=== PATIENT | female | born 1945 | race Caucasian/White ===

== ENCOUNTER 2023-02-16 10:51 | Outpatient (AMB) | payer MEDICARE, SELFPAY ==
--- NOTE | 2023-02-16 11:18 | HO.SPINEOV ---
Intake Intake Visit Reasons: radiculopathy/spinal stenosis Intake Note: Ms. Read is here today c/o low back pain radiating into both legs. MRI done @ [place]/brought disc. Consulting Services Project Manager Required: No Allergies No Known Allergies [No Known Allergies*] Allergy (Unverified 11/01/19 18:37) Assessment & Plan Assessment & Plan (1) Lumbosacral stenosis without neurogenic claudication: Code(s): M48.07 - Spinal stenosis, lumbosacral region Plan: Dear colleague Thank you for referring Paulette Read to the office today with a chief complaint of bilateral leg pain. HPI: This 77-year-old female is suffering from lumbar spinal stenosis resulting in pain down both legs with the left side is more affected than the right side. Her symptoms started about 15 years ago and were always managed with some form of conservative treatment ranging from physical therapy to injections. Unfortunately, the conservative measurements no longer work. Therefore she is referred for a surgical consultation. The symptoms developed after 1 or 2 minutes of standing or walking. She now history ambulate with a walker as leaning forward provides relief. The following conservative treatment options were tried without success antiinflammatories, tylenol, physical therapy, cortisone shots PMH: Repair broken hip, hypertension, depression, osteopenia Medications: Clonazepam p.r.n. tramadol, ketorolac, alendronate, fluoxetine, atenolol, losartan, nortriptyline, amlodipine, aspirin, triamcinolone Allergies: NKDA Social history: Lives alone. Nonsmoker. Physical Exam: Pleasant female ambulates with a walker. No neurological deficits for motor sensation or reflexes on exam. She is able to reproduce radiating pain down her legs after 1 minutes of standing in the office. Radiological Studies: MRI done at [facility] on 12/31/2022 shows a grade 2 L4-5 spondylolisthesis and associated severe L4-5 central spinal stenosis and bilateral L4 foraminal narrowing. The remainder of the lumbar spine is unremarkable. The L4-5 grade 2 spondylolisthesis was confirmed with a standing x-ray today. Impression/Plan: This 77-year-old female is suffering from progressive symptoms of neurogenic claudication caused by a grade 2 L4-5 spondylolisthesis and associated spinal stenosis. The best treatment option would be to minimally invasive reduce the spondylolisthesis, which will indirectly decompress the nerve structures. I described the oblique lumbar interbody fusion to the patient and she wants to proceed. She is scheduled for 04/24/2023. She will get preoperative clearance from her primary care physician. Thank you for allowing me to participate in your patients care. total time spent was 50 minutes in counseling ,coordination of plan, personal review of imaging, surgical decision making and subsequent plan Kristian Zaldivar MD, PhD Spine Fellowship Trained Neurosurgeon Director, [facility] (2) Spondylolisthesis of lumbar region: Code(s): M43.16 - Spondylolisthesis, lumbar region Plan: g Orders: Orders XR lumbar spine 4V min Today M43.16 - Spondylolisthesis, lumbar region, M48.07 - Spinal stenosis, lumbosacral region Coding Level of Care Code New Pt Level 5 (56302) Diagnoses Lumbosacral stenosis without neurogenic claudication M48.07 Spondylolisthesis of lumbar region M43.16
== END 2023-02-16 12:29 | disposition home or self-care (01) ==
PROVIDERS: PCP Physician Assistant Medical; Referring Provider Physical Medicine & Rehabilitation; Visit Provider Neurological Surgery
DX: M48.07 Spinal stenosis, lumbosacral region (principal); M43.16 Spondylolisthesis, lumbar region
CPT/HCPCS: 99205

== ENCOUNTER 2023-02-16 10:51 | Outpatient (REF) | payer MEDICARE, SELFPAY ==
--- NOTE | ~2023-02-16 | XR_ITS ---
EXAMINATION: XR LUMBOSACRAL SPINE WITH OBLIQUES CLINICAL INFORMATION: Spondylolisthesis. COMPARISON: Left hip of 10/03/2019. TECHNIQUE: 4 views of the lumbosacral spine inclusive of flexion and extension views. FINDINGS: The bones are diffusely demineralized. Dextroscoliosis of the lumbar spine. Bones are diffusely demineralized. Calcifications overlie the left kidney measuring up to 5 mm and could be evaluated further with renal ultrasound. Facet arthritis in the mid to lower lumbar spine. Multilevel lumbar spondylosis. Severe degenerative changes with loss of disc space height at L4-L5. Anterolisthesis of L4 on L5 measures 1.5 cm. Moderate loss of disc space height at L5-S1. Anterolisthesis of L5 on S1 measures 1.8 cm. XR/XR lumbar spine 4V min IMPRESSION: 1. Advanced degenerative disc disease with anterolisthesis at L4-L5 and L5-S1. 2. Facet arthritis in the mid to lower lumbar spine.
== END 2023-02-16 10:52 | disposition home or self-care (01) ==
LOC: HO.HOSX 10:51
PROVIDERS: Visit Provider Neurological Surgery
DX: M48.07 Spinal stenosis, lumbosacral region (principal); M43.16 Spondylolisthesis, lumbar region
CPT/HCPCS: 72110; 99202

== ENCOUNTER 2023-05-03 06:19 | Inpatient (IN) | payer MEDICARE, SELFPAY ==
[2023-04-20 12:16] VITALS: BP 156/70; PULSE 55; RESP 20; O2SAT 100; BMI 25.7
--- NOTE | 2023-04-20 12:25 | HO.ANESPROP2 ---
Documented by User: Grace Walls NP 05/02/23 15:25 HPI - Anesthesia Eval Consult details Narrative: 78yo F for L4-5 Oblique Lumbar Interbody Fusion, 05/03/23 Medically cleared No recent illness No CP/SOB within limits of pain. Hyperparathyroid. Follows endocrine at [facility] forearm swelling. Started years ago, work up at that time revealed no clear etiology. Mcmahan's Palsy. ~2013 [facility] Active Problems Active Problems: All Active Problems (Updated 04/20/23 @ 12:09 by Yara Gautam RN) Lumbosacral stenosis without neurogenic claudication (Acute) Spondylolisthesis of lumbar region (Acute) Past Medical History Medical History (Updated 04/26/23 @ 10:53 by Yara Gautam RN) Osteoporosis Left arm swelling HTN (hypertension) Diverticulosis Osteopenia Mcmahan's palsy Chronic renal insufficiency Hyperparathyroidism Basal cell carcinoma Osteoarthritis Depression with anxiety Family History Family history of problems with anesthesia: No Surgical History Surgical History (Updated 04/20/23 @ 12:10 by Yara Gautam RN) History of dental surgery History of hip surgery Hx of breast biopsy H/O colonoscopy History of Problems with Anesthesia: No Social History Social History (Updated 04/19/23 @ 08:35 by Yara Gautam RN) Are you a primary chronic care nurse to a significant other at home: No Do you presently have visiting nurse or other home services: No Patient Tobacco Use Status: Former Tobacco user Quit Date: 1973 Tobacco use type: Cigarette Years Smoked: 16 Use of substances other than those prescribed or required for medical reasons: No Have you been hit, kicked, punched, or otherwise hurt by someone within the past year? If so, by whom?: No Are you DNR?: No Advance Directives Information Provided: Yes (as above noted) Advance Directives on File: No Recently lost weight without trying: No Eating poorly because of decreased appetite: No Nutrition Risks: Surgical patient >75years Poor oral hygiene: No (full upper 7 partial lower denture) Meds Allergies Allergy/AdvReac Type Severity Reaction Status Date / Time No Known Allergies Allergy Unverified 11/01/19 18:37 [No Known Allergies*] Home Medications Medication Instructions Recorded Confirmed Last Taken Type alendronate 70 mg tablet 70 mg PO QWEEK 04/19/23 04/19/23 05/02/23 History amlodipine 10 mg tablet 10 mg PO QAM 04/19/23 04/20/23 05/03/23 History aspirin 81 mg tablet,delayed 81 mg PO BEDTIME 04/19/23 04/20/23 04/26/23 History release atenolol 100 mg tablet 100 mg PO QAM 04/19/23 04/20/23 05/03/23 History clonazepam 0.5 mg tablet 0.5 mg PO BID PRN anxiety 04/19/23 04/19/23 05/03/23 History fluoxetine 20 mg capsule 20 mg PO QAM 04/19/23 04/20/23 05/02/23 History ketorolac 0.5 % eye drops 1 drp ophthalmic (eye) TID PRN Dry 04/19/23 04/20/23 05/02/23 History Eyes losartan 25 mg tablet 25 mg PO QAM 04/19/23 04/20/23 05/02/23 History multivitamin 1 tab PO QAM 04/19/23 04/20/23 05/02/23 History nortriptyline 75 mg capsule 75 mg PO BEDTIME 04/19/23 04/19/23 05/02/23 History acetaminophen 500 mg tablet 1,000 mg PO Q6H PRN Pain 04/20/23 04/20/23 05/02/23 History Exam Height,Weight and Vital Signs: Height 5 ft 1 in Weight 61.7 kg Last Vital Signs Pulse 55 04/20/23 12:16 Resp 20 04/20/23 12:16 BP 156/70 H 04/20/23 12:16 Pulse Ox 100 04/20/23 12:16 O2 Del Method Room Air 04/20/23 12:16 Pertinent Lab Results Pertinent Lab Results: Lab Results 04/20/23 04/20/23 Range/Units 12:54 13:01 WBC 7.3 (4.8-10.8) X10*3/uL RBC 3.55 L (4.20-5.50) X10*6/uL Hgb 11.5 L (12.0-16.0) g/dl Hct 35.8 L (37.0-47.0) % MCV 100.8 H (80.0-98.0) fL MCH 32.4 (27.0-33.0) pg MCHC 32.1 (31.0-35.0) g/dl RDW 12.9 (11.0-16.0) % Plt Count 237 (160-400) X10*3/uL MPV 12.4 H (9.4-12.3) fL Absolute Nucleated RBC 0.000 (0.0-0.012) X10*3/uL Nucleated RBC % (auto) 0.0 (0.0-0.2) /100WBC Sodium 139 (135-145) mmol/L Potassium 5.0 (3.3-5.1) mmol/L Chloride 105 (96-108) mmol/L Carbon Dioxide 29 (22-29) mmol/L Anion Gap 10 L (12-20) BUN 26 H (9-16) mg/dL Creatinine 0.89 (0.5-1.4) mg/dL Estim Creat Clear Calc 43.1 Estimated GFR > 60 Random Glucose 98 (60-115) mg/dL Calcium 10.6 H (8.4-10.2) mg/dL Blood Type O Positive Antibody Screen NEGATIVE Narrative Narrative: EKG 04/2023 per clearance note NSR Airway Mallampati Class: III TM Dist: >3cm Neck ROM: Full Heart: RRR Lungs: CTAB Assessment and Plan Assessment Anesthesia Assessment: Anesthesia Plan Discussed and PAT Visit Final Anesthetic Review Family History of Problems with Anesthesia: No History of Problems with Anesthesia: No Documented by User: Dima Penny MD 05/03/23 07:32 [facility] Past Medical History Medical History (Updated 04/26/23 @ 10:53 by Yara Gautam RN) Osteoporosis Left arm swelling HTN (hypertension) Diverticulosis Osteopenia Mcmahan's palsy Chronic renal insufficiency Hyperparathyroidism Basal cell carcinoma Osteoarthritis Depression with anxiety Surgical History Surgical History (Updated 04/20/23 @ 12:10 by Yara Gautam RN) History of dental surgery History of hip surgery Hx of breast biopsy H/O colonoscopy Social History Social History (Updated 04/19/23 @ 08:35 by Yara Gautam RN) Are you a primary chronic care nurse to a significant other at home: No Do you presently have visiting nurse or other home services: No Patient Tobacco Use Status: Former Tobacco user Quit Date: 1973 Tobacco use type: Cigarette Years Smoked: 16 Use of substances other than those prescribed or required for medical reasons: No Have you been hit, kicked, punched, or otherwise hurt by someone within the past year? If so, by whom?: No Are you DNR?: No Advance Directives Information Provided: Yes (as above noted) Advance Directives on File: No Recently lost weight without trying: No Eating poorly because of decreased appetite: No Nutrition Risks: Surgical patient >75years Poor oral hygiene: No (full upper 7 partial lower denture) Meds Allergies Allergy/AdvReac Type Severity Reaction Status Date / Time No Known Allergies Allergy Unverified 11/01/19 18:37 [No Known Allergies*] Home Medications Medication Instructions Recorded Confirmed Last Taken Type alendronate 70 mg tablet 70 mg PO QWEEK 04/19/23 04/19/23 05/02/23 History amlodipine 10 mg tablet 10 mg PO QAM 04/19/23 04/20/23 05/03/23 History aspirin 81 mg tablet,delayed 81 mg PO BEDTIME 04/19/23 04/20/23 04/26/23 History release atenolol 100 mg tablet 100 mg PO QAM 04/19/23 04/20/23 05/03/23 History clonazepam 0.5 mg tablet 0.5 mg PO BID PRN anxiety 04/19/23 04/19/23 05/03/23 History fluoxetine 20 mg capsule 20 mg PO QAM 04/19/23 04/20/23 05/02/23 History ketorolac 0.5 % eye drops 1 drp ophthalmic (eye) TID PRN Dry 04/19/23 04/20/23 05/02/23 History Eyes losartan 25 mg tablet 25 mg PO QAM 04/19/23 04/20/23 05/02/23 History multivitamin 1 tab PO QAM 04/19/23 04/20/23 05/02/23 History nortriptyline 75 mg capsule 75 mg PO BEDTIME 04/19/23 04/19/23 05/02/23 History acetaminophen 500 mg tablet 1,000 mg PO Q6H PRN Pain 04/20/23 04/20/23 05/02/23 History Exam Airway Denture: Upper and Lower Assessment and Plan Assessment Anesthesia Assessment: Chart Reviewed Final Anesthetic Review NPO: Yes ASA Class: II Final Preanesthetic Review: No Changes in Pt Med Stat, Meds/Allgs Chart Reviewed, Consent Obtained/Reviewed and Anes Risks/Benef Reviewed Patient Risk: Intermediate Procedure Risk: Intermediate Anesthetic Plan Anesthetic Plan: GA Disposition: Standard PACU
[2023-04-20 13:46] LABS: Hematocrit 35.8 % (37.0-47.0); Hemoglobin 11.5 g/dl (12.0-16.0); Mean Corpuscular HGB Conc 32.1 g/dl (31.0-35.0); Mean Corpuscular Hemoglobin 32.4 pg (27.0-33.0); Mean Corpuscular Volume 100.8 fL (80.0-98.0); Mean Platelet Volume 12.4 fL (9.4-12.3); Platelet Count 237 X10*3/uL (160-400); Red Blood Count 3.55 X10*6/uL (4.20-5.50); Red Cell Distribution Width 12.9 % (11.0-16.0); White Blood Count 7.3 X10*3/uL (4.8-10.8)
[2023-04-20 14:50] LABS: Anion Gap 10 (12-20); Blood Urea Nitrogen 26 mg/dL (9-16); Calcium 10.6 mg/dL (8.4-10.2); Carbon Dioxide 29 mmol/L (22-29); Chloride 105 mmol/L (96-108); Creatinine Clr Calc Pharmacy 43.1; Estimated Glomerular Filt Rate > 60; Glucose Random 98 mg/dL (60-115); Sodium 139 mmol/L (135-145)
[2023-05-03] VITALS (13 sets, daily range): BP systolic 101–132; BP diastolic 47–64; PULSE 59–88; RESP 12–18; TEMP 36–36.3; O2SAT 95–100; BMI 28.7
--- NOTE | ~2023-05-03 | FL_ITS ---
EXAMINATION: XR FLUOROSCOPY WITH IMAGES CLINICAL INFORMATION: L4-5 oblique lumbar interbody fusion. COMPARISON: Lumbar spine radiographs 02/16/2023. TECHNIQUE: Fluoroscopy Supervised By: Dr. Harry Zaldivar. Fluoroscopy Time: 2.5 minutes. Cumulative Dose: 99.623 mGy. DAP: 38.570 Gycm2. Images: 3. FINDINGS: 3 images demonstrate posterior pedicular screws with vertical stabilization rods at L4-L5 with an interbody device. There is grade 2 anterolisthesis of L5 upon S1 and mild grade 1 anterolisthesis of L4 upon L5. Compared with the 02/16/2023 exam, there has been marked improvement in the anterolisthesis at the L4-L5 level. FL/FL guidance in OR IMPRESSION: Fluoroscopy and spot films provided during L4-L5 fusion. Please see Dr. Harry Zaldivar' procedure note for full details.
[2023-05-03] MEDS: Lactated Ringers 1,000 ML 100 ML IVCONT (06:45)
[2023-05-03] MEDS: Gabapentin 300 MG CAPSULE PO (06:45)
[2023-05-03] MEDS: methocarbamoL 750 MG TABLET PO (06:45)
--- NOTE | 2023-05-03 06:56 | P.HPSUR_ITS ---
Pre-Procedural Eval Section A - 24 Hr Update-Section A only Date of Service: 05/03/23 The patient is an INPATIENT: No Changes since office visit: No Cold of Flu in the past 2 weeks, No New Medical Problems, No Changes in Medication and No Patient answered all questions The patient has been examined within 24 hours of the surgical procedure. The History & Physical has been completed within 30 days and I have reviewed it.: No Section B - Complete if H&P > 30 days Chief Complaint: Lumbar radiculopathy Allergies: Allergies Allergy/AdvReac Type Severity Reaction Status Date / Time No Known Allergies Allergy Unverified 11/01/19 18:37 [No Known Allergies*] Review of Systems Sugical H&P ROS: Negative: Constitution, Cardiovascular, Respiratory, Neurological, Psychiatric, Hem-Onc, Allergic/Immunologic, Gastrointestinal, Genitourinary, Musculoskeletal, Integumentary, Endocrine and Eyes/Ears/Nose/Thr oat Exam Surgical H&P Exam: Not Evaluated: HEENT, Not Evaluated: Heart, Not Evaluated: Lungs, Not Evaluated: Extremities, Not Evaluated: Abdomen, Not Evaluated: Skin and Not Evaluated: Neurological Plan Diagnosis/Plan: Unchanged L4-5 Oblique lumbar interbody fusion Time Spent With Patient Time: Total time managing care of this patient today _7___ minutes.
--- NOTE | 2023-05-03 07:16 | PC.NURSE ---
Pt reports right lower abdominal fold with rash using cream, split on right thumb (b/a cdi) for skin alterations.
--- NOTE | 2023-05-03 07:34 | PC.NURSE ---
0715 Anesthesia at bedside.
--- NOTE | 2023-05-03 07:35 | PC.NURSE ---
0720 / Zen at bedside
--- NOTE | 2023-05-03 07:47 | PHA.MEDREC ---
Pharmacy Consult ? Medication Reconciliation Pharmacy has completed the medication reconciliation. Checked med rec done by nursing
--- NOTE | 2023-05-03 09:56 | P.OP_ITS ---
Operative Note Operative Note Date of Service: 05/03/23 Narrative: Preop Diagnosis: 1.) L4-5 spondylolisthesis and neurogenic claudication Procedure: L4-5 discectomy, arthrodesis and implantation cage through an anterolateral, retroperitoneal approach; posterior instrumented fusion L4-5; allograft Consent Informed Consent was obtained for this operation. I have explained the nature, purpose and benefits of the operation. I have discussed the risks and benefit of the operation including possible complications or adverse events with patient/family. Alternative(s) were discussed with the patient with their relative benefits and risks as well as the consequences of not accepting the operation were included in obtaining consent. Surgeon: LEA VALLE MD, PHD Procedure Assisted By: severino Herrera Description of Procedure This patient is suffering from neurogenic claudication due to a grade 2 L4-5 spondylolisthesis. The patient was offered an oblique lumbar interbody fusion L4-5 to reduce the spondylolisthesis and indirectly decompress the spinal canal. The procedure complications were explained. The patient was consented. The patient was brought to the operating room and endotracheally intubated. The patient was turned in a lateral position with the left side up. Prep and drape was done followed by timeout. A small incision was made in the left lower abdominal quadrant. The muscle fascia was opened after which the 3 muscle layer was split to enter the retroperitoneal space. Dilators were docked in the anterior one third of the L4-5 disc space followed by a retractor. The retractor was opened. The L4-5 disc space was exposed. An annulotomy was done after which an elevator Zarco was used to release the disc material from its endplates and to perforate the contralateral side. A partial discectomy was done. An 8 mm height trial implant was inserted. The discectomy was completed. The endplates were prepared. An 8 x 45 mm with 0 degree lordosis 4 web cage filled with allograft was inserted into the disc space under fluoroscopic guidance. This resulted in partial reduction of the lumbar spondylolisthesis. The retractor was removed. Hemostasis was done. The incision was closed in 2 layers. Steri-Strips used to approximate incision. An OpSite with Tegaderm was used to cover the incision. This marked first part of the procedure. The patient was turned prone on the Maximino spine table. 2C arms were installed for fluoroscopy. Prep and drape was done followed by a second timeout. First, a muscularis erector spinae block was done bilaterally with experal 10 cc bilaterally . Then 2 paramedian incisions were made lateral from the L4 and L5 pedicles. The muscle fascia was opened after which the muscle layer was split bluntly to expose the posterolateral gutter. The following steps were taken. A pediguard tap was used to create a transpedicular trajectory into the vertebral body. A K wire was placed. A specially designed instrument was advanced over the K wire to decorticate the posterolateral gutter in preparation for the posterol ateral fusion. A pedicle screw was advanced over the K wire and the K wire was removed. The steps were done for the bilateral L4 and L5 pedicles. A total of 4 screws were placed with a diameter of 6.5 x 45 mm in the left L4 and bilateral L5 pedicles and 7.5 x 45 mm in the right L5 pedicle. Pedicle screws were connected with 45 mm akosua bilaterally and locked down with locking caps. The extension towers were removed. The posterolateral gutter was filled with allograft to complete the posterolateral L4-5 fusion Hemostasis was done and the incision was closed in 2 layers. Steri-Strips were used to approximate the incision. An OpSite were taken and was used to cover the incision. All sponge and needle counts were correct. Patient was extubated and transferred in stable is to recovery room. Anesthesia: General Estimated Blood Loss (ml): 50 mL Duration of Surgery: 90 minutes Complications: None Postoperative Plan: Admit to inpatient for observation
[2023-05-03] MEDS: 0.9 % Sodium Chloride 1,000 ML 75 ML IVCONT (12:41)
[2023-05-03] MEDS: FLUoxetine HCl 20 MG CAPSULE PO (12:48)
[2023-05-03] MEDS: Multivitamin TABLET 1 TAB PO (12:52)
[2023-05-03] MEDS: Acetaminophen 1,000 MG/100 ML PIGGYBACK 400 MG IV ×2 (14:53→20:54)
[2023-05-03] MEDS: ceFAZolin Sodium/Dextrose,Iso 2 GM/50 ML PIGGYBACK IV ×2 (15:19→22:18)
[2023-05-03] MEDS: Ketorolac Tromethamine 15 MG/ML VIAL IVPUSH ×2 (16:34→20:53)
[2023-05-03] MEDS: Nortriptyline HCl 25 MG CAPSULE 75 MG PO (20:52)
[2023-05-03] MEDS: Docusate Sodium 100 MG CAPSULE PO (20:53)
[2023-05-03] MEDS: Aspirin Enteric Coated 81 MG TABLET.DR PO (20:53)
[2023-05-04] MEDS: 0.9 % Sodium Chloride 1,000 ML 75 ML IVCONT (02:10)
[2023-05-04] MEDS: Acetaminophen 1,000 MG/100 ML PIGGYBACK 400 MG IV (02:40)
[2023-05-04] MEDS: ceFAZolin Sodium/Dextrose,Iso 2 GM/50 ML PIGGYBACK IV (03:16)
[2023-05-04 03:27] VITALS: BP 117/56; PULSE 80; RESP 16; TEMP 36.3; O2SAT 96
[2023-05-04] MEDS: Ketorolac Tromethamine 15 MG/ML VIAL IVPUSH (05:05)
[2023-05-04 06:51] VITALS: BP 100/58; PULSE 79; RESP 16; TEMP 36.6; O2SAT 97
[2023-05-04] MEDS: Losartan Potassium 25 MG TABLET PO (08:35)
[2023-05-04] MEDS: atenoloL 100 MG TABLET PO (08:36)
[2023-05-04] MEDS: amLODIPine Besylate 10 MG TABLET PO (08:36)
[2023-05-04] MEDS: Docusate Sodium 100 MG CAPSULE PO (08:36)
[2023-05-04] MEDS: FLUoxetine HCl 20 MG CAPSULE PO (08:36)
--- NOTE | 2023-05-04 08:58 | PM.DS ---
DS: Providers Provider Date of Service: 05/04/23 Date of admission: 05/03/23 06:19 Primary care physician: BRADY Caldwell DS: Summary Time Attestation Discharge Coordination Time (in mins): 15 Quality: Safe Use of Opioids Does Pt have an Active Cancer Diagnosis on the Problem List?: No Quality: Stroke Does the patient have a stroke diagnosis?: No Physical Exam Vital Signs: Vital Signs: Last Vital Signs Temp 98 F 05/04/23 06:51 Pulse 79 05/04/23 06:51 Resp 16 05/04/23 06:51 BP 100/58 L 05/04/23 06:51 Pulse Ox 97 05/04/23 06:51 O2 Del Method Room Air 05/04/23 06:51 O2 Flow Rate 2 05/03/23 12:28 BMI result Body Mass Index 28.7 Discharge Plan Discharge Anticipated Discharge Date/Time: 05/04/23 09:04 Patient Disposition: Home, Self-Care Discharge Diagnosis: S/P L 4-5 OLIF Referrals: Daryl Guerin PA [Primary Care Provider] - 1 Week Discharge Medications: New oxycodone 5 mg tablet 5 mg PO Q4-6H PRN (Reason: severe pain (scale score 7-10)) Qty: 30 0RF Rx Instructions: Partial Fill upon patient request. Continued multivitamin Tablet 1 tab PO QAM atenolol 100 mg tablet 100 mg PO QAM alendronate 70 mg tablet 70 mg PO QWEEK clonazepam 0.5 mg tablet 0.5 mg PO BID PRN (Reason: anxiety) aspirin 81 mg Tablet,Delayed Release (Dr/Ec) 81 mg PO BEDTIME ketorolac 0.5 % drops 1 drp ophthalmic (eye) TID PRN (Reason: Dry Eyes) amlodipine 10 mg tablet 10 mg PO QAM nortriptyline 75 mg capsule 75 mg PO BEDTIME losartan 25 mg tablet 25 mg PO QAM fluoxetine 20 mg capsule 20 mg PO QAM acetaminophen 500 mg Tablet 1,000 mg PO Q6H PRN (Reason: Pain) Discharge Orders: Discharge Order (Routine); Ordered 05/04/23 Ordered By: Zachariah Chen Diet: Advance to usual diet Activity on Discharge: As tolerated Stand Alone Forms: Patient Portal Discharge page Activity Restrictions/Additional Instructions: After your spinal surgery we ask you to observe the following restrictions/guidelines: Activity: It is normal to feel some discomfort as you increase your activity, but that will improve with time. We ask you avoid heavy lifting or acitivities that cause pain. As a general rule, 8lbs is a safe limit for lifting right after surgery. Walk as much as you feel comfortable but not to exhaustion. You will feel extra tired the first few days after surgery. Stay well hydrated. It is OK to walk up and down stairs You may return to driving when you are off narcotics (such as vicodin, oxycodone, dilaudid, etc), and you are back to normal functional capacity. If you have any concerns please check with office before driving. Return to work is specific to each patient and each surgery, so please speak with your doctor/PA at first follow up. Please bring paperwork such as FMLA at that time if you need it filled out. Medications: We will give you a short supply of narcotics after surgery (usually one weeks worth). If you need more please call the office but do not use more than prescribed. You will need to give our office 48 hours notice if you need narcotics refilled and we do not fill narcotics on weekends or evenings. If you are on a narcotic, it is a good idea to take a stool softener such as colace or senna to avoid constipation If you take blood thinner such as aspirin, Plavix, Coumadin, Effient, Eliquis etc for conditions such as Afib, DVT, Pulmonary embolus, coronary disease, stents etc please speak with your surgeon about specific details as to when you can resume these medications. You can resume NSAIDs on post op day 1 (eg: Motrin, Naproxen, etc). Follow up: Please call the office, , after surgery to arrange a 3 week follow up for wound check. Wound Care: You may remove your dressing on the first day after surgery. ?You may ?leave open to air. Please do not remove the steri strips underneath. they will fall off on their own in one week. IT IS NORMAL FOR THE WOUND TO OOZE OR BE BLOODY FOR A FEW DAYS AFTER SURGERY. ?IF THIS HAPPENS JUST PLACE NEW DRESSING OVER IT TO AVOID STAINING CLOTHES. You may shower on post op day # 1 We ask that you do not let the water soak the wound. If it does get wet, just towel dry lightly. Please do not scrub your incision or place any type of chemical/ointment on the wound. No tub baths, pools or jacuzzis for one month. If you have any leaking or redness from your wound, or fevers, please call the office. Care Plan Goals: Return to normal activity as tolerated Health Concerns: None Plan of Treatment: Follow-up in clinic in 2-3 weeks Assessment: POD: 1 Procedure: L4-5 OLIF Paulette was seen this morning on [facility] [address] sitting upright in bed had just finished breakfast. She reports she is up, walking around, and is otherwise doing well. She feels her symptoms are much better than pre-operatively. She reports no low back pain and no leg radiation. She reports no other pain and states the pain medication is working very well. She is ambulating to the bathroom, voiding well, tolerating diet. Afebrile, vital signs stable. Full strength 5/5 in bilateral lower extremities. Anterolateral and posterior dressings have some staining without signs of hematoma. No active sanguineous drainage. Area is dry. Plan: Patient meets criteria to be medically discharged home. This was discussed with the attending neurosurgeon Dr. Zaldivar.
--- NOTE | 2023-05-04 09:04 | HO.NEUROPN_ITS ---
Neurosurgery Operative Note Date of Service: 05/04/23 Narrative: POD: 1 Procedure: L4-5 OLIF Paulette was seen this morning on [address] sitting upright in bed had just finished breakfast. She reports she is up, walking around, and is otherwise doing well. She feels her symptoms are much better than pre-operatively. She reports no low back pain and no leg radiation. She reports no other pain and states the pain medication is working very well. She is ambulating to the bathroom, voiding well , tolerating diet. Afebrile, vital signs stable. Full strength 5/5 in bilateral lower extremities. Anterolateral and posterior dressings have some staining without signs of hematoma. No active sanguineous drainage. Area is dry. Plan: Patient meets criteria to be medically discharged home. This was discussed with the attending neurosurgeon Dr. Zaldivar.
[2023-05-04] MEDS: Multivitamin TABLET 1 TAB PO (09:08)
--- NOTE | 2023-05-04 09:33 | MHC.CM.PN ---
PATIENT LIVES ALONE AND RELIES ON A ROLLATOR NEEDED. HER DAUGHTER WILL BE STAYING WITH HER AT DISCHARGE. SHE HAS TRANSPORT HOME. PATIENT DOES NOT HAVE ANY VNA SERVICES AND DOES NOT REQUIRE THEM. IMM EXPLAINED AND UNDERSTOOD. IMM LEFT BEDSIDE FOR PATIENT, SHE WAS WORKING WITH PHYSICAL THERAPY. SHE DOES NOT WISH TO APPEAL HER DC. IMM 05/03 IN CHART
[2023-05-04 09:34] VITALS: BP 100/58; PULSE 79; O2SAT 97
[2023-05-04] MEDS: Acetaminophen 325 MG TABLET 975 MG PO (10:13)
--- NOTE | 2023-05-04 12:48 | HO.POSTANES ---
Post Anesthesia Evaluation Post Anesthesia Evaluation Date of Service: 05/04/23 Vital Signs: Vital Signs Temp Pulse Resp BP Pulse Ox O2 Del Method 05/04/23 09:34 79 100/58 L 97 05/04/23 06:51 98 F 79 16 100/58 L 97 Room Air 05/04/23 03:27 97.3 F 80 16 117/56 L 96 Room Air Anesthesia: General Endotracheal-GETA Mental Status: Awake Pain Control: Satisfactory Nausea/Vomiting: None Hydration: Adequate Anesthesia-Related Issues: No Anes. Related Issues
== END 2023-05-04 12:00 | disposition home or self-care (01) | DRG 460 ==
LOC: HO.SSSA 06:28 → HO.S3 10:49
PROVIDERS: Neurological Surgery; Nurse Practitioner; Admitting Provider Physician Assistant; PCP Physician Assistant Medical; Visit Provider Physician Assistant
PROC: 0SG00A0 Fusion of Lumbar Vertebral Joint with Interbody Fusion Device, Anterior Approach, Anterior Column, Open Approach (ICD-10-PCS; principal; 2023-05-03 07:30)
DX: M48.062 Spinal stenosis, lumbar region with neurogenic claudication (principal); Z87.891 Personal history of nicotine dependence; Z79.82 Long term (current) use of aspirin; Z79.899 Other long term (current) drug therapy
CPT/HCPCS: 36415; 80048; 85027; 86850; 86900; 86901; 97116; 97162; C1713; C9290; J0131; J0665; J0690; J1100; J1885; J2250; J2371; J2405; J2704; J3010; L8699

== ENCOUNTER → 2023-05-03 06:19 | Outpatient (BNV) | payer MEDICARE, SELFPAY | PROVIDERS: Admitting Provider Physician Assistant; PCP Physician Assistant Medical; Visit Provider Neurological Surgery | DX: M48.062 Spinal stenosis, lumbar region with neurogenic claudication (principal) | CPT/HCPCS: 20930; 22558; 22612; 22840; 22853; 99024; 99499 ==

== ENCOUNTER 2023-05-25 13:24 | Outpatient (AMB) | payer MEDICARE, SELFPAY ==
--- NOTE | 2023-05-25 13:27 | MHC.OFFVIS ---
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 Required: No Allergies No Known Allergies [No Known Allergies*] Allergy (Unverified 11/01/19 18:37) PFS Medical History Osteoporosis Left arm swelling HTN (hypertension) Diverticulosis Osteopenia Mcmahan's palsy Chronic renal insufficiency Hyperparathyroidism Basal cell carcinoma Osteoarthritis Depression with anxiety Surgical History (Updated 05/25/23 @ 13:40 by BRADY Martins) History of dental surgery History of hip surgery Hx of breast biopsy H/O colonoscopy Social History (Updated 04/19/23 @ 08:35 by Yara Gautam RN) Household Members: None Housing: House Are you a primary career guidance counselor to a significant other at home: No Do you presently have visiting nurse or other home services: No Patient Tobacco Use Status: Former Tobacco user Quit Date: 1973 Tobacco use type: Cigarette Years Smoked: 16 Second Hand Smoke Exposure: No Assessment & Plan Assessment & Plan (1) Spondylolisthesis of lumbar region: Code(s): M43.16 - Spondylolisthesis, lumbar region (2) S/P lumbar fusion: Code(s): Z98.1 - Arthrodesis status Plan Procedure: L4-5 OLIF Paulette comes in today for her 1st postoperative visit. She reports she is satisfied with the surgery and feels better than she did preoperatively. Paulette reports she is up and walking around with the assistance of her walker and completing basic ADLs. She states that the shooting pains into her bilateral lower extremities have significantly improved. She still reports mild pain, with good relief with pain tylenol. She is encouraged to get up and ambulate as much as possible, even if that means utilizing her walker to do so has this will help maximize her healing course. No new neurological deficits. Patient is able to ambulate well, rises from a seated position without difficulty. Incision sites are closed, well healing, with no signs of drainage. We will follow-up with the patient in 6 weeks for her 2nd postoperative visit. At that time we will get x-rays to review with the patient. Coding Level of Care Code Global (84671) Diagnoses Spondylolisthesis of lumbar region M43.16 S/P lumbar fusion Z98.1
== END 2023-05-25 13:39 | disposition home or self-care (01) ==
PROVIDERS: PCP Physician Assistant Medical; Visit Provider Physician Assistant
DX: M43.16 Spondylolisthesis, lumbar region (principal); Z98.1 Arthrodesis status
CPT/HCPCS: 99024

== ENCOUNTER → 2023-05-25 13:24 | Outpatient (BNVA) | payer MEDICARE, SELFPAY | PROVIDERS: PCP Physician Assistant Medical; Visit Provider Physician Assistant | DX: Z48.89 Encounter for other specified surgical aftercare (principal); M43.16 Spondylolisthesis, lumbar region; Z98.1 Arthrodesis status | CPT/HCPCS: 99212 ==

== ENCOUNTER 2023-07-05 16:19 | Outpatient (REF) | payer MEDICARE, SELFPAY | END 2023-07-05 16:20 | disposition home or self-care (01) | LOC: HO.HOSX 16:19 | PROVIDERS: Visit Provider Physician Assistant | DX: Z13.89 Encounter for screening for other disorder (principal) ==

== ENCOUNTER 2023-07-06 12:50 | Outpatient (REF) | payer MEDICARE, SELFPAY ==
--- NOTE | ~2023-07-06 | XR_ITS ---
EXAMINATION: XR LUMBOSACRAL SPINE WITH OBLIQUES CLINICAL INFORMATION: Arthrodesis status. COMPARISON: None available. TECHNIQUE: 4 views of the lumbar spine. FINDINGS: Bones are diffusely demineralized. Interval placement of posterior fixation hardware spanning L4-L5 with disc spacer. Anterolisthesis of L4 on L5 measures approximately 9 mm neutral, 9 mm with flexion, and 8 mm with extension. Moderate loss of disc space height at L5-S1. Anterolisthesis of L5 on S1 redemonstrated. XR/XR lumbar spine 4V min IMPRESSION: 1. Interval placement of posterior fixation hardware spanning L4-L5 with disc spacer. 2. Anterolisthesis of L4 on L5 measures approximately 9 mm neutral, 9 mm with flexion, and 8 mm with extension. 3. Moderate loss of disc space height at L5-S1. Anterolisthesis of L5 on S1 redemonstrated.
== END 2023-07-06 12:51 | disposition home or self-care (01) ==
LOC: HO.HOSX 12:50
PROVIDERS: PCP Physician Assistant Medical; Visit Provider Physician Assistant
DX: Z98.1 Arthrodesis status (principal)
CPT/HCPCS: 72110; 99212

== ENCOUNTER 2023-07-06 12:50 | Outpatient (AMB) | payer MEDICARE, SELFPAY ==
--- NOTE | 2023-07-06 13:11 | HO.SPINEOV ---
Intake Visit Reasons: 2nd post op with xray Intake Note: Ms. Read is here today for her 2nd post-op appointment with x-rays. Respiratory Therapy Aide Required: No Allergies No Known Allergies [No Known Allergies*] Allergy (Verified 07/06/23 13:11) Assessment & Plan Assessment & Plan (1) S/P lumbar fusion: Code(s): Z98.1 - Arthrodesis status Category: Surgical Plan Procedure: L4-5 OLIF And comes in today for her 2nd postoperative visit. She reports that much of her low back pain as resolved since the surgery, as she stated during her last visit. Unfortunately she still has some very light left thigh radiculopathy which is nagging/dull in nature. She also reports some slight swelling in her ankles which is ascending up towards her bilateral knees. She does endorse being less active recently as a result of her surgery/pain. It is possible that both her swelling in continued pain or a result of inactivity. We discussed the postoperative healing course, and I recommended a course of physical therapy for her. She is agreeable to this and we will be having her complete it here at [facility] No new neurological deficits. The patient ambulates well and rises from a seated position without difficulty. Her posterior and niles-lateral incision sites appear closed and well healed. Unfortunately, our radiology department was unable to upload images from there scans today. There is some issue with [facility]. I informed the patient that I will call her with the results of her x-ray imaging once I am able to view them. For the time being I would like to send her to 6 weeks of physical therapy and we will follow up with her in the office after that. Zachariah Zaldivar MD,PhD [facility] Orders: Orders XR lumbar spine 4V min Today Z98.1 - Arthrodesis status PT Evaluation and Treatment Today Z98.1 - Arthrodesis status Coding Level of Care Code Global (86165) Diagnoses S/P lumbar fusion Z98.1
== END 2023-07-06 13:59 | disposition home or self-care (01) ==
PROVIDERS: PCP Physician Assistant Medical; Visit Provider Physician Assistant
DX: Z98.1 Arthrodesis status (principal)
CPT/HCPCS: 99024

== ENCOUNTER 2023-07-18 14:48 | Outpatient (RCR) | payer MEDICARE, SELFPAY ==
--- NOTE | 2023-07-18 16:09 | MHC.PT.EP ---
[facility] [place] Office [place] Office [place] Office [address] Isiah Crowley [address] [phone] F: [phone] F: [phone] F: [phone] F: [phone] Physical Therapy Plan of Care Date of Evaluation: 07/18/23 Date of Surgery: 05/03/23 Diagnosis: s/p OLIF to L4-L5 on 05/03/23 (RL) Assessment: pt is a 78 y/o female presenting to physical therapy w/ referring diagnosis of S/P lumbar fusion. Impairments include pain, decreased range of motion, decreased strength, impaired functional mobility, impaired postural awareness, and altered ambulation mechanics. pt is a good candidate for skilled PT due to age, potential remediation of impairments, typical disease/condition progression and prognosis, comorbidities, and motivation. pt would benefit from skilled PT intervention to provide a tailored strengthening and stretching exercise program, functional training, gait training, postural re-training, neuromuscular re-education, modalities as needed for pain, equipment safety demonstration. Frequency and Duration: The patient will be seen 2x/wk for 6 wks Short Term Goals: pt will be I w/ HEP to promote self-management of condition. pt will improve B knee extension strength to 5/5 to promote ease in sit<>stand transfers. Disk Sander Goals: pt will decreased 5xSTS and TUG by a statistically significant amount to reduce fall risk. pt will ambulate >500' w/o AD to promote improved access to community. Treatment Plan: Modalities to reduce pain, spasms and effusion. Manual therapy to restore motion and function. Therapeutic exercise to improve strength and flexibility. Neuromuscular re-education for posture and balance. Therapeutic activities to return to functional activities of daily living. Electronically signed by: Kusum Hernandez PT, DPT Please sign and return to therapist. Thank you for your referral.
--- NOTE | 2023-08-24 11:50 | MHC.PT.DC ---
[facility] [place] Office [place] Office [place] Office [address] Isiah Crowley [address] [facility] [phone] F: [phone] F: [phone] F: [phone] F: [phone] Physical Therapy Discharge Report Diagnosis: s/p OLIF to L4-L5 on 05/03/23 (RL) Date of Surgery: 05/03/23 Date of Evaluation: 07/18/23 Date of Discharge: 08/24/23 Treatments to Date: 1 Cancellations to Date: 2 No Shows to Date: 0 Discharge Status: Patient Elected to Stop Discharge Summary: The patient called our office to inform us of a family emergency and that she would like to call back to reschedule her appointments; however, it has been over a month and she has not done so. The patient only attended her initial evaluation. She is being discharged as it has been over 30 days since her last appointment. If she would like to return to physical therapy she will need a new script. Electronically signed by: Kusum Hernandez PT, DPT Please sign and return to therapist. Thank you for your referral.
== END 2023-08-24 11:50 | disposition home or self-care (01) ==
LOC: HO.PT 14:48
PROVIDERS: PCP Physician Assistant Medical; Visit Provider Physician Assistant
DX: Z98.1 Arthrodesis status (principal)
CPT/HCPCS: 97110; 97162

== ENCOUNTER 2024-03-26 11:14 | Inpatient (IN) | payer MEDICARE, SELFPAY ==
--- NOTE | ~2024-03-26 | CT_ITS ---
EXAMINATION: CT ANGIOGRAM CHEST CLINICAL INFORMATION: Dyspnea. COMPARISON: None available. TECHNIQUE: Multiple axial images were obtained through the chest after the administration of 85 mL of Omnipaque 350 intravenous contrast. Extensive vascular post-processing including two-dimensional and three-dimensional reformatted images were created and reviewed on an independent workstation. This CT examination was performed using dose optimization techniques as appropriate, variously including the following: *Automated exposure control *Adjustment of mA and/or kV according to patient size (this includes techniques or standardized protocols for targeted exams where dose is matched to indication/reason for exam; i.e. extremities or head) *Use of iterative reconstruction technique FINDINGS: VASCULAR: -There are left greater than right segmental and subsegmental pulmonary emboli present. No significant enlargement of the main pulmonary artery. Moderate clot burden. -There is mild contrast reflux into the hepatic veins. -There is mild flattening/and bowing of the intraventricular septum. There is prominence of the right atrium. Findings could represent right heart strain. -No evidence of acute aortic syndrome or aneurysm. -Mild to moderate cardiac enlargement. LUNGS: -There are small right greater than left pleural effusions with associated passive atelectasis. -Mild interstitial and groundglass changes are noted throughout both lungs, consisting of small interlobular septal thickening, in keeping with mild CHF. -No dense consolidations. -Small airways appear normal. -Partial expiratory appearance of the trachea. -No pneumothorax. MEDIASTINUM: -Enlarged likely multinodular thyroid. -No concerning adenopathy. -Patulous esophagus. -Xigdo-my-mybucegu sized hiatus hernia.-No mediastinal mass or fluid collection. AXILLA/CHEST WALL: No lymphadenopathy. UPPER ABDOMEN: -Geographic fatty infiltration of the liver, subtle but present. Trace perihepatic ascites. Perisplenic ascites. -Abnormal-appearing gallbladder although this is only partially imaged. Consider dedicated right upper quadrant ultrasound. -Nonobstructing calculi left kidney upper pole. OSSEOUS STRUCTURES: Unremarkable. CT/CT angio chest PE protocol IMPRESSION: 1. Examination POSITIVE for bilateral segmental and subsegmental the, left greater than right. There is evidence of reflux into the hepatic veins, dilatation of the right atrium, and mild septal bowing of the intraventricular septum. Findings meet criteria for submassive PE. 2. There are mild changes of interstitial pulmonary edema. Bilateral small right greater than left pleural effusions. 3. Mild to moderate cardiomegaly. 4. Patulous esophagus with a moderate size hiatus hernia. 5. Nonobstructing left renal calculi. Small volume upper abdominal ascites. 6. Abnormal appearing liver. 7. Abnormal appearance of gallbladder although may relate to ascites in the gallbladder fossa. Refer to the dedicated CT abdomen and pelvis performed concurrently. Findings were relayed to Dr. Desmond Hough of the [place] [facility] via secure text at 2:30 PM, 03/26/2024. Electronically signed by: Azael Cheek MD 03/26/2024 02:45 PM [facility] [place]
--- NOTE | ~2024-03-26 | CT_ITS ---
EXAMINATION: CT ABDOMEN AND PELVIS WITH CONTRAST CLINICAL INFORMATION: Abdominal pain. Nausea. COMPARISON: None available. TECHNIQUE: Multidetector volumetric images were obtained from the superior aspect of the liver through the pubic symphysis following administration 85 mL of Omnipaque 350 intravenous contrast. Sagittal and coronal reformatted images were obtained on the technologist's workstation. Oral contrast: No This CT examination was performed using dose optimization techniques as appropriate, variously including the following: *Automated exposure control *Adjustment of mA and/or kV according to patient size (this includes techniques or standardized protocols for targeted exams where dose is matched to indication/reason for exam; i.e. extremities or head) *Use of iterative reconstruction technique DLP: 474.67 mGy centimeter. FINDINGS: LUNG BASES: Right-sided pleural effusion, moderate volume. Small left-sided pleural effusion. Multifocal patchy pulmonary groundglass in the perihilar region extending peripherally. LIVER, GALLBLADDER, AND BILIARY TREE: Liver measures 18 cm. There are multifocal, different sizes, ill-defined low density lesions throughout the liver parenchyma, the largest measures 4 cm. The main portal vein and main hepatic veins are patent. 2 cm cholelithiasis and other smaller in the gallbladder lumen. No pericholecystic fluid collection or gallbladder wall thickening. No intrahepatic or extrahepatic biliary ductal dilatation. PANCREAS: No focal mass. No peripancreatic fluid collection. No main pancreatic ductal dilatation. SPLEEN: 9 cm. No focal mass. ADRENAL GLANDS: No nodular lesions. KIDNEYS AND URETERS: No gross renal mass. No hydronephrosis. Probable nonobstructing nephrolithiasis, bilaterally. BLADDER: Fluid-filled. GASTROINTESTINAL TRACT: There is residual contrast within the rectosigmoid colon. There is abundant stool within the large intestine. Numerous diverticula in the sigmoid colon. Appendix is normal. No intestinal obstruction pattern. Discussed trace of ascites. There is mesenteric and omentum edema pattern. No pneumoperitoneum. No peripheral enhancing fluid collection, peritoneal cavity. No pneumatosis intestinalis. ABDOMINAL WALL: Small tiny fat-containing umbilical hernia. LYMPH NODES: Lymphadenopathy, retroperitoneum VASCULAR: Mixed plaques throughout the abdominal aorta wall and iliac arteries without aneurysm or dissection. PELVIC VISCERA: No gross masses in the uterus or the adnexa. OSSEOUS STRUCTURES: Bone marrow inhomogeneity with subcentimeter lytic lesions throughout the axial skeleton bony pelvis and proximal appendicular skeleton. To metallic screws through the left femoral head neck for a subcapital prior injury. Status post posterior lumbar fusion L4-5 and intervertebral disc spacer placement L4-5 with a grade 1 anterolisthesis. No acute fracture. CT/CT abdomen pelvis w IV con IMPRESSION: Acute pulmonary artery emboli. Please for [address] chest angiogram. Malignancy with metastatic disease to the liver, osseous and retroperitoneal lymphadenopathy. On clear primary etiology. Findings communicated to the emergency physician Dr. Desmond sarabia 2:22 PM on March 26, 2024. Fleischner guidelines were followed. Electronically signed by: Nuno Huitron MD 03/26/2024 02:31 PM [facility]
--- NOTE | ~2024-03-26 | US_ITS ---
EXAMINATION: ULTRASOUND-GUIDED THORACENTESIS CLINICAL INFORMATION: Pulmonary embolus, small right effusion. Dyspnea. COMPARISON: CTPA to 03/26/2024. Chest x-ray 04/01/2024. PROCEDURE: Informed consent was obtained. Timeout was performed. Using sonographic guidance, a pocket of pleural fluid was identified in the right lower thorax, and the site marked. Skin was then prepped and draped in sterile fashion. Skin and subcutaneous tissues were anesthetized with 1% lidocaine. Subsequently, 5 Palestinian Yueh catheter was inserted into the pleural fluid pocket, and approximately 450 mL of yellowish serous fluid was drained via vacuum bottle. Immediate post portable chest x-ray shows no evidence of pneumothorax and resolution of the right effusion. No immediate complications. Patient tolerated the procedure well. A sample of fluid was sent for laboratory analysis. US/US thoracentesis IMPRESSION: 1. Right thoracentesis with drainage of 450 mL of yellow serous fluid. 2. No immediate complications. 3. Post procedure chest x-ray shows no evidence of pneumothorax. Electronically signed by: Azael Cheek MD 03/30/2024 04:44 PM EST
--- NOTE | ~2024-03-26 | CT_ITS ---
CLINICAL HISTORY: PER REQUEST CT chest without contrast Comparison: CT/NH/SR - CT ANGIO CHEST PE PROTOCOL - 03/26/24 13:45 EST Findings: The trachea and central bronchi are patent. Small to moderate bilateral pleural effusions with associated atelectasis. The right-sided effusion is stable to decreased compared with the prior exam with the left-sided effusion has enlarged. Numerous subcentimeter bilateral pulmonary nodules. A reference nodule in the right upper lobe on 111 of series 4 measures 3 mm. Multiple additional 1-2 mm nodules are identified. Nonaneurysmal aorta. No hilar or mediastinal adenopathy within the confines of a noncontrast exam. Mild coronary calcium. Trace pericardial fluid. Decompressed esophagus. No chest wall lesions or axillary adenopathy. Unremarkable thyroid. Numerous subtle liver lesions. Findings below the diaphragm are discussed in greater detail on the concurrent CT abdomen pelvis report dated 04/01/2024. No destructive osseous lesions. IMPRESSION: 1. Slight decreased size of the right pleural effusion with enlarging left pleural effusion. 2. Numerous small bilateral pulmonary nodules measuring up to 3 mm, indeterminate but given the findings below the diaphragm concerning for metastatic disease. This document has been electronically signed by: Holly Abbott MD on 04/03/2024 08:43:14
--- NOTE | ~2024-03-26 | XR_ITS ---
EXAMINATION: XR CHEST CLINICAL INFORMATION: post right thoracentesis COMPARISON: 03/29/2024. TECHNIQUE: Frontal view of the chest was obtained. FINDINGS: Borderline cardiac enlargement. Aortic mural calcification. Normal mediastinal and hilar silhouettes. There is no pneumothorax. Right effusion has decreased in size and is not perceptible on this AP radiograph. Retrocardiac opacity, unchanged, most likely atelectasis. Trace left effusion. No focal osseous or soft tissue abnormality. XR/XR chest 1V IMPRESSION: 1. Resolution of right effusion. No pneumothorax post thoracentesis. 2. No significant change retrocardiac opacity with tiny effusion. Electronically signed by: Azael Cheek MD 03/30/2024 04:39 PM EST
--- NOTE | ~2024-03-26 | US_ITS ---
CLINICAL HISTORY: r o DVT has PE Bilateral lower extremity duplex venous Doppler Comparison: None Technique: Grayscale/Color/Duplex Doppler sonographic evaluation of the deep venous system within both lower extremities. Findings: Right lower extremity Common femoral vein: Partially occlusive thrombus CFV/GSV junction: Patent Femoral vein: Patent Popliteal vein: Patent Infrapopliteal veins: Patent where seen Soft tissue: No focal abnormality Left lower extremity Common femoral vein: Patent CFV/GSV junction: Patent Femoral vein: Occlusive thrombus Popliteal vein: Occlusive thrombus Infrapopliteal veins: Occlusive thrombus in the posterior tibial and peroneal vein Soft tissues: No focal abnormality Impression: 1. Occlusive thrombus from the left femoral vein down to the calf. 2. Partial occlusive thrombus right common femoral vein. This document has been electronically signed by: Ash Morejon MD on 03/27/2024 10:15:29
--- NOTE | ~2024-03-26 | CT_ITS ---
CLINICAL HISTORY: CONSTIPATION Exam: CT Abdomen and Pelvis Without IV Contrast Comparison: None. Findings: Above the diaphragm there are small bilateral pleural effusions and posterior bilateral lower lobe consolidations. On liver windows there are multiple hypodensities throughout liver consistent with metastasis. Gallbladder is normal in size with multiple gallstones. The spleen is normal in size. No pancreatic ductal dilatation. No hydronephrosis. Left kidney intrarenal nonobstructing calculi are present. Normal bowel caliber. Extensive diverticula are present with without signs of diverticulitis. There is focal thickening of the colon splenic flexure suspicious for possible colon neoplasm, image 40, series 3. No secondary signs of acute appendicitis. No free fluid/free air. The abdominal aorta caliber is normal. Bladder outline is smooth. No suspicious skeletal lesions. L4-5 ORIF in satisfactory alignment. Impression: Posterior bilateral lower lobe pneumonia. Possible left colon neoplasm. There are multiple liver metastases. Cholelithiasis. This document has been electronically signed by: Vasquez Layton MD on 04/01/2024 14:41:09
--- NOTE | ~2024-03-26 | XR_ITS ---
EXAMINATION: XR CHEST CLINICAL INFORMATION: hypoxia COMPARISON: Correlated to CT angiogram chest dated March 26, 2024. TECHNIQUE: Frontal view of the chest was obtained. FINDINGS: Opacity is seen blunting of the costophrenic angles bilaterally. Patchy opacities in the mid to lower right hemithorax. Linear opacities left lung. Pulmonary reticular pattern. No pneumothorax. No hyperinflation. Cardiomediastinal silhouette demonstrates calcified plaque aortic arch. Multilevel thoracic spondylosis. XR/XR chest 1V IMPRESSION: Pulmonary edema, bilateral pleural effusions, moderate volume right greater than left. Overall similar since prior exam. Electronically signed by: Nuno Huitron MD 03/29/2024 12:57 PM EST
[2024-03-26 11:25] VITALS: BP 102/66; BP 99/46; PULSE 60; PULSE 64; RESP 19; TEMP 36.2; O2SAT 98; BMI 26.9
--- NOTE | 2024-03-26 11:36 | ED.GENADULT ---
HPI - General Adult General Chief complaint: Dyspnea Stated complaint: SOB X1W PER EMS Time Seen by Provider: 03/26/24 11:26 Source: patient and family Mode of arrival: EMS Limitations: no limitations History of Present Illness HPI narrative: This is an 79-year-old woman past medical history of hypertension, osteoporosis, anxiety/depression, spinal stenosis status post lumbar fusion presents by EMS for evaluation of multiple complaints. Patient's daughter is present at the time of history and exam. Patient states that she was unaware that constipation can cause so many issues . She states that she feels like she has not had a bowel movement in over a week. She states no abdominal surgical history. She states passing flatus. She states associated nausea with food intake. She states no abdominal pain or abdominal pain associated with food intake. Patient states mild abdominal discomfort, but states no pain. Daughter states that they did a Dulcolax suppository a few days ago for 1 day and subsequently did a Dulcolax laxative for 2 days with no subsequent bowel movement. Patient states no diarrhea or bloody stools. Patient states no dysuria or urinary frequency/urgency. She states no chest pain. She states mild dry cough without sputum production or hemoptysis. She states feeling short of breath for the last few days. She states associated weakness. She states no falls or head strike. States no loss of consciousness. She states no headache or neck pain. She states no back pain or extremity paresthesias. Related Data Home Medications ?Medication ?Instructions ?Recorded ?Confirmed alendronate 70 mg tablet 70 mg PO QWEEK 04/19/23 04/19/23 amlodipine 10 mg tablet 10 mg PO QAM 04/19/23 04/20/23 aspirin 81 mg tablet,delayed 81 mg PO BEDTIME 04/19/23 04/20/23 release atenolol 100 mg tablet 100 mg PO QAM 04/19/23 04/20/23 clonazepam 0.5 mg tablet 0.5 mg PO BID PRN anxiety 04/19/23 04/19/23 fluoxetine 20 mg capsule 20 mg PO QAM 04/19/23 04/20/23 ketorolac 0.5 % eye drops 1 drp ophthalmic (eye) TID PRN Dry 04/19/23 04/20/23 Eyes losartan 25 mg tablet 25 mg PO QAM 04/19/23 04/20/23 multivitamin 1 tab PO QAM 04/19/23 04/20/23 nortriptyline 75 mg capsule 75 mg PO BEDTIME 04/19/23 04/19/23 acetaminophen 500 mg tablet 1,000 mg PO Q6H PRN Pain 04/20/23 04/20/23 albuterol sulfate 90 mcg/actuation 2 puff inhalation Q4H PRN wheezing 03/26/24 aerosol inhaler meclizine 12.5 mg tablet 12.5 mg PO TID PRN dizziness 03/26/24 ondansetron HCl 4 mg tablet 4 mg PO Q8H PRN nausea 03/26/24 Allergies Allergy/AdvReac Type Severity Reaction Status Date / Time No Known Allergies Allergy Verified 03/26/24 11:40 [No Known Allergies*] Review of Systems Review of Systems: ROS as per HPI [facility] Past Medical History Medical History (Updated 03/26/24 @ 15:56 by Desmond Hough MD) Osteoporosis Left arm swelling HTN (hypertension) Diverticulosis Osteopenia Mcmahan's palsy Chronic renal insufficiency Hyperparathyroidism Basal cell carcinoma Osteoarthritis Depression with anxiety Surgical History (Updated 05/25/23 @ 13:40 by BRADY Martins) History of dental surgery History of hip surgery Hx of breast biopsy H/O colonoscopy Social History Social History (Updated 04/19/23 @ 08:35 by Yara Gautam RN) Household Members: None Housing: House Are you a primary primary care sales representative to a significant other at home: No Do you presently have visiting nurse or other home services: No Patient Tobacco Use Status: Former Tobacco user Tobacco use type: Cigarette Years Smoked: 16 Smoked in Last 30 Days: No Second Hand Smoke Exposure: No Use of substances other than those prescribed or required for medical reasons: No Advance Directives: Yes Advance Directives Information Provided: No Advance Directives on File: No Physical Exam ED Vital Signs: Vital Signs - 24 hr 03/26/24 11:25 03/26/24 12:31 03/26/24 12:33 Temperature 97.1 F 97.1 F Pulse Rate 64 64 Respiratory Rate 19 19 Blood Pressure 99/46 L 99/46 L Pulse Oximetry 86 L 98 Oxygen Delivery Method Room Air Nasal Cannula Oxygen Flow Rate 3 BMI result Body Mass Index 26.9 Gen: NAD, AOx3 HEENT: NCAT, EOMI, normal conjunctiva CV: RRR, no murmurs appreciated Pulm: CTAB, no increased work of breathing, no wheezes, rhonchi or rales GI: Soft, NTND, no rebound, guarding or rigidity Neuro: Grossly non focal Medications Administered Generic Name Dose Route Start Last Admin Trade Name Freq PRN Reason Stop Dose Admin Heparin Sodium/Sodium Chloride 25,000 unit in 250 mls @ 0 mls/hr 03/26/24 14:30 03/26/24 15:18 Heparin Sodium,Porcine/1/2ns IVCONT 14 units/kg/hr .Q0M ANITA 9.35 mls/hr Administration Protocol Per Protocol Discontinued Medications Generic Name Dose Route Start Last Admin Trade Name Freq PRN Reason Stop Dose Admin Heparin Sodium (Porcine) 5,300 unit 03/26/24 14:26 03/26/24 15:09 Heparin Sodium,Porcine 5,000 Unit/Ml Vial 80 unit/kg (5300 unit) 03/26/24 14:27 5,300 unit IVPUSH Administration ONCE ONE Sodium Chloride 1,000 mls @ 999 mls/hr 03/26/24 11:45 03/26/24 13:59 Ns IV 03/26/24 12:45 Infused .Q1H1M ANITA Infusion Iohexol 100 ml 03/26/24 14:11 03/26/24 14:13 Iohexol 350 Mg/Ml 100 Ml Infus..Btl IV 03/26/24 14:12 85 ml ONCE ONE Administration Ondansetron HCl 4 mg 03/26/24 11:45 03/26/24 12:37 Ondansetron Hcl 4 Mg/2 Ml Vial IVPUSH 03/26/24 11:46 4 mg ONCE ONE Administration Medical Decision Making Medical Decision Making MDM Narrative: Differential diagnosis includes, but is not limited to malignancy, pulmonary embolism, pneumonia, acute decompensated congestive heart failure, pleural effusion, acute kidney injury, electrolyte abnormality. Patient is afebrile and hemodynamically stable and found to have a new oxygen requirement. Exam is benign and reassuring. I reviewed and interpreted the patient's labs, EKG, diagnostic imaging and overall testing as below. Given findings of acute pulmonary embolism patient is provided heparin bolus and started on heparin GTT. I discussed the patient's case and management with the admitting hospitalist and patient is admitted for further workup and management. Critical Care Time: A total of 60 minutes spent in direct patient care with coordinating critical resuscitation, procedures, reviewing records, discussing with consultants, reviewing labs, and/or managing patient. Admission/Observation Consideration of admission/observation: Escalation of care including admission/observation considered Consult Healthcare Provider Management of the patient was discussed with: Hospitalist and Store Assistant DISCUSSED WITH THE FOOD TECHNICIAN RADIOLOGISTS BELOW Lab Data MDM Lab Attestation statement: I reviewed the patient's lab results. Labs notable for stable chronic anemia with hemoglobin 8.3, leukocytosis of 22.2, unremarkable coagulation studies, metabolic panel was unremarkable, magnesium within normal limits, mildly elevated troponin of 16.4 and BNP of 470, AST 53 and alkaline phosphatase 283. Viral testing negative for influenza, RSV and COVID-19. 03/26/24 12:50 03/26/24 12:50 Labs: Lab Results 03/26/24 03/26/24 03/26/24 Range/Units 12:14 12:50 15:01 WBC 22.2 H (4.8-10.8) X10*3/uL RBC 2.86 L (4.20-5.50) X10*6/uL Hgb 8.3 L D (12.0-16.0) g/dl Hct 26.4 L D (37.0-47.0) % MCV 92.3 (80.0-98.0) fL MCH 29.0 (27.0-33.0) pg MCHC 31.4 (31.0-35.0) g/dl RDW 15.8 (11.0-16.0) % Plt Count 230 (160-400) X10*3/uL MPV 10.9 (9.4-12.3) fL Immature Gran % (Auto) 1.3 H (0.0-0.4) % Neut % (Auto) 86.4 H (45-73) % Lymph % (Auto) 4.7 L (20-40) % Wood % (Auto) 6.9 (2-11) % Eos % (Auto) 0.4 (0-4) % Baso % (Auto) 0.3 (0-2) % Lymph # (Auto) 1.1 L (1.2-4.9) X10*3/uL Wood # (Auto) 1.5 H (0.1-1.2) X10*3/uL Eos # (Auto) 0.1 (0.0-0.4) X10*3/uL Baso # (Auto) 0.1 (0.0-0.2) X10*3/uL Abs Immat Gran (auto) 0.29 H (0.00-0.03) X10*3/uL Absolute Neuts (auto) 19.2 H (2.0-8.3) x10*3/uL Absolute Nucleated RBC 0.050 H (0.0-0.012) X10*3/uL Nucleated RBC % (auto) 0.2 (0.0-0.2) /100WBC Smear Tech's Comments VERIFIED PT 13.9 H (10.9-12.4) SEC INR 1.2 H (0.9-1.1) aPTT Heparin Protocol 33.5 L (53-77.9) SEC Sodium 135 (135-145) mmol/L Potassium 4.8 (3.3-5.1) mmol/L Chloride 109 H (96-108) mmol/L Carbon Dioxide 19 L (22-29) mmol/L Anion Gap 12 (12-20) BUN 49 H (9-16) mg/dL Creatinine 1.22 (0.5-1.4) mg/dL Estim Creat Clear Calc 32.9 Estimated GFR 42 Random Glucose 122 H (60-115) mg/dL Calcium 9.2 D (8.4-10.2) mg/dL Magnesium 2.3 (1.6-2.6) mg/dL Total Bilirubin 0.3 (0.0-1.0) mg/dL Direct Bilirubin 0.2 (0.0-0.5) mg/dL AST 53 H (5-31) U/L ALT 28 (0-31) U/L Alkaline Phosphatase 283 H (39-117) U/L Troponin I High Sens 16.4 (<3.5-17.0) ng/L B-Natriuretic Peptide 470 H (<100) pg/mL Total Protein 6.7 (6.5-8.0) g/dL Albumin 2.9 L (3.5-5.0) g/dL Lipase 39 (8-78) U/L Influenza Type A (PCR) NEGATIVE (Negative) Influenza Type B (PCR) NEGATIVE (Negative) RSV RNA Qual (PCR) NEGATIVE (Negative) SARS-CoV-2 RNA (RT-PCR) NEGATIVE (Negative) Independent Interpretation I performed an independent interpretation of an: EKG and CT Scan Interpretation: I independently reviewed and interpreted the patient's EKG, which demonstrates sinus rhythm at 64 beats per minute, ND 154, QRS 84, QTC 435, no STEMI. I independently reviewed and interpreted the patient's CT imaging, which demonstrates right-sided pleural effusion and left segmental pulmonary embolism. No pneumothorax. Radiology Impression Discussion of test interpretation with radiology: I discussed test interpretation with the radiologist and I have reviewed the radiologist's reading. Radiologist Impression: I discussed patient's CT imaging with radiologist, Dr. Huitron, who states noting metastatic disease on CT abdomen/pelvis imaging with question of colon cancer and states noting acute pulmonary embolism. CT/CT abdomen pelvis w IV con IMPRESSION: Acute pulmonary artery emboli. Please for [address] chest angiogram. Malignancy with metastatic disease to the liver, osseous and retroperitoneal lymphadenopathy. On clear primary etiology. Findings communicated to the emergency physician Dr. Desmond Hough absent 2:22 PM on March 26, 2024. Fleischner guidelines were followed. Electronically signed by: Nuno Huitron MD 03/26/2024 02:31 PM [facility] Dictated By: Nuno Nguyễn MD Signed By: <Electronically signed by Nuno Payne MD in OV> 03/26/24 1431 I discussed with technology methodology consultant radiologist, Dr. Azael Cheek, who states the patient has submassive pulmonary embolism on CT imaging as well as mild CHF with small effusions. They state that the gallbladder has an unusual appearance and initially recommends right upper quadrant ultrasound, but on further discussion he notes CT abdomen/pelvis obtained and given findings a states there is no need for ultrasound imaging of the right upper quadrant at this time. CT/CT angio chest PE protocol IMPRESSION: 1. Examination POSITIVE for bilateral segmental and subsegmental the, left greater than right. There is evidence of reflux into the hepatic veins, dilatation of the right atrium, and mild septal bowing of the intraventricular septum. Findings meet criteria for submassive PE. 2. There are mild changes of interstitial pulmonary edema. Bilateral small right greater than left pleural effusions. 3. Mild to moderate cardiomegaly. 4. Patulous esophagus with a moderate size hiatus hernia. 5. Nonobstructing left renal calculi. Small volume upper abdominal ascites. 6. Abnormal appearing liver. 7. Abnormal appearance of gallbladder although may relate to ascites in the gallbladder fossa. Refer to the dedicated CT abdomen and pelvis performed concurrently. Findings were relayed to Dr. Desmond Hough of the [facility] via secure text at 2:30 PM, 03/26/2024. Electronically signed by: Azael Cheek MD 03/26/2024 02:45 PM [facility] Dictated By: Azael Cheek MD Signed By: <Electronically signed by Azael Cheek MD in OV> 03/26/24 1445 Independent Historian Clinical information obtained from an independent historian. History obtained from or confirmed by: Other Family contributes to history as above HPI Discharge Plan Discharge Clinical Impression: Acute pulmonary embolism, Pleural effusion, Acute hypoxemic respiratory failure, Leukocytosis, Anemia, Alkaline phosphatase elevation, Elevated brain natriuretic peptide (BNP) level, Elevated AST (SGOT) Patient Disposition: Admitted As Inpatient Prescriptions: No Action multivitamin Tablet 1 tab PO QAM atenolol 100 mg tablet 100 mg PO QAM alendronate 70 mg tablet 70 mg PO QWEEK clonazepam 0.5 mg tablet 0.5 mg PO BID PRN (Reason: anxiety) aspirin 81 mg Tablet,Delayed Release (Dr/Ec) 81 mg PO BEDTIME ketorolac 0.5 % drops 1 drp ophthalmic (eye) TID PRN (Reason: Dry Eyes) amlodipine 10 mg tablet 10 mg PO QAM nortriptyline 75 mg capsule 75 mg PO BEDTIME losartan 25 mg tablet 25 mg PO QAM fluoxetine 20 mg capsule 20 mg PO QAM acetaminophen 500 mg Tablet 1,000 mg PO Q6H PRN (Reason: Pain) ondansetron HCl 4 mg tablet 4 mg PO Q8H PRN (Reason: nausea) meclizine 12.5 mg tablet 12.5 mg PO TID PRN (Reason: dizziness) albuterol sulfate 90 mcg/actuation HFA aerosol inhaler 2 puff INHALATION Q4H PRN (Reason: wheezing) Print Language: Chilean
--- NOTE | 2024-03-26 11:45 | ECG_ITS ---
Test Reason : SOB Blood Pressure : */* mmHG Vent. Rate : 64 BPM Atrial Rate : 64 BPM P-R Int : 154 ms QRS Dur : 84 ms QT Int : 422 ms P-R-T Axes : 60 25 33 degrees QTcB Int : 435 ms Normal sinus rhythm Cannot rule out Inferior infarct , age undetermined Anterior infarct , age undetermined Abnormal ECG When compared with ECG of 07-Aug-2019 12:46, Anterior infarct is now Present Nonspecific T wave abnormality now evident in Anterior leads Nonspecific T wave abnormality no longer evident in Lateral leads Referred By: Desmond Hough Electronically Signed By: KARAN SHELTON MD
[2024-03-26 12:31] VITALS: BP 99/46; PULSE 64; RESP 19; TEMP 36.2; O2SAT 86
[2024-03-26 12:33] VITALS: O2SAT 98
[2024-03-26] MEDS: 0.9 % Sodium Chloride 1,000 ML 999 ML IV (12:37)
[2024-03-26] MEDS: ondansetron HCL 4 MG/2 ML VIAL IVPUSH (12:37)
[2024-03-26 12:56] LABS: Basophils Absolute Auto 0.1 X10*3/uL (0.0-0.2); Basophils Percent Auto 0.3 % (0-2); Eosinophils Absolute Auto 0.1 X10*3/uL (0.0-0.4); Eosinophils Percent Auto 0.4 % (0-4); Hematocrit 26.4 % (37.0-47.0); Hemoglobin 8.3 g/dl (12.0-16.0); Imm Gran Abs Auto 0.29 X10*3/uL (0.00-0.03); Imm Gran Pct Auto 1.3 % (0.0-0.4); Lymphocytes Absolute Auto 1.1 X10*3/uL (1.2-4.9); Lymphocytes Percent Auto 4.7 % (20-40); MANUAL DIFF FLAG SCAN; Mean Corpuscular HGB Conc 31.4 g/dl (31.0-35.0); Mean Corpuscular Volume 92.3 fL (80.0-98.0); Mean Platelet Volume 10.9 fL (9.4-12.3); Monocytes Absolute Auto 1.5 X10*3/uL (0.1-1.2); Monocytes Percent Auto 6.9 % (2-11); NRBC Pct Auto 0.2 /100WBC (0.0-0.2); Neutrophils Absolute Auto 19.2 x10*3/uL (2.0-8.3); Neutrophils Percent Auto 86.4 % (45-73); Platelet Count 230 X10*3/uL (160-400); Red Blood Count 2.86 X10*6/uL (4.20-5.50); Red Cell Distribution Width 15.8 % (11.0-16.0); SCAN SMEAR FLAG 1; White Blood Count 22.2 X10*3/uL (4.8-10.8)
[2024-03-26 12:58] LABS: Influenza A PCR NEGATIVE (Negative); Influenza B PCR NEGATIVE (Negative); Resp Syncy Virus RNA Qual PCR NEGATIVE (Negative); SARS COV2 PCR INHOUSE NEGATIVE (Negative)
--- OUTSIDE RECORDS SUMMARY | 2024-03-26 13:07 | XMS_ITS | Clinical Summary ---
Author Organization [facility] Address [address] [place] [address] Care Team Providers Care Junior Designer Name Role Phone Daryl Guerin PA-C Primary Care Provider Allergies Active Allergy Reactions Criticality Noted Date Comments Alendronate Medium 11/29/2017 GI side effects Medications Medication Sig Dispensed Refills Start Date End Date Status clonazePAM (KlonoPIN) 0.25 mg split tablet Take 2 split tablet (0.5 mg total) by mouth 2 (two) times a day as needed for anxiety. 0 Active FLUoxetine (PROzac) 20 MG capsule Take 1 capsule (20 mg total) by mouth daily. 0 Active atenolol (TENORMIN) tablet 100 mg Take 1 tablet (100 mg total) by mouth daily. 0 Active losartan (COZAAR) tablet 25 mg Take 1 tablet (25 mg total) by mouth daily. 0 Active nortriptyline (PAMELOR) 75 MG capsule Take 1 capsule (75 mg total) by mouth every night at bedtime. 0 Active amLODIPine (NORVASC) tablet 10 mg Take 1 tablet (10 mg total) by mouth daily. 0 Active triamcinolone (KENALOG) 0.1 % cream Apply topically 2 (two) times a day. 0 Active aspirin EC 81 MG tablet Take 1 tablet (81 mg total) by mouth daily. 0 Active Multiple Vitamins-Minerals (EYE VITAMINS PO) Take by mouth. 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 024 Benign essential hypertension 11/11/2004 Family History Medical History Relation Name Comments Leukemia Father Relation Name Status Comments Father Mother Social History Tobacco Use Types Packs/Day Years Used Date Smoking Tobacco: Former Cigarettes 1 16 Smokeless Tobacco: Never Tobacco Cessation:Counseling Given: Not Answered Alcohol Use Standard Drinks/Week Comments Yes 0 (1 standard drink = 0.6 oz pur e alcohol) On occasion Sex and Gender Information Value Date Recorded Sex Assigned at Not on file Gender Identity Not on file Sexual Orientation Not on file Job Start Date Occupation Industry Not on file Not on file Not on file Last Filed Vital Signs Vital Sign Reading Time Taken Comments Blood Pressure 141/63 10/11/2023 12:14 PM EDT Pulse 60 10/11/2023 12:14 PM EDT Temperature 36.3 ??C (97.4 ??F) 10/11/2023 12:14 PM E DT Respiratory Rate - - Oxygen Saturation 99% 10/11/2023 12:14 PM EDT Inhaled Oxygen Concentration - - Weight 61.7 kg (136 lb) 10/11/2023 12:14 PM EDT Height 157.5 cm (5' 2 ) 10/11/2023 12:14 PM EDT Body Mass Index 24.87 10/11/2023 12:14 PM EDT Plan of Treatment Health Maintenance Due Date Last Done Comments Depression Screening 1956 Preventative Health Evaluation 1962 DTap / Tdap / Td (1 - Tdap) 1963 Shingrix-Zoster Vaccine (1 of 2) 1963 Fall Risk Assessment 2009 Osteoporosis Screening (DEXA Scan) 2009 RSV Adult > 60+ Yrs or (1 - 1-dose 75+ series) 2019 COVID-19 Vaccine ( - season) 2023 11/21/2020, 04/17/2020, 03/27/2020 Influenza Vaccine (#1) 2023 , 11/09/2021, 01/01/2020, Additional history exists Pneumococcal Vaccine Completed 11/11/2014, 09/16/19 10 Hepatitis B Vaccines Aged Out No long er eligible based on patient's age to complete this topic RSV Ped < 20 months Aged Out No longe r eligible based on patient's age to complete this topic Care Teams Junior Designer Relationship Specialty Start Date End Date Daryl Guerin, PAOscarC PCP - General Medical Services 01/24/23
--- OUTSIDE RECORDS SUMMARY | 2024-03-26 13:07 | XMS_ITS | Encounter Summary ---
Author Organization [facility] Address [address] [place] [address] Care Team Providers Care [employer] Teacher Name Role Phone Daryl Guerin Primary Care Provider [phone] Encounter Details Date Type Department Care Team (Latest Contact Info) Description 03/19/2024 1:30 PM EST - 03/19/2024 11:59 PM EST Hospital Encounter XRAY - [place] [address] [place] [address] Dry cough; Shortness of breath Discharge Disposition: Home or Self Care Social History Tobacco Use Types Packs/Day Years Used Date Smoking Tobacco: Former Cigarettes Smokeless Tobacco: Never Alcohol Use Standard Drinks/Week Comments Yes 0 (1 standard drink = 0.6 oz pur e alcohol) Comments No Sex and Gender Information Value Date Recorded Sex Assigned at Not on file Legal Sex Female 4:59 PM EST Gender Identity Not on file Sexual Orientation Not on file documented as of this encounter Medications at Time of Discharge albuterol HFA (ProAir HFA) 90 mcg/actuation inhaler Inhale 2 puffs by mouth every 4 (four) hours if needed for wheezing or shortness of breath. 8.5 g 03/20/2024 6 alendronate (FOSAMAX) 70 mg tablet Take 1 tablet (70 mg total) by mouth every 7 (seven) days. 1 tablet weekly on an empty stomach, remain upright for at least 30 minutes 4 each 5 02/23/2024 6 aspirin 81 mg EC tablet Take 1 tablet (81 mg total) by mouth daily. atenoloL (TENORMIN) 100 mg tablet Take 1 tablet (100 mg total) by mouth daily. benzonatate (TESSALON) 100 mg capsule Take 1 capsule (100 mg total) by mouth 3 (three) times a day if needed for cough. Do not crush or chew. 21 capsule 03/20/2024 CHOLECALCIFEROL, VITAMIN D3, ORAL Take by mouth 1 (one) time each day. Daily clonazePAM (KlonoPIN) 0.5 mg tablet Take 1 tablet (0.5 mg total) by mouth 2 (two) times a day if needed for anxiety. 56 tablet 02/29/2024 losartan (COZAAR) 25 mg tablet Take 1 tablet (25 mg total) by mouth daily. meclizine (ANTIVERT) 12.5 mg tablet Take 1 tablet (12.5 mg total) by mouth 3 (three) times a day if needed for dizziness. 30 tablet 03/19/2024 nortriptyline (PAMELOR) 75 mg capsule Take 1 capsule (75 mg total) by mouth every night at bedtime. nystatin (MYCOSTATIN) cream Apply 1 Application topically 2 (two) times a day. 10/12/2023 ondansetron (ZOFRAN) 4 mg tabletIndication s:Nausea Take 1 tablet (4 mg total) by mouth every 8 (eight) hours if needed for nausea. 21 tablet 03/20/2024 triamcinolone (KENALOG) 0.1 % cream Apply topically 2 (two) times a day. amLODIPine (NORVASC) 10 mg tablet Take 1 tablet (10 mg total) by mouth daily. FLUoxetine (PROzac) 20 mg capsule Take by mouth. 5 documented as of this encounter Discharge Disposition Disposition Code Departure Means Destination Home or Self Care documented in this encounter Plan of Treatment Upcoming Encounters Date Type Department Care Team (Late st Contact Info) Description 04/02/2024 12:45 PM EST Office Visit Adult Medicine [facility] [address] [place] [address] Sarah Lombardo PA [address], [place] 06/29/2024 10:45 AM EDT Appointment Bone Density - [address] [phone] 06/29/2024 11:30 AM EDT Appointment Radiology Department - [address] [phone] 07/16/2024 11:00 AM EDT Office Visit Endocrinology - [address] [phone] Maryuri Patino PA [address], [place] 08/21/2024 10:45 AM EDT Office Visit [facility] Hematology Oncology [address] [place] [id number] Elaine Pinto DO [address] [place] [address] documented as of this encounter Procedures Procedure Name Priority Date/Time Associated Diagnosis Comments XR CHEST 2 VIEWS Routine 03/19/2024 1:53 PM EST Dry cough Shortness of breath documented in this encounter Results * XR Chest 2 Views (03/19/2024 1:53 PM EST) Anatomical Region Laterality Modality Body Radiographic Senait ging 03/19/2024 5:20 PM EST Impressions 03/19/2024 5:21 PM EST No acute cardiopulmonary process. -------- FINAL REPORT -------- Dictated By: Csai Harris Dictated Date: 03/19/2024 17:20 ET Assigned Physician: Casi Harris Reviewed and Electronically Signed By: Casi Harris Signed Date: 03/19/2024 17:21 ET Workstation ID: [id number] Transcribed By: Self Edit Transcribed Date: 03/19/2024 17:20 ET Narrative 03/19/2024 5:21 PM EST HISTORY: dry cough, sob x 4 days TECHNIQUE: PA and lateral radiographs of the chest COMPARISON: None FINDINGS: There is a normal cardiomediastinal silhouette. The lungs are clear. ??Moderate degenerative changes of the thoracic spine. Procedure Note Casi Harris MD - 03/19/2024 HISTORY: dry cough, sob x 4 days TECHNIQUE: PA and lateral radiographs of the chest COMPARISON: None FINDINGS: There is a normal cardiomediastinal silhouette. The lungs are clear.Moderate degenerative changes of the thoracic spine. IMPRESSION: No acute cardiopulmonary process. -------- FINAL REPORT -------- Dictated By: Casi Harris Dictated Date: 03/19/2024 17:20 ET Assigned Physician: Casi Harris Reviewed and Electronically Signed By: Casi Harris Signed Date: 03/19/2024 17:21 ET Workstation ID: [id number] Transcribed By: Self Edit Transcribed Date: 03/19/2024 17:20 ET us Sarah Grupo ABREU IMG XR PROCEDURES Final Result documented in this encounter Visit Diagnoses Diagnosis Dry cough Cough Shortness of breath Encounter for screening mammogram for breast cancer documented in this encounter Care Teams [employer] Teacher Relationship Specialty Start Date End Date Daryl Guerin PA [address] [place] [id number] PCP - General Internal Medicine 04/16/20 documented as of this encounter
--- OUTSIDE RECORDS SUMMARY | 2024-03-26 13:07 | XMS_ITS | Clinical Summary ---
Author Organization [facility] Address [address] [place] [address] Phone Care Team Providers Care Local City Driver Name Role Phone Daryl Guerin Primary Care Provider [phone] Allergies No known active allergies Medications aspirin 81 mg EC tablet Take 1 tablet (81 mg total) by mouth daily. Active atenoloL (TENORMIN) 100 mg tablet Take 1 tablet (100 mg total) by mouth daily. Active losartan (COZAAR) 25 mg tablet Take 1 tablet (25 mg total) by mouth daily. Active nortriptyline (PAMELOR) 75 mg capsule Take 1 capsule (75 mg total) by mouth every night at bedtime. Active triamcinolone (KENALOG) 0.1 % cream Apply topically 2 (two) times a day. Active CHOLECALCIFER OL, VITAMIN D3, ORAL Take by mouth 1 (one) time each day. Daily Active nystatin (MYCOSTATIN) cream Apply 1 Application topically 2 (two) times a day. 10/12/19 24 Active alendronate (FOSAMAX) 70 mg tablet Take 1 tablet (70 mg total) by mouth every 7 (seven) days. 1 tablet weekly on an empty stomach, remain upright for at least 30 minutes 4 each 5 02/22/19 25 026 Active clonazePAM (KlonoPIN) 0.5 mg tablet Take 1 tablet (0.5 mg total) by mouth 2 (two) times a day if needed for anxiety. 56 tablet 02/28/19 25 Active meclizine (ANTIVERT) 12.5 mg tablet Take 1 tablet (12.5 mg total) by mouth 3 (three) times a day if needed for dizziness. 30 tablet 03/19/19 25 Active benzonatate (TESSALON) 100 mg capsule Take 1 capsule (100 mg total) by mouth 3 (three) times a day if needed for cough. Do not crush or chew. 21 capsule 03/20/19 25 Active albuterol HFA (ProAir HFA) 90 mcg/actuation inhaler Inhale 2 puffs by mouth every 4 (four) hours if needed for wheezing or shortness of breath. 8.5 g 03/20/19 25 026 Active ondansetron (ZOFRAN) 4 mg tabletIndicat ions:Nausea Take 1 tablet (4 mg total) by mouth every 8 (eight) hours if needed for nausea. 21 tablet 03/20/19 25 Active amLODIPine (NORVASC) 10 mg tablet TAKE 1 TABLET BY MOUTH EVERY DAY 90 tablet 1 03/24/19 25 Active FLUoxetine (PROzac) 20 mg capsule TAKE 1 CAPSULE BY MOUTH EVERY DAY 90 capsule 1 03/24/19 25 Active amLODIPine (NORVASC) 10 mg tablet Take 1 tablet (10 mg total) by mouth daily. 025 Discontinued FLUoxetine (PROzac) 20 mg capsule Take by mouth. 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 Benign essential hypertension 11/11/2004 Encounters Date Type Department Care Team Description 03/19/2024 1:30 PM EST - 03/19/2024 11:59 PM EST Hospital Encounter [address] [address] Dry cough; Shortness of breath Discharge Disposition: Home or Self Care 03/19/2024 12:45 PM EST Office Visit Adult Medicine [address] [phone] Sarah Lombardo PA Viral syndrome (Primary Dx); Nausea; Vertigo; Primary hypertension 02/22/2024 11:30 AM EST Office Visit [facility] Hematology Oncology [address] [place] [address] Elaine Pinto DO Monoclonal gammopathy (Primary Dx); Mild anemia; Light headedness 02/16/2024 2:00 PM EST Office Visit [facility] [address] [place] [address] Maryuri Patino PA Hyperparathyroidism (CMS/HCC) (Primary Dx); Vitamin D deficiency; Age related osteoporosis, unspecified pathological fracture presence from Last 3 Months Immunizations Name Administration Dates Next Due Pfizer SARS-CoV-2 COVID-19, mRNA, LNP-S, preservative free 11/21/2020 Surgical History Surgery Date Site/Laterality Comments BREAST LUMPECTOMY PROCEDURE:BREAST LUMPECTOMY HIP FRACTURE SURGERY PROCEDURE:HIP FRACTURE SURGERY COLONOSCOPY 2000 PROCEDURE: HISTORICAL COLONOSCOPY OTHER SURGICAL HISTORY PROCEDURE: HISTORY OTHER; COMMENT: breast bx benign COLONOSCOPY 07/01/2010 PROCEDURE: SD COLONOSCOPY FLX DX W/COLLJ SPEC WHEN PFRMD; COMMENT: diverticulosis; melanosis; cecal angiodysplasia BREAST BIOPSY Bilateral PROCEDURE: BX BREAST; PERC NEEDLE CORE W/IMAG GUID; COMMENT: b/l breasts bxs.-benign BACK SURGERY 05/03/2023 PROCEDURE: HISTORICAL BACK SURGERY; COMMENT: dr. molina - l4-l5 discetomy Medical History Medical History Date Comments Thoracic or lumbosacral neur itis or radiculitis, unspecified 07/29/2004 DX:Thoracic or lumbosacral n euritis or radiculitis, unspecified Lumbago 07/29/2004 DX:Lumbago Lumbosacral spondylosis with out myelopathy 07/11/2004 DX:Lumbosacral spondylosis w ithout myelopathy Synovial cyst, unspecified 07/11/2004 DX:Sy novial cyst, unspecified Nonallopathic lesion of lumb ar region, not elsewhere classified 07/08/2004 DX:Nonallopathic lesion of l umbar region, not elsewhere classified Sciatica 07/01/2004 DX:Sciatica Disturbance of skin sensation 06/17/2004 DX :Disturbance of skin sensation Essential hypertension, benign 11/11/2004 D X:Essential hypertension, benign Diverticulosis of colon (wit hout mention of hemorrhage) 07/01/2010 DX:Diverticulosis of colon ( without mention of hemorrhage) Angiodysplasia of colon 07/01/2010 DX:Angio dysplasia of colon Melanosis coli 07/01/2010 DX:Melanosis col i Osteopenia 06/14/2013 DX:Osteopenia; C OMMENT: Noted on bone density 2013 Anxiety state DX:Anxiety state Depressive disorder DX:Depressiv e disorder Family History Medical History Relation Name Comments Leukemia Father Cataracts Mother Blindness Neg Hx Breast cancer Neg Hx Colon cancer Neg Hx Glaucoma Neg Hx Macular degeneration Neg Hx Ovarian cancer Neg Hx Strabismus Neg Hx Relation Name Status Comments Brother Father (Age 88) Mother (Age 96) htn pacema ker Sister (Age 64) heart valv e replacement had rhematic fever Social History Tobacco Use Types Packs/Day Years Used Date Smoking Tobacco: Former Cigarettes Smokeless Tobacco: Never Tobacco Cessation:Counseling Given: Not Answered Alcohol Use Standard Drinks/Week Comments Yes 0 (1 standard drink = 0.6 oz pur e alcohol) Comments No Sex and Gender Information Value Date Recorded Sex Assigned at Not on file Legal Sex Female 4:59 PM EST Gender Identity Not on file Sexual Orientation Not on file Obstetrics History Last Filed Vital Signs Vital Sign Reading Time Taken Comments Blood Pressure 108/58 03/19/2024 12:35 PM EST Pulse 65 03/19/2024 12:35 PM EST Temperature 36.4 ??C (97.5 ??F) 03/19/2024 12:[address] Respiratory Rate - - Oxygen Saturation 97% 03/19/2024 12:35 PM EST Inhaled Oxygen Concentration - - Weight 62.7 kg (138 lb 3.2 oz) 03/19/2024 12:35 PM EST Height 157.5 cm (5' 2 ) 02/22/2024 11:47 AM EST Body Mass Index 25.28 02/22/2024 11:47 AM EST Plan of Treatment Upcoming Encounters Date Type Department Care Team (Late st Contact Info) Description 04/02/2024 12:45 PM EST Office Visit Adult Medicine [address] [phone] Sarah Lombardo PA [address], [place] 06/29/2024 10:45 AM EDT Appointment Bone Density - [address] [phone] 06/29/2024 11:30 AM EDT Appointment Radiology Department - [address] [phone] 07/16/2024 11:00 AM EDT Office Visit Endocrinology - [address] [phone] Maryuri Patino PA [address], [place] 08/21/2024 10:45 AM EDT Office Visit [facility] Hematology Oncology [address] [place] [phone] Elaine Pinto, DO [address] [place] [address] Health Maintenance Due Date Last Done Comments DTaP,Tdap,and Td Vaccines (3 - Td or Tdap) 11/07/2014 05/07/2014, 07/29/2004 Depression Screening 01/23/2022 Falls Risk Assessment 01/23/2022 Medicare Annual Wellness Visit 01/23/2022 Social Influencers of Health Screening 01/23/2022 Zoster Vaccines (3 of 3) 12/28/2023 11/02/2023, 02/15 Hypertension/CHF/CAD Annual BMP Blood Test 02/21/2025 02/22/2024, 02/21/2024, 11/18/2023, Additional history exists Cholesterol Screening (Lipid Panel) 10/09/2028 10/10/2023 Osteoporosis Screening (Bone Density Screening) 06/16/2032 06/16/2022, 10/17/2019, 06/09/2016 Influenza Vaccine Completed 11/02/2023, , 11/09/2021, Additional history exists Pneumococcal Vaccine: 50+ Years Completed 11/02/2023, 11/11/2014, 09/15/2009 COVID-19 Vaccine Completed 01/29/2024, 09/2020, 04/17/2020, Additional history exists RSV Immunization Patients 60+ Years Old Completed 01/29/2024 HIB Vaccines Aged Out No longer eligi ble based on patient's age to complete this topic HPV Vaccines Aged Out No longer eligi ble based on patient's age to complete this topic Hepatitis A Vaccines Aged Out No long er eligible based on patient's age to complete this topic Hepatitis B Vaccines Aged Out No long er eligible based on patient's age to complete this topic IPV Vaccines Aged Out No longer eligi ble based on patient's age to complete this topic MMR Vaccines Aged Out No longer eligi ble based on patient's age to complete this topic Meningococcal ACWY Vaccine Aged Out N o longer eligible based on patient's age to complete this topic Meningococcal B Vacine Aged Out No lo nger eligible based on patient's age to complete this topic RSV Immunization Patients Under 20 months Aged Out No longer eligible based on patient's age to complete this topic Varicella Vaccines Aged Out No longer eligible based on patient's age to complete this topic Procedures Procedure Name Priority Date/Time Associated Diagnosis Comments XR CHEST 2 VIEWS Routine 03/19/2024 1:53 PM EST Dry cough Shortness of breath POC RAPID [id number], MOLECULAR Routine 03/19/2024 1:16 PM EST Viral syndrome POC INFLUENZA A/B Routine 03/19/2024 1:1 6 PM EST Viral syndrome SD PROTEIN ELECTROPHORETIC FRACTIONATION & QUANTITATION SERUM Routine 02/22/2024 12:54 PM EST Monoclonal gammopathy Mild anemia PROTEIN, TOTAL Routine 02/22/2024 12:54 PM EST Monoclonal gammopathy Mild anemia CBC WITH AUTO DIFFERENTIAL Routine 02/22/2024 12:54 PM EST Monoclonal gammopathy Mild anemia IMMUNOGLOBULINS IGG, IGA, IGM, IGE Routine 02/22/2024 12:54 PM EST Monoclonal gammopathy Mild anemia CALCIUM Routine 02/22/2024 12:54 PM EST Monoclonal gammopathy Mild anemia CREATININE, SERUM Routine 02/22/2024 12: 54 PM EST Monoclonal gammopathy Mild anemia KAPPA-LAMBDA QUANTITATIVE FREE LIGHT CHAINS Routine 02/22/2024 12:54 PM EST Monoclonal gammopathy Mild anemia CBC AND DIFFERENTIAL Routine 02/22/2024 12:54 PM EST Monoclonal gammopathy Mild anemia PROTEIN ELECTROPHORESIS, SERUM Routine 02/22/2024 12:54 PM EST Monoclonal gammopathy Mild anemia CALCIUM, URINE, 24H Routine 02/21/2024 1 1:41 AM EST Hyperparathyroidism (CMS/HCC) BASIC METABOLIC PANEL Routine 02/21/2024 11:41 AM EST Hyperparathyroidism (CMS/HCC) PARATHYROID HORMONE INTACT Routine 02/16/2024 3:09 PM EST Hyperparathyroidism (CMS/HCC) Vitamin D deficiency Osteoarthritis of both knees, unspecified osteoarthritis type Benign essential hypertension Right-sided Mcmahan's palsy VITAMIN D 25 HYDROXY Routine 02/16/2024 3:09 PM EST Hyperparathyroidism (CMS/HCC) Vitamin D deficiency Osteoarthritis of both knees, unspecified osteoarthritis type Benign essential hypertension Right-sided Mcmahan's palsy DXA BONE DENSITY STUDY 1+ SITS AXIAL SKEL Routine 06/16/2022 2:31 PM EDT Other specified disorders of bone density and structure, unspecified site from Last 3 Months or Most Recently Relevant to Health Maintenance Results * XR Chest 2 Views (03/19/2024 1:53 PM EST) Anatomical Region Laterality Modality Body Radiographic Senait ging 03/19/2024 5:20 PM EST Impressions 03/19/2024 5:21 PM EST No acute cardiopulmonary process. -------- FINAL REPORT -------- Dictated By: Casi Harris Dictated Date: 03/19/2024 17:20 ET Assigned Physician: Casi Harris Reviewed and Electronically Signed By: Casi Harris Signed Date: 03/19/2024 17:21 ET Workstation ID: [id number] Transcribed By: Self Edit Transcribed Date: 03/19/2024 [...] Signed Date: 03/19/2024 17:21 ET Workstation ID: [id number] Transcribed By: Self Edit Transcribed Date: 03/19/2024 17:20 ET us Sarah Grupo ABREU IMG XR PROCEDURES Final Result * Poc Rapid [id number], MOLECULAR (03/19/2024 1:16 PM EST) COVID-19/SARS- COV-2 Rapid POC Negative Negative Internal Control Pass Yes Yes Swab Nasopharyngeal structure / Unknown 03/19/2024 1:16 PM EST us Sarah Grupo ABREU POINT OF CARE TEST ENTER/EDIT OR DERABLES Final Result * POC Influenza A/B manually resulted (03/19/2024 1:16 PM EST) Rapid Influenza A AGN POC Negative Negative Rapid Influenza B AGN POC Negative Negative Internal Control Pass Yes Yes Swab 03/19/2024 1:16 PM EST Sarah Lombardo PA POINT OF CARE TEST ENTER/EDIT OR DERABLES Final Result * PATHOLOGIST REVIEW PROTEIN ELECTROPHORESIS (02/22/2024 12:54 PM EST) Pathologist [facility] Pathologist Interpretation 02/24/2024 3:09 PM EST [facility] Blood Venous blood specimen / Unknown Venipuncture / Unknown 02/22/2024 12:54 PM EST 02/22/2024 1:33 PM EST Elaine Pinto DO LAB BLOOD ORDERABLES Final Result Performing Organization Address City/State/[facility] Co de Phone Number [facility] [address] [place] [address], [place] [phone] * (ABNORMAL) [place]-lambda free light chains, quantitative (02/22/2024 12:54 PM EST) [place] Free Light Chain 3.12(H) 0.33 - 1.94 mg/dL 02/27/2024 12:33 PM EST [facility] Lambda Free Light Chain 2.68(H) 0.57 - 2.63 mg/dL 02/27/2024 12:33 PM EST [facility] [place]/Lambda FLC Ratio 1.16 0.26 - 1.65 02/27/2024 12:33 PM EST [facility] Comment: Test performed at [facility], [address], [place], [place] ??[address] ? [phone] Lulu Rangel MD, PhD - Orthopedic Nurse Blood Venous blood specimen / Unknown Venipuncture / Unknown 02/22/2024 12:54 PM EST 02/22/2024 1:33 PM EST us Elaine Pinto DO LAB BLOOD ORDERABLES Final Result [place] [address] * Immunoglobulins IgG, IgA, IgM, IgE (02/22/2024 12:54 PM EST) Total IgG 1,500 549 - 1,584 mg/dL LAB CHEMISTRY METHOD 02/22/2024 2:11 PM EST [facility] IgA 199 61 - 348 mg/dL LAB CHEMISTRY METHOD 02/22/2024 2:11 PM EST [facility] IgM 92 23 - 259 mg/dL LAB CHEMISTRY METHOD 02/22/2024 2:11 PM EST [facility] IgE 86.2 0.0 - 158.0 I Unit/mL LAB CHEMISTRY METHOD 02/22/2024 2:11 PM EST [facility] Blood Venous blood specimen / Unknown Venipuncture / Unknown 02/22/2024 12:54 PM EST 02/22/2024 1:33 PM EST us Elaine Pinto DO LAB BLOOD ORDERABLES Final Result [facility] [address] [place] [address], * (ABNORMAL) CBC auto differential (02/22/2024 12:54 PM EST) WBC 10.9(H) 4.8 - 10.8 K/mcL LAB HEMETOLOGY METHOD 02/22/2024 1:45 PM EST [facility] RBC 3.20(L) 3.80 - 4.80 M/mcL LAB HEMETOLOGY METHOD 02/22/2024 1:45 PM EST [facility] Hemoglobin 9.4(L) 11.5 - 16.0 g/dL LAB HEMETOLOGY METHOD 02/22/2024 1:45 PM [facility] Hematocrit 31.2(L) 35.0 - 47.0 % LAB HEMETOLOGY METHOD 02/22/2024 1:45 PM [facility] MCV 98.1(H) 79.0 - 98.0 FL LAB HEMETOLOGY METHOD 02/22/2024 1:45 PM [facility] MCH 29.6 27.0 - 32.0 pcg LAB HEMETOLOGY METHOD 02/22/2024 1:45 PM [facility] MCHC 30.1(L) 32.0 - 37.0 g/dL LAB HEMETOLOGY METHOD 02/22/2024 1:45 PM [facility] RDW 14.1 11.0 - 15.0 % LAB HEMETOLOGY METHOD 02/22/2024 1:45 PM [facility] Platelets 374 130 - 400 K/mcL LAB HEMETOLOGY METHOD 02/22/2024 1:45 PM [facility] MPV 11.5(H) 7.0 - 11.0 FL LAB HEMETOLOGY METHOD 02/22/2024 1:45 PM [facility] NRBC 0.0 <1.0 % LAB HEMETOLOGY METHOD 02/22/2024 1:45 PM [facility] NRBC Absolute 0.00 <0.10 K/mcL LAB HEMETOLOGY METHOD 02/22/2024 1:45 PM [facility] Neutrophils Relative 81.7 % LAB HEMETOLOGY METHOD 02/22/2024 1:45 PM [facility] Lymphocytes Relative 10.4 % LAB HEMETOLOGY METHOD 02/22/2024 1:45 PM [facility] Monocytes Relative 6.2 % LAB HEMETOLOGY METHOD 02/22/2024 1:45 PM [facility] Eosinophils Relative 0.5 % LAB HEMETOLOGY METHOD 02/22/2024 1:45 PM EST [facility] Basophils Relative 0.7 % LAB HEMETOLOGY METHOD 02/22/2024 1:45 PM [facility] Immature Granulocytes Relative 0.5 % LAB HEMETOLOGY METHOD 02/22/2024 1:45 PM EST [facility] Neutrophils Absolute 8.91(H) 1.50 - 7.00 K/mcL LAB HEMETOLOGY METHOD 02/22/2024 1:45 PM EST [facility] Lymphocytes Absolute 1.13 1.00 - 5.00 K/mcL LAB HEMETOLOGY METHOD 02/22/2024 1:45 PM [facility] Monocytes Absolute 0.68 0.20 - 1.00 K/mcL LAB HEMETOLOGY METHOD 02/22/2024 1:45 PM EST [facility] Eosinophils Absolute 0.06 0.00 - 0.50 K/mcL LAB HEMETOLOGY METHOD 02/22/2024 1:45 PM EST [facility] Basophils Absolute 0.08 0.00 - 0.20 K/mcL LAB HEMETOLOGY METHOD 02/22/2024 1:45 PM [facility] Immature Granulocytes Absolute 0.05(H) 0.00 - 0.03 K/mcL LAB HEMETOLOGY METHOD 02/22/2024 1:45 PM EST [facility] Blood Venous blood specimen / Unknown Venipuncture / Unknown 02/22/2024 12:54 PM EST 02/22/2024 1:32 PM EST us Elaine Pinto DO LAB BLOOD ORDERABLES Final Result [facility] [address] [place] [address], * (ABNORMAL) Creatinine (02/22/2024 12:54 PM EST) Creatinine 1.40(H) 0.50 - 1.10 mg/dL LAB CHEMISTRY METHOD 02/22/2024 2:03 PM [facility] eGFR 38(L) >=60 mL/min/1. 73m2 LAB CHEMISTRY METHOD 02/22/2024 2:03 PM EST [facility] Comment:Calculation based on the??Chronic Kidney Disease Epidemiology Collaboration (CKD-EPI) equation refit??without adjustment for race. Blood Venous blood specimen / Unknown Venipuncture / Unknown 02/22/2024 12:54 PM EST 02/22/2024 1:33 PM EST us Elaine Pinto DO LAB BLOOD ORDERABLES Final Result [facility] [address] [place] [address], * Protein electrophoresis, serum (02/22/2024 12:54 PM EST) Pathologist [facility] Total Protein 7.7 6.0 - 8.0 g/dL LAB CHEMISTRY METHOD 02/24/2024 3:09 PM [facility] Albumin, Serum 3.4 2.9 - 4.1 g/dL LAB CHEMISTRY METHOD 02/24/2024 3:09 PM [facility] Alpha 1 Globulin (g/dL) 0.4 0.1 - 0.5 g/dL LAB CHEMISTRY METHOD 02/24/2024 3:09 PM [facility] Alpha 2 Globulin (g/dL) 1.3 0.7 - 1.5 g/dL LAB CHEMISTRY METHOD 02/24/2024 3:09 PM [facility] Beta (g/dL) 1.3 0.7 - 1.5 g/dL LAB CHEMISTRY METHOD 02/24/2024 3:09 PM [facility] Gamma Globulin (g/dL) 1.4 0.7 - 1.9 g/dL LAB CHEMISTRY METHOD 02/24/2024 3:09 PM [facility] PARAPROTEIN 0.5 g/dL LAB CHEMISTRY METHOD 02/24/2024 3:09 PM [facility] SPEP Interpretation Monoclonal gammopathy. Abnormal pattern with M-spike of gamma globulin mobility. Serum immunofixation previously performed on 06/08/2023 demonstrated IgG Lambda monoclonal protein. LAB CHEMISTRY METHOD 02/24/2024 3:09 PM [facility] Blood Venous blood specimen / Unknown Venipuncture / Unknown 02/22/2024 12:54 PM EST 02/22/2024 1:33 PM EST Elaine Pinto DO LAB BLOOD ORDERABLES Final Result Performing Organization Address [facility]/ZIP Co de Phone Number [facility] [address] [place] [address], [place] [phone] * Protein, total (02/22/2024 12:54 PM EST) Total Protein 7.7 6.0 - 8.0 g/dL LAB CHEMISTRY METHOD 02/22/2024 2:08 PM [facility] Blood Venous blood specimen / Unknown Venipuncture / Unknown 02/22/2024 12:54 PM EST 02/22/2024 1:33 PM EST Elaine Pinto DO LAB BLOOD ORDERABLES Final Result [facility] [address] [place] [address], [place] [phone] * Calcium (02/22/2024 12:54 PM EST) Calcium 10.4 8.5 - 10.5 mg/dL LAB CHEMISTRY METHOD 02/22/2024 2:03 PM EST [facility] Blood Venous blood specimen / Unknown Venipuncture / Unknown 02/22/2024 12:54 PM EST 02/22/2024 1:33 PM EST Elaine Pinto DO LAB BLOOD ORDERABLES Final Result Performing Organization Address [facility]/ZIP Co de Phone Number [facility] [address] [place] [address], [place] [phone] * Calcium, urine, 24H (02/21/2024 11:41 AM EST) Calcium, Ur 10.0 mg/dL LAB CHEMISTRY METHOD 02/21/2024 4:12 PM [facility] Calcium, 24H Urine 150 50 - 400 mg/24 hr LAB CHEMISTRY METHOD 02/21/2024 4:12 PM [facility] Urine Volume 1,500 mL LAB CHEMISTRY METHOD 02/21/2024 4:12 PM [facility] Collection Interval, Ur 24 hr LAB CHEMISTRY METHOD 02/21/2024 4:12 PM [facility] Urine Urine specimen from urethra / Unknown Non-blood Collection / Unknown 02/21/2024 11:41 AM EST 02/21/2024 11:41 AM EST Maryuri ABREU LAB URINE ORDERABLES Final Resul t Performing Organization Address City/[facility]/ZIP Co de Phone Number [facility] [address] [place] [address], [place] [phone] * (ABNORMAL) Basic metabolic panel (02/21/2024 11:41 AM EST) Sodium 133 133 - 145 mmol/L LAB CHEMISTRY METHOD 02/21/2024 2:36 PM [facility] Potassium 5.4 3.5 - 5.5 mmol/L LAB CHEMISTRY METHOD 02/21/2024 2:36 PM EST [facility] Chloride 104 96 - 110 mmol/L LAB CHEMISTRY METHOD 02/21/2024 2:36 PM [facility] CO2 24 21 - 32 mmol/L LAB CHEMISTRY METHOD 02/21/2024 2:36 PM [facility] Anion Gap 5 3 - 11 LAB CHEMISTRY METHOD 02/21/2024 2:36 PM [facility] Glucose 106(H) 70 - 100 mg/dL LAB CHEMISTRY METHOD 02/21/2024 2:36 PM [facility] BUN 28(H) 5 - 25 mg/dL LAB CHEMISTRY METHOD 02/21/2024 2:36 PM [facility] Creatinine 1.22(H) 0.50 - 1.10 mg/dL LAB CHEMISTRY METHOD 02/21/2024 2:36 PM [facility] eGFR 45(L) >=60 mL/min/1. 73m2 LAB CHEMISTRY METHOD 02/21/2024 2:36 PM [facility] Comment:Calculation based on the??Chronic Kidney Disease Epidemiology Collaboration (CKD-EPI) equation refit??without adjustment for race. BUN/Creatinine Ratio 23.0 LAB CHEMISTRY METHOD 02/21/2024 2:36 PM [facility] Calcium 10.5 8.5 - 10.5 mg/dL LAB CHEMISTRY METHOD 02/21/2024 2:36 PM [facility] Blood Venous blood specimen / Unknown Venipuncture / Unknown 02/21/2024 11:41 AM EST 02/21/2024 11:41 AM EST us Maryuri ABREU LAB BLOOD ORDERABLES Final Resul t [facility] [address] [place] [address], * Vitamin D 25 hydroxy (02/16/2024 3:09 PM EST) Vit D, 25-Hydroxy 43.5 30.0 - 80.0 ng/mL LAB CHEMISTRY METHOD 02/16/2024 7:12 PM EST [facility] Blood Venous blood specimen / Unknown Venipuncture / Unknown 02/16/2024 3:09 PM EST 02/16/2024 3:09 PM EST Maryuri ABREU LAB BLOOD ORDERABLES Final Resul t Performing Organization Address [facility] de Phone Number [facility] [address] [place] [address], [place] [phone] * (ABNORMAL) Parathyroid hormone intact (02/16/2024 3:09 PM EST) PTH 141.9(H) 18.5 - 88.0 pcg/mL LAB CHEMISTRY METHOD 02/16/2024 7:12 PM EST [facility] Blood Venous blood specimen / Unknown Venipuncture / Unknown 02/16/2024 3:09 PM EST 02/16/2024 3:09 PM EST Maryuri ABREU LAB BLOOD ORDERABLES Final Resul t Performing Organization Address [facility] de Phone Number [facility] [address] [place] [address], [place] [phone] * DXA BONE DENSITY STUDY 1+ SITS AXIAL SKEL (06/16/2022 2:31 PM EDT) Anatomical Region Laterality Modality Bone Densitometr y 11/09/2021 11:1 7 AM EDT Narrative 06/17/2022 4:34 PM EDT BONE DENSITY ? Lumbar Spine T-score is -2.0 ?? (SD relative to 20-29 y/o adult) Z-score is +0.6 ??(SD relative to age matched peers) This is consistent with osteopenia by criteria defined by the WHO. Left Hip T-score is -2.8 Z-score is -0.8 This is consistent with osteoporosis by criteria defined by the WHO. Comparison exam(s): significant decrease in bone density of ??hip and lumbar spine when compared to most recent bone density examination ?? Confidence level is +/-95%. Impression: Based on the World Health Organization criteria, Paulette Raed should be classified as having osteoporosis. [facility] Department of Internal Medicine recommends using National Osteoporosis Foundation (NOF) guidelines in treatment decisions related to osteoporosis. NOF guidelines suggest considering treatment for postmenopausal women and men aged 50 or older presenting with the following: History of hip or vertebral fracture. T-score less than or equal to -2.5 (DXA) at the femoral neck, total hip, or spine, after appropriate evaluation to exclude secondary causes. Low bone mass (T-score between -1.0 and -2.5 at the femoral neck or spine) AND a 10-year probability of a hip fracture greater than or equal to 3% OR a 10-year probability of a major osteoporosis-related fracture greater than or equal to 20% based on the [place]-adapted WHO algorithm Please note that all treatment decisions require clinical judgment and consideration of individual patient factors, including patient preferences, co-morbidities, previous drug use, risk factors not captured in the FRAX model (e.g., frailty, falls, vitamin D deficiency, increased bone turnover, interval significant decline in bone density) and possible under- or over-estimation of fracture risk by FRAX. Procedure Note Renea Duran MD - 03/21/2023 BONE DENSITY Lumbar Spine T-score is -2.0 (SD relative to 20-29 y/o adult) Z-score is +0.6 (SD relative to age matched peers) This is consistent with osteopenia by criteria defined by the WHO. Left Hip T-score is -2.8 Z-score is -0.8 This is consistent with osteoporosis by criteria defined by the WHO. Comparison exam(s): significant decrease in bone density of hip andlumbar spine when compared to most recent bone density examination Confidence level is +/-95%. Impression: Based on the World Health Organization criteria, Paulette Lovell Jacek should beclassified as having osteoporosis. [facility] Department of Internal Medicine recommendsusing National Osteoporosis Foundation (NOF) guidelines in treatmentdecisions related to osteoporosis. NOF guidelines suggest consideringtreatment for postmenopausal women and men aged 50 or older presentingwith the following: History of hip or vertebral fracture. T-score less than or equal to -2.5 (DXA) at the femoral neck, total hip,or spine, after appropriate evaluation to exclude secondary causes. Low bone mass (T-score between -1.0 and -2.5 at the femoral neck or spine)AND a 10-year probability of a hip fracture greater than or equal to 3% ORa 10-year probability of a major osteoporosis-related fracture greaterthan or equal to 20% based on the [place]-adapted WHO algorithm Please note that all treatment decisions require clinical judgment andconsideration of individual patient factors, including patientpreferences, co-morbidities, previous drug use, risk factors not capturedin the FRAX model (e.g., frailty, falls, vitamin D deficiency, increasedbone turnover, interval significant decline in bone density) and possibleunder- or over-estimation of fracture risk by FRAX. us Sarah Grupo [facility] DXA PROCEDURES Final Result from Last 3 Months or Most Recently Relevant to Health Maintenance Insurance MEDICARE [facility] Care Teams Local City Driver Relationship Specialty Start Date End Date Daryl Guerin PA [address] [place] [address] PCP - General Internal Medicine 04/16/20
--- OUTSIDE RECORDS SUMMARY | 2024-03-26 13:07 | XMS_ITS | Encounter Summary ---
Author Organization [facility] [place] [address] Care Team Providers Care Dry Room Operator Name Role Phone Daryl Guerin Primary Care Provider [phone] Reason for Visit * Reason Comments Cough Encounter Details Date Type Department Care Team (Late st Contact Info) Description 03/19/2024 12:45 PM EST Office Visit Adult Medicine [facility] [address], [place] [phone] Charles Lombardo PA [address], [place] Viral syndrome (Primary Dx); Nausea; Vertigo; Primary hypertension Social History Tobacco Use Types Packs/Day Years [...] on file documented as of this encounter Last Filed Vital Signs Vital Sign Reading Time Taken Comments Blood Pressure 108/58 03/19/2024 12:35 PM EST Pulse 65 03/19/2024 12:35 PM EST Temperature 36.4 ??C (97.5 ??F) 03/19/2024 12:[address] Respiratory Rate - - Oxygen Saturation 97% 03/19/2024 12:35 PM EST Inhaled Oxygen Concentration - - Weight 62.7 kg (138 lb 3.2 oz) 03/19/2024 12:35 PM EST Height - - Body Mass Index 25.28 02/22/2024 11:47 AM EST documented in this encounter Ordered Prescriptions Prescription Sig Dispense Quantity Refills Last Filled Start Date End Date ondansetron (ZOFRAN) 4 mg tabletIndications: Nausea Take 1 tablet (4 mg total) by mouth every 8 (eight) hours if needed for nausea. 21 tablet 03/20/2024 albuterol HFA (ProAir HFA) 90 mcg/actuation inhaler Inhale 2 puffs by mouth every 4 (four) hours if needed for wheezing or shortness of breath. 8.5 g 03/20/2024 benzonatate (TESSALON) 100 mg capsule Take 1 capsule (100 mg total) by mouth 3 (three) times a day if needed for cough. Do not crush or chew. 21 capsule 03/20/2024 meclizine (ANTIVERT) 12.5 mg tablet Take 1 tablet (12.5 mg total) by mouth 3 (three) times a day if needed for dizziness. 30 tablet 03/19/2024 documented in this encounter Progress Notes * BRADY Peterson - 03/19/2024 12:45 PM ESTAddended by: CHARLES LOMBARDO on: 03/20/2024 07:46 AM Modules accepted: Orders * BRADY Peterson - 03/19/2024 12:45 PM EST CHIEF COMPLAINT: Cough IDENTIFIER: Paulette Read is a 79 y.o. old female. HPI: Patient is an 79-year-old female who presents to the office complaining of viral symptoms x 2 weeks. She has been experiencing fatigue, nausea. There is sometimes abdominal pain. She denies decreasedappetite. She takes Pepcid as needed which helps. Over the last 4 days, she has been experiencing dry cough at nighttime, some shortness of breath, chills, myalgias. She denies chest pain, fever. Shedenies diarrhea, vomiting, bloody stools. She has not tested for COVID-19 infection at home. She lives at home alone. Her daughter visits her daily, her daughter is not sick. At the end of her visit, she mentions that she gets occasional lightheadedness, vertigo. She describes a room spinning sensation. The symptoms are not new, have been chronic for many years. 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 She does have anemia with H&H of 9.4/31.2 which is stable (she follows heme). Blood pressure is on the lower end. She anders several medications for hypertension including amlodipine, losartan and atenolol. 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 molina - l4-l5 discetomy BREAST BIOPSY Bilateral PROCEDURE: BX BREAST; PERC NEEDLE CORE W/IMAG GUID; COMMENT: b/l breasts bxs.-benign BREAST LUMPECTOMY PROCEDURE:BREAST LUMPECTOMY COLONOSCOPY 2000 PROCEDURE: HISTORICAL COLONOSCOPY COLONOSCOPY 07/01/2010 PROCEDURE: DE COLONOSCOPY FLX DX W/COLLJ SPEC WHEN PFRMD; COMMENT: diverticulosis; melanosis; cecalangiodysplasia HIP FRACTURE SURGERY PROCEDURE:HIP FRACTURE SURGERY OTHER SURGICAL HISTORY PROCEDURE: HISTORY OTHER; COMMENT: breast bx benign SOCIAL HISTORY: Social History Tobacco Use Smoking status: Former Current packs/day: 1.00 Types: Cigarettes Smokeless tobacco: Never Substance Use Topics Alcohol use: Yes FAMILY HISTORY: Family History Problem Relation Name Age of Onset Leukemia Father Cataracts Mother Blindness Neg Hx Glaucoma Neg Hx Macular degeneration Neg Hx Strabismus Neg Hx Breast cancer Neg Hx Colon cancer Neg Hx Ovarian cancer Neg Hx MEDICATIONS DISCONTINUED/REORDERED: There are no discontinued medications. ACTIVE MEDICATIONS: Outpatient Medications Marked as Taking for the 03/19/24 encounter (Office Visit) with BRADY Peterson Medication Sig Dispense Refill alendronate (FOSAMAX) 70 mg tablet Take 1 tablet (70 mg total) by mouth every 7 (seven) days. 1 tablet weekly on an empty stomach, remain upright for at least 30 minutes 4 each 5 amLODIPine (NORVASC) 10 mg tablet Take 1 tablet (10 mg total) by mouth daily. aspirin 81 mg EC tablet Take 1 tablet (81 mg total) by mouth daily. atenoloL (TENORMIN) 100 mg tablet Take 1 tablet (100 mg total) by mouth daily. CHOLECALCIFEROL, VITAMIN D3, ORAL Take by mouth 1 (one) time each day. Daily clonazePAM (KlonoPIN) 0.5 mg tablet Take 1 tablet (0.5 mg total) by mouth 2 (two) times a day if needed for anxiety. 56 tablet 0 FLUoxetine (PROzac) 20 mg capsule Take by mouth. losartan (COZAAR) 25 mg tablet Take 1 tablet (25 mg total) by mouth daily. nortriptyline (PAMELOR) 75 mg capsule Take 1 capsule (75 mg total) by mouth every night at bedtime. nystatin (MYCOSTATIN) cream Apply 1 Application topically 2 (two) times a day. triamcinolone (KENALOG) 0.1 % cream Apply topically 2 (two) times a day. ALLERGIES: No Known Allergies PHYSICAL EXAM: Blood pressure 108/58, pulse 65, temperature 36.4 ??C (97.5 ??F), temperature source Temporal, weight 62.7 kg (138 lb 3.2 oz), SpO2 97%. Body mass index is 25.28 kg/m??. BMI is greater than 25.0 (above the normal range) - see Plan APPEARANCE: Alert and in no acute distress EYES: PERRLA, conjunctiva and sclera normal EARS: External ears normal. Canals clear. TMs normal NOSE/SINUS: Nares normal. Septum midline. Mucosa normal. No drainage or sinus tenderness THROAT: No erythema or exudates NECK: Neck supple, no adenopathy, thyroid symmetric and of normal size HEART: RRR with normal S1 and S2, no murmurs, no gallops LUNG: Clear to auscultation ABDOMEN: Bowel sounds normoactive, soft, non-tender, without organomegaly or palpable masses EXTREMITIES: No edema NEURO: Awake, alert and oriented x 3. No focal deficits LABS: Lab Results Component Value Date WBC 10.9 (H) 02/22/2024 HGB 9.4 (L) 02/22/2024 HCT 31.2 (L) 02/22/2024 MCV 98.1 (H) 02/22/2024 PLT 374 02/22/2024 Lab Results Component Value Date GLUCOSE 106 (H) 02/21/2024 CALCIUM 10.4 02/22/2024 NA 133 02/21/2024 K 5.4 02/21/2024 CO2 24 02/21/2024 CL 104 02/21/2024 BUN 28 (H) 02/21/2024 CREATININE 1.40 (H) 02/22/2024 IMAGING: None IMPRESSION/PLAN: 1. Viral syndrome XR Chest 2 Views POC Influenza A/B manually resulted Poc Rapid [id number], MOLECULAR 2. Nausea 3. Vertigo 4. Primary hypertension Medication and lab orders: Orders Placed This Encounter Procedures XR Chest 2 Views POC Influenza A/B manually resulted Poc Rapid [id number], MOLECULAR Other orders: None Patient complaining of viral symptoms for the last 2 weeks, worsening over the last 4 days. COVID-19 and flu swabs in the office today were unremarkable. Chest x-ray is ordered. Will call with results/plan. Lungs are clear to auscultation. Oxygen saturation 97%. Discussed rest, maintaining adequatehydration. Discussed Tessalon Perles as needed, albuterol as needed, Zofran as needed. Blood pressure is 108/58. She does complain of lightheadedness which is not new. Can trial discontinuing losartan, follow-up in 2 weeks to see if this helped. She has anemia which is overall stable. Additionally, she complains of a room spinning sensation. This is not new. 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 I prescribed meclizine asneeded. If no better, can consider vestibular rehab again. Advised the patient to call me if any problems. Patient understands the plan. Patient is in agreement with the plan. Today's documentation was made using voice recognition software.This note may contain grammatical errors secondary to this software. Charles Lombardo PA-C * Rosy Pat MA - 03/19/2024 12:45 PM EST Lab Results Component Value Date RAPFLUA Negative 03/19/2024 RAPFLUB Negative 03/19/2024 Lab Results Component Value Date COVID19 Negative 03/19/2024 * BRADY Peterson - 03/19/2024 12:45 PM EST Called patient and discussed negative chest x-ray. Medications sent to the pharmacy. Advised patient to go to the ER for any new or worsening symptoms. documented in this encounter Plan of Treatment Upcoming Encounters Date Type Department Care Team (Late st Contact Info) Description 04/02/2024 12:45 PM EST Office Visit Adult Medicine [facility] - [address] [phone] Charles Lombardo PA [address], [place] 06/29/2024 10:45 AM EDT Appointment Bone Density - [address] [phone] 06/29/2024 11:30 AM EDT Appointment Radiology Department - [address] [phone] 07/16/2024 11:00 AM EDT Office Visit Endocrinology - [address] [phone] Maryuri Patino PA [address] [place] [address] 08/21/2024 10:45 AM EDT Office Visit [facility] Hematology Oncology [address] [place] [address] [phone] Elaine Pinto, DO [address] [place] [address] documented as of this encounter Procedures Procedure Name Priority Date/Time Associated Diagnosis Comments POC RAPID [id number], MOLECULAR Routine 03/19/2024 1:16 PM EST Viral syndrome POC INFLUENZA A/B Routine 03/19/2024 1:1 6 PM EST Viral syndrome documented in this encounter Results * XR [...] Signed Date: 03/19/2024 17:21 ET Workstation ID: [id number] Transcribed By: Self Edit Transcribed Date: 03/19/2024 [...] Signed Date: 03/19/2024 17:21 ET Workstation ID: [id number] Transcribed By: Self Edit Transcribed Date: 03/19/2024 17:20 ET us Charles Lombardo PA IMG XR PROCEDURES Final Result * Poc Rapid [id number], MOLECULAR (03/19/2024 1:16 PM EST) COVID-19/SARS- COV-2 Rapid POC Negative Negative Internal Control Pass Yes Yes Swab Nasopharyngeal structure / Unknown 03/19/2024 1:16 PM EST us Charles Lombardo PA POINT OF CARE TEST ENTER/EDIT OR DERABLES Final Result * POC Influenza A/B manually resulted (03/19/2024 1:16 PM EST) Rapid Influenza A AGN POC Negative Negative Rapid Influenza B AGN POC Negative Negative Internal Control Pass Yes Yes Swab 03/19/2024 1:16 PM EST us Charles Lombardo PA POINT OF CARE TEST ENTER/EDIT OR DERABLES Final Result documented in this encounter Visit Diagnoses Diagnosis Viral syndrome- Primary Unspecified viral infection, in conditions classified elsewhere and of unspecified site Nausea Nausea alone Vertigo Dizziness and giddiness Primary hypertension Unspecified essential hypertension Dry cough Cough Shortness of breath Encounter for screening mammogram for breast cancer documented in this encounter Care Teams Dry Room Operator Relationship Specialty Start Date End Date Daryl Guerin PA [address] [place] [address] PCP - General Internal Medicine 04/16/20 documented as of this encounter
[2024-03-26 13:10] LABS: Alanine Aminotransferase 28 U/L (0-31); Albumin Level 2.9 g/dL (3.5-5.0); Alkaline Phosphatase 283 U/L (39-117); Anion Gap 12 (12-20); Aspartate Amino Transferase 53 U/L (5-31); Bilirubin Direct 0.2 mg/dL (0.0-0.5); Bilirubin Total 0.3 mg/dL (0.0-1.0); Blood Urea Nitrogen 49 mg/dL (9-16); Calcium 9.2 mg/dL (8.4-10.2); Carbon Dioxide 19 mmol/L (22-29); Chloride 109 mmol/L (96-108); Creatinine Clr Calc Pharmacy 32.9; Estimated Glomerular Filt Rate 42; Glucose Random 122 mg/dL (60-115); Lipase 39 U/L (8-78); Magnesium 2.3 mg/dL (1.6-2.6); Potassium 4.8 mmol/L (3.3-5.1); Sodium 135 mmol/L (135-145); Total Protein 6.7 g/dL (6.5-8.0)
[2024-03-26 13:24] LABS: SLIDE REVIEW VERIFIED
[2024-03-26] MEDS: iohexoL 350 MG/ML 100 ML INFUS..BTL IV (14:13)
[2024-03-26 15:04] LABS: Troponin-I High Sensitivity 16.4 ng/L (<3.5-17.0)
[2024-03-26] MEDS: Heparin Sodium,Porcine 5,000 UNIT/ML VIAL 5300 UNIT IVPUSH (15:09)
[2024-03-26 15:14] LABS: INTERNATIONAL NORM RATIO 1.2 (0.9-1.1); Prothrombin Time 13.9 SEC (10.9-12.4)
[2024-03-26 15:16] LABS: PTT Heparin Drip 33.5 SEC (53-77.9)
[2024-03-26 15:17] LABS: B Type Natriuretic Peptide 470 pg/mL (<100)
[2024-03-26] MEDS: Heparin Sodium,Porcine/1/2NS 25,000 UNIT/250 ML IV.SOLN 9.35 UNIT IVCONT (15:18)
--- NOTE | 2024-03-26 16:30 | PHA.MEDREC ---
Addendum entered by Cookie Babin RPh 03/26/24 16:42: [facility] reviewed Original Note: Pharmacy Consult ? Medication Reconciliation Pharmacy has completed the medication reconciliation. Spoke with patient and patients daughter Teresa at bedside. Patient confirmed her Alendronate 70mg tab once a week and states she takes it on Mondays but was not able to take it this morning and states she is pretty sure she took it last week. She states she just saw her PA in the last week and they put the Losartan 25mg tab on hold for 2 weeks until the patients next appointment with them. The patient and daughter states the patient took her medications this morning around 0800.
--- NOTE | 2024-03-26 16:34 | PM.IMHP ---
History of Present Illness Date of Service: 03/26/24 Chief Complaint: constipation 79 year old women presenting to the ER with complaints abdominal pain, constipation and shortness breaths of at least 2 weeks. She reported that her abdomen fell somewhat swollen and she had not been able to have a bowel movement in more than a week. She had use suppositories with no success. She reported that the shortness breath has been ongoing for over 2 weeks and reported worsening. She denied any cough with sputum or hemoptysis. She lives alone but C3 Jian has been doing okay and has support from her daughter. She denied any recent fever, chills, nausea, vomiting, diarrhea, recent travel, sick contacts. In the ER, CTA showed bilateral pulmonary embolus and abdominal CT showed possible malignancy with irregularities to the liver without bowel obstruction. She was started on IV heparin drip in the ER. Plan is to admit patient for further management and treatment of pulmonary embolus and question of malignancy. Review of Systems Review of Systems: Denies any recent fever chills or decrease in appetite respiratory denies any shortness of breath or cough denied chest pain gastrointestinal See HPI genitourinary denies any dysuria frequency or hematuria musculoskeletal denies any joint pain or swelling neuropsych denies any weakness or seizures all other systems reviewed are negative [facility] Medical History (Updated 03/26/24 @ 15:56 by Desmond Hough MD) Osteoporosis Left arm swelling HTN (hypertension) Diverticulosis Osteopenia Mcmahan's palsy Chronic renal insufficiency Hyperparathyroidism Basal cell carcinoma Osteoarthritis Depression with anxiety Surgical History (Updated 05/25/23 @ 13:40 by BRADY Martins) History of dental surgery History of hip surgery Hx of breast biopsy H/O colonoscopy Social History (Updated 04/19/23 @ 08:35 by Yara Gautam RN) Household Members: None Housing: House Are you a primary customer care consultant to a significant other at home: No Do you presently have visiting nurse or other home services: No Patient Tobacco Use Status: Former Tobacco user Tobacco use type: Cigarette Years Smoked: 16 Smoked in Last 30 Days: No Second Hand Smoke Exposure: No Use of substances other than those prescribed or required for medical reasons: No Advance Directives: Yes Advance Directives Information Provided: No Advance Directives on File: No Meds Allergies Allergy/AdvReac Type Severity Reaction Status Date / Time No Known Allergies Allergy Verified 03/26/24 11:40 [No Known Allergies*] Active Medications: Current Medications Acetaminophen (Acetaminophen 325 Mg Tablet) 650 mg PO Q6H PRN PRN Reason: Pain, Mild 1-3,fever,headache Calcium Carbonate (Calcium Carbonate 750 Mg Tab.Chew) 750 mg PO Q4H PRN PRN Reason: Heartburn Heparin Sodium (Porcine) (Heparin Sodium,Porcine 5,000 Unit/Ml Vial) 2,700 unit 40 unit/kg (2700 unit) IVPUSH PROTOCOL BOLUS PRN; Protocol PRN Reason: 40 unit/kg - Heparin Protocol Heparin Sodium (Porcine) (Heparin Sodium,Porcine 5,000 Unit/Ml Vial) 5,300 unit 80 unit/kg (5300 unit) IVPUSH PROTOCOL BOLUS PRN; Protocol PRN Reason: 80 unit/kg - Heparin Protocol Heparin Sodium/Sodium Chloride (Heparin Sodium,Porcine/1/2ns) 25,000 unit in 250 mls @ 0 mls/hr IVCONT .Q0M [facility]; Protocol Last Admin: 03/26/24 15:18 Dose: 14 units/kg/hr, 9.35 mls/hr Magnesium Hydroxide (Milk Of Magnesia 30 Ml Oral.Susp) 30 ml PO DAILY PRN PRN Reason: Constipation Melatonin (Melatonin 3 Mg Tablet) 6 mg PO BEDTIME PRN PRN Reason: Insomnia Ondansetron HCl (Ondansetron Hcl 4 Mg/2 Ml Vial) 4 mg IVPUSH Q8H PRN PRN Reason: Nausea and Vomiting Sodium Biphosphate/Sodium Phosphate (Sodium Phosphate,[place]-Dibasic 133 Ml Enema) 133 ml MT ONCE ONE Stop: 03/26/24 16:33 Sodium Chloride (0.9 % Sodium Chloride Flush 3 Ml Syringe) 3 [facility] Medications ?Medication ?Instructions ?Recorded ?Confirmed ?Last Taken ?Type alendronate 70 mg tablet 70 mg PO MO 04/19/23 03/26/24 03/19/24 History amlodipine 10 mg tablet 10 mg PO DAILY 04/19/23 03/26/24 03/26/24 History aspirin 81 mg tablet,delayed 81 mg PO BEDTIME 04/19/23 03/26/24 03/26/24 History release atenolol 100 mg tablet 100 mg PO DAILY 04/19/23 03/26/24 03/26/24 History clonazepam 0.5 mg tablet 0.5 mg PO BID PRN anxiety 04/19/23 03/26/24 05/03/23 History fluoxetine 20 mg capsule 20 mg PO DAILY 04/19/23 03/26/24 03/26/24 History nortriptyline 75 mg capsule 75 mg PO BEDTIME 04/19/23 03/26/24 03/25/24 History acetaminophen 500 mg tablet 1,000 mg PO Q6H PRN Pain 04/20/23 03/26/24 05/02/23 History albuterol sulfate 90 mcg/actuation 2 puff inhalation Q4H PRN wheezing 03/26/24 03/26/24 03/26/24 History aerosol inhaler meclizine 12.5 mg tablet 12.5 mg PO TID PRN dizziness 03/26/24 03/26/24 Unknown History Physical Exam Vital Signs and Narrative: Vital Signs: Last Vital Signs Temp 97.1 F 03/26/24 12:31 Pulse 64 03/26/24 12:31 Resp 19 03/26/24 12:31 BP 99/46 L 03/26/24 12:31 Pulse Ox 98 03/26/24 12:33 O2 Del Method Nasal Cannula 03/26/24 12:33 O2 Flow Rate 3 03/26/24 12:33 BMI result Body Mass Index 26.9 Appearing in no acute distress head is normocephalic atraumatic eyes pupils are PERRLA sclera is anicteric mouth throat mucous membranes are intact and moist neck is supple no lymphadenopathy, no JVD noted lung sounds are clear to auscultation heart regular rate rhythm, clear S1, S2 positive bowel sounds, abdomen is soft, nontender neuro patient is alert x3, no focal deficits Results Labs 03/26/24 12:50 03/26/24 12:50 Labs: Laboratory Results - last 24 hr 03/26/24 03/26/24 03/26/24 12:14 12:50 15:01 MCV 92.3 MCH 29.0 MCHC 31.4 RDW 15.8 Plt Count 230 MPV 10.9 Immature Gran % (Auto) 1.3 H Neut % (Auto) 86.4 H Lymph % (Auto) 4.7 L [place] % (Auto) 6.9 Eos % (Auto) 0.4 Baso % (Auto) 0.3 Lymph # (Auto) 1.1 L [place] # (Auto) 1.5 H Eos # (Auto) 0.1 Baso # (Auto) 0.1 Abs Immat Gran (auto) 0.29 H Absolute Neuts (auto) 19.2 H Absolute Nucleated RBC 0.050 H Nucleated RBC % (auto) 0.2 Smear Tech's Comments VERIFIED PT 13.9 H INR 1.2 H aPTT Heparin Protocol 33.5 L Anion Gap 12 Estim Creat Clear Calc 32.9 Estimated GFR 42 Random Glucose 122 H Calcium 9.2 D Magnesium 2.3 Total Bilirubin 0.3 Direct Bilirubin 0.2 AST 53 H ALT 28 Alkaline Phosphatase 283 H Troponin I High Sens 16.4 B-Natriuretic Peptide 470 H Total Protein 6.7 Albumin 2.9 L Lipase 39 Influenza Type A (PCR) NEGATIVE Influenza Type B (PCR) NEGATIVE RSV RNA Qual (PCR) NEGATIVE SARS-CoV-2 RNA (RT-PCR) NEGATIVE Imaging Radiologist's Impressions: Impressions Chest CTA 03/26/24 11:45 IMPRESSION: 1. Examination POSITIVE for bilateral segmental and subsegmental the, left greater than right. There is evidence of reflux into the hepatic veins, dilatation of the right atrium, and mild septal bowing of the intraventricular septum. Findings meet criteria for submassive PE. 2. There are mild changes of interstitial pulmonary edema. Bilateral small right greater than left pleural effusions. 3. Mild to moderate cardiomegaly. 4. Patulous esophagus with a moderate size hiatus hernia. 5. Nonobstructing left renal calculi. Small volume upper abdominal ascites. 6. Abnormal appearing liver. 7. Abnormal appearance of gallbladder although may relate to ascites in the gallbladder fossa. Refer to the dedicated CT abdomen and pelvis performed concurrently. Findings were relayed to Dr. Desmond Hough of the [place] [facility] via secure text at 2:30 PM, 03/26/2024. Electronically signed by: Azael Cheek MD 03/26/2024 02:45 [place] [facility] [place] 03/26/24 13:45 IMPRESSION: Acute pulmonary artery emboli. Please for [address] chest angiogram. Malignancy with metastatic disease to the liver, osseous and retroperitoneal lymphadenopathy. On clear primary etiology. Findings communicated to the emergency physician Dr. Desmond Hough absent 2:22 PM on March 26, 2024. Fleischner guidelines were followed. Electronically signed by: Nuno Huitron MD 03/26/2024 02:31 PM EST Assessment and Plan (1) Acute pulmonary embolism: Status: Acute Plan 79-year-old woman presented to the ER with complaints of constipation, shortness of breath for 2 weeks Pulmonary embolism Chest CTA positive for bilateral segmental and subsegmental emboli, left greater than right with evidence of reflux into the hepatic veins, dilation of the right atrium, mild septal bowing of the intraventricular septum, findings of submassive PE Started on IV heparin drip Hematology/oncology consult Continue oxygen to keep saturation greater than 90 % npo for thrombectomy in the am Possible malignancy Abdominal CT showing metastatic disease to the liver with osseous and retroperitoneal lymphadenopathy GI consult Hematology/oncology consult Constipation No obstruction seen on abdominal CT Fleets enema P.r.n. milk of magnesia Hypertension Soft blood pressures Hold antihypertensives for now Mental health Continue home medications DVT prophylaxis with IV heparin Full code Quality Stroke Does the patient have a stroke diagnosis?: No VTE Prior VTE?: No VTE Risk Level:: Medical - moderate - high VTE Device Contraindication: Treatment Not Indicated VTE Drug Contraindication: N/A - Med Ordered
[2024-03-26 17:04] LABS: Lactate Dehydrogenase 547 U/L (122-220); Uric Acid 9.9 mg/dL (2.4-5.7)
--- NOTE | 2024-03-26 17:48 | PC.NURSE ---
Pt's SAO2 down to 86%-91% on 10 ltr oxymask; RR 20; mask turned up to 15ltr and RT called to consut; provider made aware
[2024-03-26 18:18] VITALS: BP 116/57; PULSE 64; RESP 20; O2SAT 95
--- NOTE | 2024-03-26 19:56 | PM.EVENT ---
Event Note Date of Service: 03/26/24 Event Note: Pt. seen and examined. CT reviewed and positive for PE. Case discussed with hospitalist team. For Pulm Embolectomy tomorrow. Full consult to follow. Thank you Time Spent With Patient Time: Total time managing care of this patient today ____ minutes.
[2024-03-26 20:55] VITALS: BMI 27.1
[2024-03-26 21:04] VITALS: BP 118/56; PULSE 65; RESP 16; TEMP 36.8
[2024-03-26] MEDS: 0.9 % Sodium Chloride Flush 3 ML SYRINGE IVFLUSH (21:31)
[2024-03-26] MEDS: Nortriptyline HCl 25 MG CAPSULE 75 MG PO (21:31)
[2024-03-26 21:40] LABS: PTT Heparin Drip 46.6 SEC (53-77.9)
[2024-03-26] MEDS: Heparin Sodium,Porcine 5,000 UNIT/ML VIAL 2700 UNIT IVPUSH (22:11)
[2024-03-26 22:58] VITALS: BP 114/57; PULSE 69; RESP 18; TEMP 36.8; O2SAT 95
[2024-03-27] VITALS (39 sets, daily range): BP systolic 83–128; BP diastolic 52–68; PULSE 55–105; RESP 12–22; TEMP 36.1–37.5; O2SAT 88–98
[2024-03-27 04:06] LABS: Hematocrit 24.2 % (37.0-47.0); Hemoglobin 7.7 g/dl (12.0-16.0); Mean Corpuscular HGB Conc 31.8 g/dl (31.0-35.0); Mean Corpuscular Hemoglobin 28.4 pg (27.0-33.0); Mean Corpuscular Volume 89.3 fL (80.0-98.0); Mean Platelet Volume 10.9 fL (9.4-12.3); NRBC Pct Auto 0.1 /100WBC (0.0-0.2); Platelet Count 279 X10*3/uL (160-400); Red Blood Count 2.71 X10*6/uL (4.20-5.50); White Blood Count 20.2 X10*3/uL (4.8-10.8)
[2024-03-27 04:12] LABS: INTERNATIONAL NORM RATIO 1.2 (0.9-1.1); Prothrombin Time 14.4 SEC (10.9-12.4)
[2024-03-27 04:15] LABS: PTT Heparin Drip 44.4 SEC (53-77.9)
[2024-03-27] MEDS: Heparin Sodium,Porcine 5,000 UNIT/ML VIAL 2700 UNIT IVPUSH ×2 (04:25→11:04)
[2024-03-27] MEDS: FLUoxetine HCl 20 MG CAPSULE PO (08:08)
--- NOTE | 2024-03-27 09:20 | P.PNIM_ITS ---
Subjective Subjective Date of Service: 03/27/24 Review of Systems Follow up PE and ? mets no pain today Physical Exam 2 Vital Signs: Vital Signs: Last Vital Signs Temp 99.5 F 03/27/24 07:09 Pulse 70 03/27/24 07:09 Resp 18 03/27/24 07:09 BP 111/56 L 03/27/24 07:09 Pulse Ox 95 03/27/24 07:09 O2 Del Method Oxymask 03/27/24 07:09 O2 Flow Rate 15 03/27/24 07:09 BMI result Body Mass Index 27.1 Appearing in no acute distress lung sounds are clear to auscultation heart regular rate rhythm, clear S1, S2 positive bowel sounds, abdomen is soft, nontender neuro patient is alert x3, no focal deficits Objective Data Active Medications Acetaminophen (Acetaminophen 325 Mg Tablet) 650 mg PO Q6H PRN PRN Reason: Pain, Mild 1-3,fever,headache Albuterol Sulfate (Albuterol Sulfate 90 Mcg 8 Gm Inhaler) 2 puff INHALE Q4H PRN PRN Reason: wheezing Calcium Carbonate (Calcium Carbonate 750 Mg Tab.Chew) 750 mg PO Q4H PRN PRN Reason: Heartburn Clonazepam (Clonazepam 0.5 Mg Tablet) 0.5 mg PO BID PRN PRN Reason: anxiety Fluoxetine HCl (Fluoxetine Hcl 20 Mg Capsule) 20 mg PO DAILY [facility] Last Admin: 03/27/24 08:08 Dose: 20 mg Documented By: DEREK Heparin Sodium (Porcine) (Heparin Sodium,Porcine 5,000 Unit/Ml Vial) 2,700 unit 40 unit/kg (2700 unit) IVPUSH PROTOCOL BOLUS PRN; Protocol PRN Reason: 40 unit/kg - Heparin Protocol Last Admin: 03/27/24 04:25 Dose: 2,700 unit Documented By: IVONE Heparin Sodium (Porcine) (Heparin Sodium,Porcine 5,000 Unit/Ml Vial) 5,300 unit 80 unit/kg (5300 unit) IVPUSH PROTOCOL BOLUS PRN; Protocol PRN Reason: 80 unit/kg - Heparin Protocol Heparin Sodium/Sodium Chloride (Heparin Sodium,Porcine/1/2ns) 25,000 unit in 250 mls @ 0 mls/hr IVCONT .Q0M [facility]; Protocol Last Titration: 03/27/24 04:25 Dose: 18 units/kg/hr, 12.02 mls/hr Documented By: IVONE Co-signed By: ZHENG Magnesium Hydroxide (Milk Of Magnesia 30 Ml Oral.Susp) 30 ml PO DAILY PRN PRN Reason: Constipation Meclizine HCl (Meclizine Hcl 12.5 Mg Tablet) 12.5 mg PO TID PRN PRN Reason: dizziness Melatonin (Melatonin 3 Mg Tablet) 6 mg PO BEDTIME PRN PRN Reason: Insomnia Nortriptyline HCl (Nortriptyline Hcl 25 Mg Capsule) 75 mg PO BEDTIME [facility] Last Admin: 03/26/24 21:31 Dose: 75 mg Documented By: IVONE Ondansetron HCl (Ondansetron Hcl 4 Mg/2 Ml Vial) 4 mg IVPUSH Q8H PRN PRN Reason: Nausea and Vomiting Sodium Chloride (0.9 % Sodium Chloride Flush 3 Ml Syringe) 3 ml IVFLUSH QSHIFT [facility] Last Admin: 03/27/24 08:02 Dose: Not Given Documented By: DERKE Non-Admin Reason: IV Running Labs 03/27/24 03:59 03/26/24 12:50 Labs: Laboratory Results - last 24 hr 03/26/24 03/26/24 03/26/24 12:14 12:50 15:01 MCV 92.3 MCH 29.0 MCHC 31.4 RDW 15.8 Plt Count 230 MPV 10.9 Immature Gran % (Auto) 1.3 H Neut % (Auto) 86.4 H Lymph % (Auto) 4.7 L [place] % (Auto) 6.9 Eos % (Auto) 0.4 Baso % (Auto) 0.3 Lymph # (Auto) 1.1 L [place] # (Auto) 1.5 H Eos # (Auto) 0.1 Baso # (Auto) 0.1 Abs Immat Gran (auto) 0.29 H Absolute Neuts (auto) 19.2 H Absolute Nucleated RBC 0.050 H Nucleated RBC % (auto) 0.2 Smear Tech's Comments VERIFIED Hold Purple Top PT 13.9 H INR 1.2 H aPTT Heparin Protocol 33.5 L Anion Gap 12 Estim Creat Clear Calc 32.9 Estimated GFR 42 Random Glucose 122 H Uric Acid 9.9 H Calcium 9.2 D Magnesium 2.3 Total Bilirubin 0.3 Direct Bilirubin 0.2 AST 53 H ALT 28 Alkaline Phosphatase 283 H Lactate Dehydrogenase 547 H Troponin I High Sens 16.4 B-Natriuretic Peptide 470 H Total Protein 6.7 Albumin 2.9 L Lipase 39 Carcinoembryonic Ag 7.70 Hold Green Top Hold Yellow Top Influenza Type A (PCR) NEGATIVE Influenza Type B (PCR) NEGATIVE RSV RNA Qual (PCR) NEGATIVE SARS-CoV-2 RNA (RT-PCR) NEGATIVE 03/26/24 03/27/24 21:04 03:59 MCV 89.3 MCH 28.4 MCHC 31.8 RDW 16.0 Plt Count 279 MPV 10.9 Immature Gran % (Auto) Neut % (Auto) Lymph % (Auto) Holt % (Auto) Eos % (Auto) Baso % (Auto) Lymph # (Auto) [place] # (Auto) Eos # (Auto) Baso # (Auto) Abs Immat Gran (auto) Absolute Neuts (auto) Absolute Nucleated RBC 0.030 H Nucleated RBC % (auto) 0.1 Smear Tech's Comments Hold Purple Top SEE NOTE PT 14.4 H INR 1.2 H aPTT Heparin Protocol 46.6 L D 44.4 L Anion Gap Estim Creat Clear Calc Estimated GFR Random Glucose Uric Acid Calcium Magnesium Total Bilirubin Direct Bilirubin AST ALT Alkaline Phosphatase Lactate Dehydrogenase Troponin I High Sens B-Natriuretic Peptide Total Protein Albumin Lipase Carcinoembryonic Ag Hold Green Top See Note Hold Yellow Top See Note Influenza Type A (PCR) Influenza Type B (PCR) RSV RNA Qual (PCR) SARS-CoV-2 RNA (RT-PCR) Assessment and Plan (1) Acute pulmonary embolism: Status: Acute Plan 79-year-old woman presented to the ER with complaints of constipation, shortness of breath for 2 weeks Pulmonary embolism Chest CTA positive for bilateral segmental and subsegmental emboli, left greater than right with evidence of reflux into the hepatic veins, dilation of the right atrium, mild septal bowing of the intraventricular septum, findings of submassive PE Started on IV heparin drip Hematology/oncology consult Continue oxygen to keep saturation greater than 90 % npo for thrombectomy today Possible malignancy Abdominal CT showing metastatic disease to the liver with osseous and retroperitoneal lymphadenopathy GI consult pending Hematology/oncology consult pending Constipation No obstruction seen on abdominal CT Fleets enema P.r.n. milk of magnesia Hypertension Soft blood pressures Hold antihypertensives for now Mental health Continue home medications DVT prophylaxis with IV heparin attending Dr. Mcghee Full code Quality Stroke Does the patient have a stroke diagnosis?: No VTE Prior VTE?: No VTE Risk Level:: Medical - moderate - high VTE Device Contraindication: Treatment Not Indicated VTE Drug Contraindication: N/A - Med Ordered
--- NOTE | 2024-03-27 09:24 | MHC.CM.PN ---
IMM 03/27. Pt self-care, lives at home with her daughter. Pt states her in July, and then the cat, and now her daughter stays to help her. Pt uses a cane and a rollater walker. Pt states her daughter Teresa is her HCP, copy requested, and pt did give permission for this CM to call Teresa to request a copy of the HCP, however she thinks she will need to get it from the senior business development analyst. Pts daughter will transport her home at discharge. PCP: Daryl ABREU
--- NOTE | 2024-03-27 09:54 | P.CONGS_ITS ---
History of Present Illness Consult details Consult date: 03/26/24 Reason for consult: other (DVT with PE) Narrative: Patient seen and examined in the emergency room. 79-year-old female who originally presented with some complaints of constipation was discovered to be short of breath in the emergency room. She reports that her abdomen is been somewhat swollen and has not had a bowel movement in over a week. She had been using suppositories with no significant improvement. Upon workup in the emergency room CT angiogram demonstrated bilateral pulmonary embolectomy and subsequent abdominal CT demonstrated concerns a malignancy we irregularities to the liver with no bowel obstruction. Upon discussion with her she reports no prior history of this. She has been short of breath and the time of my exam she was on a mask satting in the high 80s somewhere around 86 87%. She now presents to us for vascular evaluation. Review of Systems 2 Review of Systems: Yes all other systems are reviewed and are negative Constitutional: Constitutional: Reports no additional constitutional complaints ENT: Reports Normal hearing present Cardiovascular: Cardiovascular: Denies chest pain, Denies chest pain at rest, Denies chest pain with activity and Denies pedal edema Respiratory: Respiratory: Denies cough Gastrointestinal: Gastrointestinal: Denies abdominal pain Musculoskeletal: Musculoskeletal: Denies abnormal gait, Denies muscle cramps and Denies radiating pain into limb Integumentary/Breasts: Skin/Breast: Denies skin ulcer and Denies wounds Neurologic: Reports Normal hearing present and Denies abnormal gait Psychiatric: Psychiatric: Reports no additional psychiatric complaints [facility] Past Medical History Medical History (Updated 03/27/24 @ 10:09 by Kenneth Liu MD) Osteoporosis Left arm swelling HTN (hypertension) Diverticulosis Osteopenia Mcmahan's palsy Chronic renal insufficiency Hyperparathyroidism Basal cell carcinoma Osteoarthritis Depression with anxiety Surgical History Surgical History (Updated 05/25/23 @ 13:40 by BRADY Martins) History of dental surgery History of hip surgery Hx of breast biopsy H/O colonoscopy Social History Social History (Updated 04/19/23 @ 08:35 by Yara Gautam RN) Household Members: Other Household Members Other:: daughter stays with patient as of now Housing: House Are you a primary child care centre director to a significant other at home: No Do you presently have visiting nurse or other home services: No Patient Tobacco Use Status: Former Tobacco user Tobacco use type: Cigarette Years Smoked: 16 Second Hand Smoke Exposure: No Advance Directives Date on File: 03/26/24 service: No Meds Allergies Allergy/AdvReac Type Severity Reaction Status Date / Time No Known Allergies Allergy Verified 03/26/24 11:40 [No Known Allergies*] Active Medications: Current Medications Acetaminophen (Acetaminophen 325 Mg Tablet) 650 mg PO Q6H PRN PRN Reason: Pain, Mild 1-3,fever,headache Albuterol Sulfate (Albuterol Sulfate 90 Mcg 8 Gm Inhaler) 2 puff INHALE Q4H PRN PRN Reason: wheezing Calcium Carbonate (Calcium Carbonate 750 Mg Tab.Chew) 750 mg PO Q4H PRN PRN Reason: Heartburn Clonazepam (Clonazepam 0.5 Mg Tablet) 0.5 mg PO BID PRN PRN Reason: anxiety Fluoxetine HCl (Fluoxetine Hcl 20 Mg Capsule) 20 mg PO DAILY [facility] Last Admin: 03/27/24 08:08 Dose: 20 mg Heparin Sodium (Porcine) (Heparin Sodium,Porcine 5,000 Unit/Ml Vial) 2,700 unit 40 unit/kg (2700 unit) IVPUSH PROTOCOL BOLUS PRN; Protocol PRN Reason: 40 unit/kg - Heparin Protocol Last Admin: 03/27/24 04:25 Dose: 2,700 unit Heparin Sodium (Porcine) (Heparin Sodium,Porcine 5,000 Unit/Ml Vial) 5,300 unit 80 unit/kg (5300 unit) IVPUSH PROTOCOL BOLUS PRN; Protocol PRN Reason: 80 unit/kg - Heparin Protocol Heparin Sodium/Sodium Chloride (Heparin Sodium,Porcine/1/2ns) 25,000 unit in 250 mls @ 0 mls/hr IVCONT .Q0M [facility]; Protocol Last Titration: 03/27/24 04:25 Dose: 18 units/kg/hr, 12.02 mls/hr Magnesium Hydroxide (Milk Of Magnesia 30 Ml Oral.Susp) 30 ml PO DAILY PRN PRN Reason: Constipation Meclizine HCl (Meclizine Hcl 12.5 Mg Tablet) 12.5 mg PO TID PRN PRN Reason: dizziness Melatonin (Melatonin 3 Mg Tablet) 6 mg PO BEDTIME PRN PRN Reason: Insomnia Nortriptyline HCl (Nortriptyline Hcl 25 Mg Capsule) 75 mg PO BEDTIME [facility] Last Admin: 03/26/24 21:31 Dose: 75 mg Ondansetron HCl (Ondansetron Hcl 4 Mg/2 Ml Vial) 4 mg IVPUSH Q8H PRN PRN Reason: Nausea and Vomiting Sodium Chloride (0.9 % Sodium Chloride Flush 3 Ml Syringe) 3 [facility] Last Admin: 03/27/24 08:02 Dose: Not Given Home Medications ?Medication ?Instructions ?Recorded ?Confirmed ?Last Taken ?Type alendronate 70 mg tablet 70 mg PO MO 04/19/23 03/26/24 03/19/24 History amlodipine 10 mg tablet 10 mg PO DAILY 04/19/23 03/26/24 03/26/24 History aspirin 81 mg tablet,delayed 81 mg PO BEDTIME 04/19/23 03/26/24 03/26/24 History release atenolol 100 mg tablet 100 mg PO DAILY 04/19/23 03/26/24 03/26/24 History clonazepam 0.5 mg tablet 0.5 mg PO BID PRN anxiety 04/19/23 03/26/24 05/03/23 History fluoxetine 20 mg capsule 20 mg PO DAILY 04/19/23 03/26/24 03/26/24 History nortriptyline 75 mg capsule 75 mg PO BEDTIME 04/19/23 03/26/24 03/25/24 History acetaminophen 500 mg tablet 1,000 mg PO Q6H PRN Pain 04/20/23 03/26/24 05/02/23 History albuterol sulfate 90 mcg/actuation 2 puff inhalation Q4H PRN wheezing 03/26/24 03/26/24 03/26/24 History aerosol inhaler meclizine 12.5 mg tablet 12.5 mg PO TID PRN dizziness 03/26/24 03/26/24 Unknown History Physical Exam 2 Vital Signs: Vital Signs: Last Vital Signs Temp 99.5 F 03/27/24 07:09 Pulse 70 03/27/24 07:09 Resp 18 03/27/24 07:09 BP 111/56 L 03/27/24 07:09 Pulse Ox 95 03/27/24 07:09 O2 Del Method Oxymask 03/27/24 07:09 O2 Flow Rate 15 03/27/24 07:09 BMI result Body Mass Index 27.1 Const: General: cooperative, healthy appearing and comfortable O rientation/consciousness: oriented to person, oriented to place and oriented to time HEENT: Head: Yes normal to inspection Neck: Neck: Yes normal visual inspection Carotids: no bruits Chest: Chest palpation & inspection: normal inspection of the chest Resp: Effort & Inspection: normal respiratory effort and able to speak in complete sentences Auscultation: clear to auscultation bilaterally, no crackles, no rales, no rhonchi and no wheezes Cardio: Rate: regular rate Rhythm: regular rhythm Heart sounds: S1 normal heart sound present and S2 normal heart sound present Bruits: no carotid bruits Peripheral pulses: Peripheral pulses 2+ throughout GI: Other: Abdomen soft nontender no rebound no guarding. Inspection: Yes normal to inspection Skin: Wounds: no wounds Hair: normal Neuro: General: oriented to person, oriented to place and oriented to time Cranial nerves: Yes CN's II-XII intact bilaterally and Yes Normal hearing present Cognition (Neuro): normal cognition Motor exam (neuro): 5/5 motor strength present throughout Extrem: Other: venous exam: No significant superficial varicosities or spider telangiectasias, minimal edema General: No clubbing, No cyanosis and No edema Psych: Appearance: grossly normal Mental Status: mental status grossly normal Speech and movement: Normal speech and movement present Results Labs 03/27/24 03:59 03/26/24 12:50 Labs: Abnormal lab results 03/26/24 03/26/24 03/26/24 Range/Units 12:50 15:01 21:04 WBC 22.2 H (4.8-10.8) X10*3/uL RBC 2.86 L (4.20-5.50) X10*6/uL Hgb 8.3 L D (12.0-16.0) g/dl Hct 26.4 L D (37.0-47.0) % Immature Gran % (Auto) 1.3 H (0.0-0.4) % Neut % (Auto) 86.4 H (45-73) % Lymph % (Auto) 4.7 L (20-40) % Lymph # (Auto) 1.1 L (1.2-4.9) X10*3/uL [place] # (Auto) 1.5 H (0.1-1.2) X10*3/uL Abs Immat Gran (auto) 0.29 H (0.00-0.03) X10*3/uL Absolute Neuts (auto) 19.2 H (2.0-8.3) x10*3/uL Absolute Nucleated RBC 0.050 H (0.0-0.012) X10*3/uL PT 13.9 H (10.9-12.4) SEC INR 1.2 H (0.9-1.1) aPTT Heparin Protocol 33.5 L 46.6 L D (53-77.9) SEC Chloride 109 H (96-108) mmol/L Carbon Dioxide 19 L (22-29) mmol/L BUN 49 H (9-16) mg/dL Random Glucose 122 H (60-115) mg/dL Uric Acid 9.9 H (2.4-5.7) mg/dL AST 53 H (5-31) U/L Alkaline Phosphatase 283 H (39-117) U/L Lactate Dehydrogenase 547 H (122-220) U/L B-Natriuretic Peptide 470 H (<100) pg/mL Albumin 2.9 L (3.5-5.0) g/dL Crossmatch 03/27/24 03/27/24 Range/Units 03:59 09:25 WBC 20.2 H (4.8-10.8) X10*3/uL RBC 2.71 L (4.20-5.50) X10*6/uL Hgb 7.7 L (12.0-16.0) g/dl Hct 24.2 L (37.0-47.0) % Immature Gran % (Auto) (0.0-0.4) % Neut % (Auto) (45-73) % Lymph % (Auto) (20-40) % Lymph # (Auto) (1.2-4.9) X10*3/uL [place] # (Auto) (0.1-1.2) X10*3/uL Abs Immat Gran (auto) (0.00-0.03) X10*3/uL Absolute Neuts (auto) (2.0-8.3) x10*3/uL Absolute Nucleated RBC 0.030 H (0.0-0.012) X10*3/uL PT 14.4 H (10.9-12.4) SEC INR 1.2 H (0.9-1.1) aPTT Heparin Protocol 44.4 L (53-77.9) SEC Chloride (96-108) mmol/L Carbon Dioxide (22-29) mmol/L BUN (9-16) mg/dL Random Glucose (60-115) mg/dL Uric Acid (2.4-5.7) mg/dL AST (5-31) U/L Alkaline Phosphatase (39-117) U/L Lactate Dehydrogenase (122-220) U/L B-Natriuretic Peptide (<100) pg/mL Albumin (3.5-5.0) g/dL Crossmatch See Detail Short CBC 03/26/24 03/27/24 Range/Units 12:50 03:59 WBC 22.2 H 20.2 H (4.8-10.8) X10*3/uL Hgb 8.3 L D 7.7 L (12.0-16.0) g/dl Hct 26.4 L D 24.2 L (37.0-47.0) % Plt Count 230 279 (160-400) X10*3/uL BMP 03/26/24 12:50 Sodium 135 Potassium 4.8 Chloride 109 H Carbon Dioxide 19 L BUN 49 H Creatinine 1.22 Calcium 9.2 D Liver Function 03/26/24 Range/Units 12:50 Total Bilirubin 0.3 (0.0-1.0) mg/dL Direct Bilirubin 0.2 (0.0-0.5) mg/dL AST 53 H (5-31) U/L ALT 28 (0-31) U/L Alkaline Phosphatase 283 H (39-117) U/L Albumin 2.9 L (3.5-5.0) g/dL All other labs normal. Imaging Additional studies: CT angiogram dated 03/26/2024 demonstrates acute PE in segmental and subsegmental branches left greater than right. Question of pleural effusions. Mild to moderate cardiomegaly. Assessment and Plan (1) Pulmonary embolism: Qualifiers: Pulmonary embolism type: other Chronicity: acute Acute cor pulmonale presence: unspecified Qualified Code(s): I26.99 - Other pulmonary embolism without acute cor pulmonale Status: Acute Plan In short patient has acute pulmonary embolism. In addition she is positive for DVT. Started on heparin drip. Discussed options with patient including pulmonary embolectomy. She is in agreement and would like to move forward. We will schedule for tomorrow. Thank you for allowing us to assist in her care. If there are any questions or concerns please do not hesitate to contact us. Procedures Date of Service Date of Service: 03/27/24
--- NOTE | 2024-03-27 10:20 | P.CONGS_ITS ---
<Statement entered by Kenneth Liu MD - 03/27/24 12:21> Please see my consult History of Present Illness Consult details Consult date: 03/27/24 Narrative: We were consulted for Paulette, a pleasant 79-year-old female, for findings a submassive pulmonary embolism. She presented to the ER yesterday with multiple complaints including decreased bowel movements, nausea with food intake, abdominal discomfort but not pain, mild cough without sputum production, and shortness of breath for a few days. She has a medical history significant for hypertension, osteoporosis, anxiety/depression, and spinal stenosis status post lumbar fusion. Chest CTA revealed bilateral segmental and subsegmental left greater than right submassive PE. She was placed on O2 and admitted. This morning she is doing okay. She is able to talk in full sentences but continues with shortness of breath. She states she has not been sleeping well over the last week or so. Review of Systems 2 Constitutional: Constitutional: Reports as per HPI and Denies weakness ENT: Reports Normal hearing present and Denies dizziness Cardiovascular: Cardiovascular: Reports as per HPI, Denies chest pain, Denies chest pain at rest, Denies chest pain with activity, Denies dyspnea and Denies dyspnea on exertion Respiratory: Respiratory: Reports as per HPI, Denies cough, Denies dyspnea and Denies dyspnea on exertion Gastrointestinal: Gastrointestinal: Reports as per HPI, Denies abdominal pain, Denies nausea and Denies vomiting Musculoskeletal: Musculoskeletal: Denies numbness Integumentary/Breasts: Skin/Breast: Reports as per HPI, Denies erythema and Denies wounds Neurologic: Reports Normal hearing present, Denies dizziness, Denies numbness, Denies Sensory deficit (Neuro) and Denies weakness Psychiatric: Psychiatric: Reports no additional psychiatric complaints Endocrine: Endocrine: Reports no additional endocrine complaints [facility] Past Medical History Medical History (Updated 03/27/24 @ 10:50 by Abbey Alvarado PA-C) Osteoporosis Left arm swelling HTN (hypertension) Diverticulosis Osteopenia Mcmahan's palsy Chronic renal insufficiency Hyperparathyroidism Basal cell carcinoma Osteoarthritis Depression with anxiety Surgical History Surgical History (Updated 05/25/23 @ 13:40 by BRADY Martins) History of dental surgery History of hip surgery Hx of breast biopsy H/O colonoscopy Social History Social History (Updated 04/19/23 @ 08:35 by Yara Gautam RN) Household Members: Other Household Members Other:: daughter stays with patient as of now Housing: House Are you a primary long term care phlebotomist to a significant other at home: No Do you presently have visiting nurse or other home services: No Patient Tobacco Use Status: Former Tobacco user Tobacco use type: Cigarette Years Smoked: 16 Second Hand Smoke Exposure: No Advance Directives Date on File: 03/26/24 service: No Meds Allergies Allergy/AdvReac Type Severity Reaction Status Date / Time No Known Allergies Allergy Verified 03/26/24 11:40 [No Known Allergies*] Active Medications: Current Medications Acetaminophen (Acetaminophen 325 Mg Tablet) 650 mg PO Q6H PRN PRN Reason: Pain, Mild 1-3,fever,headache Albuterol Sulfate (Albuterol Sulfate 90 Mcg 8 Gm Inhaler) 2 puff INHALE Q4H PRN PRN Reason: wheezing Calcium Carbonate (Calcium Carbonate 750 Mg Tab.Chew) 750 mg PO Q4H PRN PRN Reason: Heartburn Clonazepam (Clonazepam 0.5 Mg Tablet) 0.5 mg PO BID PRN PRN Reason: anxiety Fluoxetine HCl (Fluoxetine Hcl 20 Mg Capsule) 20 mg PO DAILY [facility] Last Admin: 03/27/24 08:08 Dose: 20 mg Heparin Sodium (Porcine) (Heparin Sodium,Porcine 5,000 Unit/Ml Vial) 2,700 unit 40 unit/kg (2700 unit) IVPUSH PROTOCOL BOLUS PRN; Protocol PRN Reason: 40 unit/kg - Heparin Protocol Last Admin: 03/27/24 04:25 Dose: 2,700 unit Heparin Sodium (Porcine) (Heparin Sodium,Porcine 5,000 Unit/Ml Vial) 5,300 unit 80 unit/kg (5300 unit) IVPUSH PROTOCOL BOLUS PRN; Protocol PRN Reason: 80 unit/kg - Heparin Protocol Heparin Sodium/Sodium Chloride (Heparin Sodium,Porcine/1/2ns) 25,000 unit in 250 mls @ 0 mls/hr IVCONT .Q0M [facility]; Protocol Last Titration: 03/27/24 04:25 Dose: 18 units/kg/hr, 12.02 mls/hr Magnesium Hydroxide (Milk Of Magnesia 30 Ml Oral.Susp) 30 ml PO DAILY PRN PRN Reason: Constipation Meclizine HCl (Meclizine Hcl 12.5 Mg Tablet) 12.5 mg PO TID PRN PRN Reason: dizziness Melatonin (Melatonin 3 Mg Tablet) 6 mg PO BEDTIME PRN PRN Reason: Insomnia Nortriptyline HCl (Nortriptyline Hcl 25 Mg Capsule) 75 mg PO BEDTIME [facility] Last Admin: 03/26/24 21:31 Dose: 75 mg Ondansetron HCl (Ondansetron Hcl 4 Mg/2 Ml Vial) 4 mg IVPUSH Q8H PRN PRN Reason: Nausea and Vomiting Sodium Chloride (0.9 % Sodium Chloride Flush 3 Ml Syringe) 3 ml IVFLUSH QSHIFT [facility] Last Admin: 03/27/24 08:02 Dose: Not Given Home Medications ?Medication ?Instructions ?Recorded ?Confirmed ?Last Taken ?Type alendronate 70 mg tablet 70 mg PO MO 04/19/23 03/26/24 03/19/24 History amlodipine 10 mg tablet 10 mg PO DAILY 04/19/23 03/26/24 03/26/24 History aspirin 81 mg tablet,delayed 81 mg PO BEDTIME 04/19/23 03/26/24 03/26/24 History release atenolol 100 mg tablet 100 mg PO DAILY 04/19/23 03/26/24 03/26/24 History clonazepam 0.5 mg tablet 0.5 mg PO BID PRN anxiety 04/19/23 03/26/24 05/03/23 History fluoxetine 20 mg capsule 20 mg PO DAILY 04/19/23 03/26/24 03/26/24 History nortriptyline 75 mg capsule 75 mg PO BEDTIME 04/19/23 03/26/24 03/25/24 History acetaminophen 500 mg tablet 1,000 mg PO Q6H PRN Pain 04/20/23 03/26/24 05/02/23 History albuterol sulfate 90 mcg/actuation 2 puff inhalation Q4H PRN wheezing 03/26/24 03/26/24 03/26/24 History aerosol inhaler meclizine 12.5 mg tablet 12.5 mg PO TID PRN dizziness 03/26/24 03/26/24 Unknown History Physical Exam 2 Vital Signs: Vital Signs: Last Vital Signs Temp 99.5 F 03/27/24 07:09 Pulse 70 03/27/24 07:09 Resp 18 03/27/24 07:09 BP 111/56 L 03/27/24 07:09 Pulse Ox 95 03/27/24 07:09 O2 Del Method Oxymask 03/27/24 07:09 O2 Flow Rate 15 03/27/24 07:09 BMI result Body Mass Index 27.1 Const: General: comfortable and no acute distress O rientation/consciousness: patient oriented x3 HEENT: Ears: hearing grossly normal bilaterally Resp: Effort & Inspection: normal respiratory effort and able to speak in complete sentences Auscultation: clear to auscultation bilaterally Cardio: Rate: regular rate Rhythm: regular rhythm Heart sounds: S1 normal heart sound present and S2 normal heart sound present Bruits: no abdominal aortic bruits, no carotid bruits, no femoral bruits and no renal bruits GI: Palpation (GI): No Abdominal aortic bruit present Neuro: General: patient oriented x3 Cranial nerves: Yes Normal hearing present Sensory Exam: No Sensory deficit (Neuro) Results Labs 03/27/24 03:59 03/26/24 12:50 Labs: Abnormal lab results 03/26/24 03/26/24 03/26/24 Range/Units 12:50 15:01 21:04 WBC 22.2 H (4.8-10.8) X10*3/uL RBC 2.86 L (4.20-5.50) X10*6/uL Hgb 8.3 L D (12.0-16.0) g/dl Hct 26.4 L D (37.0-47.0) % Immature Gran % (Auto) 1.3 H (0.0-0.4) % Neut % (Auto) 86.4 H (45-73) % Lymph % (Auto) 4.7 L (20-40) % Lymph # (Auto) 1.1 L (1.2-4.9) X10*3/uL [place] # (Auto) 1.5 H (0.1-1.2) X10*3/uL Abs Immat Gran (auto) 0.29 H (0.00-0.03) X10*3/uL Absolute Neuts (auto) 19.2 H (2.0-8.3) x10*3/uL Absolute Nucleated RBC 0.050 H (0.0-0.012) X10*3/uL PT 13.9 H (10.9-12.4) SEC INR 1.2 H (0.9-1.1) aPTT Heparin Protocol 33.5 L 46.6 L D (53-77.9) SEC Chloride 109 H (96-108) mmol/L Carbon Dioxide 19 L (22-29) mmol/L BUN 49 H (9-16) mg/dL Random Glucose 122 H (60-115) mg/dL Uric Acid 9.9 H (2.4-5.7) mg/dL AST 53 H (5-31) U/L Alkaline Phosphatase 283 H (39-117) U/L Lactate Dehydrogenase 547 H (122-220) U/L B-Natriuretic Peptide 470 H (<100) pg/mL Albumin 2.9 L (3.5-5.0) g/dL Crossmatch 03/27/24 03/27/24 Range/Units 03:59 09:25 WBC 20.2 H (4.8-10.8) X10*3/uL RBC 2.71 L (4.20-5.50) X10*6/uL Hgb 7.7 L (12.0-16.0) g/dl Hct 24.2 L (37.0-47.0) % Immature Gran % (Auto) (0.0-0.4) % Neut % (Auto) (45-73) % Lymph % (Auto) (20-40) % Lymph # (Auto) (1.2-4.9) X10*3/uL [place] # (Auto) (0.1-1.2) X10*3/uL Abs Immat Gran (auto) (0.00-0.03) X10*3/uL Absolute Neuts (auto) (2.0-8.3) x10*3/uL Absolute Nucleated RBC 0.030 H (0.0-0.012) X10*3/uL PT 14.4 H (10.9-12.4) SEC INR 1.2 H (0.9-1.1) aPTT Heparin Protocol 44.4 L (53-77.9) SEC Chloride (96-108) mmol/L Carbon Dioxide (22-29) mmol/L BUN (9-16) mg/dL Random Glucose (60-115) mg/dL Uric Acid (2.4-5.7) mg/dL AST (5-31) U/L Alkaline Phosphatase (39-117) U/L Lactate Dehydrogenase (122-220) U/L B-Natriuretic Peptide (<100) pg/mL Albumin (3.5-5.0) g/dL Crossmatch See Detail Short CBC 03/26/24 03/27/24 Range/Units 12:50 03:59 WBC 22.2 H 20.2 H (4.8-10.8) X10*3/uL Hgb 8.3 L D 7.7 L (12.0-16.0) g/dl Hct 26.4 L D 24.2 L (37.0-47.0) % Plt Count 230 279 (160-400) X10*3/uL BMP 03/26/24 12:50 Sodium 135 Potassium 4.8 Chloride 109 H Carbon Dioxide 19 L BUN 49 H Creatinine 1.22 Calcium 9.2 D Liver Function 03/26/24 Range/Units 12:50 Total Bilirubin 0.3 (0.0-1.0) mg/dL Direct Bilirubin 0.2 (0.0-0.5) mg/dL AST 53 H (5-31) U/L ALT 28 (0-31) U/L Alkaline Phosphatase 283 H (39-117) U/L Albumin 2.9 L (3.5-5.0) g/dL All other labs normal. Assessment and Plan (1) Acute pulmonary embolism: Qualifiers: Pulmonary embolism type: other Acute cor pulmonale presence: u nspecified Qualified Code(s): I26.99 - Other pulmonary embolism without acute cor pulmonale Status: Acute Plan We are consulted for Paulette, who is found to have a submassive PE on chest CTA yesterday. She presented to the ER with multiple complaints, including shortness of breath. She was admitted and we will be taking her in for an embolectomy today. She was NPO since midnight last night. I discussed with her the procedure today. She did not have any questions and understood all the complications. We discussed the continued use of aspirin and blood thinner after the procedure as well. Venous duplex ultrasound today also revealed an occlusion of the femoral, popliteal, posterior tibial, and peroneal veins in the left lower extremity as well as partial occlusion of the right common femoral vein. We will continue to monitor. Thank you for the consult. There are any questions or concerns, please do not hesitate to reach out to us. Procedures Date of Service Date of Service: 03/27/24
[2024-03-27 10:54] LABS: PTT Heparin Drip 52.4 SEC (53-77.9)
--- NOTE | 2024-03-27 12:10 | PM.HEMONCCN ---
Subjective - Subjective Chief complaint: Shortness of breath Patient: new to practice Consult date: 03/27/24 Primary Care Provider: BRADY Caldwell [employer] Utilized?: No - Latvian Speaking HPI - Consult Narrative Reason for consult: Liver metastasis/pulmonary embolism Narrative: Paulette Read is a 79 year old female who presented to emergency department with complaints of shortness of breath as well as abdominal pain for about 2 weeks prior to admission. Her daughter who is the main historian. She says up until recently, patient has had no major medical problems. She has had no fever or chills but has had decrease in oral intake, poor appetite and some nausea. She gives no prior history of cancer and does not know of any family history of cancer. Daughter thinks she has had some weight loss. Evaluation in the ER with a CT angiogram showed bilateral pulmonary emboli and CT abdomen showed liver lesions consistent with malignancy. She has been started on heparin and is scheduled to undergo thrombectomy with Dr. Liu today. Review of Systems - Constitutional Reports as per HPI - Neurologic Reports hearing normal, Denies abnormal gait, Denies dizziness, Denies numbness, Denies sensory deficit, Denies weakness [facility] Medical History: Medical History (Last Reviewed 05/03/23 @ 13:46 by Yumiko Zamora, PT) Basal cell carcinoma Mcmahan's palsy Chronic renal insufficiency Depression with anxiety Diverticulosis HTN (hypertension) Hyperparathyroidism Left arm swelling Osteoarthritis Osteopenia Osteoporosis Surgical History: Surgical History (Last Reviewed 05/03/23 @ 13:46 by Yumiko Zamora, PT) H/O colonoscopy History of dental surgery History of hip surgery Hx of breast biopsy Social History: Social History (Last Updated 04/19/23 @ 08:35 by Yara Gautam RN) Living Situation History: Household Members: Other Household Members Other:: daughter stays with patient as of now Housing: House Are you a primary vp care management to a significant other at home: No Do you presently have visiting nurse or other home services: No Tobacco History: Patient Tobacco Use Status: Former Tobacco user Tobacco use type: Cigarette Years Smoked: 16 Second Hand Smoke Exposure: No Advance Directives: Advance Directives Date on File: 03/26/24 Occupation Assessmet: service: No Home Medications and Allergies Current Medications: Current Medications Acetaminophen (Acetaminophen 325 Mg Tablet) 650 mg PO Q6H PRN PRN Reason: Pain, Mild 1-3,fever,headache Albuterol Sulfate (Albuterol Sulfate 90 Mcg 8 Gm Inhaler) 2 puff INHALE Q4H PRN PRN Reason: wheezing Calcium Carbonate (Calcium Carbonate 750 Mg Tab.Chew) 750 mg PO Q4H PRN PRN Reason: Heartburn Clonazepam (Clonazepam 0.5 Mg Tablet) 0.5 mg PO BID PRN PRN Reason: anxiety Fluoxetine HCl (Fluoxetine Hcl 20 Mg Capsule) 20 mg PO DAILY [facility] Last Admin: 03/27/24 08:08 Dose: 20 mg Heparin Sodium (Porcine) (Heparin Sodium,Porcine 5,000 Unit/Ml Vial) 2,700 unit 40 unit/kg (2700 unit) IVPUSH PROTOCOL BOLUS PRN; Protocol PRN Reason: 40 unit/kg - Heparin Protocol Last Admin: 03/27/24 11:04 Dose: 2,700 unit Heparin Sodium (Porcine) (Heparin Sodium,Porcine 5,000 Unit/Ml Vial) 5,300 unit 80 unit/kg (5300 unit) IVPUSH PROTOCOL BOLUS PRN; Protocol PRN Reason: 80 unit/kg - Heparin Protocol Heparin Sodium/Sodium Chloride (Heparin Sodium,Porcine/1/2ns) 25,000 unit in 250 mls @ 0 mls/hr IVCONT .Q0M [facility]; Protocol Last Titration: 03/27/24 11:03 Dose: 20 units/kg/hr, 13.36 mls/hr Magnesium Hydroxide (Milk Of Magnesia 30 Ml Oral.Susp) 30 ml PO DAILY PRN PRN Reason: Constipation Meclizine HCl (Meclizine Hcl 12.5 Mg Tablet) 12.5 mg PO TID PRN PRN Reason: dizziness Melatonin (Melatonin 3 Mg Tablet) 6 mg PO BEDTIME PRN PRN Reason: Insomnia Nortriptyline HCl (Nortriptyline Hcl 25 Mg Capsule) 75 mg PO BEDTIME [facility] Last Admin: 03/26/24 21:31 Dose: 75 mg Ondansetron HCl (Ondansetron Hcl 4 Mg/2 Ml Vial) 4 mg IVPUSH Q8H PRN PRN Reason: Nausea and Vomiting Sodium Chloride (0.9 % Sodium Chloride Flush 3 Ml Syringe) 3 ml IVFLUSH QSHIFT [facility] Last Admin: 03/27/24 08:02 Dose: Not Given Home Medications ?Medication ?Instructions ?Recorded ?Confirmed ?Type alendronate 70 mg tablet 70 mg PO MO 04/19/23 03/26/24 History amlodipine 10 mg tablet 10 mg PO DAILY 04/19/23 03/26/24 History aspirin 81 mg tablet,delayed 81 mg PO BEDTIME 04/19/23 03/26/24 History release atenolol 100 mg tablet 100 mg PO DAILY 04/19/23 03/26/24 History clonazepam 0.5 mg tablet 0.5 mg PO BID PRN anxiety 04/19/23 03/26/24 History fluoxetine 20 mg capsule 20 mg PO DAILY 04/19/23 03/26/24 History nortriptyline 75 mg capsule 75 mg PO BEDTIME 04/19/23 03/26/24 History acetaminophen 500 mg tablet 1,000 mg PO Q6H PRN Pain 04/20/23 03/26/24 History albuterol sulfate 90 mcg/actuation 2 puff inhalation Q4H PRN wheezing 03/26/24 03/26/24 History aerosol inhaler meclizine 12.5 mg tablet 12.5 mg PO TID PRN dizziness 03/26/24 03/26/24 History Allergies Allergy/AdvReac Type Severity Reaction Status Date / Time No Known Allergies Allergy Verified 03/26/24 11:40 [No Known Allergies*] Physical Exam Vital signs: Vital Signs Temp 97.0 F 03/27/24 11:06 Pulse 73 03/27/24 11:06 Resp 20 03/27/24 11:06 BP 119/68 03/27/24 11:06 Pulse Ox 95 03/27/24 10:55 O2 Del Method Oxymask 03/27/24 10:55 O2 Flow Rate 15 03/27/24 10:55 Intake & Output 03/26/24 03/27/24 03/27/24 18:59 06:59 18:59 Intake Total 1000 / 1131.061 131.061 / 1131.061 79.733 / 79.733 Output Total 300 / 300 Balance 1000 / 831.061 -168.939 / 831.061 79.733 / 79.733 Urine Output (Average ml/kg/hr) 0.37 0.37 Intake: Intake (Blood Product) Amount 0 / 0 Red Blood Cells (E0336) Unit 0 / 0 [id number] Intake, IV Amount 1000 / 1131.061 131.061 / 1131.061 79.733 / 79.733 0.9 % Sodium Chloride 1,000 ml 1000 / 1000 @ 999 mls/hr IV .Q1H1M [facility] Rx#: [id number] Heparin Sodium,Porcine/1/2NS 25 131.061 / 131.061 79.733 / 79.733 ,000 unit In 250 ml @ Per Protocol IVCONT .Q0M [facility] Rx#: [id number] Output: Output, Urine Amount 300 / 300 Other: Urine Bedside Commode Last Bowel Movement 03/05/24 Weight 66.8 kg 67.1 kg Weight in Grams 37877 Weight 67.1 kg - Constitutional Present: no acute distress, average body habitus, chronically ill appearing - Routine HEENT Exam Head: Present: normal inspection Eye: Present: EOMI, PERRL - Routine Neck Exam Present: supple. Absent: lymphadenopathy - Routine Respiratory Exam Present: CTAB. Absent: accessory muscle use - Routine Cardiovascular Exam Cardiovascular: Present: S1, S2 - Routine Abdominal Exam Present: organomegaly - Routine Skin Exam Present: intact Hem/Onc Consult Result - Labs CBC & Chem 7: 03/27/24 17:11 03/27/24 17:11 Labs: Short CBC 03/26/24 03/27/24 Range/Units 12:50 03:59 WBC 22.2 H 20.2 H (4.8-10.8) X10*3/uL Hgb 8.3 L D 7.7 L (12.0-16.0) g/dl Hct 26.4 L D 24.2 L (37.0-47.0) % Plt Count 230 279 (160-400) X10*3/uL [facility] 03/26/24 12:50 Sodium 135 Potassium 4.8 Chloride 109 H Carbon Dioxide 19 L BUN 49 H Creatinine 1.22 Calcium 9.2 D Liver Function 03/26/24 Range/Units 12:50 Total Bilirubin 0.3 (0.0-1.0) mg/dL Direct Bilirubin 0.2 (0.0-0.5) mg/dL AST 53 H (5-31) U/L ALT 28 (0-31) U/L Alkaline Phosphatase 283 H (39-117) U/L Albumin 2.9 L (3.5-5.0) g/dL Assessment and Plan Patient Active problem list reviewed?: Yes (1) Liver lesion Status: Acute Assessment and plan: 1. This is a 79-year-old woman diagnosed with acute bilateral segmental and subsegmental pulmonary emboli as well as diffuse liver lesions worrisome for malignancy. CT chest/abdomen and pelvis with contrast revealed bilateral pulmonary emboli, hepatomegaly with multifocal ill-defined low-density lesions largest measuring 4 cm. Cholelithiasis, no intra or extrahepatic biliary ductal dilatation. No focal mass in pancreas or spleen, no nodular lesions in the adrenals. Retroperitoneal lymphadenopathy, subcentimeter lytic lesions throughout axial skeleton, bony pelvis and proximal appendicular skeleton. She has been started on anticoagulation. Malignancy is probable cause of thromboembolism. Probable primary could be lung or gastrointestinal primary. I discussed above findings with patient as well as her daughter. Her daughter will discuss this further with the mother to decide on further intervention such as biopsy of liver lesion to established diagnosis. Blood work shows elevated LDH and uric acid. I recommend starting her on allopurinol 200 mg once a day. Since she needs to be on long-term anticoagulation, it would be advisable to do biopsy of liver lesion prior to starting Eliquis if the goal of care is to proceed diagnosis and treatment. I thank you very much for this referral. - Time Spent With Patient Time Spent with Patient (in minutes): 25 Additional Coding: - Additional E/M codes Complex E/M visit Add On: CPT G2211
[2024-03-27] MEDS: 0.9 % Sodium Chloride 1,000 ML 100 ML IVCONT ×2 (12:44→21:50)
[2024-03-27] MEDS: fentaNYL citrate/PF 100 MCG/2 ML VIAL 25 MCG IVPUSH (13:59)
[2024-03-27] MEDS: Midazolam HCl 2 MG/2 ML VIAL 0.5 MG IVPUSH (14:00)
[2024-03-27] MEDS: Heparin Sodium,Porcine 10,000 UNIT/10 ML VIAL 5000 UNIT IVPUSH ×2 (14:22→14:39)
--- NOTE | 2024-03-27 15:09 | CONS_ITS ---
DATE OF SERVICE: 03/27/2024 REFERRING PHYSICIAN: Jocy Samson NP REASON FOR CONSULTATION: Constipation and abnormal CT scan. HISTORY OF PRESENT ILLNESS: The patient is a pleasant 79-year-old woman, who was admitted to the hospital after presenting to the emergency department with complaints of shortness of breath and abdominal distention. Symptoms have been present over a period of about 1 to 2 weeks and were not associated with fevers or chills. There has been some nausea and decreased p.o. intake, but no gerry hematemesis or melena. She was evaluated in the emergency department with laboratory studies and imaging and was diagnosed with bilateral pulmonary emboli. Her abdominal CT scan was abnormal and did not show bowel obstruction, but did show malignancy with metastatic disease to the liver, lytic lesions without an acute fracture. The patient denies any prior history of known hepatic malignancy or liver problems. She is seen in the preop area, where she is scheduled for thrombectomy. She does recall undergoing colonoscopy at an outside facility several years ago. Records were not available. PAST MEDICAL HISTORY: 1. Osteoporosis. 2. Hypertension. 3. Chronic renal disease. 4. Hyperparathyroidism. 5. Basal cell carcinoma. 6. Osteoarthritis. 7. Anxiety/depression. 8. Hypertension. 9. Diverticulosis. 10. Mcmahan's palsy. CURRENT MEDICATIONS: Her current medication list is reviewed in the chart. ALLERGIES: THERE ARE NONE REPORTED. FAMILY HISTORY: This is reviewed with the patient and is noncontributory. SOCIAL HISTORY: There is no current tobacco, alcohol, or substance abuse. REVIEW OF SYSTEMS: SKIN: No pruritus. HEENT: Negative. CARDIOPULMONARY: She denies shortness of breath or chest pain currently. GASTROINTESTINAL: As above. GENITOURINARY: Negative. NEUROPSYCHIATRIC: Negative. PHYSICAL EXAMINATION: GENERAL: Shows a pleasant female, lying in bed. She is breathing with a mask. VITAL SIGNS: Reviewed in the electronic medical record and are stable. SKIN: Pale. HEENT: Shows no scleral icterus. NECK: Without lymphadenopathy. ABDOMEN: Soft without focal masses or tenderness. Bowel sounds are present. No organomegaly is palpable. EXTREMITIES: Show edema. LABORATORY DATA AND IMAGING STUDIES: Reviewed. IMPRESSION: 1. Constipation. 2. Abnormal CT with probable metastatic disease to the liver. At this point, I would recommend treating her symptomatically with MiraLAX and possibly Metamucil if necessary as needed for her constipation symptoms. Her CT is suggestive of metastatic disease and she may eventually require further evaluation with CT biopsy to identify the source for her liver disease. I discussed this with her. Thanks for asking me to see her. I will follow her in the hospital with you. MD MARA Horan/PAOLA / [id number] MTDD
--- NOTE | 2024-03-27 16:07 | P.BOP_ITS ---
Brief Operative Note Date of Service: 03/27/24 Pre-op diagnosis: DVT with PE Procedure: Pulmonary embolectomy Surgeon: Kenneth Liu MD Anesthesia: other (Local with sedation for 110 minutes) Was an Powerhouse Helper used for this Procedure?: No Estimated blood loss (mL): 100 Pathology: none sent Condition: stable Disposition: PACU Complications (if any): None
[2024-03-27] MEDS: Heparin Sodium,Porcine/1/2NS 25,000 UNIT/250 ML IV.SOLN 13.36 UNIT IVCONT (16:28)
[2024-03-27 17:16] LABS: MANUAL DIFF FLAG NO
[2024-03-27 17:20] LABS: Basophils Percent Auto 0.2 % (0-2); Eosinophils Absolute Auto 0.1 X10*3/uL (0.0-0.4); Eosinophils Percent Auto 0.3 % (0-4); Hematocrit 25.9 % (37.0-47.0); Hemoglobin 8.3 g/dl (12.0-16.0); Imm Gran Abs Auto 0.19 X10*3/uL (0.00-0.03); Lymphocytes Absolute Auto 0.8 X10*3/uL (1.2-4.9); Lymphocytes Percent Auto 4.2 % (20-40); Mean Corpuscular Hemoglobin 29.3 pg (27.0-33.0); Mean Corpuscular Volume 91.5 fL (80.0-98.0); Mean Platelet Volume 10.8 fL (9.4-12.3); Monocytes Absolute Auto 1.2 X10*3/uL (0.1-1.2); Monocytes Percent Auto 6.3 % (2-11); Neutrophils Absolute Auto 16.6 x10*3/uL (2.0-8.3); Platelet Count 276 X10*3/uL (160-400); Red Blood Count 2.83 X10*6/uL (4.20-5.50); Red Cell Distribution Width 16.5 % (11.0-16.0); White Blood Count 18.9 X10*3/uL (4.8-10.8)
[2024-03-27 17:32] LABS: Blood Urea Nitrogen 39 mg/dL (9-16); Creatinine Clr Calc Pharmacy 45.2; Estimated Glomerular Filt Rate > 60
[2024-03-27 17:45] LABS: PTT Heparin Drip 93.2 SEC (53-77.9)
[2024-03-27] MEDS: Nortriptyline HCl 25 MG CAPSULE 75 MG PO (21:50)
[2024-03-27] MEDS: 0.9 % Sodium Chloride Flush 3 ML SYRINGE IVFLUSH (21:50)
[2024-03-28] VITALS (7 sets, daily range): BP systolic 114–128; BP diastolic 57–75; PULSE 78–86; RESP 14–20; TEMP 36–37.1; O2SAT 92–97
[2024-03-28 00:40] LABS: PTT Heparin Drip 40.7 SEC (53-77.9)
[2024-03-28] MEDS: Heparin Sodium,Porcine 5,000 UNIT/ML VIAL 2700 UNIT IVPUSH ×3 (00:57→22:30)
[2024-03-28 08:07] LABS: PTT Heparin Drip 43.9 SEC (53-77.9)
[2024-03-28] MEDS: FLUoxetine HCl 20 MG CAPSULE PO (08:23)
[2024-03-28] MEDS: 0.9 % Sodium Chloride Flush 3 ML SYRINGE IVFLUSH ×3 (08:23→21:50)
[2024-03-28] MEDS: 0.9 % Sodium Chloride 1,000 ML 100 ML IVCONT (08:23)
--- NOTE | 2024-03-28 10:07 | W.PM.OPN ---
Operative Note Operative Note Date of Service: 03/27/24 Narrative: Operative note by [facility] Preoperative diagnosis: DVT with PE Postoperative diagnosis: Same Procedure:1. Ultrasound-guided right common femoral vein access 2. Inferior vena cavogram 3. Selective right pulmonary artery angiogram 4. Selective left pulmonary artery angiogram 5. Mechanical thrombectomy of pulmonary embolism of left pulmonary artery 6. Return of blood using flow Saver system 7. Radiologic supervision and interpretation. Surgeon:Kenneth Liu M.D. Road Sign Installer: None Anesthesia: Local with moderate conscious sedation. Total intraservice moderate sedation time was 110 minutes. I monitored the patient's level of consciousness and physiologic status continuously throughout the procedure. Specimens: none Drains :none Estimated blood loss: Less than 50 ml Implant: None Comorbid conditions: Acute respiratory failure with hypoxia, newly diagnosed metastatic cancer to liver , elevated BNP, pleural effusion, chronic renal insufficiency, depression with anxiety. Indications: Patient was noted to have submassive pulmonary embolism.. CT of the chest was reviewed and demonstrated acute pulmonary embolism in the segmental and subsegmental branches left greater than right. Heparin drip was initiated immediately. Due to the clot burden the patient now presents for pulmonary embolectomy. The patient has signed the informed consent after reviewing risks, complications, benefits, and alternatives previously discussed with the patient. The patient was given the opportunity to ask any additional questions or voice any concerns. All questions were answered to the patient's satisfaction. Procedure in detail: Patient was brought to the angiography suite prior to which a time-out was called for patient identification and site verification. Bilateral groins were prepped and draped in the standard surgical fashion. Under ultrasound guidance right common femoral vein was punctured with micro puncture needle and wire. Subsequently a precision 5 [place]orran sheath was then placed. Bentson wire was advanced to the level of the vena cava. 4 [place]ran Flush catheter was brought up and parked at the level of the renal arteries. Vena cavogram was then undertaken. The patient was systemically anticoagulated with heparin and therapeutic ACT was achieved of 217. We then advanced a Bentson wire all the way up into the inferior vena cava to the atrial junction. We then advanced a pigtail catheter through that from the right atrium to the right ventricle into the pulmonary artery. We then readvanced the Bentson wire through this. In order to confirm appropriate positioning and no trauma to cardiac tissue we advanced an insufflated 8 x 40 balloon. We met no resistance. At this time we did a selective image the right main pulmonary artery and subsequently the left main pulmonary artery. We then advanced the INTRI 24 [place]ran sheath. Over this we then placed TRIEVER 24 large-bore catheter. This was directed towards the left pulmonary artery. We were unable to remove this highly organized clot. We advanced an angled 20 Triever large bore catheter and telescope this through the 24. We then successfully aspirated moderate clot burden. Once the syringe was filled we placed this through the flow Saver blood filtering system and returned the blood back to the patient. Several aspirations were performed until we had no thrombus return. Once this was all done completion imaging was then undertaken. No residual thrombus was noted. We did a selective right pulmonary angiogram and it demonstrated no significant clot burden on the right side. Catheter wire and sheath were removed. 10 minutes of direct pressure was held. Patient tolerated the procedure well and was returned to recovery with stable vitals. Interpretation of films: 1. Ultrasound was used to evaluate access site of the femoral vein. The femoral vein was noted to be patent with no thrombus. Ultrasound was used for visualization of needle entry. Image was saved to PACS 2. Vena cavogram demonstrated normal caliber vena cava with no evidence of thrombus. 3. Pulmonary artery imaging demonstrated - significant left pulmonary artery clot burden minimal right 4. Completion imaging demonstrated improvement on left pulmonary artery Conclusion: 1. Successful left pulmonary artery embolectomy. 2. Anticoagulation status: Continue heparin drip. Can restart formal oral anticoagulation tomorrow This note is constructed using voice recognition software. While every effort has been made to ensure accuracy, senior asp net developer errors may have been included. Thank you for allowing me to participate in the care of your patient. Yours sincerely, Kenneth Liu MD, FACS, R.P.V.I.
--- NOTE | 2024-03-28 10:40 | HO.VASCPN ---
Subjective Subjective Date of Service: 03/28/24 Interval history: Paulette is s/p pulmonary embolectomy. She is doing well this morning. She does continue on O2, by NC only. She is able to speak in full sentences and denies any shortness of breath, diff breathing, or CP. She states she feels much better than yesterday. She states she slept well last night and is eating and drinking well. She has no concerns this morning. She denies any pain. Physical Exam Vital Signs: Vital Signs: Last Vital Signs Temp 97.7 F 03/28/24 03:41 Pulse 82 03/28/24 03:41 Resp 20 03/28/24 03:41 BP 128/67 03/28/24 03:41 Pulse Ox 93 03/28/24 03:41 O2 Del Method Nasal Cannula 03/28/24 03:41 O2 Flow Rate 5 03/28/24 03:41 BMI result Body Mass Index 27.1 Const: General: comfortable and no acute distress Orientation/consciousness: patient oriented x3 HEENT: Ears: hearing grossly normal bilaterally Resp: Effort & Inspection: normal respiratory effort and able to speak in complete sentences Auscultation: clear to auscultation bilaterally Cardio: Rate: regular rate Rhythm: regular rhythm Heart sounds: S1 normal heart sound present and S2 normal heart sound present Bruits: no abdominal aortic bruits, no carotid bruits, no femoral bruits and no renal bruits GI: Palpation (GI): No Abdominal aortic bruit present Neuro: General: patient oriented x3 Cranial nerves: Yes CN's II-XII intact bilaterally Progress Note: A&P Assessment and plan (1) Acute pulmonary embolism: Status: Acute Assessment and Plan: Paulette is status post pulmonary embolectomy from yesterday. She is doing much better this morning and has no concerns. Her PT was low this morning at 43.9 and her heparin dosage was increased; she also received a 0.54 bolus. Her incision site is clean, dry, and intact. We discussed with the hospitalist to change her to oral anticoagulation if possible. We will continue to monitor. If there are any questions or concerns, please do not hesitate to reach out to us. Time Spent With Patient Time: Total time managing care of this patient today ____ minutes. Procedures Date of Service Date of Service: 03/28/24 Quality Stroke Does the patient have a stroke diagnosis?: No VTE Prior VTE?: No VTE Risk Level:: Medical - moderate - high VTE Device Contraindication: Treatment Not Indicated VTE Drug Contraindication: N/A - Med Ordered
--- NOTE | 2024-03-28 12:24 | HO.PM.IMPN ---
Subjective Subjective Date of Service: 03/28/24 Review of Systems Follow up PE and ? mets no pain today Physical Exam Vital Signs: Vital Signs: Last Vital Signs Temp 97.1 F 03/28/24 11:22 Pulse 80 03/28/24 11:22 Resp 16 03/28/24 11:22 BP 123/65 03/28/24 11:22 Pulse Ox 96 03/28/24 11:22 O2 Del Method Nasal Cannula 03/28/24 11:22 O2 Flow Rate 5 03/28/24 11:22 BMI result Body Mass Index 27.1 Appearing in no acute distress lung sounds are clear to auscultation heart regular rate rhythm, clear S1, S2 positive bowel sounds, abdomen is soft, nontender neuro patient is alert x3, no focal deficits Objective Data Active Medications Acetaminophen (Acetaminophen 325 Mg Tablet) 650 mg PO Q6H PRN PRN Reason: Pain, Mild 1-3,fever,headache Albuterol Sulfate (Albuterol Sulfate 90 Mcg 8 Gm Inhaler) 2 puff INHALE Q4H PRN PRN Reason: wheezing Calcium Carbonate (Calcium Carbonate 750 Mg Tab.Chew) 750 mg PO Q4H PRN PRN Reason: Heartburn Clonazepam (Clonazepam 0.5 Mg Tablet) 0.5 mg PO BID PRN PRN Reason: anxiety Fluoxetine HCl (Fluoxetine Hcl 20 Mg Capsule) 20 mg PO DAILY [facility] Last Admin: 03/28/24 08:23 Dose: 20 mg Documented By: SHERWIN Heparin Sodium (Porcine) (Heparin Sodium,Porcine 5,000 Unit/Ml Vial) 2,700 unit 40 unit/kg (2700 unit) IVPUSH PROTOCOL BOLUS PRN; Protocol PRN Reason: 40 unit/kg - Heparin Protocol Last Admin: 03/28/24 08:19 Dose: 2,700 unit Documented By: SHERWIN Heparin Sodium (Porcine) (Heparin Sodium,Porcine 5,000 Unit/Ml Vial) 5,300 unit 80 unit/kg (5300 unit) IVPUSH PROTOCOL BOLUS PRN; Protocol PRN Reason: 80 unit/kg - Heparin Protocol Heparin Sodium/Sodium Chloride (Heparin Sodium,Porcine/1/2ns) 25,000 unit in 250 mls @ 0 mls/hr IVCONT .Q0M [facility]; Protocol Last Titration: 03/28/24 08:20 Dose: 21 units/kg/hr, 14.03 mls/hr Documented By: SHERWIN Co-signed By: GRACE Sodium Chloride (Ns) 1,000 mls @ 100 mls/hr IVCONT .Q10H [facility] Last Admin: 03/28/24 08:23 Dose: 100 mls/hr Documented By: SHERWIN Magnesium Hydroxide (Milk Of Magnesia 30 Ml Oral.Susp) 30 ml PO DAILY PRN PRN Reason: Constipation Meclizine HCl (Meclizine Hcl 12.5 Mg Tablet) 12.5 mg PO TID PRN PRN Reason: dizziness Melatonin (Melatonin 3 Mg Tablet) 6 mg PO BEDTIME PRN PRN Reason: Insomnia Nortriptyline HCl (Nortriptyline Hcl 25 Mg Capsule) 75 mg PO BEDTIME [facility] Last Admin: 03/27/24 21:50 Dose: 75 mg Documented By: NADIA Ondansetron HCl (Ondansetron Hcl 4 Mg/2 Ml Vial) 4 mg IVPUSH Q8H PRN PRN Reason: Nausea and Vomiting Sodium Chloride (0.9 % Sodium Chloride Flush 3 Ml Syringe) 3 ml IVFLUSH QSHIFT [facility] Last Admin: 03/28/24 08:23 Dose: 3 ml Documented By: SHERWIN Labs 03/27/24 17:11 03/27/24 17:11 Labs: Laboratory Results - last 24 hr 03/27/24 03/27/24 03/28/24 09:25 17:11 00:16 MCV 91.5 MCH 29.3 MCHC 32.0 RDW 16.5 H Plt Count 276 MPV 10.8 Immature Gran % (Auto) 1.0 H Neut % (Auto) 88.0 H Lymph % (Auto) 4.[address] [place] % (Auto) 6.3 Eos % (Auto) 0.3 Baso % (Auto) 0.2 Lymph # (Auto) 0.[address] [place] # (Auto) 1.2 Eos # (Auto) 0.1 Baso # (Auto) 0.0 Abs Immat Gran (auto) 0.19 H Absolute Neuts (auto) 16.6 H Absolute Nucleated RBC 0.000 Nucleated RBC % (auto) 0.0 aPTT Heparin Protocol 93.2 H D 40.7 L D Estim Creat Clear Calc 45.2 Estimated GFR > 60 Crossmatch See Detail 03/28/24 07:47 MCV MCH MCHC RDW Plt Count MPV Immature Gran % (Auto) Neut % (Auto) Lymph % (Auto) [place] % (Auto) Eos % (Auto) Baso % (Auto) Lymph # (Auto) [place] # (Auto) Eos # (Auto) Baso # (Auto) Abs Immat Gran (auto) Absolute Neuts (auto) Absolute Nucleated RBC Nucleated RBC % (auto) aPTT Heparin Protocol 43.9 L Estim Creat Clear Calc Estimated GFR Crossmatch Assessment and Plan (1) Acute pulmonary embolism: Status: Acute Plan 79-year-old woman presented to the ER with complaints of constipation, shortness of breath for 2 weeks Acute metabolic encephalopathy hospital delirium, anesthesia monitor mental status Pulmonary embolism and left femoral thrombus, partial occlusive thrombus right femoral vein Chest CTA positive for bilateral segmental and subsegmental emboli, findings of submassive PE continue IV heparin drip for now, change to eliquis on dc Continue oxygen to keep saturation greater than 90 % s/p thrombectomy 03/27/[address] showing metastatic disease to the liver with osseous and retroperitoneal lymphadenopathy GI consult> Hematology/oncology>Rec Liver biopsy (ordered) Constipation No obstruction seen on abdominal CT Fleets enema, miralax P.r.n. milk of magnesia Hypertension Soft blood pressures Hold antihypertensives for now Mental health Continue home medications DVT prophylaxis with IV heparin attending Dr. Mcghee Full code Quality Stroke Does the patient have a stroke diagnosis?: No VTE Prior VTE?: No VTE Risk Level:: Medical - moderate - high VTE Device Contraindication: Treatment Not Indicated VTE Drug Contraindication: N/A - Med Ordered
--- NOTE | 2024-03-28 12:33 | P.CDIM_ITS ---
PROVIDER RESPONSE TEXT: To clarify, the appropriate diagnosis supported by the clinical indicators: CHF ruled out QUERY TEXT: PHYSICIAN'S DOCUMENTATION REQUEST Date of Query: 03/28/2024 11:50 AM EST Patient Name: Paulette Read Admit Date: 03/26/2024 Dear Jocy Samson GROUP BILLING COORDINATOR, A review of the medical record indicates additional documentation may be needed. Please review below and update the documentation accordingly. Clinical Indicators: CT scan 03/26- Lungs: Mild interstitial and ground glass changes are noted throughout both lungs, consistent with small int erlobular septal thickening, in keeping with mild CHF. BNP 470 Pulmonary edema, short of breath, extremities show edema. Please provide further specificity regarding the most likely type and acuity of CHF noted within the medical record: Systolic Please specify if Acute, Chronic, or Acute on chronic, or Unable to determine Diastolic Please specify if Acute, Chronic, or Acute on chronic, or Unable to determine Combined Systolic/Diastolic Please specify if Acute, Chronic, or Acute on chronic, or Unable to determine CHF ruled out Other (explain) Clinically unable to determine (explain) Thank you, Kandi Boston, CCS, CDIS Use of terms such as suspected, likely, concern for, or probable (associated with a specific diagnosi s that is being evaluated, monitored, or treated as if it exists) are acceptable and can be coded in the inpatient se tting, when documented at the time of discharge. Please use your independent medical judgment in providing your response. THIS QUERY IS PART OF THE PERMANENT MEDICAL RECORD
[2024-03-28] MEDS: polyethylene glycoL 3350 17 GM POWD.PACK PO (12:48)
[2024-03-28] MEDS: Heparin Sodium,Porcine/1/2NS 25,000 UNIT/250 ML IV.SOLN 14.03 UNIT IVCONT (12:50)
[2024-03-28] MEDS: allopurinoL 100 MG TABLET 200 MG PO (14:31)
--- NOTE | 2024-03-28 15:32 | MHC.CM.PN ---
EMR reviewed and per MD rounds, pt is not medically cleared for discharge due to management of pulmonary embolism, and pending liver biopsy due to CT showing metastatic disease.
[2024-03-28] MEDS: Nortriptyline HCl 25 MG CAPSULE 75 MG PO (21:50)
[2024-03-28] MEDS: Milk of Magnesia 30 ML ORAL.SUSP PO (21:50)
[2024-03-28] MEDS: clonazePAM 0.5 MG TABLET PO (21:50)
[2024-03-28 22:04] LABS: PTT Heparin Drip 52.8 SEC (53-77.9)
[2024-03-29] VITALS (8 sets, daily range): BP systolic 119–147; BP diastolic 58–68; PULSE 78–89; RESP 15–19; TEMP 36–37.8; O2SAT 91–95
[2024-03-29] MEDS: Melatonin 3 MG TABLET 6 MG PO (02:54)
[2024-03-29] MEDS: Acetaminophen 325 MG TABLET 650 MG PO (02:54)
[2024-03-29] MEDS: Heparin Sodium,Porcine/1/2NS 25,000 UNIT/250 ML IV.SOLN 15.36 UNIT IVCONT (05:57)
[2024-03-29 05:59] LABS: PTT Heparin Drip 64.8 SEC (53-77.9)
[2024-03-29] MEDS: allopurinoL 100 MG TABLET 200 MG PO (08:30)
[2024-03-29] MEDS: FLUoxetine HCl 20 MG CAPSULE PO (08:30)
[2024-03-29] MEDS: polyethylene glycoL 3350 17 GM POWD.PACK PO ×2 (08:30→20:20)
[2024-03-29] MEDS: 0.9 % Sodium Chloride Flush 3 ML SYRINGE IVFLUSH ×2 (08:31→16:55)
[2024-03-29 09:03] LABS: Hematocrit 26.9 % (37.0-47.0); Hemoglobin 8.4 g/dl (12.0-16.0); Mean Corpuscular HGB Conc 31.2 g/dl (31.0-35.0); Mean Corpuscular Hemoglobin 28.8 pg (27.0-33.0); Mean Corpuscular Volume 92.1 fL (80.0-98.0); Mean Platelet Volume 10.8 fL (9.4-12.3); Platelet Count 349 X10*3/uL (160-400); Red Blood Count 2.92 X10*6/uL (4.20-5.50); Red Cell Distribution Width 17.1 % (11.0-16.0); White Blood Count 17.6 X10*3/uL (4.8-10.8)
--- NOTE | 2024-03-29 09:19 | HO.VASCPN ---
Subjective Subjective Date of Service: 03/29/24 Interval history: Paulette is doing well. She is sleeping this morning but easily arousable. She denies any shortness of breath, diff breathing, or CP. She is eating and drinking well. She has no concerns this morning. Physical Exam Vital Signs: Vital Signs: Last Vital Signs Temp 98.3 F 03/29/24 07:13 Pulse 79 03/29/24 07:13 Resp 18 03/29/24 07:13 BP 147/68 H 03/29/24 07:13 Pulse Ox 94 03/29/24 07:13 O2 Del Method Nasal Cannula 03/29/24 07:13 O2 Flow Rate 5 03/29/24 07:13 BMI result Body Mass Index 27.1 Const: General: comfortable and no acute distress Orientation/consciousness: patient oriented x3 HEENT: Ears: hearing grossly normal bilaterally Resp: Effort & Inspection: normal respiratory effort and able to speak in complete sentences Auscultation: clear to auscultation bilaterally Cardio: Rate: regular rate Rhythm: regular rhythm Heart sounds: S1 normal heart sound present and S2 normal heart sound present Bruits: no abdominal aortic bruits, no carotid bruits, no femoral bruits and no renal bruits GI: Palpation (GI): No Abdominal aortic bruit present Neuro: General: patient oriented x3 Cranial nerves: Yes CN's II-XII intact bilaterally Progress Note: A&P Assessment and plan (1) Pulmonary embolism: Status: Acute Assessment and Plan: Paulette is s/p pulmonary embolectomy and doing well. She continues on O2 via NC but denies any shortness of breath. We will continue to monitor. If there are any questions or concerns, please do not hesitate to reach out to us. Time Spent With Patient Time: Total time managing care of this patient today ____ minutes. Procedures Date of Service Date of Service: 03/29/24 Quality Stroke Does the patient have a stroke diagnosis?: No VTE Prior VTE?: No VTE Risk Level:: Medical - moderate - high VTE Device Contraindication: Treatment Not Indicated VTE Drug Contraindication: N/A - Med Ordered
[2024-03-29 09:20] LABS: Anion Gap 12 (12-20); Blood Urea Nitrogen 31 mg/dL (9-16); Calcium 8.8 mg/dL (8.4-10.2); Carbon Dioxide 17 mmol/L (22-29); Chloride 112 mmol/L (96-108); Creatinine Clr Calc Pharmacy 46.3; Estimated Glomerular Filt Rate > 60; Glucose Random 115 mg/dL (60-115); Potassium 4.4 mmol/L (3.3-5.1); Sodium 137 mmol/L (135-145)
[2024-03-29 09:22] LABS: B Type Natriuretic Peptide 375 pg/mL (<100)
[2024-03-29 11:02] LABS: PTT Heparin Drip 52.1 SEC (53-77.9)
[2024-03-29 11:07] LABS: ACT 178 Celite s (79-173)
[2024-03-29 11:07] LABS: ACT 115 Celite s (79-173)
[2024-03-29 11:07] LABS: ACT 219 Celite s (79-173)
[2024-03-29] MEDS: Heparin Sodium,Porcine 5,000 UNIT/ML VIAL 2700 UNIT IVPUSH (11:24)
--- NOTE | 2024-03-29 14:17 | P.PNIM_ITS ---
Subjective Subjective Date of Service: 03/29/24 Interval History: seen and examined this morning follow up for PE, liver mass no specific complaints this morning Review of Systems Review of Systems: Yes all other systems are reviewed and are negative Constitutional Constitutional: Denies chills and Denies fever(s) Cardiovascular Cardiovascular: Denies chest pain, Denies palpitations and Denies dyspnea Respiratory Respiratory: Denies dyspnea Endocrine Endocrine: Denies palpitations Physical Exam 2 Vital Signs: Vital Signs: Last Vital Signs Temp 97.4 F 03/29/24 11:21 Pulse 78 03/29/24 11:21 Resp 15 03/29/24 11:21 BP 120/65 03/29/24 11:21 Pulse Ox 94 03/29/24 11:21 O2 Del Method Nasal Cannula 03/29/24 11:21 O2 Flow Rate 5 03/29/24 11:21 BMI result Body Mass Index 27.1 Const: General: alert, awake and Physically active Nutritional Appearance: average body habitus Resp: Effort & Inspection: normal respiratory effort, able to speak in complete sentences, no respiratory distress and no use of accessory muscles A uscultation: clear to auscultation bilaterally Cardio: Rate: regular rate GI: Inspection: No distended Palpation (GI): Soft to palpation Neuro: General: moves all extremities and CN's II-XI intact bilaterally Objective Data Active Medications Acetaminophen (Acetaminophen 325 Mg Tablet) 650 mg PO Q6H PRN PRN Reason: Pain, Mild 1-3,fever,headache Last Admin: 03/29/24 02:54 Dose: 650 mg Documented By: NADIA Albuterol Sulfate (Albuterol Sulfate 90 Mcg 8 Gm Inhaler) 2 puff INHALE Q4H PRN PRN Reason: wheezing Allopurinol (Allopurinol 100 Mg Tablet) 200 mg PO DAILY [facility] Last Admin: 03/29/24 08:30 Dose: 200 mg Documented By: SHERWIN Calcium Carbonate (Calcium Carbonate 750 Mg Tab.Chew) 750 mg PO Q4H PRN PRN Reason: Heartburn Clonazepam (Clonazepam 0.5 Mg Tablet) 0.5 mg PO BID PRN PRN Reason: anxiety Last Admin: 03/28/24 21:50 Dose: 0.5 mg Documented By: NADIA Fluoxetine HCl (Fluoxetine Hcl 20 Mg Capsule) 20 mg PO DAILY [facility] Last Admin: 03/29/24 08:30 Dose: 20 mg Documented By: SHERWIN Heparin Sodium (Porcine) (Heparin Sodium,Porcine 5,000 Unit/Ml Vial) 2,700 unit 40 unit/kg (2700 unit) IVPUSH PROTOCOL BOLUS PRN; Protocol PRN Reason: 40 unit/kg - Heparin Protocol Last Admin: 03/29/24 11:24 Dose: 2,700 unit Documented By: SHERWIN Heparin Sodium (Porcine) (Heparin Sodium,Porcine 5,000 Unit/Ml Vial) 5,300 unit 80 unit/kg (5300 unit) IVPUSH PROTOCOL BOLUS PRN; Protocol PRN Reason: 80 unit/kg - Heparin Protocol Heparin Sodium/Sodium Chloride (Heparin Sodium,Porcine/1/2ns) 25,000 unit in 250 mls @ 0 mls/hr IVCONT .Q0M [facility]; Protocol Last Titration: 03/29/24 11:23 Dose: 25 units/kg/hr, 16.7 mls/hr Documented By: SHERWIN Co-signed By: LUIS M Magnesium Hydroxide (Milk Of Magnesia 30 Ml Oral.Susp) 30 ml PO DAILY PRN PRN Reason: Constipation Last Admin: 03/28/24 21:50 Dose: 30 ml Documented By: NADIA Meclizine HCl (Meclizine Hcl 12.5 Mg Tablet) 12.5 mg PO TID PRN PRN Reason: dizziness Melatonin (Melatonin 3 Mg Tablet) 6 mg PO BEDTIME PRN PRN Reason: Insomnia Last Admin: 03/29/24 02:54 Dose: 6 mg Documented By: NADIA Nortriptyline HCl (Nortriptyline Hcl 25 Mg Capsule) 75 mg PO BEDTIME [facility] Last Admin: 03/28/24 21:50 Dose: 75 mg Documented By: NADIA Ondansetron HCl (Ondansetron Hcl 4 Mg/2 Ml Vial) 4 mg IVPUSH Q8H PRN PRN Reason: Nausea and Vomiting Polyethylene Glycol (Polyethylene Glycol 3350 17 Gm Powd.Pack) 17 gm PO DAILY [facility] Last Admin: 03/29/24 08:30 Dose: 17 gm Documented By: SHERWIN Sodium Biphosphate/Sodium Phosphate (Sodium Phosphate,Wetzel-Dibasic 133 Ml Enema) 133 ml [place] ONCE PRN PRN Reason: Constipation Sodium Chloride (0.9 % Sodium Chloride Flush 3 Ml Syringe) 3 ml IVFLUSH QSHIFT [facility] Last Admin: 03/29/24 08:31 Dose: 3 ml Documented By: SHERWIN Labs 03/29/24 08:41 03/29/24 08:41 Labs: Laboratory Results - last 24 hr 03/27/24 03/27/24 03/27/24 09:25 14:08 14:34 MCV MCH MCHC RDW Plt Count MPV Absolute Nucleated RBC Nucleated RBC % (auto) Hold Purple Top aPTT Heparin Protocol Activated Clotting Time 115 178 H Anion Gap Estim Creat Clear Calc Estimated GFR Random Glucose Calcium B-Natriuretic Peptide Crossmatch See Detail 03/27/24 03/28/24 03/28/24 15:14 14:40 21:38 MCV MCH MCHC RDW Plt Count MPV Absolute Nucleated RBC Nucleated RBC % (auto) Hold Purple Top SEE NOTE aPTT Heparin Protocol 54.0 D 52.8 L Activated Clotting Time 219 H Anion Gap Estim Creat Clear Calc Estimated GFR Random Glucose Calcium B-Natriuretic Peptide Crossmatch 03/29/24 03/29/24 03/29/24 04:20 08:41 10:27 MCV 92.1 MCH 28.8 MCHC 31.2 RDW 17.1 H Plt Count 349 D MPV 10.8 Absolute Nucleated RBC 0.000 Nucleated RBC % (auto) 0.0 Hold Purple Top aPTT Heparin Protocol 64.8 D 52.1 L Activated Clotting Time Anion Gap 12 Estim Creat Clear Calc 46.3 Estimated GFR > 60 Random Glucose 115 Calcium 8.8 B-Natriuretic Peptide 375 H Crossmatch Assessment and Plan (1) Liver lesion: Status: Acute (2) Pulmonary embolism: Status: Acute Plan This is an 79-year-old woman presented to the ER with complaints of constipation, shortness of breath for 2 weeks found to have PE and b/l DVT Acute metabolic encephalopathy hospital delirium, anesthesia monitor mental status - improving acute respiratory failure due to acute PE and possible acute CHF down to 3L, but repeat CXR showing persistent pulm edema, pleural effusions will give one dose of IV lasix and assess for effect echo ordered, not on diuretics at baseline Acute Pulmonary embolism and left femoral thrombus, partial occlusive thrombus right femoral vein Chest CTA positive for bilateral segmental and subsegmental emboli, findings of submassive PE continue IV heparin drip for now, change to eliquis on dc Continue oxygen to keep saturation greater than 90% s/p thrombectomy 03/27/24 H/H stable Possible malignancy Abdominal CT showing metastatic disease to the liver with osseous and retroperitoneal lymphadenopathy GI consult> Hematology/oncology>Rec Liver biopsy - due to oxygen requirement, acute PE with recent thrombectomy likely will be done as outpatient Constipation No obstruction seen on abdominal CT seen by GI Fleets enema, will increase miralax to bid P.r.n. milk of magnesia Hypertension Soft blood pressures norvasc and atenolol have been on hold Mental health Continue home medications DVT prophylaxis with IV heparin attending Dr. Mcghee Full code Patient requires ongoing inpatient stay for management of acute PE and bilateral DVT requiring heparin drip and respiratory failure requiring supplemental oxygen and possible acute CHF requiring further investigation/treatment Quality Stroke Does the patient have a stroke diagnosis?: No VTE Prior VTE?: No VTE Risk Level:: Medical - moderate - high VTE Device Contraindication: Treatment Not Indicated VTE Drug Contraindication: N/A - Med Ordered
[2024-03-29] MEDS: Furosemide 20 MG/2 ML VIAL IVPUSH (14:43)
[2024-03-29] MEDS: Sodium Phosphate,Mono-Dibasic 133 ML ENEMA PR (14:44)
--- NOTE | 2024-03-29 15:00 | CA_ITS ---
Transthoracic Echocardiogram Patient (Last, First, Middle): Paulette Read, Gender: Female Date of : 1945 Age: 79 Procedure Date: 03/29/2024 Procedure Type: Transthoracic Echocardiogram Location: [facility] [place] Height: 157.48 cm Weight: 66.68 kg BSA: 1.68 m2 Heart Rate: bpm BP: 120 / 65 mmHg Well Service Floorperson: SHAHEEN Referring MD: Lindsey ABREU [employer] Specialists: Robert Murillo MD Symptoms: PE; ?chf Study Quality: Adequate ECG Rhythm: Sinus Conclusions: - 1. Normal LV ejection fraction of 65-70% with impaired relaxation filling pattern 2. Mild aortic stenosis 3. Moderate to severe elevation of the right ventricular systolic pressure with mildly elevated right atrial pressures 4. No gross pericardial effusion Findings Left Ventricle Normal left ventricular size, thickness, and systolic function. The visually estimated ejection fraction is between 65-70%. Spectral Doppler is indicative of an impaired relaxation filling pattern. E/E prime ratio is between 8 and 15 consistent with indeterminate filling pressures. Right Ventricle Normal right ventricular cavity size and systolic function. Atria The left atrium is likely dilated. There is no evidence of interatrial shunt. The right atrium is normal in size. Aortic Valve There is mild calcification of the aortic valve. There is mild aortic valve stenosis. The peak aortic velocity is 2.11 m/s with a calculated peak gradient of 18 mmHg. The mean gradient is 8 mmHg. There is no aortic valve regurgitation. Mitral Valve There is mild anterior mitral leaflet thickening. There is mild mitral annular calcification. There is trace mitral valve regurgitation. There is no mitral valve stenosis. Pulmonic Valve The pulmonic valve was not well visualized. Tricuspid Valve Likely normal tricuspid valve structure and function. There is mild tricuspid valve regurgitation. Mildly elevated right atrial pressure. Moderate to severe pulmonary hypertension is present. Great Vessels All visible segments of the aorta are normal in size. The pulmonary artery was not well visualized. There is no dilatation of the ascending aorta measuring 3.30 cm. Venous The inferior vena cava is mildly dilated and collapses less than 50% with inspiration. Pericardium/Pleural There is no evidence of pericardial effusion. Prior Study Comparison No prior study available for comparison. Measurements 2D Linear Measurements IVSd: 0.52 0.6-0.9/0.6-1.0 cm LVIDd: 4.06 3.9-5.3/4.2-5.9 cm LVIDd Index: 2.42 2.4-3.2/2.2-3.1 cm/m2 LVIDs: 2.54 2.0-3.6 cm LVPWd: 0.63 0.7-1.1 cm LA Diam: 3.80 2.7-3.8/3.0-4.0 cm LAIDs Index: 2.26 1.5-2.3 cm/m2 LV Mass: 77.90 67-162/88-224 g LV Mass Index: 46.37 43-95/49-115 g/m2 LVOT Diam: 1.90 3.0+(-)1.3 cm 2D Systolic Function EF 4C: 71.00 >55% EF 2C: 68.50 >55% EF BiP: 69.10 >55% Mitral Valve MV Pk E: 1.22 MV PK A: 1.43 MV Decel Time: 258.00 E/A: 0.90 E'Lateral: 13.30 E'Medial: 8.27 E/E' Med: 14.80 E/E' Lat: 9.20 PHT: 76.00 MVA PHT: 2.89 Decel Stevens: 4.74 Aortic Valve AoV Pk Nik: 2.11 AoV Mn Nik: 1.34 AoV VTI: 0.41 AoV Pk Grad: 18.00 Aov Mn Grad: 8.00 ISABEL Cont.VTI: 1.97 LVOT LVOT Pk Nik: 1.43 LVOT Mn Nik: 0.89 LVOT VTI: 0.29 LVOT Pk Grad: 8.00 LVOT Mn Grad: 4.00 LVOT Diam: 1.90 LVOT Area: 2.84 Diastolic Function MV Pk E: 1.22 MV Pk A: 1.43 E/A: 0.90 E'Medial: 8.27 E/E' Med: 14.80 E' Laterial: 13.30 E/E' Lat: 9.20 Right Ventricle TAPSE (mm): 20.70 TVS' Nik: 14.10 Tricuspid Valve TR Pk Nik: 3.63 TR Pk Grad: 53.00 RA Press: 8.00 RVSP: 61.00 Great Vessels Aorta Sinus of Valsalva: 2.92 2.0-3.[address] Ridge: 2.31 1.7-3.4 cm Ao Asc: 3.30 2.1-3.4 cm Updated in Other Vendor System with Status of Final Robert Murillo MD electronically signed on 03/29/2024 4:52:35 PM with status of Final
[2024-03-29] MEDS: Heparin Sodium,Porcine/1/2NS 25,000 UNIT/250 ML IV.SOLN 16.7 UNIT IVCONT (15:27)
[2024-03-29 17:39] LABS: PTT Heparin Drip 80.3 SEC (53-77.9)
[2024-03-29] MEDS: Nortriptyline HCl 25 MG CAPSULE 75 MG PO (20:20)
[2024-03-29] MEDS: clonazePAM 0.5 MG TABLET PO (20:24)
[2024-03-30] VITALS (13 sets, daily range): BP systolic 114–148; BP diastolic 57–79; PULSE 84–94; RESP 14–21; TEMP 36.5–37.2; O2SAT 91–99
[2024-03-30 00:03] LABS: PTT Heparin Drip 48.7 SEC (53-77.9)
[2024-03-30] MEDS: Heparin Sodium,Porcine 5,000 UNIT/ML VIAL 2700 UNIT IVPUSH (00:55)
[2024-03-30] MEDS: 0.9 % Sodium Chloride Flush 3 ML SYRINGE IVFLUSH ×3 (01:02→18:29)
[2024-03-30] MEDS: Heparin Sodium,Porcine/1/2NS 25,000 UNIT/250 ML IV.SOLN 16.7 UNIT IVCONT ×2 (07:43→17:12)
[2024-03-30 08:23] LABS: Hematocrit 25.5 % (37.0-47.0); Hemoglobin 8.2 g/dl (12.0-16.0); Mean Corpuscular HGB Conc 32.2 g/dl (31.0-35.0); Mean Corpuscular Volume 90.1 fL (80.0-98.0); Mean Platelet Volume 10.4 fL (9.4-12.3); Platelet Count 396 X10*3/uL (160-400); Red Blood Count 2.83 X10*6/uL (4.20-5.50); Red Cell Distribution Width 17.1 % (11.0-16.0); White Blood Count 18.9 X10*3/uL (4.8-10.8)
[2024-03-30 08:32] LABS: Anion Gap 12 (12-20); Blood Urea Nitrogen 23 mg/dL (9-16); Calcium 8.9 mg/dL (8.4-10.2); Carbon Dioxide 18 mmol/L (22-29); Chloride 110 mmol/L (96-108); Creatinine Clr Calc Pharmacy 48.5; Estimated Glomerular Filt Rate > 60; Glucose Random 114 mg/dL (60-115); Potassium 3.9 mmol/L (3.3-5.1); Sodium 136 mmol/L (135-145)
[2024-03-30] MEDS: allopurinoL 100 MG TABLET 200 MG PO (08:34)
[2024-03-30] MEDS: FLUoxetine HCl 20 MG CAPSULE PO (08:34)
[2024-03-30] MEDS: polyethylene glycoL 3350 17 GM POWD.PACK PO ×2 (08:37→21:18)
[2024-03-30 08:43] LABS: B Type Natriuretic Peptide 248 pg/mL (<100)
--- NOTE | 2024-03-30 08:47 | PM.HEMONCPN ---
Medical Summary - Medical Summary Date of Service: 03/30/24 Chief complaint: Shortness of breath Primary Care Provider: BRADY Caldwell Experimental Preflight Mechanic Utilized?: No - Samoan Speaking Interval History Interval history: Paulette Read is a 79 year old female who presented to emergency department with complaints of shortness of breath as well as abdominal pain for about 2 weeks prior to admission. Her daughter who is the main historian. She says up until recently, patient has had no major medical problems. She has had no fever or chills but has had decrease in oral intake, poor appetite and some nausea. She gives no prior history of cancer and does not know of any family history of cancer. Daughter thinks she has had some weight loss. Evaluation in the ER with a CT angiogram showed bilateral pulmonary emboli and CT abdomen showed liver lesions consistent with malignancy. She has been started on heparin and is scheduled to undergo thrombectomy with Dr. Liu today. Continues to have some shortness of breath. She was able to walk a little bit with help of physical therapy today. She denies any chest pain or acute symptoms. Review of Systems - Constitutional Reports as per HPI - Neurologic Reports hearing normal, Denies abnormal gait, Denies dizziness, Denies numbness, Denies sensory deficit, Denies weakness [facility] Medical History: Medical History (Last Reviewed 03/30/24 @ 11:34 by Robert Murillo MD) Basal cell carcinoma Mcmahan's palsy Chronic renal insufficiency Depression with anxiety Diverticulosis HTN (hypertension) Hyperparathyroidism Left arm swelling Osteoarthritis Osteopenia Osteoporosis Surgical History: Surgical History (Last Reviewed 03/30/24 @ 11:34 by Robert Murillo MD) H/O colonoscopy History of dental surgery History of hip surgery Hx of breast biopsy Social History: Social History (Last Reviewed 03/30/24 @ 11:34 by Robert Murillo MD) Living Situation History: Household Members: Other Household Members Other:: daughter stays with patient as of now Housing: House Are you a primary skin care consultant to a significant other at home: No Do you presently have visiting nurse or other home services: No Tobacco History: Patient Tobacco Use Status: Former Tobacco user Tobacco use type: Cigarette Years Smoked: 16 Second Hand Smoke Exposure: No Advance Directives: Advance Directives Date on File: 03/26/24 Occupation Assessmet: service: No Home Medications and Allergies Current Medications: Current Medications Acetaminophen (Acetaminophen 325 Mg Tablet) 650 mg PO Q6H PRN PRN Reason: Pain, Mild 1-3,fever,headache Last Admin: 03/29/24 02:54 Dose: 650 mg Albuterol Sulfate (Albuterol Sulfate 90 Mcg 8 Gm Inhaler) 2 puff INHALE Q4H PRN PRN Reason: wheezing Allopurinol (Allopurinol 100 Mg Tablet) 200 mg PO DAILY [facility] Last Admin: 03/30/24 08:34 Dose: 200 mg Calcium Carbonate (Calcium Carbonate 750 Mg Tab.Chew) 750 mg PO Q4H PRN PRN Reason: Heartburn Clonazepam (Clonazepam 0.5 Mg Tablet) 0.5 mg PO BID PRN PRN Reason: anxiety Last Admin: 03/29/24 20:24 Dose: 0.5 mg Fluoxetine HCl (Fluoxetine Hcl 20 Mg Capsule) 20 mg PO DAILY [facility] Last Admin: 03/30/24 08:34 Dose: 20 mg Heparin Sodium (Porcine) (Heparin Sodium,Porcine 5,000 Unit/Ml Vial) 2,700 unit 40 unit/kg (2700 unit) IVPUSH PROTOCOL BOLUS PRN; Protocol PRN Reason: 40 unit/kg - Heparin Protocol Last Admin: 03/30/24 00:55 Dose: 2,700 unit Heparin Sodium (Porcine) (Heparin Sodium,Porcine 5,000 Unit/Ml Vial) 5,300 unit 80 unit/kg (5300 unit) IVPUSH PROTOCOL BOLUS PRN; Protocol PRN Reason: 80 unit/kg - Heparin Protocol Heparin Sodium/Sodium Chloride (Heparin Sodium,Porcine/1/2ns) 25,000 unit in 250 mls @ 0 mls/hr IVCONT .Q0M [facility]; Protocol Last Admin: 03/30/24 07:43 Dose: 25 units/kg/hr, 16.7 mls/hr Magnesium Hydroxide (Milk Of Magnesia 30 Ml Oral.Susp) 30 ml PO DAILY PRN PRN Reason: Constipation Last Admin: 03/28/24 21:50 Dose: 30 ml Meclizine HCl (Meclizine Hcl 12.5 Mg Tablet) 12.5 mg PO TID PRN PRN Reason: dizziness Melatonin (Melatonin 3 Mg Tablet) 6 mg PO BEDTIME PRN PRN Reason: Insomnia Last Admin: 03/29/24 02:54 Dose: 6 mg Nortriptyline HCl (Nortriptyline Hcl 25 Mg Capsule) 75 mg PO BEDTIME [facility] Last Admin: 03/29/24 20:20 Dose: 75 mg Ondansetron HCl (Ondansetron Hcl 4 Mg/2 Ml Vial) 4 mg IVPUSH Q8H PRN PRN Reason: Nausea and Vomiting Polyethylene Glycol (Polyethylene Glycol 3350 17 Gm Powd.Pack) 17 gm PO BID [facility] Last Admin: 03/30/24 08:37 Dose: 17 gm Sodium Biphosphate/Sodium Phosphate (Sodium Phosphate,[place]-Dibasic 133 Ml Enema) 133 ml LA ONCE PRN PRN Reason: Constipation Last Admin: 03/29/24 14:44 Dose: 133 ml Sodium Chloride (0.9 % Sodium Chloride Flush 3 Ml Syringe) 3 ml IVFLUSH QSHIFT [facility] Last Admin: 03/30/24 08:36 Dose: 3 ml Home Medications ?Medication ?Instructions ?Recorded ?Confirmed ?Type alendronate 70 mg tablet 70 mg PO MO 04/19/23 03/26/24 History amlodipine 10 mg tablet 10 mg PO DAILY 04/19/23 03/26/24 History aspirin 81 mg tablet,delayed 81 mg PO BEDTIME 04/19/23 03/26/24 History release atenolol 100 mg tablet 100 mg PO DAILY 04/19/23 03/26/24 History clonazepam 0.5 mg tablet 0.5 mg PO BID PRN anxiety 04/19/23 03/26/24 History fluoxetine 20 mg capsule 20 mg PO DAILY 04/19/23 03/26/24 History nortriptyline 75 mg capsule 75 mg PO BEDTIME 04/19/23 03/26/24 History acetaminophen 500 mg tablet 1,000 mg PO Q6H PRN Pain 04/20/23 03/26/24 History albuterol sulfate 90 mcg/actuation 2 puff inhalation Q4H PRN wheezing 03/26/24 03/26/24 History aerosol inhaler meclizine 12.5 mg tablet 12.5 mg PO TID PRN dizziness 03/26/24 03/26/24 History Allergies Allergy/AdvReac Type Severity Reaction Status Date / Time No Known Allergies Allergy Verified 03/26/24 11:40 [No Known Allergies*] Exam Vital signs: Vital Signs Temp 98.4 F 03/30/24 07:37 Pulse 86 03/30/24 07:37 Resp 20 03/30/24 07:37 BP 129/62 03/30/24 07:37 Pulse Ox 92 03/30/24 07:37 O2 Del Method Nasal Cannula 03/30/24 07:37 O2 Flow Rate 3 03/30/24 07:37 Intake & Output 03/29/24 03/30/24 03/30/24 18:59 06:59 18:59 Intake Total 549.501 / 660.861 111.36 / 660.861 100.508 / 100.508 Output Total 400 / 650 250 / 650 Balance 149.501 / 10.861 -138.64 / 10.861 100.508 / 100.508 Urine Output (Average ml/kg/hr) 0.50 0.31 0.31 Intake: Intake, Oral Amount 360 / 360 Intake, IV Amount 189.501 / 300.861 111.36 / 300.861 100.508 / 100.508 Heparin Sodium,Porcine/1/2NS 25 189.501 / 300.861 111.36 / 300.861 100.508 / 100.508 ,000 unit In 250 ml @ Per Protocol IVCONT .Q0M [facility] Rx#: [id number] Output: Output, Urine Amount 400 / 650 250 / 650 Other: Breakfast % Eaten 75% Lunch % Eaten 75% Eating (Feeding) Ability Independent Number of Bowel Movements 0 Urine Bedside Commode Bedside Commode Urine Color Yellow Weight 67.1 kg BMI result Body Mass Index 27.1 - Constitutional Present: no acute distress, average body habitus, chronically ill appearing - Routine HEENT Exam Head: Present: normal inspection - Routine Respiratory Exam Present: CTAB. Absent: accessory muscle use - Routine Cardiovascular Exam Cardiovascular: Present: S1, S2 - Routine Abdominal Exam Present: organomegaly - Routine Skin Exam Present: intact Data - Labs CBC & Chem 7: 03/30/24 07:58 03/30/24 07:58 Labs: Laboratory Last Values WBC 18.9 X10*3/uL (4.8-10.8) H 03/30/24 07:58 RBC 2.83 X10*6/uL (4.20-5.50) L 03/30/24 07:58 Hgb 8.2 g/dl (12.0-16.0) L 03/30/24 07:58 Hct 25.5 % (37.0-47.0) L 03/30/24 07:58 MCV 90.1 fL (80.0-98.0) 03/30/24 07:58 MCH 29.0 pg (27.0-33.0) 03/30/24 07:58 MCHC 32.2 g/dl (31.0-35.0) 03/30/24 07:58 RDW 17.1 % (11.0-16.0) H 03/30/24 07:58 Plt Count 396 X10*3/uL (160-400) 03/30/24 07:58 MPV 10.4 fL (9.4-12.3) 03/30/24 07:58 Immature Gran % (Auto) 1.0 % (0.0-0.4) H 03/27/24 17:11 Neut % (Auto) 88.0 % (45-73) H 03/27/24 17:11 Lymph % (Auto) 4.2 % (20-40) L 03/27/24 17:11 [place] % (Auto) 6.3 % (2-11) 03/27/24 17:11 Eos % (Auto) 0.3 % (0-4) 03/27/24 17:11 Baso % (Auto) 0.2 % (0-2) 03/27/24 17:11 Lymph # (Auto) 0.8 X10*3/uL (1.2-4.9) L 03/27/24 17:11 [place] # (Auto) 1.2 X10*3/uL (0.1-1.2) 03/27/24 17:11 Eos # (Auto) 0.1 X10*3/uL (0.0-0.4) 03/27/24 17:11 Baso # (Auto) 0.0 X10*3/uL (0.0-0.2) 03/27/24 17:11 Abs Immat Gran (auto) 0.19 X10*3/uL (0.00-0.03) H 03/27/24 17:11 Absolute Neuts (auto) 16.6 x10*3/uL (2.0-8.3) H 03/27/24 17:11 Absolute Nucleated RBC 0.000 X10*3/uL (0.0-0.012) 03/30/24 07:58 Nucleated RBC % (auto) 0.0 /100WBC (0.0-0.2) 03/30/24 07:58 Smear Tech's Comments VERIFIED 03/26/24 12:50 Hold Purple Top SEE NOTE 03/28/24 21:38 PT 14.4 SEC (10.9-12.4) H 03/27/24 03:59 INR 1.2 (0.9-1.1) H 03/27/24 03:59 aPTT Heparin Protocol 69.0 SEC (53-77.9) D 03/30/24 06:05 Activated Clotting Time 219 Celite s (79-173) H 03/27/24 15:14 Sodium 136 mmol/L (135-145) 03/30/24 07:58 Potassium 3.9 mmol/L (3.3-5.1) 03/30/24 07:58 Chloride 110 mmol/L (96-108) H 03/30/24 07:58 Carbon Dioxide 18 mmol/L (22-29) L 03/30/24 07:58 Anion Gap 12 (12-20) 03/30/24 07:58 BUN 23 mg/dL (9-16) H 03/30/24 07:58 Creatinine 0.83 mg/dL (0.5-1.4) 03/30/24 07:58 Estim Creat Clear Calc 48.5 03/30/24 07:58 Estimated GFR > 60 03/30/24 07:58 Random Glucose 114 mg/dL (60-115) 03/30/24 07:58 Uric Acid 9.9 mg/dL (2.4-5.7) H 03/26/24 12:50 Calcium 8.9 mg/dL (8.4-10.2) 03/30/24 07:58 Magnesium 2.3 mg/dL (1.6-2.6) 03/26/24 12:50 Total Bilirubin 0.3 mg/dL (0.0-1.0) 03/26/24 12:50 Direct Bilirubin 0.2 mg/dL (0.0-0.5) 03/26/24 12:50 AST 53 U/L (5-31) H 03/26/24 12:50 ALT 28 U/L (0-31) 03/26/24 12:50 Alkaline Phosphatase 283 U/L (39-117) H 03/26/24 12:50 Lactate Dehydrogenase 547 U/L (122-220) H 03/26/24 12:50 Troponin I High Sens 16.4 ng/L (<3.5-17.0) 03/26/24 12:50 B-Natriuretic Peptide 248 pg/mL (<100) H 03/30/24 07:58 Total Protein 6.7 g/dL (6.5-8.0) 03/26/24 12:50 Albumin 2.9 g/dL (3.5-5.0) L 03/26/24 12:50 Lipase 39 U/L (8-78) 03/26/24 12:50 Carcinoembryonic Ag 7.70 ng/mL 03/26/24 12:50 Hold Green Top See Note 03/27/24 03:59 Hold Yellow Top See Note 03/26/24 21:04 Influenza Type A (PCR) NEGATIVE (Negative) 03/26/24 12:14 Influenza Type B (PCR) NEGATIVE (Negative) 03/26/24 12:14 RSV RNA Qual (PCR) NEGATIVE (Negative) 03/26/24 12:14 SARS-CoV-2 RNA (RT-PCR) NEGATIVE (Negative) 03/26/24 12:14 Blood Type O Positive 03/27/24 09:25 Antibody Screen NEGATIVE 03/27/24 09:25 Crossmatch See Detail 03/27/24 09:25 - Imaging Radiologist's impression: ITS Impressions Chest CTA 03/26/24 11:45 IMPRESSION: 1. Examination POSITIVE for bilateral segmental and subsegmental the, left greater than right. There is evidence of reflux into the hepatic veins, dilatation of the right atrium, and mild septal bowing of the intraventricular septum. Findings meet criteria for submassive PE. 2. There are mild changes of interstitial pulmonary edema. Bilateral small right greater than left pleural effusions. 3. Mild to moderate cardiomegaly. 4. Patulous esophagus with a moderate size hiatus hernia. 5. Nonobstructing left renal calculi. Small volume upper abdominal ascites. 6. Abnormal appearing liver. 7. Abnormal appearance of gallbladder although may relate to ascites in the gallbladder fossa. Refer to the dedicated CT abdomen and pelvis performed concurrently. Findings were relayed to Dr. Desmond Hough of the [facility] via secure text at 2:30 PM, 03/26/2024. Electronically signed by: Azael Cheek MD 03/26/2024 02:45 PM EST RP Abdomen/Pelvis CT 03/26/24 13:45 IMPRESSION: Acute pulmonary artery emboli. Please for [address] chest angiogram. Malignancy with metastatic disease to the liver, osseous and retroperitoneal lymphadenopathy. On clear primary etiology. Findings communicated to the emergency physician Dr. Desmond Hough absent 2:22 PM on March 26, 2024. Fleischner guidelines were followed. Electronically signed by: Nuno Huitron MD 03/26/2024 02:31 PM EST RP Chest X-Ray 03/29/24 12:28 IMPRESSION: Pulmonary edema, bilateral pleural effusions, moderate volume right greater than left. Overall similar since prior exam. Electronically signed by: Nuno Huitron MD 03/29/2024 12:57 PM EST RP Assessment and Plan Patient Active problem list reviewed?: Yes (1) Liver lesion Status: Acute Assessment and plan: 1. This is a 79-year-old woman diagnosed with acute bilateral segmental and subsegmental pulmonary emboli as well as diffuse liver lesions worrisome for malignancy. CT chest/abdomen and pelvis with contrast revealed bilateral pulmonary emboli, hepatomegaly with multifocal ill-defined low-density lesions largest measuring 4 cm. Cholelithiasis, no intra or extrahepatic biliary ductal dilatation. No focal mass in pancreas or spleen, no nodular lesions in the adrenals. Retroperitoneal lymphadenopathy, subcentimeter lytic lesions throughout axial skeleton, bony pelvis and proximal appendicular skeleton. She has been started on anticoagulation. Malignancy is probable cause of thromboembolism. Probable primary could be lung or gastrointestinal primary. I discussed above findings with patient as well as her daughter. Her daughter will discuss this further with the mother to decide on further intervention such as biopsy of liver lesion to established diagnosis. Blood work shows elevated LDH and uric acid. I recommend starting her on allopurinol 200 mg once a day. Since she needs to be on long-term anticoagulation. Given her ongoing issues of hypoxemia, reasonable to withhold liver biopsy at this time. This can be arranged as outpatient. I will follow up with her upon discharge - Time Spent With Patient Time Spent with Patient (in minutes): 10
--- NOTE | 2024-03-30 11:31 | P.CONCA_ITS ---
History of Present Illness History of Present Illness Date of Service: 03/30/24 Requesting physician: Lindsey Torres Consult reason: congestive heart failure Chief complaint: PE, ABD pain Narrative: I was consulted to see and in cardiology consultation today for bilateral pulmonary embolism with findings of echocardiogram of pulmonary hypertension possibly suggestion of heart failure. She did came in the hospital with significant shortness of breath which has been gradually progressing over the last 2 months. She was not sure as to what was going on. She came to the hospital was noted to have bilateral extensive pulmonary embolism with right heart strain on CT scan consistent with submassive pulmonary embolism. She was also noted to have liver lesion which is suggestive of malignancy although workup is pending. Patient underwent interventional pulmonary thrombctomy and says she is feeling better. She was also diuresed. BNP is downtrending. She was noted to have bilateral pleural effusion with moderate effusion on the right side. Patient is scheduled to undergo thoracocentesis today. Patient on the echocardiogram was noted to have dilated right ventricle with moderate to severe pulmonary hypertension with elevated right atrial pressures. Patient was denying any palpitations. She has prior history of hypertension. She was noted to be anemic. She does not have any prior cardiac history denies any history of CAD, congestive heart failure, diabetes, cardiac arrhythmias. No prior history of thrombotic disease. Review of Systems 2 Constitutional: Constitutional: Reports weakness Cardiovascular: Cardiovascular: Denies chest pain, Reports leg edema, Denies lightheadedness, Denies Loss of Consciousness, Denies palpitations and Reports dyspnea on exertion Respiratory: Respiratory: Reports no additional respiratory complaints and Reports dyspnea on exertion Gastrointestinal: Gastrointestinal: Reports no additional gastrointestinal complaints Genitourinary: Genitourinary: Reports no additional female genitourinary complaints Neurologic: Reports system reviewed and no additional complaints, except as documented and Reports weakness Endocrine: Endocrine: Denies palpitations PMFSH Past Medical History Medical History Osteoporosis Left arm swelling HTN (hypertension) Diverticulosis Osteopenia Mcmahan's palsy Chronic renal insufficiency Hyperparathyroidism Basal cell carcinoma Osteoarthritis Depression with anxiety Surgical History Surgical History History of dental surgery History of hip surgery Hx of breast biopsy H/O colonoscopy Social History Social History Household Members: Other Household Members Other:: daughter stays with patient as of now Housing: House Are you a primary campground caretaker to a significant other at home: No Do you presently have visiting nurse or other home services: No Patient Tobacco Use Status: Former Tobacco user Tobacco use type: Cigarette Years Smoked: 16 Second Hand Smoke Exposure: No Advance Directives Date on File: 03/26/24 service: No Meds Allergies Allergy/AdvReac Type Severity Reaction Status Date / Time No Known Allergies Allergy Verified 03/26/24 11:40 [No Known Allergies*] Active Medications: Current Medications Acetaminophen (Acetaminophen 325 Mg Tablet) 650 mg PO Q6H PRN PRN Reason: Pain, Mild 1-3,fever,headache Last Admin: 03/29/24 02:54 Dose: 650 mg Albuterol Sulfate (Albuterol Sulfate 90 Mcg 8 Gm Inhaler) 2 puff INHALE Q4H PRN PRN Reason: wheezing Allopurinol (Allopurinol 100 Mg Tablet) 200 mg PO DAILY [facility] Last Admin: 03/30/24 08:34 Dose: 200 mg Calcium Carbonate (Calcium Carbonate 750 Mg Tab.Chew) 750 mg PO Q4H PRN PRN Reason: Heartburn Clonazepam (Clonazepam 0.5 Mg Tablet) 0.5 mg PO BID PRN PRN Reason: anxiety Last Admin: 03/29/24 20:24 Dose: 0.5 mg Fluoxetine HCl (Fluoxetine Hcl 20 Mg Capsule) 20 mg PO DAILY [facility] Last Admin: 03/30/24 08:34 Dose: 20 mg Heparin Sodium (Porcine) (Heparin Sodium,Porcine 5,000 Unit/Ml Vial) 2,700 unit 40 unit/kg (2700 unit) IVPUSH PROTOCOL BOLUS PRN; Protocol PRN Reason: 40 unit/kg - Heparin Protocol Last Admin: 03/30/24 00:55 Dose: 2,700 unit Heparin Sodium (Porcine) (Heparin Sodium,Porcine 5,000 Unit/Ml Vial) 5,300 unit 80 unit/kg (5300 unit) IVPUSH PROTOCOL BOLUS PRN; Protocol PRN Reason: 80 unit/kg - Heparin Protocol Heparin Sodium/Sodium Chloride (Heparin Sodium,Porcine/1/2ns) 25,000 unit in 250 mls @ 0 mls/hr IVCONT .Q0M [facility]; Protocol Last Admin: 03/30/24 07:43 Dose: 25 units/kg/hr, 16.7 mls/hr Magnesium Hydroxide (Milk Of Magnesia 30 Ml Oral.Susp) 30 ml PO DAILY PRN PRN Reason: Constipation Last Admin: 03/28/24 21:50 Dose: 30 ml Meclizine HCl (Meclizine Hcl 12.5 Mg Tablet) 12.5 mg PO TID PRN PRN Reason: dizziness Melatonin (Melatonin 3 Mg Tablet) 6 mg PO BEDTIME PRN PRN Reason: Insomnia Last Admin: 03/29/24 02:54 Dose: 6 mg Nortriptyline HCl (Nortriptyline Hcl 25 Mg Capsule) 75 mg PO BEDTIME [facility] Last Admin: 03/29/24 20:20 Dose: 75 mg Ondansetron HCl (Ondansetron Hcl 4 Mg/2 Ml Vial) 4 mg IVPUSH Q8H PRN PRN Reason: Nausea and Vomiting Polyethylene Glycol (Polyethylene Glycol 3350 17 Gm Powd.Pack) 17 gm PO BID [facility] Last Admin: 03/30/24 08:37 Dose: 17 gm Sodium Biphosphate/Sodium Phosphate (Sodium Phosphate,[place]-Dibasic 133 Ml Enema) 133 ml NM ONCE PRN PRN Reason: Constipation Last Admin: 03/29/24 14:44 Dose: 133 ml Sodium Chloride (0.9 % Sodium Chloride Flush 3 Ml Syringe) [facility] Last Admin: 03/30/24 08:36 Dose: 3 ml Home Medications ?Medication ?Instructions ?Recorded ?Confirmed ?Last Taken ?Type alendronate 70 mg tablet 70 mg PO MO 04/19/23 03/26/24 03/19/24 History amlodipine 10 mg tablet 10 mg PO DAILY 04/19/23 03/26/24 03/26/24 History aspirin 81 mg tablet,delayed 81 mg PO BEDTIME 04/19/23 03/26/24 03/26/24 History release atenolol 100 mg tablet 100 mg PO DAILY 04/19/23 03/26/24 03/26/24 History clonazepam 0.5 mg tablet 0.5 mg PO BID PRN anxiety 04/19/23 03/26/24 05/03/23 History fluoxetine 20 mg capsule 20 mg PO DAILY 04/19/23 03/26/24 03/26/24 History nortriptyline 75 mg capsule 75 mg PO BEDTIME 04/19/23 03/26/24 03/25/24 History acetaminophen 500 mg tablet 1,000 mg PO Q6H PRN Pain 04/20/23 03/26/24 05/02/23 History albuterol sulfate 90 mcg/actuation 2 puff inhalation Q4H PRN wheezing 03/26/24 03/26/24 03/26/24 History aerosol inhaler meclizine 12.5 mg tablet 12.5 mg PO TID PRN dizziness 03/26/24 03/26/24 Unknown History Physical Exam 2 Vital Signs: Vital Signs: Last Vital Signs Temp 98.4 F 03/30/24 07:37 Pulse 86 03/30/24 07:37 Resp 20 03/30/24 07:37 BP 129/62 03/30/24 07:37 Pulse Ox 92 03/30/24 07:37 O2 Del Method Nasal Cannula 03/30/24 07:37 O2 Flow Rate 3 03/30/24 07:37 BMI result Body Mass Index 27.1 Const: General: cooperative, comfortable, alert, awake and tired appearing Nutritional Appearance: average body habitus Orientation/consciousness: p atient oriented x3 HEENT: Head: Yes normocephalic and Yes atraumatic Neck: Neck: Yes trachea midline, Yes supple and Yes no JVD Resp: Effort & Inspection: decreased respiratory effort Auscultation: b reath sounds absent on the right and diminished lung sounds Cardio: Jugular venous distension: JVD Palpation: normal PMI Rate: r egular rate Rhythm: regular rhythm Heart sounds: S1 normal heart sound present, S2 normal heart sound present, no click, no gallops, no murmurs and no rubs GI: Auscultation: normal bowel sounds Skin: General skin exam: no rashes or lesions noted Neuro: General: patient oriented x3 and no focal motor deficits Extrem: General: No clubbing, No cyanosis and Yes edema Objective Labs and Meds 03/30/24 07:58 03/30/24 07:58 Lab results: Laboratory Results - last 24 hr 03/29/24 03/29/24 03/30/24 17:17 23:50 06:05 WBC RBC Hgb Hct MCV MCH MCHC RDW Plt Count MPV Absolute Nucleated RBC Nucleated RBC % (auto) aPTT Heparin Protocol 80.3 H D 48.7 L D 69.0 D Sodium Potassium Chloride Carbon Dioxide Anion Gap BUN Creatinine Estim Creat Clear Calc Estimated GFR Random Glucose Calcium B-Natriuretic Peptide 03/30/24 07:58 WBC 18.9 H RBC 2.83 L Hgb 8.2 L Hct 25.5 L MCV 90.1 MCH 29.0 MCHC 32.2 RDW 17.1 H Plt Count 396 MPV 10.4 Absolute Nucleated RBC 0.000 Nucleated RBC % (auto) 0.0 aPTT Heparin Protocol Sodium 136 Potassium 3.9 Chloride 110 H Carbon Dioxide 18 L Anion Gap 12 BUN 23 H Creatinine 0.83 Estim Creat Clear Calc 48.5 Estimated GFR > 60 Random Glucose 114 Calcium 8.9 B-Natriuretic Peptide 248 H Imaging Radiologist's impression: Impressions Chest X-Ray 03/29/24 12:28 IMPRESSION: Pulmonary edema, bilateral pleural effusions, moderate volume right greater than left. Overall similar since prior exam. Electronically signed by: Nuno Huitron MD 03/29/2024 12:57 PM [facility] Assessment and Plan (1) Pulmonary embolism: Qualifiers: Pulmonary embolism type: other Chronicity: acute Acute cor pulmonale presence: unspecified Qualified Code(s): I26.99 - Other pulmonary embolism without acute cor pulmonale Status: Acute Patient present with submassive pulmonary embolism with elevated BNP which is expected in patient with pulmonary embolism with RV strain with noted on echocardiogram moderate to severe pulmonary hypertension which may suggest some acute to may be chronic pulmonary embolic disease given her underlying liver lesion which is appear to be malignant. Patient was status post pulmonary thrombectomy interventionally and is breathing better. Her BNP has come down although clinically still appears mildly fluid overloaded. Will start her on gentle diuresis. If significant about of pulmonary clot burden has improved expect her pulmonary pressures to improve over time. Will need follow-up limited echocardiogram in 4 weeks' time and follow up in the clinic. Meanwhile will maintain with 20 mg of Lasix as outpatient. She was also noted to be significantly anemic. She will most likely require lifelong anticoagulation and will need follow-up with Hematology/Oncology. Overall prognosis will depend on underlying liver lesion diagnose he has and treatment. Consider workup and treatment of anemia. Will sign of the case and follow with her as outpatient. Procedures Date of Service Date of Service: 03/30/24
--- NOTE | 2024-03-30 12:07 | HO.VASCPN ---
Subjective Subjective Date of Service: 03/30/24 Interval history: Paulette is doing well. She continues on oxygen and we will be having a paracentesis later today. She is eating and drinking well as well as sleeping well. She denies any shortness of breath, deep breathing, or chest pain today. Physical Exam Vital Signs: Vital Signs: Last Vital Signs Temp 99.0 F 03/30/24 11:38 Pulse 86 03/30/24 11:38 Resp 20 03/30/24 11:38 BP 126/62 03/30/24 11:38 Pulse Ox 94 03/30/24 11:38 O2 Del Method Nasal Cannula 03/30/24 11:38 O2 Flow Rate 5 03/30/24 11:38 BMI result Body Mass Index 27.1 Const: General: comfortable and no acute distress Orientation/consciousness: patient oriented x3 HEENT: Ears: hearing grossly normal bilaterally Resp: Effort & Inspection: normal respiratory effort and able to speak in complete sentences Auscultation: clear to auscultation bilaterally Cardio: Rate: regular rate Rhythm: regular rhythm Heart sounds: S1 normal heart sound present and S2 normal heart sound present Bruits: no abdominal aortic bruits, no carotid bruits, no femoral bruits and no renal bruits GI: Palpation (GI): No Abdominal aortic bruit present Neuro: General: patient oriented x3 Cranial nerves: Yes CN's II-XII intact bilaterally Progress Note: A&P Assessment and plan (1) Pulmonary embolism: Status: Acute Assessment and Plan: Paulette is status post pulmonary embolectomy. She has been doing very well. She does continue on oxygen; however, she has some congestive heart failure as well as pleural effusions. From a vascular standpoint she is doing well. We will continue to monitor. We will follow up with her outpatient in approximately 2 weeks. Thank you for allowing us to participate in her care. If there are any questions or concerns, please do not hesitate to reach out to us. Time Spent With Patient Time: Total time managing care of this patient today ____ minutes. Procedures Date of Service Date of Service: 03/30/24 Quality Stroke Does the patient have a stroke diagnosis?: No VTE Prior VTE?: No VTE Risk Level:: Medical - moderate - high VTE Device Contraindication: Treatment Not Indicated VTE Drug Contraindication: N/A - Med Ordered
[2024-03-30 12:52] LABS: PTT Heparin Drip 29.9 SEC (53-77.9)
--- NOTE | 2024-03-30 14:45 | MHC.CM.PN ---
EMR REVIEWED, PT W/PE AND ABD PAIN, PLAN FOR THORACENTESIS TODAY AT 3:15PM, NO PLAN FOR DC AT THIS TIME, PT REC'S STR, SHARON SAM FOLLOWING, CM WILL CONT TO FOLLOW DC NEEDS.
[2024-03-30 15:28] LABS: PTT Heparin Drip 30.2 SEC (53-77.9)
--- NOTE | 2024-03-30 16:31 | P.PNIM_ITS ---
Subjective Subjective Date of Service: 03/30/24 Interval History: seen and examined this morning follow up for PE, DVT, liver lesion, CHF dyspnic with movement Review of Systems Review of Systems: Yes all other systems are reviewed and are negative Constitutional Constitutional: Denies chills and Denies fever(s) Cardiovascular Cardiovascular: Denies chest pain Physical Exam 2 Vital Signs: Vital Signs: Last Vital Signs Temp 99.0 F 03/30/24 11:38 Pulse 87 03/30/24 16:11 Resp 21 H 03/30/24 16:11 BP 120/77 03/30/24 16:11 Pulse Ox 99 03/30/24 16:11 O2 Del Method Nasal Cannula 03/30/24 16:11 O2 Flow Rate 5 03/30/24 16:11 BMI result Body Mass Index 27.1 Const: General: alert, awake and Physically active Nutritional Appearance: average body habitus Resp: Effort & Inspection: normal respiratory effort, able to speak in complete sentences, no respiratory distress and no use of accessory muscles A uscultation: clear to auscultation bilaterally Cardio: Rate: regular rate GI: Inspection: No distended Palpation (GI): Soft to palpation Neuro: General: moves all extremities and CN's II-XI intact bilaterally Objective Data Active Medications Acetaminophen (Acetaminophen 325 Mg Tablet) 650 mg PO Q6H PRN PRN Reason: Pain, Mild 1-3,fever,headache Last Admin: 03/29/24 02:54 Dose: 650 mg Documented By: NADIA Albuterol Sulfate (Albuterol Sulfate 90 Mcg 8 Gm Inhaler) 2 puff INHALE Q4H PRN PRN Reason: wheezing Allopurinol (Allopurinol 100 Mg Tablet) 200 mg PO DAILY [facility] Last Admin: 03/30/24 08:34 Dose: 200 mg Documented By: HOWARD Calcium Carbonate (Calcium Carbonate 750 Mg Tab.Chew) 750 mg PO Q4H PRN PRN Reason: Heartburn Clonazepam (Clonazepam 0.5 Mg Tablet) 0.5 mg PO BID PRN PRN Reason: anxiety Last Admin: 03/29/24 20:24 Dose: 0.5 mg Documented By: SEA Fluoxetine HCl (Fluoxetine Hcl 20 Mg Capsule) 20 mg PO DAILY [facility] Last Admin: 03/30/24 08:34 Dose: 20 mg Documented By: HOWARD Furosemide (Furosemide 20 Mg/2 Ml Vial) 20 mg IVPUSH DAILY [facility]; Protocol Heparin Sodium (Porcine) (Heparin Sodium,Porcine 5,000 Unit/Ml Vial) 2,700 unit 40 unit/kg (2700 unit) IVPUSH PROTOCOL BOLUS PRN; Protocol PRN Reason: 40 unit/kg - Heparin Protocol Last Admin: 03/30/24 00:55 Dose: 2,700 unit Documented By: BRITTA Heparin Sodium (Porcine) (Heparin Sodium,Porcine 5,000 Unit/Ml Vial) 5,300 unit 80 unit/kg (5300 unit) IVPUSH PROTOCOL BOLUS PRN; Protocol PRN Reason: 80 unit/kg - Heparin Protocol Heparin Sodium/Sodium Chloride (Heparin Sodium,Porcine/1/2ns) 25,000 unit in 250 mls @ 0 mls/hr IVCONT .Q0M [facility]; Protocol Last Admin: 03/30/24 07:43 Dose: 25 units/kg/hr, 16.7 mls/hr Documented By: HOWARD Co-signed By: SRIKANTH Magnesium Hydroxide (Milk Of Magnesia 30 Ml Oral.Susp) 30 ml PO DAILY PRN PRN Reason: Constipation Last Admin: 03/28/24 21:50 Dose: 30 ml Documented By: NADIA Meclizine HCl (Meclizine Hcl 12.5 Mg Tablet) 12.5 mg PO TID PRN PRN Reason: dizziness Melatonin (Melatonin 3 Mg Tablet) 6 mg PO BEDTIME PRN PRN Reason: Insomnia Last Admin: 03/29/24 02:54 Dose: 6 mg Documented By: NADIA Nortriptyline HCl (Nortriptyline Hcl 25 Mg Capsule) 75 mg PO BEDTIME [facility] Last Admin: 03/29/24 20:20 Dose: 75 mg Documented By: SAE Ondansetron HCl (Ondansetron Hcl 4 Mg/2 Ml Vial) 4 mg IVPUSH Q8H PRN PRN Reason: Nausea and Vomiting Polyethylene Glycol (Polyethylene Glycol 3350 17 Gm Powd.Pack) 17 gm PO BID [facility] Last Admin: 03/30/24 08:37 Dose: 17 gm Documented By: HOWARD Sodium Biphosphate/Sodium Phosphate (Sodium Phosphate,[place]-Dibasic 133 Ml Enema) 133 ml [place] ONCE PRN PRN Reason: Constipation Last Admin: 03/29/24 14:44 Dose: 133 ml Documented By: ARTING Sodium Chloride (0.9 % Sodium Chloride Flush 3 Ml Syringe) 3 ml IVFLUSH QSHIFT [facility] Last Admin: 03/30/24 08:36 Dose: 3 ml Documented By: HOWARD Labs 03/30/24 07:58 03/30/24 07:58 Labs: Laboratory Results - last 24 hr 03/29/24 03/29/24 03/30/24 17:17 23:50 06:05 MCV MCH MCHC RDW Plt Count MPV Absolute Nucleated RBC Nucleated RBC % (auto) aPTT Heparin Protocol 80.3 H D 48.7 L D 69.0 D Anion Gap Estim Creat Clear Calc Estimated GFR Random Glucose Calcium B-Natriuretic Peptide 03/30/24 03/30/24 03/30/24 07:58 12:02 15:09 MCV 90.1 MCH 29.0 MCHC 32.2 RDW 17.1 H Plt Count 396 MPV 10.4 Absolute Nucleated RBC 0.000 Nucleated RBC % (auto) 0.0 aPTT Heparin Protocol 29.9 L D 30.2 L Anion Gap 12 Estim Creat Clear Calc 48.5 Estimated GFR > 60 Random Glucose 114 Calcium 8.9 B-Natriuretic Peptide 248 H Assessment and Plan (1) Liver lesion: Status: Acute (2) Pulmonary embolism: Status: Acute (3) Pleural effusion: Status: Acute Plan This is an 79-year-old woman presented to the ER with complaints of constipation, shortness of breath for 2 weeks found to have PE and b/l DVT and concern for liver mass complicated by CHF and pleural effusion Acute metabolic encephalopathy hospital delirium, anesthesia. improving, near baseline acute respiratory failure due to acute PE, CHF and pleural effusion repeat CXR showing persistent pulm edema, pleural effusions echo with moderate to severe elevation of right ventricular systolic pressure, diastolic dysfucntion seen by cardiology, continue IV lasix plan for thoracentesis this afternoon (heparin on hold for 6 hours prior and can resume after; ok per vascular surgery as clot appeared chronic) - follow fluid studies, cytology etc Acute Pulmonary embolism and left femoral thrombus, partial occlusive thrombus right femoral vein Chest CTA positive for bilateral segmental and subsegmental emboli, findings of submassive PE continue IV heparin drip for now, change to eliquis likely in am Continue oxygen to keep saturation greater than 90% s/p thrombectomy 03/27/24 H/H stable Possible malignancy Abdominal CT showing metastatic disease to the liver with osseous and retroperitoneal lymphadenopathy GI consult> Hematology/oncology>Rec Liver biopsy - due to oxygen requirement, acute PE with recent thrombectomy likely will be done as outpatient Constipation No obstruction seen on abdominal CT seen by GI Fleets enema, will increase miralax to bid P.r.n. milk of magnesia Hypertension Soft blood pressures norvasc and atenolol have been on hold Mental health Continue home medications DVT prophylaxis with IV heparin attending Dr. Mcghee Full code Patient requires ongoing inpatient stay for management of acute PE and bilateral DVT requiring heparin drip and respiratory failure requiring supplemental oxygen and possible acute CHF requiring further investigation/treatment Quality Stroke Does the patient have a stroke diagnosis?: No VTE Prior VTE?: No VTE Risk Level:: Medical - moderate - high VTE Device Contraindication: Treatment Not Indicated VTE Drug Contraindication: N/A - Med Ordered
[2024-03-30] MEDS: Lidocaine HCl 1 % MPF 5 ML VIAL SUBCUT (16:42)
[2024-03-30 17:09] LABS: MN% 88.7 %; PMN% 11.3 %; WBC Pleural Fluid 0.367 X10*3/uL
[2024-03-30 17:13] LABS: RBC Pleural Fluid < 0.002 X10*6/uL
[2024-03-30 17:43] LABS: BF Shift QC OK YES; Lymphocytes Pleural Fluid 22 %; Monocytes Pleural Fluid 17 %; Neutrophils Pleural Fluid 9 %; Other Cells Plerual Fl 52 %
[2024-03-30] MEDS: Furosemide 20 MG/2 ML VIAL IVPUSH (18:29)
--- NOTE | 2024-03-30 19:39 | PC.NURSE ---
heparin drip stopped at 0918 per carol watts in anticipatino of thoracentesis in 6 hours. Per pharmacist Gilberto Jovel, original ordered dc'd and new order entered. rn not able to dc old heparin order. new heparin restarted at all dose per pharmacist, at approx 1710 with order for redraw 2310.
[2024-03-30] MEDS: Nortriptyline HCl 25 MG CAPSULE 75 MG PO (21:17)
[2024-03-30] MEDS: clonazePAM 0.5 MG TABLET PO (21:18)
--- NOTE | 2024-03-30 21:36 | PC.NURSE ---
Addendum entered by Sukhdev Aguirre RN 03/30/24 21:53: spoke with robert in pharmacy. current dosing is correct. commence with next PTT lab per order Original Note: heparin gtt not titrated per protocol. patient is alert, oriented, denies pain. lungs CTA, denies SOB. bilateral positive pedal pulses. VSS. call adair in reach. licensed embalmer supervisor notified.
[2024-03-30 23:42] LABS: PTT Heparin Drip 61.2 SEC (53-77.9)
[2024-03-31] VITALS: BP 127/62; PULSE 88; RESP 20; TEMP 36.8; O2SAT 94
[2024-03-31 04:00] VITALS: BP 128/69; PULSE 86; RESP 20; TEMP 37; O2SAT 96
[2024-03-31 05:59] LABS: Hematocrit 29.2 % (37.0-47.0); Hemoglobin 9.2 g/dl (12.0-16.0); Mean Corpuscular HGB Conc 31.5 g/dl (31.0-35.0); Mean Corpuscular Hemoglobin 28.5 pg (27.0-33.0); Mean Corpuscular Volume 90.4 fL (80.0-98.0); Mean Platelet Volume 10.4 fL (9.4-12.3); Platelet Count 305 X10*3/uL (160-400); Red Blood Count 3.23 X10*6/uL (4.20-5.50); Red Cell Distribution Width 17.1 % (11.0-16.0); White Blood Count 20.6 X10*3/uL (4.8-10.8)
[2024-03-31 06:09] LABS: Anion Gap 13 (12-20); Blood Urea Nitrogen 21 mg/dL (9-16); Calcium 9.1 mg/dL (8.4-10.2); Carbon Dioxide 19 mmol/L (22-29); Chloride 109 mmol/L (96-108); Creatinine Clr Calc Pharmacy 49.1; Estimated Glomerular Filt Rate > 60; Glucose Random 125 mg/dL (60-115); Potassium 4.1 mmol/L (3.3-5.1); Sodium 137 mmol/L (135-145)
[2024-03-31 07:41] VITALS: BP 124/60; PULSE 76; RESP 18; TEMP 36.1; O2SAT 96
[2024-03-31] MEDS: 0.9 % Sodium Chloride Flush 3 ML SYRINGE IVFLUSH ×2 (08:35→20:30)
[2024-03-31] MEDS: Furosemide 20 MG/2 ML VIAL IVPUSH (08:35)
[2024-03-31] MEDS: allopurinoL 100 MG TABLET 200 MG PO (08:35)
[2024-03-31] MEDS: FLUoxetine HCl 20 MG CAPSULE PO (08:35)
[2024-03-31] MEDS: polyethylene glycoL 3350 17 GM POWD.PACK PO ×2 (08:36→20:30)
[2024-03-31] MEDS: Heparin Sodium,Porcine/1/2NS 25,000 UNIT/250 ML IV.SOLN 16.7 UNIT IVCONT (08:50)
--- NOTE | 2024-03-31 11:27 | HO.PM.IMPN ---
Subjective Subjective Date of Service: 03/31/24 Interval History: seen and examined this morning follow up for PE, DVT, liver lesion, CHF dyspnic with movement Review of Systems Review of Systems: Yes all other systems are reviewed and are negative Constitutional Constitutional: Denies chills and Denies fever(s) Cardiovascular Cardiovascular: Denies chest pain Physical Exam Vital Signs: Vital Signs: Last Vital Signs Temp 96.9 F 03/31/24 07:41 Pulse 76 03/31/24 07:41 Resp 18 03/31/24 07:41 BP 124/60 03/31/24 07:41 Pulse Ox 96 03/31/24 07:41 O2 Del Method Nasal Cannula 03/31/24 07:41 O2 Flow Rate 5 03/31/24 07:41 BMI result Body Mass Index 27.1 Appearing in no acute distress lung sounds are clear to auscultation heart regular rate rhythm, clear S1, S2 positive bowel sounds, abdomen is soft, nontender neuro patient is alert x3, no focal deficits Objective Data Active Medications Acetaminophen (Acetaminophen 325 Mg Tablet) 650 mg PO Q6H PRN PRN Reason: Pain, Mild 1-3,fever,headache Last Admin: 03/29/24 02:54 Dose: 650 mg Documented By: NADIA Albuterol Sulfate (Albuterol Sulfate 90 Mcg 8 Gm Inhaler) 2 puff INHALE Q4H PRN PRN Reason: wheezing Allopurinol (Allopurinol 100 Mg Tablet) 200 mg PO DAILY [facility] Last Admin: 03/31/24 08:35 Dose: 200 mg Documented By: ENRIQUE Calcium Carbonate (Calcium Carbonate 750 Mg Tab.Chew) 750 mg PO Q4H PRN PRN Reason: Heartburn Clonazepam (Clonazepam 0.5 Mg Tablet) 0.5 mg PO BID PRN PRN Reason: anxiety Last Admin: 03/30/24 21:18 Dose: 0.5 mg Documented By: LAFLAMCitlalli Fluoxetine HCl (Fluoxetine Hcl 20 Mg Capsule) 20 mg PO DAILY [facility] Last Admin: 03/31/24 08:35 Dose: 20 mg Documented By: ENRIQUE Furosemide (Furosemide 20 Mg/2 Ml Vial) 20 mg IVPUSH DAILY [facility]; Protocol Last Admin: 03/31/24 08:35 Dose: 20 mg Documented By: ENRIQUE Heparin Sodium (Porcine) (Heparin Sodium,Porcine 5,000 Unit/Ml Vial) 2,700 unit 40 unit/kg (2700 unit) IVPUSH PROTOCOL BOLUS PRN; Protocol PRN Reason: 40 unit/kg - Heparin Protocol Last Admin: 03/30/24 00:55 Dose: 2,700 unit Documented By: BRITTA Heparin Sodium (Porcine) (Heparin Sodium,Porcine 5,000 Unit/Ml Vial) 5,300 unit 80 unit/kg (5300 unit) IVPUSH PROTOCOL BOLUS PRN; Protocol PRN Reason: 80 unit/kg - Heparin Protocol Heparin Sodium/Sodium Chloride (Heparin Sodium,Porcine/1/2ns) 25,000 unit in 250 mls @ 0 mls/hr IVCONT .Q0M ANITA; Protocol Last Admin: 03/31/24 08:50 Dose: 25 units/kg/hr, 16.7 mls/hr Documented By: ENRIQUE Co-signed By: MOUSTAPHA Magnesium Hydroxide (Milk Of Magnesia 30 Ml Oral.Susp) 30 ml PO DAILY PRN PRN Reason: Constipation Last Admin: 03/28/24 21:50 Dose: 30 ml Documented By: NADIA Meclizine HCl (Meclizine Hcl 12.5 Mg Tablet) 12.5 mg PO TID PRN PRN Reason: dizziness Melatonin (Melatonin 3 Mg Tablet) 6 mg PO BEDTIME PRN PRN Reason: Insomnia Last Admin: 03/29/24 02:54 Dose: 6 mg Documented By: NADIA Nortriptyline HCl (Nortriptyline Hcl 25 Mg Capsule) 75 mg PO BEDTIME [facility] Last Admin: 03/30/24 21:17 Dose: 75 mg Documented By: CHITO Ondansetron HCl (Ondansetron Hcl 4 Mg/2 Ml Vial) 4 mg IVPUSH Q8H PRN PRN Reason: Nausea and Vomiting Polyethylene Glycol (Polyethylene Glycol 3350 17 Gm Powd.Pack) 17 gm PO BID [facility] Last Admin: 03/31/24 08:36 Dose: 17 gm Documented By: ENRIQUE Sodium Biphosphate/Sodium Phosphate (Sodium Phosphate,[place]-Dibasic 133 Ml Enema) 133 ml CO ONCE PRN PRN Reason: Constipation Last Admin: 03/29/24 14:44 Dose: 133 ml Documented By: SHERWIN Sodium Chloride (0.9 % Sodium Chloride Flush 3 Ml Syringe) 3 ml IVFLUSH QSHIFT [facility] Last Admin: 03/31/24 08:35 Dose: 3 ml Documented By: ENRIQUE Labs 03/31/24 05:49 03/31/24 05:49 Labs: Laboratory Results - last 24 hr 03/30/24 03/30/24 03/30/24 12:02 15:09 16:00 MCV MCH MCHC RDW Plt Count MPV Absolute Nucleated RBC Nucleated RBC % (auto) aPTT Heparin Protocol 29.9 L D 30.2 L Anion Gap Estim Creat Clear Calc Estimated GFR Random Glucose Calcium Hold Red Top Pleural WBC 0.367 Pleural RBC < 0.002 Pleural Neutrophils 9 Pleural Lymphocytes 22 Pleural Monocytes 17 Pleural Other Cells 52 03/30/24 03/31/24 23:22 05:49 MCV 90.4 MCH 28.5 MCHC 31.5 RDW 17.1 H Plt Count 305 MPV 10.4 Absolute Nucleated RBC 0.000 Nucleated RBC % (auto) 0.0 aPTT Heparin Protocol 61.2 D 64.0 Anion Gap 13 Estim Creat Clear Calc 49.1 Estimated GFR > 60 Random Glucose 125 H Calcium 9.1 Hold Red Top See Note Pleural WBC Pleural RBC Pleural Neutrophils Pleural Lymphocytes Pleural Monocytes Pleural Other Cells Microbiology Microbiology Results: Microbiology 03/30/24 16:00 Gram Stain - Final Paracentesis Fluid Anaerobic Culture - Preliminary No growth to date. Body Fluid Culture - Preliminary No growth to date. Assessment and Plan (1) Liver lesion: Status: Acute (2) Pulmonary embolism: Status: Acute (3) Pleural effusion: Status: Acute Plan 79-year-old woman presented to the ER with complaints of constipation, shortness of breath for 2 weeks found to have PE and b/l DVT and concern for liver mass complicated by CHF and pleural effusion Acute metabolic encephalopathy hospital delirium, anesthesia. improving, near baseline Acute respiratory failure due to acute PE, CHF and pleural effusion repeat CXR showing persistent pulm edema, pleural effusions echo with moderate to severe elevation of right ventricular systolic pressure, diastolic dysfucntion seen by cardiology, continue IV lasix s/p thoracentesis 03/30, removed 450 ml yellow fluid Acute Pulmonary embolism and left femoral thrombus, partial occlusive thrombus right femoral vein Chest CTA positive for bilateral segmental and subsegmental emboli, findings of submassive PE continue IV heparin drip for now, change to eliquis likely in am Continue oxygen to keep saturation greater than 90% s/p thrombectomy 03/27/24 H/H stable Possible malignancy Abdominal CT showing metastatic disease to the liver with osseous and retroperitoneal lymphadenopathy GI consult>treat constipation Hematology/oncology>Rec Liver biopsy - due to oxygen requirement, acute PE with recent thrombectomy likely will be done as outpatient Constipation No obstruction seen on abdominal CT seen by GI Fleets enema, miralax to bid P.r.n. milk of magnesia Hypertension Soft blood pressures norvasc and atenolol have been on hold Mental health Continue home medications DVT prophylaxis with IV heparin attending Dr. Dumont Full code Quality Stroke Does the patient have a stroke diagnosis?: No VTE Prior VTE?: No VTE Risk Level:: Medical - moderate - high VTE Device Contraindication: Treatment Not Indicated VTE Drug Contraindication: N/A - Med Ordered
[2024-03-31 11:43] VITALS: BP 140/73; PULSE 90; RESP 14; TEMP 36.3; O2SAT 96
[2024-03-31 15:28] VITALS: BP 137/68; PULSE 86; RESP 18; TEMP 36; O2SAT 95
[2024-03-31 20:00] VITALS: BP 153/70; PULSE 88; RESP 20; TEMP 37.2; O2SAT 99
[2024-03-31] MEDS: Nortriptyline HCl 25 MG CAPSULE 75 MG PO (20:28)
[2024-03-31] MEDS: clonazePAM 0.5 MG TABLET PO (20:28)
[2024-03-31] MEDS: Milk of Magnesia 30 ML ORAL.SUSP PO (20:29)
[2024-04-01] VITALS: BP 131/64; PULSE 94; RESP 16; TEMP 37.2; O2SAT 97
[2024-04-01] MEDS: Heparin Sodium,Porcine/1/2NS 25,000 UNIT/250 ML IV.SOLN 16.7 UNIT IVCONT ×2 (00:13→15:15)
[2024-04-01 04:00] VITALS: BP 122/61; PULSE 90; RESP 20; TEMP 37.2; O2SAT 98
[2024-04-01 06:06] LABS: PTT Heparin Drip 68.9 SEC (53-77.9)
[2024-04-01 07:05] VITALS: BP 111/62; PULSE 93; RESP 17; TEMP 36.3; O2SAT 96
[2024-04-01] MEDS: allopurinoL 100 MG TABLET 200 MG PO (08:22)
[2024-04-01] MEDS: polyethylene glycoL 3350 17 GM POWD.PACK PO ×2 (08:22→19:45)
[2024-04-01] MEDS: FLUoxetine HCl 20 MG CAPSULE PO (08:22)
[2024-04-01] MEDS: Furosemide 20 MG/2 ML VIAL IVPUSH (08:23)
[2024-04-01] MEDS: 0.9 % Sodium Chloride Flush 3 ML SYRINGE IVFLUSH ×3 (08:29→19:46)
--- NOTE | 2024-04-01 11:36 | P.PNIM_ITS ---
Subjective Subjective Date of Service: 04/01/24 Interval History: seen and examined this morning follow up for PE, DVT, liver lesion, CHF dyspnic with movement Review of Systems Review of Systems: Yes all other systems are reviewed and are negative Constitutional Constitutional: Denies chills and Denies fever(s) Cardiovascular Cardiovascular: Denies chest pain Physical Exam 2 Vital Signs: Vital Signs: Last Vital Signs Temp 97.4 F 04/01/24 07:05 Pulse 93 04/01/24 07:05 Resp 17 04/01/24 07:05 BP 111/62 04/01/24 07:05 Pulse Ox 96 04/01/24 07:05 O2 Del Method Nasal Cannula 04/01/24 07:05 O2 Flow Rate 4 04/01/24 07:05 BMI result Body Mass Index 27.1 Appearing in no acute distress LS rhonchi heart regular rate rhythm, clear S1, S2 positive bowel sounds, abdomen is soft, nontender neuro patient is alert x3, no focal deficits Objective Data Active Medications Acetaminophen (Acetaminophen 325 Mg Tablet) 650 mg PO Q6H PRN PRN Reason: Pain, Mild 1-3,fever,headache Last Admin: 03/29/24 02:54 Dose: 650 mg Documented By: NADIA Albuterol Sulfate (Albuterol Sulfate 90 Mcg 8 Gm Inhaler) 2 puff INHALE Q4H PRN PRN Reason: wheezing Allopurinol (Allopurinol 100 Mg Tablet) 200 mg PO DAILY [facility] Last Admin: 04/01/24 08:22 Dose: 200 mg Documented By: LAINA Calcium Carbonate (Calcium Carbonate 750 Mg Tab.Chew) 750 mg PO Q4H PRN PRN Reason: Heartburn Clonazepam (Clonazepam 0.5 Mg Tablet) 0.5 mg PO BID PRN PRN Reason: anxiety Last Admin: 03/31/24 20:28 Dose: 0.5 mg Documented By: IVONE Fluoxetine HCl (Fluoxetine Hcl 20 Mg Capsule) 20 mg PO DAILY [facility] Last Admin: 04/01/24 08:22 Dose: 20 mg Documented By: LAINA Furosemide (Furosemide 20 Mg/2 Ml Vial) 20 mg IVPUSH DAILY [facility]; Protocol Last Admin: 04/01/24 08:23 Dose: 20 mg Documented By: LAINA Heparin Sodium (Porcine) (Heparin Sodium,Porcine 5,000 Unit/Ml Vial) 2,700 unit 40 unit/kg (2700 unit) IVPUSH PROTOCOL BOLUS PRN; Protocol PRN Reason: 40 unit/kg - Heparin Protocol Last Admin: 03/30/24 00:55 Dose: 2,700 unit Documented By: BRITTA Heparin Sodium (Porcine) (Heparin Sodium,Porcine 5,000 Unit/Ml Vial) 5,300 unit 80 unit/kg (5300 unit) IVPUSH PROTOCOL BOLUS PRN; Protocol PRN Reason: 80 unit/kg - Heparin Protocol Heparin Sodium/Sodium Chloride (Heparin Sodium,Porcine/1/2ns) 25,000 unit in 250 mls @ 0 mls/hr IVCONT .Q0M ANITA; Protocol Last Titration: 04/01/24 06:30 Dose: 25 units/kg/hr, 16.7 mls/hr Documented By: IVONE Co-signed By: SAMANTHA Magnesium Hydroxide (Milk Of Magnesia 30 Ml Oral.Susp) 30 ml PO DAILY PRN PRN Reason: Constipation Last Admin: 03/31/24 20:29 Dose: 30 ml Documented By: IVONE Meclizine HCl (Meclizine Hcl 12.5 Mg Tablet) 12.5 mg PO TID PRN PRN Reason: dizziness Melatonin (Melatonin 3 Mg Tablet) 6 mg PO BEDTIME PRN PRN Reason: Insomnia Last Admin: 03/29/24 02:54 Dose: 6 mg Documented By: NADIA Nortriptyline HCl (Nortriptyline Hcl 25 Mg Capsule) 75 mg PO BEDTIME [facility] Last Admin: 03/31/24 20:28 Dose: 75 mg Documented By: IVONE Ondansetron HCl (Ondansetron Hcl 4 Mg/2 Ml Vial) 4 mg IVPUSH Q8H PRN PRN Reason: Nausea and Vomiting Polyethylene Glycol (Polyethylene Glycol 3350 17 Gm Powd.Pack) 17 gm PO BID [facility] Last Admin: 04/01/24 08:22 Dose: 17 gm Documented By: LAINA Sodium Biphosphate/Sodium Phosphate (Sodium Phosphate,[place]-Dibasic 133 Ml Enema) 133 ml NM ONCE PRN PRN Reason: Constipation Last Admin: 03/29/24 14:44 Dose: 133 ml Documented By: SHERWIN Sodium Chloride (0.9 % Sodium Chloride Flush 3 Ml Syringe) 3 ml IVFLUSH QSHIFT [facility] Last Admin: 04/01/24 08:29 Dose: 3 ml Documented By: LAINA Labs 03/31/24 05:49 03/31/24 05:49 Labs: Laboratory Results - last 24 hr 04/01/24 05:51 Hold Purple Top SEE NOTE aPTT Heparin Protocol 68.9 Microbiology Microbiology Results: Microbiology 03/30/24 16:00 Gram Stain - Final Paracentesis Fluid Anaerobic Culture - Preliminary No growth to date. Body Fluid Culture - Preliminary No growth to date. Assessment and Plan (1) Liver lesion: Status: Acute (2) Pulmonary embolism: Status: Acute (3) Pleural effusion: Status: Acute Plan 79-year-old woman presented to the ER with complaints of constipation, shortness of breath for 2 weeks found to have PE and b/l DVT and concern for liver mass complicated by CHF and pleural effusion Constipation No obstruction seen on abdominal CT seen by GI Fleets enema, miralax to bid P.r.n. milk of magnesia still no BM, repeat abd CT Acute metabolic encephalopathy hospital delirium, anesthesia. improving, near baseline Acute respiratory failure due to acute PE, CHF and pleural effusion echo with moderate to severe elevation of right ventricular systolic pressure, diastolic dysfucntion seen by cardiology, continue IV lasix s/p thoracentesis 03/30, removed 450 ml yellow fluid wean oxygen Acute Pulmonary embolism and left femoral thrombus, partial occlusive thrombus right femoral vein Chest CTA positive for bilateral segmental and subsegmental emboli, findings of submassive PE s/p IV heparin drip for now, change to Lovenox as patient will be having o/p biopsy Continue oxygen to keep saturation greater than 90% s/p thrombectomy 03/27/24 H/H stable Possible malignancy Abdominal CT showing metastatic disease to the liver with osseous and retroperitoneal lymphadenopathy GI consult>treat constipation Hematology/oncology>Rec Liver biopsy - due to oxygen requirement, acute PE with recent thrombectomy likely will be done as outpatient Hypertension Soft blood pressures norvasc and atenolol have been on hold Mental health Continue home medications DVT prophylaxis with IV heparin attending Dr. Dumont Full code Quality Stroke Does the patient have a stroke diagnosis?: No VTE Prior VTE?: No VTE Risk Level:: Medical - moderate - high VTE Device Contraindication: Treatment Not Indicated VTE Drug Contraindication: N/A - Med Ordered
[2024-04-01 11:46] VITALS: BP 145/67; PULSE 92; RESP 17; TEMP 36.3; O2SAT 94
[2024-04-01 12:14] LABS: Hematocrit 30.2 % (37.0-47.0); Hemoglobin 9.5 g/dl (12.0-16.0); Mean Corpuscular HGB Conc 31.5 g/dl (31.0-35.0); Mean Corpuscular Hemoglobin 28.8 pg (27.0-33.0); Mean Corpuscular Volume 91.5 fL (80.0-98.0); Mean Platelet Volume 10.6 fL (9.4-12.3); Platelet Count 404 X10*3/uL (160-400); Red Cell Distribution Width 17.1 % (11.0-16.0); White Blood Count 26.9 X10*3/uL (4.8-10.8)
[2024-04-01 12:32] LABS: INTERNATIONAL NORM RATIO 1.3 (0.9-1.1); Prothrombin Time 14.6 SEC (10.9-12.4)
[2024-04-01 12:51] LABS: Partial Thromboplastin Time 62.4 SEC (26.0-36.8)
[2024-04-01 15:03] VITALS: BP 137/65; PULSE 86; RESP 17; TEMP 36.4; O2SAT 95
[2024-04-01] MEDS: Magnesium Citrate 300 ML SOLUTION PO (17:32)
[2024-04-01 18:40] LABS: PTT Heparin Drip 35.3 SEC (53-77.9)
--- NOTE | 2024-04-01 18:56 | PC.NURSE ---
patient given mag citrate 10 oz around 1700. 30 minutes later this nurse checjked for BM. she was sleeping.
[2024-04-01] MEDS: Acetaminophen 325 MG TABLET 650 MG PO (19:45)
[2024-04-01] MEDS: clonazePAM 0.5 MG TABLET PO (19:46)
[2024-04-01] MEDS: Nortriptyline HCl 25 MG CAPSULE 75 MG PO (19:46)
[2024-04-01] MEDS: Enoxaparin Sodium 80 MG/0.8 ML SYRINGE 70 MG SUBCUT (19:46)
[2024-04-01 20:00] VITALS: BP 127/64; PULSE 93; RESP 18; TEMP 37; O2SAT 95
[2024-04-02] VITALS (7 sets, daily range): BP systolic 107–138; BP diastolic 57–65; PULSE 60–89; RESP 16–18; TEMP 36.1–36.4; O2SAT 94–100
[2024-04-02 05:14] LABS: Appearance Urine Cloudy; Color Urine Yellow; Glucose Urine UA Negative (Negative); Leukocyte Esterase Urine Small (1+) (Negative); Nitrite Urine Negative (Negative); PH 5.5 (5.0-9.0); UMIC TRIGGER UACC YES; Urine Blood Negative (Negative); Urine Ketones Negative (Negative); Urine Protein 30 (1+) mg/dL (Neg-Trace)
[2024-04-02 05:22] LABS: Bacteria Urine 4+ (None Seen); Hyaline Casts Urine 0-2 /LPF (0-2); RBC Urine 0-2 /HPF (0-2); UACC Culture Trigger YES
[2024-04-02 06:37] LABS: Hematocrit 26.5 % (37.0-47.0); Hemoglobin 8.4 g/dl (12.0-16.0); Mean Corpuscular HGB Conc 31.7 g/dl (31.0-35.0); Mean Corpuscular Hemoglobin 28.4 pg (27.0-33.0); Mean Corpuscular Volume 89.5 fL (80.0-98.0); Mean Platelet Volume 10.7 fL (9.4-12.3); Platelet Count 406 X10*3/uL (160-400); Red Blood Count 2.96 X10*6/uL (4.20-5.50); White Blood Count 21.8 X10*3/uL (4.8-10.8)
[2024-04-02 06:39] LABS: INTERNATIONAL NORM RATIO 1.3 (0.9-1.1); Prothrombin Time 14.8 SEC (10.9-12.4)
[2024-04-02 08:19] LABS: Albumin Pleural Fluid 1.1; LDH Pleural Fluid 127; Total Protein Pleural Fluid 1.7
[2024-04-02] MEDS: Furosemide 20 MG/2 ML VIAL IVPUSH (09:01)
[2024-04-02] MEDS: FLUoxetine HCl 20 MG CAPSULE PO (09:01)
[2024-04-02] MEDS: allopurinoL 100 MG TABLET 200 MG PO (09:01)
[2024-04-02] MEDS: 0.9 % Sodium Chloride Flush 3 ML SYRINGE IVFLUSH ×3 (09:05→20:26)
[2024-04-02] MEDS: Enoxaparin Sodium 80 MG/0.8 ML SYRINGE 70 MG SUBCUT ×2 (09:12→20:30)
--- NOTE | 2024-04-02 10:26 | HO.VASCPN ---
Subjective Subjective Date of Service: 04/02/24 Patient reports: no new complaints and feels better Interval history: Pleasant 79-year-old female presents for follow-up status post pulmonary embolectomy. She reports she is doing significantly better. Respiratory status has improved. She is resting comfortably in bed. Her only complaints at the current time is constipation which she has been battling. She is now for routine follow-up. She is now on 3 L nasal cannula Physical Exam Vital Signs: Vital Signs: Last Vital Signs Temp 97.6 F 04/02/24 07:15 Pulse 86 04/02/24 07:15 Resp 18 04/02/24 07:15 BP 111/65 04/02/24 07:15 Pulse Ox 94 04/02/24 07:15 O2 Del Method Nasal Cannula 04/02/24 07:15 O2 Flow Rate 4 04/02/24 07:15 BMI result Body Mass Index 27.1 Const: General: cooperative, healthy appearing and comfortable Orientation/consciousness: oriented to person, oriented to place and oriented to time HEENT: Head: Yes normal to inspection Neck: Neck: Yes normal visual inspection Carotids: no bruits Chest: Chest palpation & inspection: normal inspection of the chest Resp: Effort & Inspection: normal respiratory effort and able to speak in complete sentences Auscultation: clear to auscultation bilaterally, no crackles, no rales, no rhonchi and no wheezes Cardio: Rate: regular rate Rhythm: regular rhythm Heart sounds: S1 normal heart sound present and S2 normal heart sound present Bruits: no carotid bruits Peripheral pulses: Peripheral pulses 2+ throughout GI: Inspection: Yes normal to inspection Skin: Wounds: no wounds Hair: normal Neuro: General: oriented to person, oriented to place and oriented to time Cranial nerves: Yes CN's II-XII intact bilaterally and Yes Normal hearing present Cognition (Neuro): normal cognition Motor exam (neuro): 5/5 motor strength present throughout Extrem: Other: venous exam: No significant superficial varicosities or spider telangiectasias, minimal edema General: No clubbing, No cyanosis and No edema Psych: Appearance: grossly normal Mental Status: mental status grossly normal Speech and movement: Normal speech and movement present Progress Note: A&P Assessment and plan (1) Pulmonary embolism: Status: Acute Assessment and Plan: She is doing well status post pulmonary embolectomy. She has also had a fusion removed as well. In general appears to be doing relatively well. Does have some constipation issues. I did appreciate Hematology-Oncology note and do agree that long-term anticoagulation is needed for this patient. She is also in the process evaluation workup for her malignancy. Upon discharge he can follow up with us in approximately 2 weeks time. Thank you for allowing us to assist in her care. If there are any questions or concerns please do not hesitate to contact us. Time Spent With Patient Time: Total time managing care of this patient today ____ minutes. Procedures Date of Service Date of Service: 04/02/24 Quality Stroke Does the patient have a stroke diagnosis?: No VTE Prior VTE?: No VTE Risk Level:: Medical - moderate - high VTE Device Contraindication: Treatment Not Indicated VTE Drug Contraindication: N/A - Med Ordered
--- NOTE | 2024-04-02 11:46 | HO.PM.IMPN ---
Subjective Subjective Date of Service: 04/02/24 Interval History: seen and examined this morning follow up for PE, DVT, liver lesion, CHF dyspnic with movement Review of Systems Review of Systems: Yes all other systems are reviewed and are negative Constitutional Constitutional: Denies chills and Denies fever(s) Cardiovascular Cardiovascular: Denies chest pain Physical Exam Vital Signs: Vital Signs: Last Vital Signs Temp 96.9 F 04/02/24 11:18 Pulse 88 04/02/24 11:18 Resp 17 04/02/24 11:18 BP 115/65 04/02/24 11:18 Pulse Ox 96 04/02/24 11:18 O2 Del Method Nasal Cannula 04/02/24 11:18 O2 Flow Rate 4 04/02/24 11:18 BMI result Body Mass Index 27.1 Appearing in no acute distress lung sounds are clear to auscultation heart regular rate rhythm, clear S1, S2 positive bowel sounds, abdomen is soft, nontender neuro patient is alert x3, no focal deficits Objective Data Active Medications Acetaminophen (Acetaminophen 325 Mg Tablet) 650 mg PO Q6H PRN PRN Reason: Pain, Mild 1-3,fever,headache Last Admin: 04/01/24 19:45 Dose: 650 mg Documented By: SAMANTHA Albuterol Sulfate (Albuterol Sulfate 90 Mcg 8 Gm Inhaler) 2 puff INHALE Q4H PRN PRN Reason: wheezing Allopurinol (Allopurinol 100 Mg Tablet) 200 mg PO DAILY [facility] Last Admin: 04/02/24 09:01 Dose: 200 mg Documented By: LAINA Calcium Carbonate (Calcium Carbonate 750 Mg Tab.Chew) 750 mg PO Q4H PRN PRN Reason: Heartburn Clonazepam (Clonazepam 0.5 Mg Tablet) 0.5 mg PO BID PRN PRN Reason: anxiety Last Admin: 04/01/24 19:46 Dose: 0.5 mg Documented By: SAMANTHA Enoxaparin Sodium (Enoxaparin Sodium 80 Mg/0.8 Ml Syringe) 70 mg 1 mg/kg (70 mg) SUBCUT Q12H [facility] Last Admin: 04/02/24 09:12 Dose: 70 mg Documented By: LAINA Fluoxetine HCl (Fluoxetine Hcl 20 Mg Capsule) 20 mg PO DAILY [facility] Last Admin: 04/02/24 09:01 Dose: 20 mg Documented By: LAINA Furosemide (Furosemide 20 Mg/2 Ml Vial) 20 mg IVPUSH DAILY [facility]; Protocol Last Admin: 04/02/24 09:01 Dose: 20 mg Documented By: LAINA Magnesium Hydroxide (Milk Of Magnesia 30 Ml Oral.Susp) 30 ml PO DAILY PRN PRN Reason: Constipation Last Admin: 03/31/24 20:29 Dose: 30 ml Documented By: IVONE Meclizine HCl (Meclizine Hcl 12.5 Mg Tablet) 12.5 mg PO TID PRN PRN Reason: dizziness Melatonin (Melatonin 3 Mg Tablet) 6 mg PO BEDTIME PRN PRN Reason: Insomnia Last Admin: 03/29/24 02:54 Dose: 6 mg Documented By: NADIA Nortriptyline HCl (Nortriptyline Hcl 25 Mg Capsule) 75 mg PO BEDTIME [facility] Last Admin: 04/01/24 19:46 Dose: 75 mg Documented By: SAMANTHA Ondansetron HCl (Ondansetron Hcl 4 Mg/2 Ml Vial) 4 mg IVPUSH Q8H PRN PRN Reason: Nausea and Vomiting Polyethylene Glycol (Polyethylene Glycol 3350 17 Gm Powd.Pack) 17 gm PO BID [facility] Last Admin: 04/02/24 09:09 Dose: Not Given Documented By: LAINA Non-Admin Reason: Patient Refused Sodium Biphosphate/Sodium Phosphate (Sodium Phosphate,[place]-Dibasic 133 Ml Enema) [address] ONCE PRN PRN Reason: constipation Sodium Chloride (0.9 % Sodium Chloride Flush 3 Ml Syringe) 3 ml IVFLUSH QSHIFT [facility] Last Admin: 04/02/24 09:05 Dose: 3 ml Documented By: LAINA Labs 04/02/24 06:13 03/31/24 05:49 Labs: Laboratory Results - last 24 hr 03/30/24 04/01/24 04/01/24 16:00 12:02 18:12 MCV 91.5 MCH 28.8 MCHC 31.5 RDW 17.1 H Plt Count 404 H D MPV 10.6 Absolute Nucleated RBC 0.000 Nucleated RBC % (auto) 0.0 Hold Purple Top SEE NOTE PT 14.6 H INR 1.3 H APTT 62.4 H* aPTT Heparin Protocol 35.3 L D Hold Yellow Top See Note Urine Color Urine Appearance Urine pH Ur Specific [place] Urine Protein Urine Glucose (UA) Urine Ketones Urine Blood Urine Nitrite Ur Leukocyte Esterase Urine RBC Urine WBC Ur Squamous Epith Cells Urine Bacteria Hyaline Casts Pleural Total Protein 1.7 Pleural Albumin 1.1 Pleural LDH 127 04/02/24 04/02/24 04:09 06:13 MCV 89.5 MCH 28.4 MCHC 31.7 RDW 17.0 H Plt Count 406 H MPV 10.7 Absolute Nucleated RBC 0.000 Nucleated RBC % (auto) 0.0 Hold Purple Top PT 14.8 H INR 1.3 H APTT aPTT Heparin Protocol Hold Yellow Top Urine Color Yellow Urine Appearance Cloudy Urine pH 5.5 Ur Specific [place] 1.020 Urine Protein 30 (1+) H Urine Glucose (UA) Negative Urine Ketones Negative Urine Blood Negative Urine Nitrite Negative Ur Leukocyte Esterase Small (1+) H Urine RBC 0-2 Urine WBC 6-10 H Ur Squamous Epith Cells 3-5 Urine Bacteria 4+ Hyaline Casts 0-2 Pleural Total Protein Pleural Albumin Pleural LDH Microbiology Microbiology Results: Microbiology 03/30/24 16:00 Gram Stain - Final Paracentesis Fluid Anaerobic Culture - Preliminary No growth to date. Body Fluid Culture - Final No growth after 2 days Assessment and Plan (1) Liver lesion: Status: Acute (2) Pulmonary embolism: Status: Acute (3) Pleural effusion: Status: Acute Plan 79-year-old woman presented to the ER with complaints of constipation, shortness of breath for 2 weeks found to have PE and b/l DVT and concern for liver mass complicated by CHF and pleural effusion Pneumonia noted on abd CT Rocephin and azithromycin added Constipation No obstruction seen on abdominal CT Fleets enema, miralax, Mag citrate P.r.n. milk of magnesia still no BM, GI consult Acute metabolic encephalopathy hospital delirium, anesthesia. improving, near baseline Acute respiratory failure due to acute PE, CHF and pleural effusion echo with moderate to severe elevation of right ventricular systolic pressure, diastolic dysfucntion seen by cardiology, continue IV lasix s/p thoracentesis 03/30, removed 450 ml yellow fluid wean oxygen Acute Pulmonary embolism and left femoral thrombus, partial occlusive thrombus right femoral vein Chest CTA positive for bilateral segmental and subsegmental emboli, findings of submassive PE s/p IV heparin drip for now, change to Lovenox as patient will be having o/p biopsy Continue oxygen to keep saturation greater than 90% s/p thrombectomy 03/27/24 H/H stable Possible malignancy Abdominal CT showing metastatic disease to the liver with osseous and retroperitoneal lymphadenopathy GI consult>treat constipation Hematology/oncology>Rec Liver biopsy - due to oxygen requirement, acute PE with recent thrombectomy likely will be done as outpatient Hypertension Soft blood pressures norvasc and atenolol have been on hold Mental health Continue home medications DVT prophylaxis with IV heparin attending Dr. Dumont Full code Quality Stroke Does the patient have a stroke diagnosis?: No VTE Prior VTE?: No VTE Risk Level:: Medical - moderate - high VTE Device Contraindication: Treatment Not Indicated VTE Drug Contraindication: N/A - Med Ordered
[2024-04-02] MEDS: cefTRIAXone sodium 1 GM VIAL IVPUSH (13:59)
[2024-04-02] MEDS: Azithromycin 500 MG in 0.9 % Sodium Chloride 250 ML 125 MG IV (13:59)
--- NOTE | 2024-04-02 17:12 | PC.NURSE ---
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
[2024-04-02] MEDS: Nortriptyline HCl 25 MG CAPSULE 75 MG PO (20:25)
[2024-04-02] MEDS: Acetaminophen 325 MG TABLET 650 MG PO (20:32)
[2024-04-03] VITALS (8 sets, daily range): BP systolic 111–134; BP diastolic 50–64; PULSE 72–89; RESP 16–18; TEMP 36.1–37.1; O2SAT 90–100
[2024-04-03] MEDS: Acetaminophen 325 MG TABLET 650 MG PO ×3 (07:34→23:58)
[2024-04-03] MEDS: clonazePAM 0.5 MG TABLET PO ×2 (07:36→21:34)
[2024-04-03] MEDS: FLUoxetine HCl 20 MG CAPSULE PO (07:36)
[2024-04-03] MEDS: Enoxaparin Sodium 80 MG/0.8 ML SYRINGE 70 MG SUBCUT ×2 (07:36→21:28)
[2024-04-03] MEDS: allopurinoL 100 MG TABLET 200 MG PO (07:36)
[2024-04-03] MEDS: Furosemide 20 MG/2 ML VIAL IVPUSH (07:36)
--- NOTE | 2024-04-03 07:45 | PC.NURSE ---
Patient reports several bowel movements overnight starting yesterday afternoon. this nuese observed loose bm this am. patient refusing laxatives at this time.
[2024-04-03] MEDS: 0.9 % Sodium Chloride Flush 3 ML SYRINGE IVFLUSH ×2 (09:15→17:06)
--- NOTE | 2024-04-03 09:17 | HO.PM.IMPN ---
Subjective Subjective Date of Service: 04/03/24 Interval History: seen and examined this morning follow up for PE, DVT, liver lesion, CHF having bowel movements Review of Systems Review of Systems: Yes all other systems are reviewed and are negative Constitutional Constitutional: Denies chills and Denies fever(s) Cardiovascular Cardiovascular: Denies chest pain Physical Exam Vital Signs: Vital Signs: Last Vital Signs Temp 98.5 F 04/03/24 07:57 Pulse 86 04/03/24 07:57 Resp 18 04/03/24 07:57 BP 134/64 04/03/24 07:57 Pulse Ox 90 L 04/03/24 07:57 O2 Del Method Room Air 04/03/24 07:57 O2 Flow Rate 3 04/03/24 04:00 BMI result Body Mass Index 27.1 Appearing in no acute distress lung sounds are clear to auscultation heart regular rate rhythm, clear S1, S2 positive bowel sounds, abdomen is soft, nontender neuro patient is alert x3, no focal deficits Objective Data Active Medications Acetaminophen (Acetaminophen 325 Mg Tablet) 650 mg PO Q6H PRN PRN Reason: Pain, Mild 1-3,fever,headache Last Admin: 04/03/24 07:34 Dose: 650 mg Documented By: LAINA Albuterol Sulfate (Albuterol Sulfate 90 Mcg 8 Gm Inhaler) 2 puff INHALE Q4H PRN PRN Reason: wheezing Allopurinol (Allopurinol 100 Mg Tablet) 200 mg PO DAILY [facility] Last Admin: 04/03/24 07:36 Dose: 200 mg Documented By: LAINA Calcium Carbonate (Calcium Carbonate 750 Mg Tab.Chew) 750 mg PO Q4H PRN PRN Reason: Heartburn Ceftriaxone Sodium (Ceftriaxone Sodium 1 Gm Vial) 1 gm IVPUSH Q24H [facility] Last Admin: 04/02/24 13:59 Dose: 1 gm Documented By: LAINA Clonazepam (Clonazepam 0.5 Mg Tablet) 0.5 mg PO BID PRN PRN Reason: anxiety Last Admin: 04/03/24 07:36 Dose: 0.5 mg Documented By: LAINA Enoxaparin Sodium (Enoxaparin Sodium 80 Mg/0.8 Ml Syringe) 70 mg 1 mg/kg (70 mg) SUBCUT Q12H [facility] Last Admin: 04/03/24 07:36 Dose: 70 mg Documented By: LAINA Fluoxetine HCl (Fluoxetine Hcl 20 Mg Capsule) 20 mg PO DAILY [facility] Last Admin: 04/03/24 07:36 Dose: 20 mg Documented By: LAINA Furosemide (Furosemide 20 Mg/2 Ml Vial) 20 mg IVPUSH DAILY [facility]; Protocol Last Admin: 04/03/24 07:36 Dose: 20 mg Documented By: LAINA Azithromycin 500 mg/ Sodium (Chloride) 250 mls @ 125 mls/hr IV Q24H [facility] Last Infusion: 04/02/24 18:26 Dose: Infused Documented By: LAINA Magnesium Hydroxide (Milk Of Magnesia 30 Ml Oral.Susp) 30 ml PO DAILY PRN PRN Reason: Constipation Last Admin: 03/31/24 20:29 Dose: 30 ml Documented By: IVONE Meclizine HCl (Meclizine Hcl 12.5 Mg Tablet) 12.5 mg PO TID PRN PRN Reason: dizziness Melatonin (Melatonin 3 Mg Tablet) 6 mg PO BEDTIME PRN PRN Reason: Insomnia Last Admin: 03/29/24 02:54 Dose: 6 mg Documented By: NADIA Nortriptyline HCl (Nortriptyline Hcl 25 Mg Capsule) 75 mg PO BEDTIME [facility] Last Admin: 04/02/24 20:25 Dose: 75 mg Documented By: CRISTIAN Ondansetron HCl (Ondansetron Hcl 4 Mg/2 Ml Vial) 4 mg IVPUSH Q8H PRN PRN Reason: Nausea and Vomiting Polyethylene Glycol (Polyethylene Glycol 3350 17 Gm Powd.Pack) 17 gm PO BID [facility] Last Admin: 04/02/24 20:26 Dose: Not Given Documented By: CRISTIAN Non-Admin Reason: multiple bowel movements Polyethylene Glycol/Electrolytes (Peg 3350/Na Sulf,Bicarb,Cl/Kcl 4,000 Ml Soln.Recon) 4,000 ml PO Q10M [facility] Stop: 04/03/24 10:26 Last Admin: 04/03/24 07:48 Dose: Not Given Documented By: LAINA Non-Admin Reason: Patient Refused Sodium Biphosphate/Sodium Phosphate (Sodium Phosphate,[place]-Dibasic 133 Ml Enema) 133 ml [place] ONCE PRN PRN Reason: constipation Sodium Chloride (0.9 % Sodium Chloride Flush 3 Ml Syringe) 3 ml IVFLUSH QSHIFT [facility] Last Admin: 04/02/24 20:26 Dose: 3 ml Documented By: CRISTIAN Labs 04/02/24 06:13 03/31/24 05:49 Microbiology Microbiology Results: Microbiology 03/30/24 16:00 Gram Stain - Final Paracentesis Fluid Anaerobic Culture - Preliminary No growth to date. Body Fluid Culture - Final No growth after 2 days Assessment and Plan (1) Liver lesion: Status: Acute (2) Pulmonary embolism: Status: Acute (3) Pleural effusion: Status: Acute Plan 79-year-old woman presented to the ER with complaints of constipation, shortness of breath for 2 weeks found to have PE and b/l DVT and concern for liver mass complicated by CHF and pleural effusion Pneumonia noted on abd CT nothing obvious in Chest CT Rocephin and azithromycin Constipation, resolving No obstruction seen on abdominal CT Fleets enema, miralax, Mag citrate P.r.n. milk of magnesia starting to have BM Acute metabolic encephalopathy hospital delirium, anesthesia. improving, near baseline Acute respiratory failure due to acute PE, CHF and pleural effusion echo with moderate to severe elevation of right ventricular systolic pressure, diastolic dysfucntion seen by cardiology, continue po lasix s/p thoracentesis 03/30, removed 450 ml yellow fluid wean oxygen Acute Pulmonary embolism and left femoral thrombus, partial occlusive thrombus right femoral vein Chest CTA positive for bilateral segmental and subsegmental emboli, findings of submassive PE s/p IV heparin drip for now, change to Lovenox as patient will be having o/p biopsy Continue oxygen to keep saturation greater than 90% s/p thrombectomy 03/27/24 H/H stable Possible malignancy Abdominal CT showing metastatic disease to the liver with osseous and retroperitoneal lymphadenopathy GI consult>treat constipation Hematology/oncology>Rec Liver biopsy - due to oxygen requirement, acute PE with recent thrombectomy likely will be done as outpatient Chest CT showing multiple bilateral pulmonary nodules, pulm consult> no change to medical course at this time Hypertension Soft blood pressures norvasc and atenolol have been on hold Mental health Continue home medications DVT prophylaxis with Lovenox attending Dr. Mcghee Full code Quality Stroke Does the patient have a stroke diagnosis?: No VTE Prior VTE?: No VTE Risk Level:: Medical - moderate - high VTE Device Contraindication: Treatment Not Indicated VTE Drug Contraindication: N/A - Med Ordered
--- NOTE | 2024-04-03 10:39 | P.CONPL_ITS ---
History of Present Illness History of Present Illness Consult date: 04/03/24 Chief complaint: Abnormal CT chest, pulmonary nodules Narrative: 79-year-old lady, former minimal smoker in high school, with underlying history of hyperparathyroidism, CKD, hypertension admitted on 03/26/2024 with abdominal pain, dyspnea, and constipation. Her initial CT angio chest demonstrated pulmonary emboli and multiple 3 mm and under pulmonary lesions, unfortunately her CT abdomen demonstrating what appears to be metastatic disease in her liver and also possible bone metastasis from unclear primary. Patient has been treated with anticoagulation with improvement in her respiratory status, pulmonary evaluation requested for underlying pulmonary nodules. Review of Systems 2 Constitutional: Constitutional: Denies daytime sleepiness, Denies excessive sweating, Denies fatigue, Denies fever(s), Denies lethargy, Denies malaise, Denies night sweats, Denies snoring and Denies weight loss Eyes: Eyes: Denies blurry vision and Denies itchy eyes ENT: Denies nasal congestion, Denies post nasal drip, Denies sinus pain, Denies sinus pressure and Denies other ( Thrush) Cardiovascular: Cardiovascular: Denies chest pain, Denies pedal edema, Reports dyspnea, Denies orthopnea and Denies paroxysmal nocturnal dyspnea Respiratory: Respiratory: Denies cough, Denies hemoptysis, Denies excessive phlegm production, Reports dyspnea, Denies snoring and Denies wheezing Gastrointestinal: Gastrointestinal: Denies abdominal pain and Denies heartburn Musculoskeletal: Musculoskeletal: Denies myalgias, Denies arthralgias and Denies joint swelling Integumentary/Breasts: Skin/Breast: Denies rash Neurologic: Denies memory loss and Denies seizure-like activity Psychiatric: Psychiatric: Denies abnormal sleep pattern, Denies anxiety and Denies memory loss Endocrine: Endocrine: Denies excessive sweating, Denies fatigue and Denies heat intolerance Hematologic/Lymphatic: Hematologic/Lymphatic: Denies easy bruising Allergic/Immunologic: Allergic/Immunologic: Denies itchy eyes, Denies seasonal rhinorrhea and Denies wheezing PMFSH Past Medical History Medical History Osteoporosis Left arm swelling HTN (hypertension) Diverticulosis Osteopenia Mcmahan's palsy Chronic renal insufficiency Hyperparathyroidism Basal cell carcinoma Osteoarthritis Depression with anxiety Surgical History Surgical History History of dental surgery History of hip surgery Hx of breast biopsy H/O colonoscopy Social History Social History Household Members: Other Household Members Other:: daughter stays with patient as of now Housing: House Are you a primary pediatric care coordinator to a significant other at home: No Do you presently have visiting nurse or other home services: No Patient Tobacco Use Status: Former Tobacco user Tobacco use type: Cigarette Years Smoked: 16 Second Hand Smoke Exposure: No Advance Directives Date on File: 03/26/24 service: No Meds Allergies Allergy/AdvReac Type Severity Reaction Status Date / Time No Known Allergies Allergy Verified 03/26/24 11:40 [No Known Allergies*] Active Medications: Current Medications Acetaminophen (Acetaminophen 325 Mg Tablet) 650 mg PO Q6H PRN PRN Reason: Pain, Mild 1-3,fever,headache Last Admin: 04/03/24 07:34 Dose: 650 mg Albuterol Sulfate (Albuterol Sulfate 90 Mcg 8 Gm Inhaler) 2 puff INHALE Q4H PRN PRN Reason: wheezing Allopurinol (Allopurinol 100 Mg Tablet) 200 mg PO DAILY [facility] Last Admin: 04/03/24 07:36 Dose: 200 mg Calcium Carbonate (Calcium Carbonate 750 Mg Tab.Chew) 750 mg PO Q4H PRN PRN Reason: Heartburn Ceftriaxone Sodium (Ceftriaxone Sodium 1 Gm Vial) 1 gm IVPUSH Q24H [facility] Last Admin: 04/02/24 13:59 Dose: 1 gm Clonazepam (Clonazepam 0.5 Mg Tablet) 0.5 mg PO BID PRN PRN Reason: anxiety Last Admin: 04/03/24 07:36 Dose: 0.5 mg Enoxaparin Sodium (Enoxaparin Sodium 80 Mg/0.8 Ml Syringe) 70 mg 1 mg/kg (70 mg) SUBCUT Q12H [facility] Last Admin: 04/03/24 07:36 Dose: 70 mg Fluoxetine HCl (Fluoxetine Hcl 20 Mg Capsule) 20 mg PO DAILY [facility] Last Admin: 04/03/24 07:36 Dose: 20 mg Furosemide (Furosemide 20 Mg Tablet) 20 mg PO DAILY [facility]; Protocol Azithromycin 500 mg/ Sodium (Chloride) 250 mls @ 125 mls/hr IV Q24H [facility] Last Infusion: 04/02/24 18:26 Dose: Infused Magnesium Hydroxide (Milk Of Magnesia 30 Ml Oral.Susp) 30 ml PO DAILY PRN PRN Reason: Constipation Last Admin: 03/31/24 20:29 Dose: 30 ml Meclizine HCl (Meclizine Hcl 12.5 Mg Tablet) 12.5 mg PO TID PRN PRN Reason: dizziness Melatonin (Melatonin 3 Mg Tablet) 6 mg PO BEDTIME PRN PRN Reason: Insomnia Last Admin: 03/29/24 02:54 Dose: 6 mg Nortriptyline HCl (Nortriptyline Hcl 25 Mg Capsule) 75 mg PO BEDTIME [facility] Last Admin: 04/02/24 20:25 Dose: 75 mg Ondansetron HCl (Ondansetron Hcl 4 Mg/2 Ml Vial) 4 mg IVPUSH Q8H PRN PRN Reason: Nausea and Vomiting Polyethylene Glycol (Polyethylene Glycol 3350 17 Gm Powd.Pack) 17 gm PO BID [facility] Last Admin: 04/02/24 20:26 Dose: Not Given Sodium Biphosphate/Sodium Phosphate (Sodium Phosphate,[place]-Dibasic 133 Ml Enema) 133 ml [place] ONCE PRN PRN Reason: constipation Sodium Chloride (0.9 % Sodium Chloride Flush 3 Ml Syringe) 3 ml IVFLUSH QSHIFT [facility] Last Admin: 04/02/24 20:26 Dose: 3 ml Home Medications ?Medication ?Instructions ?Recorded ?Confirmed ?Last Taken ?Type alendronate 70 mg tablet 70 mg PO MO 04/19/23 03/26/24 03/19/24 History amlodipine 10 mg tablet 10 mg PO DAILY 04/19/23 03/26/24 03/26/24 History aspirin 81 mg tablet,delayed 81 mg PO BEDTIME 04/19/23 03/26/24 03/26/24 History release atenolol 100 mg tablet 100 mg PO DAILY 04/19/23 03/26/24 03/26/24 History clonazepam 0.5 mg tablet 0.5 mg PO BID PRN anxiety 04/19/23 03/26/24 05/03/23 History fluoxetine 20 mg capsule 20 mg PO DAILY 04/19/23 03/26/24 03/26/24 History nortriptyline 75 mg capsule 75 mg PO BEDTIME 04/19/23 03/26/24 03/25/24 History acetaminophen 500 mg tablet 1,000 mg PO Q6H PRN Pain 04/20/23 03/26/24 05/02/23 History albuterol sulfate 90 mcg/actuation 2 puff inhalation Q4H PRN wheezing 03/26/24 03/26/24 03/26/24 History aerosol inhaler meclizine 12.5 mg tablet 12.5 mg PO TID PRN dizziness 03/26/24 03/26/24 Unknown History Physical Exam 2 Vital Signs: Vital Signs: Last Vital Signs Temp 98.5 F 04/03/24 07:57 Pulse 86 04/03/24 07:57 Resp 18 04/03/24 07:57 BP 134/64 04/03/24 07:57 Pulse Ox 90 L 04/03/24 07:57 O2 Del Method Room Air 04/03/24 07:57 O2 Flow Rate 3 04/03/24 04:00 BMI result Body Mass Index 27.1 Const: General: no acute distress and alert Nutritional Appearance: not obese Orientation/consciousness: Other orientation findings ( oriented) HEENT: Head: Yes atraumatic Eyes: General: appearance normal, both eyes and all related structures S clerae: sclerae normal EOM: EOMs intact bilaterally Neck: Neck: Yes supple Lymphatic: no lymphadenopathy noted Resp: Effort & Inspection: normal respiratory effort and no use of accessory muscles Auscultation: clear to auscultation bilaterally Cardio: Rate: regular rate Rhythm: regular rhythm Heart sounds: no gallops, no murmurs and no rubs Skin: General skin exam: other ( warm) Extrem: General: No clubbing, No cyanosis and Yes edema (Trace bilateral) Results Laboratory Findings 04/02/24 06:13 03/31/24 05:49 ABG, PT/INR, D-dimer: PT/INR, D-dimer PT 14.8 SEC (10.9-12.4) H 04/02/24 06:13 INR 1.3 (0.9-1.1) H 04/02/24 06:13 Abnormal lab findings: Abnormal Labs 03/26/24 03/26/24 03/26/24 12:50 15:01 21:04 WBC 22.2 H RBC 2.86 L Hgb 8.3 L D Hct 26.4 L D RDW Plt Count Immature Gran % (Auto) 1.3 H Neut % (Auto) 86.4 H Lymph % (Auto) 4.7 L Lymph # (Auto) 1.1 L Sharkey # (Auto) 1.5 H Abs Immat Gran (auto) 0.29 H Absolute Neuts (auto) 19.2 H Absolute Nucleated RBC 0.050 H PT 13.9 H INR 1.2 H APTT aPTT Heparin Protocol 33.5 L 46.6 L D Activated Clotting Time Chloride 109 H Carbon Dioxide 19 L BUN 49 H Random Glucose 122 H Uric Acid 9.9 H AST 53 H Alkaline Phosphatase 283 H Lactate Dehydrogenase 547 H B-Natriuretic Peptide 470 H Albumin 2.9 L Urine Protein Ur Leukocyte Esterase Urine WBC Crossmatch 03/27/24 03/27/24 03/27/24 03:59 09:25 10:33 WBC 20.2 H RBC 2.71 L Hgb 7.7 L Hct 24.2 L RDW Plt Count Immature Gran % (Auto) Neut % (Auto) Lymph % (Auto) Lymph # (Auto) Sharkey # (Auto) Abs Immat Gran (auto) Absolute Neuts (auto) Absolute Nucleated RBC 0.030 H PT 14.4 H INR 1.2 H APTT aPTT Heparin Protocol 44.4 L 52.4 L Activated Clotting Time Chloride Carbon Dioxide BUN Random Glucose Uric Acid AST Alkaline Phosphatase Lactate Dehydrogenase B-Natriuretic Peptide Albumin Urine Protein Ur Leukocyte Esterase Urine WBC Crossmatch See Detail 03/27/24 03/27/24 03/27/24 14:34 15:14 17:11 WBC 18.9 H RBC 2.83 L Hgb 8.3 L Hct 25.9 L RDW 16.5 H Plt Count Immature Gran % (Auto) 1.0 H Neut % (Auto) 88.0 H Lymph % (Auto) 4.2 L Lymph # (Auto) 0.8 L Sharkey # (Auto) Abs Immat Gran (auto) 0.19 H Absolute Neuts (auto) 16.6 H Absolute Nucleated RBC PT INR APTT aPTT Heparin Protocol 93.2 H D Activated Clotting Time 178 H 219 H Chloride Carbon Dioxide BUN 39 H Random Glucose Uric Acid AST Alkaline Phosphatase Lactate Dehydrogenase B-Natriuretic Peptide Albumin Urine Protein Ur Leukocyte Esterase Urine WBC Crossmatch 03/28/24 03/28/24 03/28/24 00:16 07:47 21:38 WBC RBC Hgb Hct RDW Plt Count Immature Gran % (Auto) Neut % (Auto) Lymph % (Auto) Lymph # (Auto) Sharkey # (Auto) Abs Immat Gran (auto) Absolute Neuts (auto) Absolute Nucleated RBC PT INR APTT aPTT Heparin Protocol 40.7 L D 43.9 L 52.8 L Activated Clotting Time Chloride Carbon Dioxide BUN Random Glucose Uric Acid AST Alkaline Phosphatase Lactate Dehydrogenase B-Natriuretic Peptide Albumin Urine Protein Ur Leukocyte Esterase Urine WBC Crossmatch 03/29/24 03/29/24 03/29/24 08:41 10:27 17:17 WBC 17.6 H RBC 2.92 L Hgb 8.4 L Hct 26.9 L RDW 17.1 H Plt Count Immature Gran % (Auto) Neut % (Auto) Lymph % (Auto) Lymph # (Auto) Sharkey # (Auto) Abs Immat Gran (auto) Absolute Neuts (auto) Absolute Nucleated RBC PT INR APTT aPTT Heparin Protocol 52.1 L 80.3 H D Activated Clotting Time Chloride 112 H Carbon Dioxide 17 L BUN 31 H Random Glucose Uric Acid AST Alkaline Phosphatase Lactate Dehydrogenase B-Natriuretic Peptide 375 H Albumin Urine Protein Ur Leukocyte Esterase Urine WBC Crossmatch 03/29/24 03/30/24 03/30/24 23:50 07:58 12:02 WBC 18.9 H RBC 2.83 L Hgb 8.2 L Hct 25.5 L RDW 17.1 H Plt Count Immature Gran % (Auto) Neut % (Auto) Lymph % (Auto) Lymph # (Auto) Sharkey # (Auto) Abs Immat Gran (auto) Absolute Neuts (auto) Absolute Nucleated RBC PT INR APTT aPTT Heparin Protocol 48.7 L D 29.9 L D Activated Clotting Time Chloride 110 H Carbon Dioxide 18 L BUN 23 H Random Glucose Uric Acid AST Alkaline Phosphatase Lactate Dehydrogenase B-Natriuretic Peptide 248 H Albumin Urine Protein Ur Leukocyte Esterase Urine WBC Crossmatch 03/30/24 03/31/24 04/01/24 15:09 05:49 12:02 WBC 20.6 H 26.9 H RBC 3.23 L 3.30 L Hgb 9.2 L 9.5 L Hct 29.2 L 30.2 L RDW 17.1 H 17.1 H Plt Count 404 H D Immature Gran % (Auto) Neut % (Auto) Lymph % (Auto) Lymph # (Auto) Sharkey # (Auto) Abs Immat Gran (auto) Absolute Neuts (auto) Absolute Nucleated RBC PT 14.6 H INR 1.3 H APTT 62.4 H* aPTT Heparin Protocol 30.2 L Activated Clotting Time Chloride 109 H Carbon Dioxide 19 L BUN 21 H Random Glucose 125 H Uric Acid AST Alkaline Phosphatase Lactate Dehydrogenase B-Natriuretic Peptide Albumin Urine Protein Ur Leukocyte Esterase Urine WBC Crossmatch 04/01/24 04/02/24 04/02/24 18:12 04:09 06:13 WBC 21.8 H RBC 2.96 L Hgb 8.4 L Hct 26.5 L RDW 17.0 H Plt Count 406 H Immature Gran % (Auto) Neut % (Auto) Lymph % (Auto) Lymph # (Auto) Sharkey # (Auto) Abs Immat Gran (auto) Absolute Neuts (auto) Absolute Nucleated RBC PT 14.8 H INR 1.3 H APTT aPTT Heparin Protocol 35.3 L D Activated Clotting Time Chloride Carbon Dioxide BUN Random Glucose Uric Acid AST Alkaline Phosphatase Lactate Dehydrogenase B-Natriuretic Peptide Albumin Urine Protein 30 (1+) H Ur Leukocyte Esterase Small (1+) H Urine WBC 6-10 H Crossmatch Microbiology: Microbiology 04/02/24 Unknown Urine clean catch - Clean Catch Midstream Urine Culture - Preliminary Culture in progress. 03/30/24 16:00 Paracentesis Fluid Gram Stain - Final 03/30/24 16:00 Paracentesis Fluid Anaerobic Culture - Preliminary No growth to date. 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 Patient's small pulmonary nodules, if malignant, likely have the same etiology as her liver lesions which are more amenable to biopsy. She does have bilateral [id number] pleural effusions that appear to be related to underlying diastolic dysfunction and being approximately 8L positive since admission. Recommendation: Would suggest increasing diuretic regimen to compensate increased fluid balance since admission. Suggests against biopsy of pulmonary nodules and instead performing biopsy of liver lesions. Agree with anticoagulation for underlying pulmonary emboli. Procedures Date of Service Date of Service: 04/03/24
--- NOTE | 2024-04-03 14:29 | MHC.CM.PN ---
EMR reviewed and per MD rounds, pt is not medically cleared for discharge at this time.
--- NOTE | 2024-04-03 16:14 | P.PNGI_ITS ---
Subjective Subjective Date of Service: 04/03/24 Interval History: constipation improved with mg citrate Critical Care Time (minutes): 20 Physical Exam 2 Vital Signs: Vital Signs: Last Vital Signs Temp 98.6 F 04/03/24 15:43 Pulse 86 04/03/24 15:43 Resp 18 04/03/24 15:43 BP 118/58 L 04/03/24 15:43 Pulse Ox 96 04/03/24 15:43 O2 Del Method Nasal Cannula 04/03/24 15:43 O2 Flow Rate 2 04/03/24 15:43 BMI result Body Mass Index 27.1 GI: Other: abdomen is soft and nontender Objective Data Labs 04/02/24 06:13 03/31/24 05:49 Microbiology Microbiology Results: Microbiology 04/02/24 Unknown Urine clean catch - Clean Catch Midstream Urine Culture - Preliminary Gram positive cocci 03/30/24 16:00 Paracentesis Fluid Gram Stain - Final 03/30/24 16:00 Paracentesis Fluid Anaerobic Culture - Preliminary No growth to date. 03/30/24 16:00 Paracentesis Fluid Body Fluid Culture - Final No growth after 2 days Procedures Date of Service Date of Service: 04/03/24 Progress Note: A&P Assessment and plan (1) Constipation: Status: Acute Assessment and Plan: appears improved with mg citrate high fiber diet and use of metamucil and miralax discussed with patient and family. continue present regimen. Time Spent With Patient Time: Total time managing care of this patient today ____ minutes. Quality Stroke Does the patient have a stroke diagnosis?: No VTE Prior VTE?: No VTE Risk Level:: Medical - moderate - high VTE Device Contraindication: Treatment Not Indicated VTE Drug Contraindication: N/A - Med Ordered
[2024-04-03] MEDS: Azithromycin 500 MG in 0.9 % Sodium Chloride 250 ML 125 MG IV (16:59)
[2024-04-03] MEDS: cefTRIAXone sodium 1 GM VIAL IVPUSH (16:59)
[2024-04-03] MEDS: Nortriptyline HCl 25 MG CAPSULE 75 MG PO (21:28)
[2024-04-04 03:26] VITALS: BP 108/54; PULSE 73; RESP 17; TEMP 36.9; O2SAT 97
[2024-04-04 05:49] VITALS: O2SAT 97
[2024-04-04 07:24] VITALS: BP 129/60; PULSE 58; RESP 18; TEMP 36.2; O2SAT 96
[2024-04-04 09:18] VITALS: BP 129/60
[2024-04-04] MEDS: Furosemide 20 MG TABLET PO (09:18)
[2024-04-04] MEDS: FLUoxetine HCl 20 MG CAPSULE PO (09:18)
[2024-04-04] MEDS: allopurinoL 100 MG TABLET 200 MG PO (09:18)
[2024-04-04] MEDS: Enoxaparin Sodium 80 MG/0.8 ML SYRINGE 70 MG SUBCUT (09:18)
[2024-04-04] MEDS: 0.9 % Sodium Chloride Flush 3 ML SYRINGE IVFLUSH ×2 (09:19)
--- NOTE | 2024-04-04 10:57 | MHC.CM.PN ---
Second IMM given 04/04. Pt is medically cleared for discharge to [facility], [facility] offering pt a bed. This CM met with pt to discuss discharge plans and rehab facility options, pt in agreement with going to [facility] as she would like to stay close to [place]. Pt will transport to [facility] today via [facility]. New HCP completed with pt, now on file, pt named her daughter Teresa as her HCP. Per pts request, this CM called and spoke to Teresa to provide her with an update on discharge plans, Teresa in agreement with the plan.
--- NOTE | 2024-04-04 11:07 | PM.DS ---
DS: Providers Provider Date of Service: 04/04/24 Date of admission: 03/26/24 16:14 Date of discharge: 04/04/24 Primary care physician: BRADY Caldwell Consults: 03/26/24 16:21 Consult to Hematology / Oncology Routine Consulting Provider: [facility] Oncology/Hematology Reason for consultation: PE, ? malignancy 03/26/24 16:29 Consult to Gastroenterology Routine Consulting Provider: Gerry Chavez Reason for consultation: ? malignancy, constipation 03/26/24 19:55 Consult to Vascular Surgery Routine Consulting Provider: [facility] Vascular Services Reason for consultation: PE Has provider been notified: Yes 03/30/24 08:02 Consult to Cardiology Routine Consulting Provider: [facility] Cardiovascular Specialists Reason for consultation: CHF Has provider been notified: No 04/03/24 07:32 Consult to Gastroenterology Routine Consulting Provider: Ty Carver Reason for consultation: severe constipation 04/03/24 09:13 Consult to Pulmonology Routine Consulting Provider: [facility] Pulmonology Services Reason for consultation: pulm nodules DS: Diagnosis Discharge Diagnosis (1) Constipation: Status: Acute DS: Summary Hospital Course Hospital Course: 79 year old women presenting to the ER with complaints abdominal pain, constipation and shortness breaths of at least 2 weeks. She reported that her abdomen fell somewhat swollen and she had not been able to have a bowel movement in more than a week. She had use suppositories with no success. She reported that the shortness breath has been ongoing for over 2 weeks and reported worsening. She denied any cough with sputum or hemoptysis. She lives alone but [email or web address] has been doing okay and has support from her daughter. She denied any recent fever, chills, nausea, vomiting, diarrhea, recent travel, sick contacts. In the ER, CTA showed bilateral pulmonary embolus and abdominal CT showed possible malignancy with irregularities to the liver without bowel obstruction. She was started on IV heparin drip in the ER. Plan is to admit patient for further management and treatment of pulmonary embolus and question of malignancy. 79-year-old woman treated for acute respiratory failure secondary to acute pulmonary embolism, left femoral thrombus and partial occlusive thrombus to right femoral vein, see TIA findings of some massive PE. She was initially treated with IV heparin and underwent thrombectomy on 03/27/2024 as per vascular surgery. She was then started on Lovenox in anticipation for outpatient biopsy and she will continue on this until she follows up with Hematology. She should follow up with her primary care provider to schedule liver biopsy outpatient She appears to have a possible malignancy with abdominal CT showing metastatic disease to the liver with osseous and retroperitoneal lymphadenopathy. She was seen by Gastroenterology who recommended outpatient biopsy. She was noted to also have pulmonary nodules on chest CT. She was also noted to have a pneumonia and was treated with Rocephin and azithromycin, she will complete therapy with Ceftin and azithromycin for few more days. She had some severe constipation where she reported she had not had a bowel movement in 3 weeks and certainly had not had a bowel movement during his admission. She was given magnesium citrate on 04/02/2024 and has been moving her bowels since then. She was noted to have a pleural effusion and is status post thoracentesis on 03/30/2024 with removal of 450 mL of yellow fluid that was sent for pathology and is currently pending. Had some mild congestive heart failure and was treated with IV Lasix and should continue oral Lasix as outpatient. Hypertension with hypotension. Blood pressures have been soft during admission and her Norvasc and atenolol has been on hold, she should continue to hold these for now and follow up with primary care provider for management of hypertension. Mental health. Continue home medications Time Attestation Discharge Coordination Time (in mins): 48 Quality: Safe Use of Opioids Does Pt have an Active Cancer Diagnosis on the Problem List?: No Quality: Stroke Does the patient have a stroke diagnosis?: No Physical Exam Vital Signs: Vital Signs: Last Vital Signs Temp 97.1 F 04/04/24 07:24 Pulse 58 04/04/24 07:24 Resp 18 04/04/24 07:24 BP 129/60 04/04/24 09:18 Pulse Ox 96 04/04/24 07:24 O2 Del Method Nasal Cannula 04/04/24 07:24 O2 Flow Rate 2 04/04/24 07:24 BMI result Body Mass Index 27.1 Appearing in no acute distress head is normocephalic atraumatic eyes pupils are PERRLA sclera is anicteric mouth throat mucous membranes are intact and moist neck is supple no lymphadenopathy, no JVD noted lung sounds are clear to auscultation heart regular rate rhythm, clear S1, S2 positive bowel sounds, abdomen is soft, nontender neuro patient is alert x3, no focal deficits DS: Data Data Completed and Pending Completed studies during hospitalization [Text1]: Procedures Excision of Lumbar Vertebral Disc, Open Approach (05/03/23) Fusion of Lumbar Vertebral Joint with Interbody Fusion Device, Anterior Approach, Anterior Column, Open Approach (05/03/23) Insertion of Interspinous Process Spinal Stabilization Device into Lumbar Vertebral Joint, Open Approach (05/03/23) Pending studies at discharge: Pending at discharge 03/30/24 08:07 Cytology [PTH] Routine Labs on day of discharge: Laboratory Results - last 24 hr 03/27/24 09:25 Crossmatch See Detail Preliminary micro results at discharge 03/30/24 16:00 Anaerobic Culture - Preliminary Paracentesis Fluid No growth to date. Discharge Plan Discharge Anticipated Discharge Date/Time: 04/04/24 10:52 Patient Disposition: [facility] Discharge Diagnosis: Pneumonia Constipation Acute metabolic encephalopathy Acute respiratory failure Acute pulmonary embolism Left femoral thrombus Malignancy Referrals: [facility] [Outside] - 1 Week Adia Rai MD [Physician] - 1 Week Daryl Guerin PA [Primary Care Provider] - 1 Week Discharge Medications: New polyethylene glycol 3350 17 gram Powder In Packet 17 g PO BID Qty: 30 0RF furosemide 20 mg Tablet 20 mg PO DAILY Qty: 30 0RF Protocol: Hold for SBP< HOLD for SBP < : 90 enoxaparin 80 mg/0.8 mL Syringe 70 mg subcut Q12H Qty: 8 0RF cefuroxime axetil 500 mg tablet 500 mg PO BID Qty: 6 0RF azithromycin 500 mg tablet 500 mg PO DAILY 3 Days Qty: 3 0RF Continued alendronate 70 mg tablet 70 mg PO MO clonazepam 0.5 mg tablet 0.5 mg PO BID PRN (Reason: anxiety) aspirin 81 mg Tablet,Delayed Release (Dr/Ec) 81 mg PO BEDTIME nortriptyline 75 mg capsule 75 mg PO BEDTIME fluoxetine 20 mg capsule 20 mg PO DAILY acetaminophen 500 mg Tablet 1,000 mg PO Q6H PRN (Reason: Pain) meclizine 12.5 mg tablet 12.5 mg PO TID PRN (Reason: dizziness) albuterol sulfate 90 mcg/actuation HFA aerosol inhaler 2 puff INHALATION Q4H PRN (Reason: wheezing) Discontinued atenolol 100 mg tablet 100 mg PO DAILY amlodipine 10 mg tablet 10 mg PO DAILY Discharge Orders: Discharge Order (Routine); Ordered 04/04/24 Ordered By: Jocy Samson Diet: Advance to usual diet Activity on Discharge: As tolerated Stand Alone Forms: Patient Portal Discharge page Print Language: Citizen Of [place] Care Plan Goals: Continue subcutaneous Lovenox for pulmonary embolus treatment, discussed with Hematology regarding plan of care for timeline, consider changing to NOAC after discussing with Hematology. Health Concerns: Pneumonia Constipation Acute metabolic encephalopathy Acute respiratory failure Acute pulmonary embolism Left femoral thrombus Malignancy Plan of Treatment: Follow with primary care provider for biopsy results Assessment: See discharge summary
[2024-04-04 11:34] VITALS: BP 131/63; PULSE 85; RESP 18; TEMP 36.6; O2SAT 99
[2024-04-04] MEDS: Azithromycin 500 MG in 0.9 % Sodium Chloride 250 ML 125 MG IV (12:29)
[2024-04-04] MEDS: cefTRIAXone sodium 1 GM VIAL IVPUSH (12:29)
== END 2024-04-04 14:54 | disposition skilled nursing facility (03) | DRG 163 ==
LOC: HO.ED 15:56 → HO.EDOVER 16:33 → HO.IMC 19:02
PROVIDERS: Internal Medicine; Physician Assistant Medical; Physician Assistant Surgical; Student in an Organized Health Care Education/Training Program; Surgery Vascular Surgery; Admitting Provider Nurse Practitioner Acute Care; Emergency Provider Emergency Medicine; PCP Physician Assistant Medical; Visit Provider Nurse Practitioner Acute Care
DX: I26.99 Other pulmonary embolism without acute cor pulmonale (principal); G93.41 Metabolic encephalopathy; J96.01 Acute respiratory failure with hypoxia; C78.7 Secondary malignant neoplasm of liver and intrahepatic bile duct; I82.413 Acute embolism and thrombosis of femoral vein, bilateral; F05 Delirium due to known physiological condition; J90 Pleural effusion, not elsewhere classified; I27.20 Pulmonary hypertension, unspecified; I95.9 Hypotension, unspecified; I10 Essential (primary) hypertension; I26.94 Multiple subsegmental thrombotic pulmonary emboli without acute cor pulmonale; K59.00 Constipation, unspecified; Z20.822 Contact with and (suspected) exposure to COVID-19; Z87.891 Personal history of nicotine dependence; Z79.82 Long term (current) use of aspirin; Z79.899 Other long term (current) drug therapy
CPT/HCPCS: 0241U; 32555; 36415; 37187; 71045; 71250; 71275; 74176; 74177; 76937; 80048; 80076; 81001; 82042; 82378; 82565; 83615; 83690; 83735; 83880; 84157; 84484; 84520; 84550; 85025; 85027; 85347; 85610; 85730; 86850; 86900; 86901; 86923; 87070; 87073; 87086; 87088; 87205; 88112; 88305; 88341; 88342; 89051; 93005; 93306; 93970; 97110; 97162; 97530; 99152; 99153; 99285; C1725; C1757; C1769; C1887; C1894; J0456; J0696; J1644; J1650; J1940; J2003; J2250; J2405; J3010; P9016; Q9967

== ENCOUNTER → 2024-03-26 11:45 | Outpatient (BNV) | payer MEDICARE, SELFPAY | PROVIDERS: Emergency Provider Emergency Medicine; PCP Physician Assistant Medical; Visit Provider Radiology Diagnostic Radiology | DX: R06.02 Shortness of breath (principal); R10.9 Unspecified abdominal pain | CPT/HCPCS: 71275; 74177 ==

== ENCOUNTER → 2024-03-26 11:45 | Outpatient (BNV) | payer MEDICARE, SELFPAY | PROVIDERS: Admitting Provider Nurse Practitioner Acute Care; Emergency Provider Emergency Medicine; PCP Physician Assistant Medical; Visit Provider Internal Medicine Cardiovascular Disease | DX: R94.31 Abnormal electrocardiogram [ECG] [EKG] (principal); R06.02 Shortness of breath | CPT/HCPCS: 93010 ==

== ENCOUNTER 2024-03-26 16:14 | Outpatient (BNV) | payer MEDICARE, SELFPAY | END 2024-03-29 15:00 | PROVIDERS: Admitting Provider Nurse Practitioner Acute Care; Emergency Provider Emergency Medicine; PCP Physician Assistant Medical; Visit Provider Internal Medicine Cardiovascular Disease | DX: I35.0 Nonrheumatic aortic (valve) stenosis (principal); I36.1 Nonrheumatic tricuspid (valve) insufficiency; I35.8 Other nonrheumatic aortic valve disorders; I34.81 Nonrheumatic mitral (valve) annulus calcification | CPT/HCPCS: 93306 ==

== ENCOUNTER 2024-03-26 16:14 | Outpatient (BNV) | payer MEDICARE, SELFPAY | END 2024-04-01 13:23 | PROVIDERS: Admitting Provider Nurse Practitioner Acute Care; Emergency Provider Emergency Medicine; PCP Physician Assistant Medical; Visit Provider Radiology Diagnostic Radiology | DX: K59.00 Constipation, unspecified (principal) | CPT/HCPCS: 74176 ==

== ENCOUNTER 2024-03-26 16:14 | Outpatient (BNV) | payer MEDICARE, SELFPAY | END 2024-03-29 12:28 | PROVIDERS: Admitting Provider Nurse Practitioner Acute Care; Emergency Provider Emergency Medicine; PCP Physician Assistant Medical; Visit Provider Radiology Diagnostic Radiology | DX: I26.99 Other pulmonary embolism without acute cor pulmonale (principal) | CPT/HCPCS: 71045 ==

== ENCOUNTER 2024-03-26 16:14 | Outpatient (BNV) | payer MEDICARE, SELFPAY | END 2024-03-27 09:28 | PROVIDERS: Admitting Provider Nurse Practitioner Acute Care; Emergency Provider Emergency Medicine; PCP Physician Assistant Medical; Visit Provider Radiology Diagnostic Radiology | DX: I26.99 Other pulmonary embolism without acute cor pulmonale (principal) | CPT/HCPCS: 93970 ==

== ENCOUNTER 2024-03-26 16:14 | Outpatient (BNV) | payer MEDICARE, SELFPAY | END 2024-03-30 15:30 | PROVIDERS: Admitting Provider Nurse Practitioner Acute Care; Emergency Provider Emergency Medicine; PCP Physician Assistant Medical; Visit Provider Radiology Diagnostic Radiology | DX: R18.8 Other ascites (principal) | CPT/HCPCS: 32555 ==

== ENCOUNTER → 2024-03-26 16:14 | Outpatient (BNV) | payer MEDICARE, SELFPAY | PROVIDERS: Admitting Provider Nurse Practitioner Acute Care; Emergency Provider Emergency Medicine; PCP Physician Assistant Medical; Visit Provider Internal Medicine Cardiovascular Disease | DX: I26.99 Other pulmonary embolism without acute cor pulmonale (principal) | CPT/HCPCS: 99222 ==

== ENCOUNTER → 2024-03-26 16:14 | Outpatient (BNV) | payer MEDICARE, SELFPAY | PROVIDERS: Admitting Provider Nurse Practitioner Acute Care; Emergency Provider Emergency Medicine; PCP Physician Assistant Medical; Visit Provider Internal Medicine Pulmonary Disease | DX: J96.01 Acute respiratory failure with hypoxia (principal); I26.99 Other pulmonary embolism without acute cor pulmonale; J90 Pleural effusion, not elsewhere classified; R91.8 Other nonspecific abnormal finding of lung field | CPT/HCPCS: 99222 ==

== ENCOUNTER → 2024-03-26 16:14 | Outpatient (BNV) | payer MEDICARE, SELFPAY | PROVIDERS: Admitting Provider Nurse Practitioner Acute Care; Emergency Provider Emergency Medicine; PCP Physician Assistant Medical; Visit Provider Surgery Vascular Surgery | DX: I26.99 Other pulmonary embolism without acute cor pulmonale (principal) | CPT/HCPCS: 36014; 37184; 76937; 99152; 99222; 99232; 99499 ==

== ENCOUNTER → 2024-03-26 16:14 | Outpatient (BNV) | payer MEDICARE, SELFPAY | PROVIDERS: Admitting Provider Nurse Practitioner Acute Care; Emergency Provider Emergency Medicine; PCP Physician Assistant Medical; Visit Provider Internal Medicine | DX: I26.99 Other pulmonary embolism without acute cor pulmonale (principal) | CPT/HCPCS: 99222; 99231 ==

== ENCOUNTER → 2024-03-26 16:14 | Outpatient (BNV) | payer MEDICARE, SELFPAY | PROVIDERS: Admitting Provider Nurse Practitioner Acute Care; Emergency Provider Emergency Medicine; PCP Physician Assistant Medical; Visit Provider Nurse Practitioner Acute Care | DX: I26.99 Other pulmonary embolism without acute cor pulmonale (principal); K76.9 Liver disease, unspecified; K59.00 Constipation, unspecified; I10 Essential (primary) hypertension | CPT/HCPCS: 99223; 99232 ==

== ENCOUNTER 2024-04-05 05:30 | Outpatient (REF) | payer MEDICARE, SELFPAY ==
[2024-04-05 05:33] LABS: MANUAL DIFF FLAG NO
--- OUTSIDE RECORDS SUMMARY | 2024-04-05 05:33 | XMS_ITS | Clinical Summary ---
Author Organization [facility] Address [address] [place] [address] Care Team Providers Care Ton Cylinder Inspector Name Role Phone Daryl Guerin PA-C Primary [...] age to complete this topic Care Teams Ton Cylinder Inspector Relationship Specialty Start Date End Date Daryl Guerin, PAOscarC PCP - General Medical Services 01/24/23
--- OUTSIDE RECORDS SUMMARY | 2024-04-05 05:33 | XMS_ITS | Encounter Summary ---
Author Organization [facility] Address [address] [place] [address] Care Team Providers Care Advertisement Distributor Name Role Phone Daryl Guerin Primary Care Provider [phone] Encounter Details Date Type Department Care Team (Latest Contact Info) Description 03/19/2024 1:30 PM EST - 03/19/2024 11:59 PM EST Hospital Encounter XRAY - [place] [address] [place] [address] Dry cough; Shortness of breath Discharge Disposition: [...] Care Team (Late st Contact Info) Description 06/29/2024 10:45 AM EDT Appointment Bone Density - [place] [address] [place] [phone] 06/29/2024 11:30 AM EDT Appointment Radiology Department - [place] [address] [place] [phone] 07/16/2024 11:00 AM EDT Office Visit Endocrinology - [place] [address] [place] [address] Maryuri Patino PA [address] [place] [address] 08/21/2024 10:45 AM EDT Office Visit [facility] Hematology Oncology [address] [place] [phone] Elaine Pinto, DO [address] [place] [address] documented as of this encounter Procedures Procedure [...] Signed Date: 03/19/2024 17:21 ET Workstation ID: [id number] Transcribed By: Self Edit Transcribed Date: 03/19/2024 [...] Signed Date: 03/19/2024 17:21 ET Workstation ID: [id number] Transcribed By: Self Edit Transcribed Date: 03/19/2024 17:20 ET us Sarah Grupo ABREU IMG XR PROCEDURES Final Result documented in this encounter Visit Diagnoses Diagnosis Dry cough Cough Shortness of breath Encounter for screening mammogram for breast cancer documented in this encounter Care Teams Advertisement Distributor Relationship Specialty Start Date End Date Daryl Guerin PA [address] [place] [address] PCP - General Internal Medicine 04/16/20 documented as of this encounter
--- OUTSIDE RECORDS SUMMARY | 2024-04-05 05:33 | XMS_ITS | Encounter Summary ---
Author Organization [facility] [place] [address] Care Team Providers Care Tire Fabric Inspector Name Role Phone Daryl Guerin Primary Care Provider [phone] Reason for Visit * Reason Comments Cough Encounter Details Date Type Department Care Team (Late st Contact Info) Description 03/19/2024 12:45 PM EST Office Visit Adult Medicine [facility] [address] [place], [place] [phone] Charles Lombardo PA [address] [place], [place] Viral syndrome (Primary Dx); Nausea; Vertigo; [...] for many years. 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 Nausea 3. Vertigo 4. Primary hypertension Medication and lab orders: Orders Placed This Encounter Procedures XR Chest 2 Views POC Influenza A/B manually resulted Poc Rapid [id number], MOLECULAR Other orders: None Patient complaining of [...] 10:45 AM EDT Appointment Bone Density - [address] [phone] 06/29/2024 11:30 AM EDT Appointment Radiology Department - [address] [phone] 07/16/2024 11:00 AM EDT Office Visit Endocrinology - [address] [phone] Maryuri Patino PA [address] [place], [place] 08/21/2024 10:45 AM EDT Office Visit [facility] Hematology Oncology [address] [place] [phone] Elaine Pinto DO [address] [place] [address] documented as of this encounter Procedures Procedure Name Priority Date/Time Associated Diagnosis Comments POC RAPID [id number], MOLECULAR Routine 03/19/2024 1:16 PM EST Viral [...] Signed Date: 03/19/2024 17:21 ET Workstation ID: [id number] Transcribed By: Self Edit Transcribed Date: 03/19/2024 [...] Signed Date: 03/19/2024 17:21 ET Workstation ID: [id number] Transcribed By: Self Edit Transcribed Date: 03/19/2024 17:20 ET us Charles Grupo ABREU IMG XR PROCEDURES Final Result * Poc Rapid [id number], MOLECULAR (03/19/2024 1:16 PM EST) COVID-19/SARS- COV-2 [...] cancer documented in this encounter Care Teams Tire Fabric Inspector Relationship Specialty Start Date End Date Daryl Guerin PA [address] [place] [id number] PCP - General Internal Medicine 04/16/20 documented as of this encounter
[2024-04-05 05:56] LABS: Basophils Absolute Auto 0.1 X10*3/uL (0.0-0.2); Basophils Percent Auto 0.3 % (0-2); Eosinophils Absolute Auto 0.1 X10*3/uL (0.0-0.4); Eosinophils Percent Auto 0.7 % (0-4); Hematocrit 25.9 % (37.0-47.0); Hemoglobin 7.9 g/dl (12.0-16.0); Imm Gran Abs Auto 0.27 X10*3/uL (0.00-0.03); Imm Gran Pct Auto 1.5 % (0.0-0.4); Lymphocytes Absolute Auto 1.3 X10*3/uL (1.2-4.9); Lymphocytes Percent Auto 7.2 % (20-40); Mean Corpuscular HGB Conc 30.5 g/dl (31.0-35.0); Mean Corpuscular Hemoglobin 27.1 pg (27.0-33.0); Mean Platelet Volume 11.1 fL (9.4-12.3); Monocytes Absolute Auto 1.4 X10*3/uL (0.1-1.2); Monocytes Percent Auto 7.6 % (2-11); Neutrophils Absolute Auto 14.9 x10*3/uL (2.0-8.3); Neutrophils Percent Auto 82.7 % (45-73); Platelet Count 498 X10*3/uL (160-400); Red Blood Count 2.91 X10*6/uL (4.20-5.50); Red Cell Distribution Width 17.4 % (11.0-16.0); White Blood Count 18.1 X10*3/uL (4.8-10.8)
[2024-04-05 06:27] LABS: Alanine Aminotransferase 22 U/L (0-31); Albumin Level 2.5 g/dL (3.5-5.0); Alkaline Phosphatase 384 U/L (39-117); Anion Gap 13 (12-20); Aspartate Amino Transferase 82 U/L (5-31); Bilirubin Total 0.4 mg/dL (0.0-1.0); Blood Urea Nitrogen 21 mg/dL (9-16); Calcium 8.9 mg/dL (8.4-10.2); Carbon Dioxide 24 mmol/L (22-29); Chloride 105 mmol/L (96-108); Estimated Glomerular Filt Rate > 60; Glucose Random 112 mg/dL (60-115); Potassium 3.9 mmol/L (3.3-5.1); Sodium 138 mmol/L (135-145); Total Protein 6.4 g/dL (6.5-8.0)
== END 2024-04-05 05:31 | disposition home or self-care (01) ==
LOC: HO.MMNH2L 05:30
PROVIDERS: Visit Provider Student in an Organized Health Care Education/Training Program
DX: G93.41 Metabolic encephalopathy (principal)
CPT/HCPCS: 36415; 80053; 85025

== ENCOUNTER 2024-04-06 17:01 | Outpatient (REF) | payer MEDICARE, SELFPAY ==
[2024-04-07 10:25] LABS: Adenovirus PCR Not Detected (Not Detect.); Bordetella parapertussis PCR Not Detected (Not Detect.); Bordetella pertussis PCR Not Detected (Not Detect.); Chlamydia pneumoniae PCR Not Detected (Not Detect.); Coronavirus 229E PCR Not Detected (Not Detect.); Coronavirus HKU1 PCR Not Detected (Not Detect.); Coronavirus NL63 PCR Not Detected (Not Detect.); Coronavirus OC43 PCR Not Detected (Not Detect.); Human metapneumovirus PCR Not Detected (Not Detect.); Influenza A PCR Not Detected (Not Detect.); Influenza B PCR Not Detected (Not Detect.); Mycoplasma pneumoniae PCR Not Detected (Not Detect.); Parainfluenza 1 PCR Not Detected (Not Detect.); Parainfluenza 2 PCR Not Detected (Not Detect.); Parainfluenza 3 PCR Not Detected (Not Detect.); Parainfluenza 4 PCR Not Detected (Not Detect.); RSV PCR Not Detected (Not Detect.); Rhino/Enterovirus PCR Not Detected (Not Detect.)
[2024-04-07 10:43] LABS: SARS-CoV-2 PCR Not Detected (Not Detect.)
== END 2024-04-06 17:02 | disposition home or self-care (01) ==
LOC: HO.MMNH2L 17:01
PROVIDERS: Visit Provider Student in an Organized Health Care Education/Training Program
DX: R11.0 Nausea (principal); J18.9 Pneumonia, unspecified organism
CPT/HCPCS: 87633

== ENCOUNTER 2024-04-09 06:19 | Outpatient (REF) | payer MEDICARE, SELFPAY ==
--- OUTSIDE RECORDS SUMMARY | 2024-04-09 06:21 | XMS_ITS ---
Author Organization [facility] Address [address] [place] [phone] Phone Care Team Providers Care Customer Success Associate Name Role Phone Daryl Guerin Primary Care Provider [phone] Post Acute Care Coordination Status:Ongoing (Active) Start date:04/05/2024 Enrollment date:04/05/2024 Enrollment reason:Post acute care coordination Case Team Name Relationship Phone Aimee Cruz RN Post Acute Supervising Fire Marshal(R esplisy Staff) Continued Care and Services Coordination
--- OUTSIDE RECORDS SUMMARY | 2024-04-09 06:21 | XMS_ITS | Encounter Summary ---
Author Organization [facility] Address [address] [place] [address] Care Team Providers Care Community Service Patrol Officer Name Role Phone Daryl Guerin Primary Care Provider [phone] [phone] Encounter Details Date Type Department Care Team (Latest Contact Info) Description 03/19/2024 1:30 PM EST - 03/19/2024 11:59 PM EST Hospital Encounter XRAY - [place] [address] [place] [address] Dry cough; Shortness of breath Discharge Disposition: [...] AM EDT Appointment Bone Density - [facility] [address] [place] [phone] 06/29/2024 11:30 AM EDT Appointment Radiology Department - [place] [address] [place] [phone] 07/16/2024 11:00 AM EDT Office Visit Endocrinology - [place] [address] [place] [phone] Maryuri Patino PA [address] [place] [address] 08/21/2024 10:45 AM EDT Office Visit [facility] Hematology Oncology [address] [place] [address] Elaine Pinto, DO [address] [place] [address] documented as of this encounter Procedures Procedure [...] Signed Date: 03/19/2024 17:21 ET Workstation ID: [id number] Transcribed By: Self Edit Transcribed Date: 03/19/2024 [...] Signed Date: 03/19/2024 17:21 ET Workstation ID: [id number] Transcribed By: Self Edit Transcribed Date: 03/19/2024 17:20 ET us Sarah Grupo ABREU IMG XR PROCEDURES Final Result documented in this encounter Visit Diagnoses Diagnosis Dry cough Cough Shortness of breath Encounter for screening mammogram for breast cancer documented in this encounter Care Teams Community Service Patrol Officer Relationship Specialty Start Date End Date Daryl Guerin PA [address] [place] [address] PCP - General Internal Medicine 04/16/20 documented as of this encounter
--- OUTSIDE RECORDS SUMMARY | 2024-04-09 06:21 | XMS_ITS | Clinical Summary ---
Author Organization [facility] Address [address] [place] [address] Care Team Providers Care Adaptive Physical Education Teacher Name Role Phone Daryl Guerin PA-C Primary [...] age to complete this topic Care Teams Adaptive Physical Education Teacher Relationship Specialty Start Date End Date Daryl uGerin, PAOscarC PCP - General Medical Services 01/24/23
--- OUTSIDE RECORDS SUMMARY | 2024-04-09 06:21 | XMS_ITS | Encounter Summary ---
Author Organization [facility] Address [address] [place] [address] Care Team Providers Care Tariff Supervisor Name Role Phone Daryl Guerin Primary Care Provider [phone] Reason for Visit * Reason Comments Cough Encounter Details Date Type Department Care Team (Late st Contact Info) Description 03/19/2024 12:45 PM EST Office Visit Adult Medicine [facility] [address] [place], [place] [phone] Charles Lombardo PA [address] [place], [place] Viral syndrome (Primary Dx); Nausea; Vertigo; [...] for many years. 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 Nausea 3. Vertigo 4. Primary hypertension Medication and lab orders: Orders Placed This Encounter Procedures XR Chest 2 Views POC Influenza A/B manually resulted Poc Rapid [id number], MOLECULAR Other orders: None Patient complaining of [...] 10:45 AM EDT Appointment Bone Density - [address] [phone] 06/29/2024 11:30 AM EDT Appointment Radiology Department - [address] [phone] 07/16/2024 11:00 AM EDT Office Visit Endocrinology - [address] [phone] Maryuri Patino PA [address] [place], [place] 08/21/2024 10:45 AM EDT Office Visit [facility] Hematology Oncology [address] [place] [phone] Elaine Pinto DO [address] [place] [address] documented as of this encounter Procedures Procedure Name Priority Date/Time Associated Diagnosis Comments POC RAPID [id number], MOLECULAR Routine 03/19/2024 1:16 PM EST Viral [...] Signed Date: 03/19/2024 17:21 ET Workstation ID: [id number] Transcribed By: Self Edit Transcribed Date: 03/19/2024 17:20 ET Narrative 03/19/2024 5:21 PM EST HISTORY: dry cough, sob x 4 days TECHNIQUE: PA and lateral radiographs of the chest COMPARISON: None FINDINGS: There is a normal cardiomediastinal silhouette. The lungs are clear. ??Moderate degenerative changes of the thoracic spine. Procedure Note Csai Harris MD - 03/19/2024 HISTORY: dry cough, [...] Signed Date: 03/19/2024 17:21 ET Workstation ID: [id number] Transcribed By: Self Edit Transcribed Date: 03/19/2024 17:20 ET us Charles Grupo ABREU IMG XR PROCEDURES Final Result * Poc Rapid [id number], MOLECULAR (03/19/2024 1:16 PM EST) COVID-19/SARS- COV-2 [...] cancer documented in this encounter Care Teams Tariff Supervisor Relationship Specialty Start Date End Date Daryl Guerin PA [address] [place] [phone] PCP - General Internal Medicine 04/16/20 documented as of this encounter
--- OUTSIDE RECORDS SUMMARY | 2024-04-09 06:21 | XMS_ITS | Clinical Summary ---
Author Organization [facility] Address [address] [place] [address] Phone Care Team Providers Care Senior Javascript Developer Name Role Phone Daryl Guerin Primary Care Provider [phone] [phone] Allergies No known active allergies Medications aspirin [...] topically 2 (two) times a day. Active CHOLECALCIFERO L, VITAMIN D3, ORAL Take by mouth 1 [...] 25 026 Active ondansetron (ZOFRAN) 4 mg tabletIndicati ons:Nausea Take 1 tablet (4 mg total) by [...] mg capsule Take by mouth. 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 Benign essential hypertension 11/11/2004 Encounters Date Type Department Care Team Description 03/19/2024 1:30 PM EST - 03/19/2024 11:59 PM EST Hospital Encounter [address] [address] Dry cough; Shortness of breath Discharge Disposition: Home or Self Care 03/19/2024 12:45 PM EST Office Visit Adult Medicine [address] [phone] Sarah Lombardo PA Viral syndrome (Primary Dx); Nausea; Vertigo; Primary hypertension 02/22/2024 11:30 AM EST Office Visit [facility] Hematology Oncology [address] [place] [address] Elaine Pinto DO Monoclonal gammopathy (Primary Dx); Mild anemia; Light headedness 02/16/2024 2:00 PM EST Office Visit Endocrinology [address] [address] Maryuri Patino PA Hyperparathyroidism (CMS/HCC) (Primary Dx); [...] COMMENT: breast bx benign COLONOSCOPY 07/01/2010 PROCEDURE: PA COLONOSCOPY FLX DX W/COLLJ SPEC WHEN PFRMD; [...] 10:45 AM EDT Appointment Bone Density - [place] [address] [place] [phone] 06/29/2024 11:30 AM EDT Appointment Radiology Department - [address] [address] 07/16/2024 11:00 AM EDT Office Visit Endocrinology - [place] [address] [place] [address] Maryuri Patino PA [address] [place] [address] 08/21/2024 10:45 AM EDT Office Visit [facility] Hematology Oncology [address] [place] [address] Elaine Pinto, [address] [place] [address] Health Maintenance Due Date Last Done Comments Depression Screening 01/23/2022 Falls Risk Assessment 01/23/2022 Medicare Annual Wellness Visit 01/23/2022 Social Influencers of Health Screening 01/23/2022 Zoster Vaccines (3 of 3) 12/28/2023 11/02/2023, 02/15 DTaP,Tdap,and Td Vaccines (3 - Td or Tdap) 05/07/2024 05/07/2014, 07/29/2004 Hypertension/CHF/CAD Annual BMP Blood Test 02/21/2025 02/22/2024, [...] Dry cough Shortness of breath POC RAPID [id number], MOLECULAR Routine 03/19/2024 1:16 PM EST Viral syndrome POC INFLUENZA A/B Routine 03/19/2024 1:1 6 PM EST Viral syndrome PA PROTEIN ELECTROPHORETIC FRACTIONATION & QUANTITATION SERUM Routine [...] Signed Date: 03/19/2024 17:21 ET Workstation ID: [id number] Transcribed By: Self Edit Transcribed Date: 03/19/2024 [...] Signed Date: 03/19/2024 17:21 ET Workstation ID: [id number] Transcribed By: Self Edit Transcribed Date: 03/19/2024 17:20 ET us Sarah Lombardo PA IMG XR PROCEDURES Final Result * Poc Rapid [id number], MOLECULAR (03/19/2024 1:16 PM EST) COVID-19/SARS- COV-2 Rapid POC Negative Negative Internal Control Pass Yes Yes Swab Nasopharyngeal structure / Unknown 03/19/2024 1:16 PM EST us Sarah Lombardo PA POINT OF CARE TEST ENTER/EDIT OR DERABLES Final Result * POC Influenza A/B manually resulted (03/19/2024 1:16 PM EST) Rapid Influenza A AGN POC Negative Negative Rapid Influenza B AGN POC Negative Negative Internal Control Pass Yes Yes Swab 03/19/2024 1:16 PM EST us Sarah Lombardo PA POINT OF CARE TEST ENTER/EDIT OR DERABLES Final Result * PATHOLOGIST REVIEW PROTEIN ELECTROPHORESIS (02/22/2024 12:54 PM EST) Pathologist Interpretation 02/24/2024 3:09 PM EST [facility]) [facility] Blood Venous blood specimen / Unknown Venipuncture / Unknown 02/22/2024 12:54 PM EST 02/22/2024 1:33 PM EST Elaine Alfreda Pinto DO LAB BLOOD ORDERABLES Final Result [facility] [address] [place] [address], * (ABNORMAL) Clay-lambda free light chains, quantitative (02/22/2024 12:54 PM EST) Clay Free Light Chain 3.12(H) 0.33 - 1.94 mg/dL 02/27/2024 12:33 PM EST [facility] Lambda Free Light Chain 2.68(H) 0.57 - 2.63 mg/dL 02/27/2024 12:33 PM EST [facility] Clay/Lambda FLC Ratio 1.16 0.26 - 1.65 02/27/2024 12:33 PM EST [facility] Comment: Test performed at [facility], [email or web address] , [place], [place] ??[address] ? [phone] Lulu Rangel MD, PhD - Promotional Marketing Agent Blood Venous blood specimen / Unknown Venipuncture / Unknown 02/22/2024 12:54 PM EST 02/22/2024 1:33 PM EST Elaine Pinto DO LAB BLOOD ORDERABLES Final Result [facility] [address] [email or web address] [address] * Immunoglobulins IgG, IgA, IgM, IgE (02/22/2024 12:54 PM EST) Total IgG 1,500 549 - 1,584 mg/dL LAB CHEMISTRY METHOD 02/22/2024 2:11 PM EST [facility] IgA 199 61 - 348 mg/dL LAB CHEMISTRY METHOD 02/22/2024 2:11 PM EST [facility] IgM 92 23 - 259 mg/dL LAB CHEMISTRY METHOD 02/22/2024 2:11 PM [facility] IgE 86.2 0.0 - 158.0 I Unit/mL LAB CHEMISTRY METHOD 02/22/2024 2:11 PM EST [facility] Blood Venous blood specimen / Unknown Venipuncture / Unknown 02/22/2024 12:54 PM EST 02/22/2024 1:33 PM EST Elaine Pinto DO LAB BLOOD ORDERABLES Final Result [facility] [address] [place] [address], * (ABNORMAL) CBC auto differential (02/22/2024 12:54 PM EST) WBC 10.9(H) 4.8 - 10.8 K/mcL LAB HEMETOLOGY METHOD 02/22/2024 1:45 PM [facility] RBC 3.20(L) 3.80 - 4.80 M/mcL LAB HEMETOLOGY METHOD 02/22/2024 1:45 PM [facility] Hemoglobin 9.4(L) 11.5 - 16.0 g/dL LAB HEMETOLOGY METHOD 02/22/2024 1:45 PM [facility] Hematocrit 31.2(L) 35.0 - 47.0 % LAB HEMETOLOGY METHOD 02/22/2024 1:45 PM [facility] MCV 98.1(H) 79.0 - 98.0 FL LAB HEMETOLOGY METHOD 02/22/2024 1:45 PM [facility] MCH 29.6 27.0 - 32.0 pcg LAB HEMETOLOGY METHOD 02/22/2024 1:45 PM [facility] MCHC 30.1(L) 32.0 - 37.0 g/dL LAB HEMETOLOGY METHOD 02/22/2024 1:45 PM [facility] RDW 14.1 11.0 - 15.0 % LAB HEMETOLOGY METHOD 02/22/2024 1:45 PM [facility] Platelets 374 130 - 400 K/mcL LAB HEMETOLOGY METHOD 02/22/2024 1:45 PM [facility] MPV 11.5(H) 7.0 - 11.0 FL LAB HEMETOLOGY METHOD 02/22/2024 1:45 PM [facility] NRBC 0.0 <1.0 % LAB HEMETOLOGY METHOD 02/22/2024 1:45 PM [facility] NRBC Absolute 0.00 <0.10 K/mcL LAB HEMETOLOGY METHOD 02/22/2024 1:45 PM [facility] Neutrophils Relative 81.7 % LAB HEMETOLOGY METHOD 02/22/2024 1:45 PM [facility] Lymphocytes Relative 10.4 % LAB HEMETOLOGY METHOD 02/22/2024 1:45 PM [facility] Monocytes Relative 6.2 % LAB HEMETOLOGY METHOD 02/22/2024 1:45 PM [facility] Eosinophils Relative 0.5 % LAB HEMETOLOGY METHOD 02/22/2024 1:45 PM [facility] Basophils Relative 0.7 % LAB HEMETOLOGY METHOD 02/22/2024 1:45 PM [facility] Immature Granulocytes Relative 0.5 % LAB HEMETOLOGY METHOD 02/22/2024 1:45 PM [facility] Neutrophils Absolute 8.91(H) 1.50 - 7.00 K/mcL LAB HEMETOLOGY METHOD 02/22/2024 1:45 PM EST [facility] Lymphocytes Absolute 1.13 1.00 - 5.00 K/mcL LAB HEMETOLOGY METHOD 02/22/2024 1:45 PM EST [facility] Monocytes Absolute 0.68 0.20 - 1.00 K/[facility] HEMETOLOGY METHOD 02/22/2024 1:45 PM EST [facility] Eosinophils Absolute 0.06 0.00 - 0.50 K/[facility] HEMETOLOGY METHOD 02/22/2024 1:45 PM EST [facility] Basophils Absolute 0.08 0.00 - 0.20 K/[facility] HEMETOLOGY METHOD 02/22/2024 1:45 PM EST [facility] Immature Granulocytes Absolute 0.05(H) 0.00 - 0.03 K/[facility] HEMETOLOGY METHOD 02/22/2024 1:45 PM EST [facility] Blood Venous blood specimen / Unknown Venipuncture / Unknown 02/22/2024 12:54 PM EST 02/22/2024 1:32 PM EST Elaine Pinto DO LAB BLOOD ORDERABLES Final Result [facility] [address] [place] [address], * (ABNORMAL) Creatinine (02/22/2024 12:54 PM EST) Creatinine 1.40(H) 0.50 - 1.10 mg/dL LAB CHEMISTRY METHOD 02/22/2024 2:03 PM EST [facility] eGFR 38(L) >=60 mL/min/1. 73m2 LAB CHEMISTRY METHOD 02/22/2024 2:03 PM EST [facility] Comment:Calculation based on the??Chronic Kidney Disease Epidemiology Collaboration (CKD-EPI) equation refit??without adjustment for race. Blood Venous blood specimen / Unknown Venipuncture / Unknown 02/22/2024 12:54 PM EST 02/22/2024 1:33 PM EST Elaine Gant Millie DO LAB BLOOD ORDERABLES Final Result [facility] [address] [place] [address], * Protein electrophoresis, serum (02/22/2024 12:54 PM EST) Total Protein 7.7 6.0 - 8.0 g/dL LAB CHEMISTRY METHOD 02/24/2024 3:09 PM [facility] Albumin, Serum 3.4 2.9 - 4.1 g/dL LAB CHEMISTRY METHOD 02/24/2024 3:09 PM [facility] Alpha 1 Globulin (g/dL) 0.4 0.1 - 0.5 g/dL LAB CHEMISTRY METHOD 02/24/2024 3:09 PM [facility] Alpha 2 Globulin (g/dL) 1.3 0.7 - 1.5 g/dL LAB CHEMISTRY METHOD 02/24/2024 3:09 PM [facility] Beta (g/dL) 1.3 0.7 - 1.5 g/dL LAB CHEMISTRY METHOD 02/24/2024 3:09 PM [facility] Gamma Globulin (g/dL) 1.4 0.7 - 1.9 g/dL LAB CHEMISTRY METHOD 02/24/2024 3:09 PM [facility] PARAPROTEIN 0.5 g/dL LAB CHEMISTRY METHOD 02/24/2024 3:09 PM [facility] SPEP Interpretation Monoclonal gammopathy. Abnormal pattern with M-spike of gamma globulin mobility. Serum immunofixation previously performed on 06/08/2023 demonstrated IgG Lambda monoclonal protein. LAB CHEMISTRY METHOD 02/24/2024 3:09 PM EST [facility] Blood Venous blood specimen / Unknown Venipuncture / Unknown 02/22/2024 12:54 PM EST 02/22/2024 1:33 PM EST Elaine Alfreda Pinto LAB BLOOD ORDERABLES Final Result [facility] [address] [place] [address], [place] [phone] * Protein, total (02/22/2024 12:54 PM EST) Total Protein 7.7 6.0 - 8.0 g/dL LAB CHEMISTRY METHOD 02/22/2024 2:08 PM EST [facility] Blood Venous blood specimen / Unknown Venipuncture / Unknown 02/22/2024 12:54 PM EST 02/22/2024 1:33 PM EST Elaine Pinto LAB BLOOD ORDERABLES Final Result Performing Organization Address City/[facility]/ZIP Co de Phone Number [facility] [address] [place] [address], [place] [phone] * Calcium (02/22/2024 12:54 PM EST) Calcium 10.4 8.5 - 10.5 mg/dL LAB CHEMISTRY METHOD 02/22/2024 2:03 PM EST [facility] Blood Venous blood specimen / Unknown Venipuncture / Unknown 02/22/2024 12:54 PM EST 02/22/2024 1:33 PM EST Elaine Pinto DO LAB BLOOD ORDERABLES Final Result [facility] [address] [place] [address], [place] [phone] * Calcium, urine, 24H (02/21/2024 11:41 AM EST) Calcium, Ur 10.0 mg/dL LAB CHEMISTRY METHOD 02/21/2024 4:12 PM [facility] Calcium, 24H Urine 150 50 - 400 mg/24 hr LAB CHEMISTRY METHOD 02/21/2024 4:12 PM [facility] Urine Volume 1,500 mL LAB CHEMISTRY METHOD 02/21/2024 4:12 PM [facility] Collection Interval, Ur 24 hr LAB CHEMISTRY METHOD 02/21/2024 4:12 PM [facility] Urine Urine specimen from urethra / Unknown Non-blood Collection / Unknown 02/21/2024 11:41 AM EST 02/21/2024 11:41 AM EST Maryuri ABREU LAB URINE ORDERABLES Final Resul t [facility] [address] [place] [address], [place] [phone] * (ABNORMAL) Basic metabolic panel (02/21/2024 11:41 AM EST) Pathologist [facility] Sodium 133 133 - 145 mmol/L LAB CHEMISTRY METHOD 02/21/2024 2:36 PM [facility] Potassium 5.4 3.5 - 5.5 mmol/L LAB CHEMISTRY METHOD 02/21/2024 2:36 PM [facility] Chloride 104 96 - 110 mmol/L LAB CHEMISTRY METHOD 02/21/2024 2:36 PM [facility] CO2 24 21 - 32 mmol/L LAB CHEMISTRY METHOD 02/21/2024 2:36 PM [facility] Anion Gap 5 3 - 11 LAB CHEMISTRY METHOD 02/21/2024 2:36 PM [facility] Glucose 106(H) 70 - 100 mg/dL LAB CHEMISTRY METHOD 02/21/2024 2:36 PM EST [facility] BUN 28(H) 5 - 25 mg/dL LAB CHEMISTRY METHOD 02/21/2024 2:36 PM [facility] Creatinine 1.22(H) 0.50 - 1.10 mg/dL LAB CHEMISTRY METHOD 02/21/2024 2:36 PM [facility] eGFR 45(L) >=60 mL/min/1. 73m2 LAB CHEMISTRY METHOD 02/21/2024 2:36 PM [facility] Comment:Calculation based on the??Chronic Kidney Disease Epidemiology Collaboration (CKD-EPI) equation refit??without adjustment for race. BUN/Creatinine Ratio 23.0 LAB CHEMISTRY METHOD 02/21/2024 2:36 PM [facility] Calcium 10.5 8.5 - 10.5 mg/dL LAB CHEMISTRY METHOD 02/21/2024 2:36 PM [facility] Blood Venous blood specimen / Unknown Venipuncture / Unknown 02/21/2024 11:41 AM EST 02/21/2024 11:41 AM EST Maryuri ABREU LAB BLOOD ORDERABLES Final Resul t [facility] [address] [place] [address], * Vitamin D 25 hydroxy (02/16/2024 3:09 PM EST) Vit D, 25-Hydroxy 43.5 30.0 - 80.0 ng/mL LAB CHEMISTRY METHOD 02/16/2024 7:12 PM EST [facility] Blood Venous blood specimen / Unknown Venipuncture / Unknown 02/16/2024 3:09 PM EST 02/16/2024 3:09 PM EST us Maryuri ABREU LAB BLOOD ORDERABLES Final Resul t [facility] [address] [place] [address], [place] [phone] * (ABNORMAL) Parathyroid hormone intact (02/16/2024 3:09 PM EST) PTH 141.9(H) 18.5 - 88.0 pcg/mL LAB CHEMISTRY METHOD 02/16/2024 7:12 PM EST [facility] Blood Venous blood specimen / Unknown Venipuncture / Unknown 02/16/2024 3:09 PM EST 02/16/2024 3:09 PM EST us Maryuri ABREU LAB BLOOD ORDERABLES Final Resul t Performing Organization Address City/State/[facility] Co de Phone Number [facility] [address] [place] [address], [place] [phone] * DXA BONE DENSITY STUDY 1+ SITS [...] on the World Health Organization criteria, Paulette Read should be classified as having osteoporosis. [facility] Department of Internal Medicine recommends using National [...] on the World Health Organization criteria, Paulette Read should beclassified as having osteoporosis. [facility] Department of Internal Medicine recommendsusing National Osteoporosis [...] risk by FRAX. us Sarah Grupo ABREU IMG DXA PROCEDURES Final Result from Last 3 Months or Most Recently Relevant to Health Maintenance [facility] Care Teams Senior Javascript Developer Relationship Specialty Start Date End Date Daryl Guerin PA [address] [place] [address] PCP - General Internal Medicine 04/16/20
[2024-04-09 06:42] LABS: Basophils Absolute Auto 0.1 X10*3/uL (0.0-0.2); Basophils Percent Auto 0.6 % (0-2); Eosinophils Absolute Auto 0.1 X10*3/uL (0.0-0.4); Eosinophils Percent Auto 0.6 % (0-4); Hemoglobin 8.3 g/dl (12.0-16.0); Imm Gran Abs Auto 0.25 X10*3/uL (0.00-0.03); Imm Gran Pct Auto 1.2 % (0.0-0.4); Lymphocytes Absolute Auto 1.2 X10*3/uL (1.2-4.9); Lymphocytes Percent Auto 5.5 % (20-40); MANUAL DIFF FLAG SCAN; Mean Corpuscular HGB Conc 30.7 g/dl (31.0-35.0); Mean Corpuscular Volume 87.9 fL (80.0-98.0); Mean Platelet Volume 10.8 fL (9.4-12.3); Monocytes Absolute Auto 1.6 X10*3/uL (0.1-1.2); Monocytes Percent Auto 7.4 % (2-11); Neutrophils Absolute Auto 17.8 x10*3/uL (2.0-8.3); Neutrophils Percent Auto 84.7 % (45-73); Platelet Count 574 X10*3/uL (160-400); Red Blood Count 3.07 X10*6/uL (4.20-5.50); Red Cell Distribution Width 17.9 % (11.0-16.0); SCAN SMEAR FLAG 1
[2024-04-09 07:02] LABS: Anion Gap 13 (12-20); Blood Urea Nitrogen 17 mg/dL (9-16); Calcium 9.3 mg/dL (8.4-10.2); Carbon Dioxide 23 mmol/L (22-29); Chloride 105 mmol/L (96-108); Estimated Glomerular Filt Rate > 60; Glucose Random 85 mg/dL (60-115); Potassium 3.5 mmol/L (3.3-5.1); Sodium 137 mmol/L (135-145)
[2024-04-09 07:16] LABS: SLIDE REVIEW VERIFIED
== END 2024-04-09 06:20 | disposition home or self-care (01) ==
LOC: HO.MMNH2L 06:19
PROVIDERS: Visit Provider Student in an Organized Health Care Education/Training Program
DX: G93.41 Metabolic encephalopathy (principal); J18.9 Pneumonia, unspecified organism
CPT/HCPCS: 36415; 80048; 85025

== ENCOUNTER 2024-04-16 06:20 | Outpatient (REF) | payer MEDICARE, SELFPAY ==
--- OUTSIDE RECORDS SUMMARY | 2024-04-16 06:34 | XMS_ITS | Encounter Summary ---
Author Organization [facility] Address [address] [place] [address] Care Team Providers Care Securities Broker Name Role Phone Daryl Guerin Primary Care Provider [phone] Encounter Details Date Type Department Care Team (Latest Contact Info) Description 03/19/2024 1:30 PM EST - 03/19/2024 11:59 PM EST Hospital Encounter XRAY - [place] [address] [place] [address] Dry cough; Shortness of breath Discharge Disposition: [...] AM EDT Appointment Bone Density - [place] [address] [place] [phone] 06/29/2024 11:30 AM EDT Appointment Radiology Department - [place] [address] [place] [phone] 07/16/2024 11:00 AM EDT Office Visit Endocrinology - [place] [address] [place] [address] Maryuri Patino PA [address] [place] [address] 08/21/2024 10:45 AM EDT Office Visit [facility] Hematology Oncology [address] [place] [address] Elaine Pinto, DO [address] [place] [address] documented as of this encounter Procedures Procedure [...] Signed Date: 03/19/2024 17:21 ET Workstation ID: [id number] Transcribed By: Self Edit Transcribed Date: 03/19/2024 [...] Signed Date: 03/19/2024 17:21 ET Workstation ID: [id number] Transcribed By: Self Edit Transcribed Date: 03/19/2024 17:20 ET us Sarah Grupo ABREU IMG XR PROCEDURES Final Result documented in this encounter Visit Diagnoses Diagnosis Dry cough Cough Shortness of breath Encounter for screening mammogram for breast cancer documented in this encounter Care Teams Securities Broker Relationship Specialty Start Date End Date Daryl Guerin PA [address] [place] [address] PCP - General Internal Medicine 04/16/20 documented as of this encounter
--- OUTSIDE RECORDS SUMMARY | 2024-04-16 06:34 | XMS_ITS | Clinical Summary ---
Author Organization [facility] Address [address] [place] [address] Phone Care Team Providers Care Plaster Block Layer Name Role Phone Daryl Guerin Primary Care Provider [phone] [phone] Allergies No known active allergies Medications aspirin [...] - 03/19/2024 11:59 PM EST Hospital Encounter [address] [address] Dry cough; Shortness of breath Discharge Disposition: Home or Self Care 03/19/2024 12:45 PM EST Office Visit Adult Medicine [address] [address] Sarah Lombardo PA Viral syndrome (Primary Dx); Nausea; Vertigo; Primary hypertension 02/22/2024 11:30 AM EST Office Visit [facility] Hematology Oncology [address] [place] [address] Elaine Pinto DO Monoclonal gammopathy (Primary Dx); Mild anemia; Light headedness 02/16/2024 2:00 PM EST Office Visit Endocrinology [address] [address] Maryuri Patino PA Hyperparathyroidism (CMS/HCC) (Primary Dx); [...] COMMENT: breast bx benign COLONOSCOPY 07/01/2010 PROCEDURE: [place] COLONOSCOPY FLX DX W/COLLJ SPEC WHEN PFRMD; [...] 10:45 AM EDT Appointment Bone Density [place] [address] [place] [phone] 06/29/2024 11:30 AM EDT Appointment Radiology Department - [address] [address] 07/16/2024 11:00 AM EDT Office Visit Endocrinology - [place] [address] [place] [address] Maryuri Patino PA [address] [place] [address] 08/21/2024 10:45 AM EDT Office Visit [facility] Hematology Oncology [address] [place] [address] Elaine Pinto, [address] [place] [address] Health Maintenance Due Date Last Done Comments [...] Dry cough Shortness of breath POC RAPID [id number], MOLECULAR Routine 03/19/2024 1:16 PM EST Viral syndrome POC INFLUENZA A/B Routine 03/19/2024 1:1 6 PM EST Viral syndrome [place] PROTEIN ELECTROPHORETIC FRACTIONATION & QUANTITATION SERUM Routine [...] Signed Date: 03/19/2024 17:21 ET Workstation ID: [id number] Transcribed By: Self Edit Transcribed Date: 03/19/2024 [...] Signed Date: 03/19/2024 17:21 ET Workstation ID: [id number] Transcribed By: Self Edit Transcribed Date: 03/19/2024 17:20 ET us Sarah Lombardo PA IMG XR PROCEDURES Final Result * Poc Rapid [id number], MOLECULAR (03/19/2024 1:16 PM EST) COVID-19/SARS- COV-2 [...] EST) Pathologist Interpretation 02/24/2024 3:09 PM EST [facility]) [facility] Blood Venous blood specimen / Unknown Venipuncture / Unknown 02/22/2024 12:54 PM EST 02/22/2024 1:33 PM EST Elaine Alfreda Pinto DO LAB BLOOD ORDERABLES Final Result [facility] ([facility]) [facility] [address] [place] [address], * (ABNORMAL) [place]-lambda free light chains, quantitative (02/22/2024 12:54 PM EST) [place] Free Light Chain 3.12(H) 0.33 - 1.94 mg/dL 02/27/2024 12:33 PM EST [facility] Lambda Free Light Chain 2.68(H) 0.57 - 2.63 mg/dL 02/27/2024 12:33 PM EST [facility] Mal[place]/Lambda FLC Ratio 1.16 0.26 - 1.65 02/27/2024 12:33 PM EST [facility] Comment: Test performed at [facility], [address] , [place], [place] ??[address] ? [phone] Lulu Rangel MD, PhD - Eligibility Supervisor Blood Venous blood specimen / Unknown Venipuncture / Unknown 02/22/2024 12:54 PM EST 02/22/2024 1:33 PM EST Elaine Pinto DO LAB BLOOD ORDERABLES Final Result [facility] [address] [place] [address] * Immunoglobulins IgG, IgA, IgM, IgE (02/22/2024 12:54 PM EST) Total IgG 1,500 549 - 1,584 mg/dL LAB CHEMISTRY METHOD 02/22/2024 2:[address] [facility] IgA 199 61 - 348 mg/dL LAB CHEMISTRY METHOD 02/22/2024 2:[address] [facility] IgM 92 23 - 259 mg/dL LAB CHEMISTRY METHOD 02/22/2024 2:[address] [facility] IgE 86.2 0.0 - 158.0 I Unit/mL LAB CHEMISTRY METHOD 02/22/2024 2:[address] [facility] Blood Venous blood specimen / Unknown Venipuncture / Unknown 02/22/2024 12:54 PM EST 02/22/2024 1:33 PM EST Elaine Pinto DO LAB BLOOD ORDERABLES Final Result [facility] [address] [place] [address], * (ABNORMAL) CBC auto differential (02/22/2024 12:54 PM EST) WBC 10.9(H) 4.8 - 10.8 K/mcL LAB HEMETOLOGY METHOD 02/22/2024 1:[address] [facility] RBC 3.20(L) 3.80 - 4.80 M/mcL LAB HEMETOLOGY METHOD 02/22/2024 1:[address] [facility] Hemoglobin 9.4(L) 11.5 - 16.0 g/dL LAB HEMETOLOGY METHOD 02/22/2024 1:[address] [facility] Hematocrit 31.2(L) 35.0 - 47.0 % LAB HEMETOLOGY METHOD 02/22/2024 1:[address] [facility] MCV 98.1(H) 79.0 - 98.0 FL LAB HEMETOLOGY METHOD 02/22/2024 1:[address] [facility] MCH 29.6 27.0 - 32.0 pcg LAB HEMETOLOGY METHOD 02/22/2024 1:[address] [facility] MCHC 30.1(L) 32.0 - 37.0 g/dL LAB HEMETOLOGY METHOD 02/22/2024 1:[address] [facility] RDW 14.1 11.0 - 15.0 % LAB HEMETOLOGY METHOD 02/22/2024 1:[address] [facility] Platelets 374 130 - 400 K/mcL LAB HEMETOLOGY METHOD 02/22/2024 1:[address] [facility] MPV 11.5(H) 7.0 - 11.0 FL LAB HEMETOLOGY METHOD 02/22/2024 1:[address] [facility] NRBC 0.0 <1.0 % LAB HEMETOLOGY METHOD 02/22/2024 1:[address] [facility] NRBC Absolute 0.00 <0.10 K/mcL LAB HEMETOLOGY METHOD 02/22/2024 1:[address] [facility] Neutrophils Relative 81.7 % LAB HEMETOLOGY METHOD 02/22/2024 1:[address] [facility] Lymphocytes Relative 10.4 % LAB HEMETOLOGY METHOD 02/22/2024 1:[address] [facility] Monocytes Relative 6.2 % LAB HEMETOLOGY METHOD 02/22/2024 1:[address] [facility] Eosinophils Relative 0.5 % LAB HEMETOLOGY METHOD 02/22/2024 1:[address] [facility] Basophils Relative 0.7 % LAB HEMETOLOGY METHOD 02/22/2024 1:[address] [facility] Immature Granulocytes Relative 0.5 % LAB HEMETOLOGY METHOD 02/22/2024 1:[address] [facility] Neutrophils Absolute 8.91(H) 1.50 - 7.00 K/mcL LAB HEMETOLOGY METHOD 02/22/2024 1:[address] [facility] Lymphocytes Absolute 1.13 1.00 - 5.00 K/mcL LAB HEMETOLOGY METHOD 02/22/2024 1:[address] [facility] Monocytes Absolute 0.68 0.20 - 1.00 K/[facility] HEMETOLOGY METHOD 02/22/2024 1:[address] [facility] Eosinophils Absolute 0.06 0.00 - 0.50 K/[facility] HEMETOLOGY METHOD 02/22/2024 1:[address] [facility] Basophils Absolute 0.08 0.00 - 0.20 K/[facility] HEMETOLOGY METHOD 02/22/2024 1:[address] [facility] Immature Granulocytes Absolute 0.05(H) 0.00 - 0.03 K/[facility] HEMETOLOGY METHOD 02/22/2024 1:[address] [facility] Blood Venous blood specimen / Unknown Venipuncture / Unknown 02/22/2024 12:54 PM EST 02/22/2024 1:32 PM EST Elaine Pinto DO LAB BLOOD ORDERABLES Final Result [facility] [address] [place] [address], * (ABNORMAL) Creatinine (02/22/2024 12:54 PM EST) Creatinine 1.40(H) 0.50 - 1.10 mg/dL LAB CHEMISTRY METHOD 02/22/2024 2:[address] [facility] eGFR 38(L) >=60 mL/min/1. 73m2 LAB CHEMISTRY METHOD 02/22/2024 2:[address] [facility] Comment:Calculation based on the??Chronic Kidney Disease Epidemiology Collaboration (CKD-EPI) equation refit??without adjustment for race. Blood Venous blood specimen / Unknown Venipuncture / Unknown 02/22/2024 12:54 PM EST 02/22/2024 1:33 PM EST Elaine Gant Millie DO LAB BLOOD ORDERABLES Final Result [facility] [address] [place] [address], * Protein electrophoresis, serum (02/22/2024 12:54 PM EST) Total Protein 7.7 6.0 - 8.0 g/dL LAB CHEMISTRY METHOD 02/24/2024 3:[address] [facility] Albumin, Serum 3.4 2.9 - 4.1 g/dL LAB CHEMISTRY METHOD 02/24/2024 3:[address] [facility] Alpha 1 Globulin (g/dL) 0.4 0.1 - 0.5 g/dL LAB CHEMISTRY METHOD 02/24/2024 3:[address] [facility] Alpha 2 Globulin (g/dL) 1.3 0.7 - 1.5 g/dL LAB CHEMISTRY METHOD 02/24/2024 3:[address] [facility] Beta (g/dL) 1.3 0.7 - 1.5 g/dL LAB CHEMISTRY METHOD 02/24/2024 3:[address] [facility] Gamma Globulin (g/dL) 1.4 0.7 - 1.9 g/dL LAB CHEMISTRY METHOD 02/24/2024 3:[address] [facility] PARAPROTEIN 0.5 g/dL LAB CHEMISTRY METHOD 02/24/2024 3:[address] [facility] SPEP Interpretation Monoclonal gammopathy. Abnormal pattern with M-spike of gamma globulin mobility. Serum immunofixation previously performed on 06/08/2023 demonstrated IgG Lambda monoclonal protein. LAB CHEMISTRY METHOD 02/24/2024 3:[address] [facility] Blood Venous blood specimen / Unknown Venipuncture / Unknown 02/22/2024 12:54 PM EST 02/22/2024 1:33 PM EST Elaine Alfreda Pinto LAB BLOOD ORDERABLES Final Result [facility] [address] [place] [address], [place] [phone] * Protein, total (02/22/2024 12:54 PM EST) Total Protein 7.7 6.0 - 8.0 g/dL LAB CHEMISTRY METHOD 02/22/2024 2:[address] [facility] Blood Venous blood specimen / Unknown Venipuncture / Unknown 02/22/2024 12:54 PM EST 02/22/2024 1:33 PM EST Elaine Pinto LAB BLOOD ORDERABLES Final Result Performing Organization Address City/[facility]/ZIP Co de Phone Number [facility] [address] [place] [address], [place] [phone] * Calcium (02/22/2024 12:54 PM EST) Calcium 10.4 8.5 - 10.5 mg/dL LAB CHEMISTRY METHOD 02/22/2024 2:[address] [facility] Blood Venous blood specimen / Unknown Venipuncture / Unknown 02/22/2024 12:54 PM EST 02/22/2024 1:33 PM EST Elaine Pinto DO LAB BLOOD ORDERABLES Final Result [facility] [address] [place] [address], [place] [phone] * Calcium, urine, 24H (02/21/2024 11:41 AM EST) Calcium, Ur 10.0 mg/dL LAB CHEMISTRY METHOD 02/21/2024 4:[address] [facility] Calcium, 24H Urine 150 50 - 400 mg/24 hr LAB CHEMISTRY METHOD 02/21/2024 4:[address] [facility] Urine Volume 1,500 mL LAB CHEMISTRY METHOD 02/21/2024 4:[address] [facility] Collection Interval, Ur 24 hr LAB CHEMISTRY METHOD 02/21/2024 4:[address] [facility] Urine Urine specimen from urethra / Unknown Non-blood Collection / Unknown 02/21/2024 11:41 AM EST 02/21/2024 11:41 AM EST Maryuri ABREU LAB URINE ORDERABLES Final Resul t [facility] [address] [place] [address], [place] [phone] * (ABNORMAL) Basic metabolic panel (02/21/2024 11:41 AM EST) Pathologist [facility] Sodium 133 133 - 145 mmol/L LAB CHEMISTRY METHOD 02/21/2024 2:[address] [facility] Potassium 5.4 3.5 - 5.5 mmol/L LAB CHEMISTRY METHOD 02/21/2024 2:[address] [facility] Chloride 104 96 - 110 mmol/L LAB CHEMISTRY METHOD 02/21/2024 2:[address] [facility] CO2 24 21 - 32 mmol/L LAB CHEMISTRY METHOD 02/21/2024 2:[address] [facility] Anion Gap 5 3 - 11 LAB CHEMISTRY METHOD 02/21/2024 2:[address] [facility] Glucose 106(H) 70 - 100 mg/dL LAB CHEMISTRY METHOD 02/21/2024 2:[address] [facility] BUN 28(H) 5 - 25 mg/dL LAB CHEMISTRY METHOD 02/21/2024 2:[address] [facility] Creatinine 1.22(H) 0.50 - 1.10 mg/dL LAB CHEMISTRY METHOD 02/21/2024 2:[address] [facility] eGFR 45(L) >=60 mL/min/1. 73m2 LAB CHEMISTRY METHOD 02/21/2024 2:[address] [facility] Comment:Calculation based on the??Chronic Kidney Disease Epidemiology Collaboration (CKD-EPI) equation refit??without adjustment for race. BUN/Creatinine Ratio 23.0 LAB CHEMISTRY METHOD 02/21/2024 2:[address] [facility] Calcium 10.5 8.5 - 10.5 mg/dL LAB CHEMISTRY METHOD 02/21/2024 2:[address] [facility] Blood Venous blood specimen / Unknown Venipuncture / Unknown 02/21/2024 11:41 AM EST 02/21/2024 11:41 AM EST Maryuri BAREU LAB BLOOD ORDERABLES Final Resul t [facility] [address] [place] [address], * Vitamin D 25 hydroxy (02/16/2024 3:09 PM EST) Vit D, 25-Hydroxy 43.5 30.0 - 80.0 ng/mL LAB CHEMISTRY METHOD 02/16/2024 7:[address] [facility] Blood Venous blood specimen / Unknown Venipuncture / Unknown 02/16/2024 3:09 PM EST 02/16/2024 3:09 PM EST us Mrayuri ABREU LAB BLOOD ORDERABLES Final Resul t [facility] [address] [place] [address], [place] [phone] * (ABNORMAL) Parathyroid hormone intact (02/16/2024 3:09 PM EST) PTH 141.9(H) 18.5 - 88.0 pcg/mL LAB CHEMISTRY METHOD 02/16/2024 7:[address] [facility] Blood Venous blood specimen / Unknown Venipuncture / Unknown 02/16/2024 3:09 PM EST 02/16/2024 3:09 PM EST us Maryuri ABREU LAB BLOOD ORDERABLES Final Resul t Performing Organization Address City/State/[facility] Co de Phone Number [facility] [address] [place] [address], [place] [phone] * DXA BONE DENSITY STUDY 1+ SITS [...] should be classified as having osteoporosis. The [facility] Department of Internal Medicine recommends using [...] Read should beclassified as having osteoporosis. The [facility] Department of Internal Medicine recommendsusing National [...] Recently Relevant to Health Maintenance Insurance MEDICARE [id number] Care Teams Plaster Block Layer Relationship Specialty Start Date End Date Daryl Guerin PA [address] [place] [address] PCP - General Internal Medicine 04/16/20
--- OUTSIDE RECORDS SUMMARY | 2024-04-16 06:34 | XMS_ITS | Clinical Summary ---
Author Organization [facility] Address [address] [place] [address] Care Team Providers Care Set Off Blocker Name Role Phone Daryl Guerin PA-C Primary [...] age to complete this topic Care Teams Set Off Blocker Relationship Specialty Start Date End Date Daryl Guerin, PAOscarC PCP - General Medical Services 01/24/23
--- OUTSIDE RECORDS SUMMARY | 2024-04-16 06:34 | XMS_ITS ---
Author Organization [facility] Address [address] [place] [phone] Phone Care Team Providers Care Bag Filler Name Role Phone Daryl Guerin Primary Care Provider +1 -[phone] Post Acute Care Coordination Status:Ongoing (Active) Start date:04/05/2024 Enrollment date:04/05/2024 Enrollment reason:Post acute care coordination Case Team Name Relationship Phone Aimee Cruz RN Post Acute Commodities Broker(R esplisy Staff) Continued Care and Services Coordination
--- OUTSIDE RECORDS SUMMARY | 2024-04-16 06:34 | XMS_ITS | Encounter Summary ---
Author Organization [facility] Address [address] [place] [address] Care Team Providers Care Graphic Designer Name Role Phone Daryl Guerin Primary Care Provider +1 [phone] Reason for Visit * Reason Comments Cough Encounter Details Date Type Department Care Team (Late st Contact Info) Description 03/19/2024 12:45 PM EST Office Visit Adult Medicine [facility] [address] [place], [place] [phone] Charles Lombardo PA [address] [place], [place] Viral syndrome (Primary Dx); Nausea; Vertigo; [...] for many years. 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 Nausea 3. Vertigo 4. 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 I prescribed meclizine asneeded. If [...] 10:45 AM EDT Appointment Bone Density - [address] [phone] 06/29/2024 11:30 AM EDT Appointment Radiology Department - [address] [phone] 07/16/2024 11:00 AM EDT Office Visit Endocrinology - [address] [phone] Maryuri Patino PA [address] [place], [place] 08/21/2024 10:45 AM EDT Office Visit [facility] Hematology Oncology [address] [place] [phone] Elaine Pinto DO [address] [place] [address] documented as of this encounter Procedures Procedure Name Priority Date/Time Associated Diagnosis Comments POC RAPID [id number], MOLECULAR Routine 03/19/2024 1:16 PM EST Viral [...] Signed Date: 03/19/2024 17:21 ET Workstation ID: [id number] Transcribed By: Self Edit Transcribed Date: 03/19/2024 [...] Signed Date: 03/19/2024 17:21 ET Workstation ID: [id number] Transcribed By: Self Edit Transcribed Date: 03/19/2024 17:20 ET us Charles Grupo ABREU IMG XR PROCEDURES Final Result * Poc Rapid [id number], MOLECULAR (03/19/2024 1:16 PM EST) COVID-19/SARS- COV-2 [...] cancer documented in this encounter Care Teams Graphic Designer Relationship Specialty Start Date End Date Daryl Guerin PA [address] [place] [id number] PCP - General Internal Medicine 04/16/20 documented as of this encounter
[2024-04-16 06:40] LABS: Basophils Absolute Auto 0.1 X10*3/uL (0.0-0.2); Basophils Percent Auto 0.3 % (0-2); Eosinophils Percent Auto 0.1 % (0-4); Hemoglobin 8.2 g/dl (12.0-16.0); Imm Gran Abs Auto 0.27 X10*3/uL (0.00-0.03); Lymphocytes Absolute Auto 1.1 X10*3/uL (1.2-4.9); Lymphocytes Percent Auto 4.2 % (20-40); MANUAL DIFF FLAG SCAN; Mean Corpuscular HGB Conc 30.4 g/dl (31.0-35.0); Mean Corpuscular Hemoglobin 27.1 pg (27.0-33.0); Mean Corpuscular Volume 89.1 fL (80.0-98.0); Monocytes Absolute Auto 1.6 X10*3/uL (0.1-1.2); Monocytes Percent Auto 6.1 % (2-11); Neutrophils Absolute Auto 23.3 x10*3/uL (2.0-8.3); Neutrophils Percent Auto 88.3 % (45-73); Platelet Count 322 X10*3/uL (160-400); Red Blood Count 3.03 X10*6/uL (4.20-5.50); Red Cell Distribution Width 18.9 % (11.0-16.0); SCAN SMEAR FLAG 1; White Blood Count 26.4 X10*3/uL (4.8-10.8)
[2024-04-16 07:32] LABS: SLIDE REVIEW VERIFIED
[2024-04-16 07:34] LABS: Anion Gap 16 (12-20); Blood Urea Nitrogen 27 mg/dL (9-16); Calcium 10.3 mg/dL (8.4-10.2); Carbon Dioxide 23 mmol/L (22-29); Chloride 104 mmol/L (96-108); Estimated Glomerular Filt Rate 52; Glucose Random 109 mg/dL (60-115); Potassium 3.1 mmol/L (3.3-5.1); Sodium 140 mmol/L (135-145)
== END 2024-04-16 06:21 | disposition home or self-care (01) ==
LOC: HO.MMNH2L 06:20
PROVIDERS: Visit Provider Student in an Organized Health Care Education/Training Program
DX: G93.41 Metabolic encephalopathy (principal); J18.9 Pneumonia, unspecified organism; I26.90 Septic pulmonary embolism without acute cor pulmonale
CPT/HCPCS: 36415; 80048; 85025

== ENCOUNTER 2024-04-18 11:48 | Outpatient (RCR) | payer MEDICARE, SELFPAY ==
--- NOTE | 2024-04-18 12:00 | PM.HEMONCPN ---
Medical Summary - Medical Summary Date of Service: 04/18/24 Chief complaint: Generalized weakness Primary Care Provider: BRADY Caldwell Traffic Attendant Utilized?: No - Japanese Speaking Interval History Interval history: Patient is here in follow-up accompanied by her daughter. She was just discharged from [facility]. She has been feeling extremely weak and tired. Her appetite is poor, she continues to lose weight. She has mild abdominal discomfort. She is on Lovenox twice a day, she took her last injection today. She denies any bruising or bleeding. Review of Systems - Constitutional Reports fatigue, Reports lack of energy, Reports malaise, Reports poor appetite, Reports weakness, Reports weight loss - Cardiovascular Reports no additional cardiovascular complaints - Respiratory Reports no additional respiratory complaints [facility] Medical History: Medical History (Last Reviewed 03/30/24 @ 11:34 by Robert Murillo MD) Anemia Basal cell carcinoma Mcmahan's palsy Chronic renal insufficiency Depression with anxiety Diverticulosis HTN (hypertension) Hyperparathyroidism Left arm swelling Osteoarthritis Osteopenia Osteoporosis Surgical History: Surgical History (Last Reviewed 03/30/24 @ 11:34 by Robert Murillo MD) H/O colonoscopy History of dental surgery History of hip surgery Hx of breast biopsy Social History: Social History (Last Updated 04/18/24 @ 12:01 by Sharla Narayan) Living Situation History: Household Members: Children Household Members: Other Household Members Other:: daughter stays with patient as of now Housing: House Are you a primary health care specialist to a significant other at home: No Do you presently have visiting nurse or other home services: No Alcohol History Details: 1. How often do you have a drink containing alcohol?: a. Never Tobacco History: Patient Tobacco Use Status: Former Tobacco user Tobacco use type: Cigarette Years Smoked: 16 Second Hand Smoke Exposure: No Substance Use History: Use of substances other than those prescribed or required for medical reasons: No Domestic Abuse History: Do you feel safe in your current relationship?: No Current Relationship Advance Directives: Advance Directives Date on File: 03/26/24 Homicidal Assessment: Do you have thoughts of harming others: None Do you have a plan to hurt others: No Plan Occupation Assessmet: service: No Home Medications and Allergies Home Medications ?Medication ?Instructions ?Recorded ?Confirmed ?Type alendronate 70 mg tablet 70 mg PO MO 04/19/23 03/26/24 History aspirin 81 mg tablet,delayed 81 mg PO BEDTIME 04/19/23 03/26/24 History release clonazepam 0.5 mg tablet 0.5 mg PO BID PRN anxiety 04/19/23 03/26/24 History fluoxetine 20 mg capsule 20 mg PO DAILY 04/19/23 03/26/24 History nortriptyline 75 mg capsule 75 mg PO BEDTIME 04/19/23 03/26/24 History acetaminophen 500 mg tablet 1,000 mg PO Q6H PRN Pain 04/20/23 03/26/24 History albuterol sulfate 90 mcg/actuation 2 puff inhalation Q4H PRN wheezing 03/26/24 03/26/24 History aerosol inhaler meclizine 12.5 mg tablet 12.5 mg PO TID PRN dizziness 03/26/24 03/26/24 History Allergies Allergy/AdvReac Type Severity Reaction Status Date / Time No Known Allergies Allergy Verified 04/18/24 11:59 [No Known Allergies*] Exam Vital signs: Vital Signs (72 hours) 04/18/24 12:01 Temperature 96.8 F Pulse Rate 69 Blood Pressure 83/51 L Pulse Oximetry 96 Oxygen Delivery Method Room Air - Constitutional Present: mild distress, thin, chronically ill appearing - Routine HEENT Exam Eye: Present: conjunctivae pale - Routine Neck Exam Absent: lymphadenopathy - Routine Respiratory Exam Present: CTAB. Absent: accessory muscle use - Routine Cardiovascular Exam Cardiovascular: Present: S1, S2 - Routine Extremities Exam Present: pulses intact - Routine Skin Exam Present: intact - Routine Neurological Exam Present: alert, oriented X3 Data - Labs Labs: Laboratory Tests 04/16/24 05:00 WBC 26.4 H RBC 3.03 L Hgb 8.2 L Hct 27.0 L Plt Count 322 D Sodium 140 Potassium 3.1 L BUN 27 H Creatinine 1.03 Calcium 10.3 H D Assessment and Plan Patient Active problem list reviewed?: Yes (1) Liver lesion Status: Acute Assessment and plan: 1. This is a 79-year-old woman diagnosed with acute bilateral segmental and subsegmental pulmonary emboli as well as diffuse liver lesions worrisome for malignancy. CT chest/abdomen and pelvis with contrast revealed bilateral pulmonary emboli, hepatomegaly with multifocal ill-defined low-density lesions largest measuring 4 cm. Cholelithiasis, no intra or extrahepatic biliary ductal dilatation. No focal mass in pancreas or spleen, no nodular lesions in the adrenals. Retroperitoneal lymphadenopathy, subcentimeter lytic lesions throughout axial skeleton, bony pelvis and proximal appendicular skeleton. She is on anticoagulation with Lovenox. Malignancy is probable cause of thromboembolism. Probable primary could be lung or gastrointestinal primary. I discussed above findings with patient as well as her daughter and the patient. Patient is here in follow-up from hospital. Unfortunately she continues to feel very weak, with complete loss of appetite and weight loss. She is dizzy, her blood pressure was on the low side. She has been taking Lovenox, she will run out today. I discussed switching her to Eliquis at this time. Given her rapidly declining performance status we discussed goals of care. She has advanced cancer, she will have to interrupt anticoagulation to undergo biopsy of liver lesion establish diagnosis. Her performance status is too poor to undergo any systemic/palliative treatment. She would like to be kept comfortable. She is interested in hospice care at home. Arrangements will be made for this. They were advised to call they had any further questions. The met with our nurse navigator and social media content specialist as well. Total time spent with the patient was 60 minutes - Time Spent With Patient Time Spent with Patient (in minutes): 60 Additional Coding: - Additional E/M codes Complex E/M visit Add On: CPT G2211
[2024-04-18 12:01] VITALS: BP 83/51; PULSE 69; TEMP 36; O2SAT 96
--- NOTE | 2024-04-18 13:00 | MHC.HEMONCMA ---
pt presents in the office today as a follow up for liver mass, vs, labs.
--- NOTE | 2024-04-18 13:26 | MHC.HEMONC ---
I met with patient and her daughter today following Oncology Consultation with Dr Rai for liver lesions. She is looking rather poorly, pale and weak. Dr Rai discussed hospice with her as she is too weak to undergo further tests or treatment. She understands goals of comfort care and would like hospice. Loki FORDE is making referral to [facility]. HCP and MOLST were done.
--- NOTE | 2024-04-18 13:37 | MHC.HEMONCSW ---
Stormy and I spoke with Paulette and her daughter Brina after she met with Dr. Rai. Education was provided around hospice due to her condition. She was in agreement with a referral and signed HCP and MOLST. I faxed the hospice referral to [facility].
== END 2024-05-09 13:38 | disposition hospice, home (50) ==
LOC: HO.ONC 11:48
PROVIDERS: PCP Physician Assistant Medical; Visit Provider Internal Medicine
DX: I26.99 Other pulmonary embolism without acute cor pulmonale (principal); K76.9 Liver disease, unspecified; Z79.01 Long term (current) use of anticoagulants
CPT/HCPCS: 99212

== ENCOUNTER → 2024-04-18 11:48 | Outpatient (BNV) | payer MEDICARE, SELFPAY | PROVIDERS: PCP Physician Assistant Medical; Visit Provider Internal Medicine | DX: I26.99 Other pulmonary embolism without acute cor pulmonale (principal); K76.9 Liver disease, unspecified | CPT/HCPCS: 99214; G2211 ==